=== PATIENT | male | born 1935 | race Caucasian/White ===

== ENCOUNTER 2018-07-27 11:59 | Inpatient (IN) | payer OTHER ==
--- NOTE | 2018-07-27 12:49 | R.PREADM ---
SCREENING DATE AND TIME 07/27/2018 12:08 (CDT) ANTICIPATED REHAB ADMISSION DATE 07/29/2018 REFERRING FACILITY [facility] REFERRAL DATE AND TIME 07/27/2018 12:08 (CDT) ACUTE ADMIT DATE 07/19/2018 Previous Rehabilitation(s): No. 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 Juan C Brooks M.D. MR# [id number] NAME LUANN WOODS ADDRESS [address] [place] [address] [place]IP [phone] DATE OF 1935 AGE 83 SSN# [id number] GENDER male MARITAL STATUS RACE white ADMIT FROM 02 - [facility] PRE-HOSPITAL LIVING SETTING 01 - Home (private home/apt. board/care, assisted living, nursing home, transitional living) HOME TYPE AND DETAILS Type of home: mobile home # of levels in the residence: 1 # of steps within the residence: 0 # of steps to enter the residence: 1 PRE-HOSPITAL LIVING WITH Family/Relatives FAMILY SUPPORT Yes PRIMARY FAMILY CONTACT NAME Ana Banks PRIMARY FAMILY CONTACT PHONE PHONE PRIMARY FAMILY CONTACT ON ADM.? no IS PRIMARY FAMILY CONTACT AUTH. REP.? no 1ST EMERGENCY CONTACT Ana Banks 1ST CONTACT PHONE PHONE 1ST CONTACT ON ADM. no IS 1ST CONTACT AUTH. REP.? no PHONE 2ND CONTACT ON ADM.? no PATIENT EMPLOYMENT STATUS Retired (for age) PATIENT EMPLOYER No Employer PAYOR INFORMATION: 1ST PAYOR NAME MEDICARE 1ST PAYOR PHONE [phone] 1ST PAYOR INJURY/ILLNESS DUE TO ACCIDENT? No ANOTHER CONSTITUTION PARTY RESPONSIBLE? 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 is a 83 yo Right-handed white male. On 07/19/2018 he was admitted to [facility] with diagnosis Chronic atrial fibrillation (I48.2) . His impairment category is Cardiac 09 - Cardiac Disorders (09). Pre-morbidly, Pt. was independent/mod-I in Social Cognition, Self-Care, Locomotion, Sphincter Control , Transfers Control, and Communication; and he had good Sphincter Control. Currently, he has deficits of Balance, Self-Care, Locomotion, Endurance, Safety Awareness, and Transf ers Control. Pt. is now referred to [facility] for acute in-patient rehabilitation in order to maximize patient's functional independence in activities of daily living, strength, ROM, and mobi lity. Patient has realistic goal of being discharged at assistance level 6-Aditya to reside at Home with Fam minal/Relatives. 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) PAST SURGICAL HISTORY: CABG MECHANICAL HEART VALVE REPLACEMENT NEPHRECTOMY IVC THROMBECTOMY PROSTATE SURGERY MEDICATION ALLERGIES: No Known Drug Allergies (NKDA) ENVIRONMENTAL ALLERGIES: None Known - Substance Allergies None Known - Other Allergies None Known CODE STATUS: Full code WEIGHT/HEIGHT/BMI: WEIGHT 216 lbs HEIGHT 5' 11" BMI 30.1 DIET: - Diet Type Regular - Diet - Solid Texture Regular - Diet - Liquid Texture Regular - Tube Feed N/A REVIEW OF SYSTEMS: - Gen Alert and awake Lying in bed No apparent distress Oriented to: person, time, and place - Vital Signs Temperature: 97 F SBP/DBP: 148/86 Pulse: 85 Resp: 18 Vital signs stable, afebrile - CVS RRR VITAL SIGNS Temperature: 97 F SBP/DBP: 148/86 Pulse: 85 Resp: 18 Vital signs stable, afebrile CURRENT SPHINCTER CONTROL: Pre-hospital bladder status: continent # of bladder accidents in the last 7 days prior to screenin Pre-hospital bowel status: continent # of bowel accidents in the last 7 days prior to screenin Last Bowel Movement Date: DETAILED CURRENT FUNCTIONAL STATUS: - Bladder accident frequency: Ind - No accidents in the past 7 days - Bowel accident frequency: Ind - No accidents in the past 7 days - Walking score based on distance walked: 3(>=150ft) - Wheelchair score based on distance traveled: 0(N/A) FUNCTIONAL STATUS: - Self-Care A. Eating Ind sup B. Grooming Ind sup C. Bathing Ind sup D. Dressing - Upper Ind sup E. Dressing - Lower Ind Vincent F. Toileting Ind Vincent - Sphincter Control G: Bladder control Ind Ind H: Bowel control Ind Ind - Transfers Control I. Bed/Chair/Wheelchair Ind sup J. Toilet Ind sup K. Tub/Shower Ind ADNO - Locomotion L. Walk/Wheelchair (C) Ind sup L. Walk/Wheelchair (W) Ind sup M. Stairs Ind ADNO - Communication N. Comprehension (B) Ind Ind O. Expression (B) Ind Ind - Social Cognition P. Social Interaction Ind Ind Q. Problem Solving Ind Ind R. Memory Ind Ind - Endurance Fair - Balance Fair - Safety Awareness Fair CURRENT FUNC. DEFICITS: Balance, Self-Care, Locomotion, Endurance, Safety Awareness, and Transfers Control THERAPY NOTES FROM ACUTE CARE: Attached. SPECIAL NEEDS: - Safety Concerns Skin breakdown precautions needed due to skin breakdown risk PATIENT NEEDS ACTIVE AND ONGOING THERAPEUTIC INTERVENTION OF MULTIPLE THERAPY DISCIPLINES, INCLUDING: - Occupational Therapy Evaluate and Treat. - Physical Therapy Evaluate and Treat. PATIENT NEEDS CLOSE MEDICAL SUPERVISION BY A REHABILITATION PHYSICIAN FOR: Bowel and Bladder Management Coordination of Treatment Team Diabetes Management Medical and Co-Morbidity Management DVT Management Pain Management PATIENT REQUIRES 24X7 REHAB NURSING FOR MEDICAL AND FUNCTIONAL MGT. OF THE FOLLOWING DEFICITS: ADL's Ambulation Bowel and Bladder Management Cognition Communication Disease Management Medication Management Patient/Family Education Providing Safe Environment Transfers Pain Management PATIENT REQUIRES INTENSIVE, COORDINATED INTERDISCIPLINARY APPROACH TO REHAB: Arranging Home Equipment/Services Discharge Planning Family Intervention/Training Drug And Alcohol Counselor/Case Management PATIENT REHAB POTENTIAL: Expected level of measurable improvement will be of a practical value to patient's functional capacit y or adaptations to impairments Has a viable Discharge Plan Medically appropriate; condition is sufficiently stable to participate in intensive rehab program Patient is able and expected to receive 3 hours of individualized therapy daily on at least 5 of ever y 7 days Patient's prognosis for significant practical improvement within a reasonable period of time appears Good DISCHARGE PLAN: - Estimated Length of Stay (days) 10. - Consensus on plan Discharge plan has been discussed with primary caregiver. Patient/Family is in agreement with the aldair n. Primary caregiver is in agreement with the plan. - Patient/Family Goals Return home with assistance. - Planned Living Setting Upon Discharge Home, to live with Family/Relatives. RECOMMENDED CARE LEVEL: IRF RECOMMENDATION DETAILS: Recommended Admission to Comprehensive Rehabilitation Program to Increase Functional [place] SCREENER'S COMPLETENESS CONFIRMATION: - Screening Confirmation The patient data collection on this preadmission screening form is finished - Mr. Oliver has multiple active medical problems which require close medical observation, supervision and management as provided by our inpatient rehabilitation unit. Furthermore, his moderate to marked cardiac debility is expected to improve greatly with aggressive daily inpatient physical and occupat ional therapy. Admission to the acute inpatient rehabilitation unit is necessary and appropriate. PHYSICIANS REVIEW AND ADMISSION DETERMINATION Admit - Based on my review of the Pre-Admission Screening results, in my medical judgment and experie nce, I concur with the findings and recommend admission to [facility], as this patient requires an IRF level of care. SIGNATURE PANEL: Clinical Liaison - [electronically] signed by Parker Case on 07/27/2018 at 12:34 (CDT) Physician Reviewer - [electronically] signed by Dr. Juan C Brooks M.D. on 07/27/2018 at 12:48 (CDT )
--- OUTSIDE RECORDS SUMMARY | 2018-07-27 18:38 | XMS REPORT | Clinical Summary ---
:1935 Author Organization [facility] Address [address] [place] [phone] Phone Care Team Providers Name Role Phone Unavailable Primary Care Provider Unavailable Allergies No Known Allergies Current Medications Not on file Active Problems Not on file Encounters Date Type Specialty Care Team Description 07/19/2018 Telephone Critical Care Jesus Cole Lbwe-vk-Wzhm Call Medicine MD Freddy 07/18/2018 Telephone Critical Care Jesus Cole Hjlo-lh-Zzoc Call Medicine MD Freddy 07/18/2018 Hospital Encounter Jesus Cole MD after 07/26/2017 Social History Tobacco Use Types Packs/Day Years Used Date Never Assessed Sex Assigned at Date Recorded Not on file Last Filed Vital Signs Not on file Plan of Treatment Health Maintenance Due Date Last Done Comments INFLUENZA VACCINE 07/02/2018 Results Not on fileafter 07/26/2017
--- OUTSIDE RECORDS SUMMARY | 2018-07-27 18:38 | XMS REPORT | Clinical Summary ---
:1935 Author Organization [facility] Address [address] [place] [address] Care Team Providers Name Role Phone Asked, No Pcp Primary Care Provider Unavailable Allergies No Known Allergies Current Medications Prescription Sig. Disp. Refills Start Date End Date Status finasteride Take 5 mg by 07/03/2017 Active (PROSCAR) 5 mg mouth daily. tabletIndications: Symptomatic Benign Prostatic Hyperplasia tamsulosin (FLOMAX) 0.4 mg daily. 06/07/2017 Active 0.4 mg capsule,extended release 24hr pantoprazole Take 1 tablet Active (PROTONIX) 40 MG EC by mouth daily. tablet FERROUS SULFATE, Take 45 mg by Active DRIED (IRON, DRIED, mouth daily. ORAL) simvastatin (ZOCOR) Take 40 mg by Active 40 MG mouth every tabletIndications: other day. Hyperlipidemia metoprolol Take 25 mg by Active succinate XL mouth daily. (TOPROL-XL) 25 mg 24 hr tabletIndications: Hypertension aspirin 81 mg Chew 1 tablet 30 tablet 0 07/27/2018 Active chewable (81 mg total) 8 tabletIndications: daily for 30 H/O heart valve days. replacement with porcine valve, Chronic atrial fibrillation (HCC) ofloxacin (OCUFLOX) Administer 2 07/27/2018 Active 0.3 % ophthalmic drops to both 8 solution eyes 4 (four) times a day for 5 days. glyBURIDE (DIABETA) 2.5 mg 2 (two) 07/03/2017 Discontinued 2.5 MG tablet times a day 8 with meals. metFORMIN 500 mg 2 (two) 07/24/2017 Discontinued (GLUCOPHAGE) 1,000 times a day. 8 mg tablet metoprolol 50 mg daily. 06/16/2017 Discontinued succinate XL 8 (TOPROL-XL) 50 mg 24 hr tablet warfarin (COUMADIN) Take 5 mg by 08/02/2017 Discontinued 5 MG tablet mouth daily. 8 enoxaparin Inject 80 mg Discontinued (LOVENOX) 80 mg/0.8 under the skin 8 mL syringe 2 (two) times a day. docusate sodium Take 1 capsule 60 capsule 0 01/28/2018 (COLACE) 100 MG (100 mg total) 8 capsule by mouth 2 (two) times a day for 30 days. traMADol (ULTRAM) Take 1 tablet 21 tablet 0 01/28/2018 50 mg tablet (50 mg total) 8 by mouth every 8 (eight) hours as needed for moderate pain for up to 21 doses. Active Problems Problem Noted Date Acute renal failure (ARF) (HCC) 07/19/2018 H/O heart valve replacement with porcine valve 07/19/2018 Chronic atrial fibrillation (HCC) 07/19/2018 H/O unilateral nephrectomy 07/19/2018 Essential hypertension 07/19/2018 Gastrointestinal hemorrhage with melena 07/19/2018 Gross hematuria 07/19/2018 History of CVA (cerebrovascular accident) without residual deficits 07/19/2018 Renal cell carcinoma (HCC) 07/19/2018 Hyperkalemia 07/19/2018 High anion gap metabolic acidosis 07/19/2018 Thrombocytopenia (HCC) 07/19/2018 Anemia due to chronic kidney disease 07/19/2018 Type 2 diabetes mellitus without complication, without long-term current 07/19 use of insulin ([facility]) Resolved Problems Problem Noted Date Resolved Date Right renal mass 01/24/2018 07/19/2018 Encounters Date Type Specialty Care Team Description 07/20/2018 Anesthesia Event Urology Fracisco Rodgers, 07/20/2018 Procedure Pass Urology 07/20/2018 Surgery Urology Rito Ga CYSTOSCOPY, LEFT SAMMY Castillo MD WITH URETERAL STENT REPLACEMENT, FULGERATION OF BLEEDERS 07/19/2018 - Hospital Encounter General Internal Gotur, Cris Acute renal failure, unspecified acute renal failure type (HCC) (Primary Dx); 07/27/2018 Medicine MD Lior H/O heart valve replacement with porcine valve; Anjelica Cox, Chronic atrial fibrillation (HCC); Essential hypertension; Type 2 diabetes mellitus without complication, without long-term current use of insulin (HCC); History of CVA (cerebrovascular accident) without residual deficits 07/19/2018 Telephone Soraya Tabor MD 07/18/2018 Intake Access N/A 05/25/2018 Telephone Estephania Knowles 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 Sr., MD disease, stage III (moderate) (Primary Dx) 02/02/2018 Telephone Soraya Tabor MD 01/28/2018 Patient Outreach Quality Dixie Soto RN 01/24/2018 - Hospital Encounter General Internal [facility] Renal mass, right 01/28/2018 Medicine MD Soraya 01/24/2018 Procedure Pass Urology 01/24/2018 Surgery Urology [facility], ROBOTIC ASSISTED MD Soraya LAPAROSCOPIC RADICAL RIGHT NEPHRECTOMY, IVC THROMBECTOMY 01/19/2018 Hospital Encounter Radiology [facility] Preop testing MD Soraya 01/19/2018 Office Visit Urologadriel Knowles Right renal mass MD Soraya (Primary Dx) 01/19/2018 Pre-Admit Testing Pre-Admission [facility] Preop testing Appointment Testing MD Soraya (Primary Dx) 01/19/2018 Hospital Encounter Radiology [facility] Renal mass MD Soraya 01/19/2018 Anesthesia Event Urology Gume Jackson, DINA 01/12/2018 Orders Only Urology Perla Howard, Renal mass (Primary MA Dx) 12/27/2017 Procedure Pass Radiology 12/27/2017 Orders Only Urology Perla Howard, Renal mass (Primary MA Dx) 12/27/2017 Telephone Urology Perla Howard, Renal mass (Primary MA Dx) 12/27/2017 Telephone Urology Aracelis Ponce 12/25/2017 Hospital Encounter Radiology Rito Ga Kidney errol Castillo MD 12/25/2017 Transcribe Orders Access Rito Ga Kidney errol Castillo MD (Primary Dx) 12/22/2017 Orders Only Urology Rito Ga Kidney errol Castillo MD (Primary Dx) 12/21/2017 Office Visit Urology Rito Ga Renal mass (Primary MD Anna Dx) 12/20/2017 Telephone Urology Aracelis Ponce 12/05/2017 Hospital Encounter Radiology Rito Ga Renal efraín Castillo MD 12/05/2017 Hospital Encounter Radiology Rito Ga Renal mass MD Anna 12/05/2017 Transcribe Orders Urology Sonyavam, Kidney mass (Primary MD Miles Dx) 12/05/2017 Telephone Urology Rito Ga MD 09/27/2017 Hospital Encounter Radiology Miles Field MD 09/27/2017 Procedure Pass Radiology 09/27/2017 Ancillary Orders Radiology Miles Field MD 08/07/2017 Office Visit Urology Rito Ga Renal mass (Primary MD Anna Dx) 08/07/2017 Procedure Pass Radiology 08/07/2017 Procedure Pass Radiology after 07/26/2017 Family History Medical History Relation Name Comments Heart disease Father Heart disease Mother Relation Name Status Comments Father Mother Social History Tobacco Use Types Packs/Day Years Used Date Former Smoker Cigarettes 0.25 2 Quit: 1963 Smokeless Tobacco: Former User Quit: 1964 Alcohol Use Drinks/Week oz/Week Comments No Sex Assigned at Date Recorded Not on file Last Filed Vital Signs Vital Sign Reading Time Taken Blood Pressure 134/63 07/27/2018 11:48 AM CDT Pulse 77 07/27/2018 11:48 AM CDT Temperature 35.9 C (96.6 F) 07/27/2018 11:48 AM CDT Respiratory Rate 20 07/27/2018 11:48 AM CDT Oxygen Saturation 95% 07/27/2018 11:48 AM CDT Inhaled Oxygen Concentration - - Weight 94.4 kg (208 lb 2 oz) 07/27/2018 5:42 AM CDT Height 180.3 cm (5' 11") 07/19/2018 1:45 AM CDT Body Mass Index 29.03 07/27/2018 5:42 AM CDT Plan of Treatment Date Type Specialty Care Team Description 10/25/2018 Office Visit Urology Soraya Knowles MD [address] [facility] [address] [place] [id number] [phone] Health Maintenance Due Date Last Done Comments DIABETIC FOOT EXAM 1943 DIABETIC RETINAL EYE EXAM 1943 SHINGRIX VACCINE (#1) 1983 ZOSTER VACCINE 1993 PNEUMOCOCCAL POLYSACCHARIDE VACCINE AGE 65 AND OVER 1998 PNEUMOCOCCAL-13 1998 INFLUENZA VACCINE 05/02/2018 Implants Implanted Type Area Student Development Advisor Device Expiration Model / Identifier Date Serial / Lot X-Large, Hem-O-Cheryl Polymer Ligating Clip (6/Cartridge, 14 Cr/Bx) Closure N/A : WECK CLOSURE, 06/24/2022 [id number] / Implanted: Qty: 1 on 01/24/2018 by Soraya Knowles MD Device N/A DIV OF TELEFLEX / INC 12mm/ 15mm Retrieval Bag Retrieval N/A: [employer] 08/21/2020 [id number] / Implanted: Qty: 1 on 01/24/2018 by Soraya Knowles MD Materials N/A [facility] / [id number] Clip Ligtng Hem-O-Cheryl Endoscpc [facility] Lg - [id number] Surgical N/A: WECK CLOSURE 10/10/2022 [id number] / Implanted: Qty: 4 on 01/24/2018 by Soraya Knowles MD Implants; N/A SYSTEMS / Expanders; Extenders; Surgical Wires Clip Ligtng Hem-O-Cheryl Endoscpc [facility] Lg - [id number] Surgical N/A: WECK CLOSURE 09/13/2022 [id number] / Implanted: Qty: 1 on 01/24/2018 by Soraya Knowles MD Implants; N/A SYSTEMS / Expanders; Extenders; Surgical Wires Clip Ligtng Hem-O-Cheryl Endoscpc A[employer] Ply Lg - [id number] Surgical N/A: WECK CLOSURE 09/13/2022 [id number] / Implanted: Qty: 1 on 01/24/2018 by Soraya Knowles MD Implants; N/A SYSTEMS / Expanders; Extenders; Surgical Wires Tip Flxibl Selnt Fibrin Clog-Resistant 45cm Evicel - [id number] Surgical N/A : [facility] 07/01/2020 [id number] / Implanted: Qty: 1 on 01/24/2018 by Soraya Knowles MD Implants; N/A / Expanders; [id number] Extenders; Surgical Wires Tip Flxibl Selnt Fibrin Clog-Resistant 45cm Evicel - [id number] Surgical N/A : [facility] 07/01/2020 [id number] / Implanted: Qty: 1 on 01/24/2018 by Soraya Knowles MD Implants; N/A / Expanders; [id number] Extenders; Surgical Wires Stent Contour Injection 6x26 - [id number] Surgical N/A: [facility] 04/15 [id number] / Implanted: Qty: 1 on 07/20/2018 by Rito Ga MD Stents N/A / [id number] Procedures Procedure Name Priority Date/Time Associated Comments Diagnosis POC GLUCOSE Routine 07/27/2018 11:42 Results for this AM CDT procedure are in the results section. POC GLUCOSE Routine 07/27/2018 7:46 Results for this AM CDT procedure are in the results section. POC GLUCOSE Routine 07/27/2018 5:38 Results for this AM CDT procedure are in the results section. ESTIMATED GFR Routine 07/27/2018 5:30 Results for this AM CDT procedure are in the results section. BASIC METABOLIC PANEL Routine 07/27/2018 5:30 Results for this AM CDT procedure are in the results section. POC GLUCOSE Routine 07/26/2018 8:48 Results for this PM CDT procedure are in the results section. POC GLUCOSE Routine 07/26/2018 4:23 Results for this PM CDT procedure are in the results section. POC GLUCOSE Routine 07/26/2018 11:57 Results for this AM CDT procedure are in the results section. POC GLUCOSE Routine 07/26/2018 7:54 Results for this AM CDT procedure are in the results section. ESTIMATED GFR Routine 07/26/2018 4:46 Results for this AM CDT procedure are in the results section. MAGNESIUM LEVEL Routine 07/26/2018 4:46 Results for this AM CDT procedure are in the results section. BASIC METABOLIC PANEL Routine 07/26/2018 4:46 Results for this AM CDT procedure are in the results section. HC COMPLETE BLD COUNT Routine 07/26/2018 3:55 Results for this W/AUTO DIFF AM CDT procedure are in the results section. POC GLUCOSE Routine 07/25/2018 9:08 Results for this PM CDT procedure are in the results section. POC GLUCOSE Routine 07/25/2018 6:17 Results for this PM CDT procedure are in the results section. POC GLUCOSE Routine 07/25/2018 11:40 Results for this AM CDT procedure are in the results section. POC GLUCOSE Routine 07/25/2018 7:46 Results for this AM CDT procedure are in the results section. ESTIMATED GFR Routine 07/25/2018 4:41 Results for this AM CDT procedure are in the results section. PARTIAL THROMBOPLASTIN Routine 07/25/2018 4:41 Results for this TIME (PTT) AM CDT procedure are in the results section. PROTHROMBIN TIME WITH Routine 07/25/2018 4:41 Results for this INR AM CDT procedure are in the results section. BASIC METABOLIC PANEL Routine 07/25/2018 4:41 Results for this AM CDT procedure are in the results section. HC COMPLETE BLD COUNT Routine 07/25/2018 4:41 Results for this W/AUTO DIFF AM CDT procedure are in the results section. PHOSPHORUS LEVEL Routine 07/25/2018 4:41 Results for this AM CDT procedure are in the results section. MAGNESIUM LEVEL Routine 07/25/2018 4:41 Results for this AM CDT procedure are in the results section. POC GLUCOSE Routine 07/25/2018 1:05 Results for this AM CDT procedure are in the results section. POC GLUCOSE Routine 07/24/2018 9:41 Results for this PM CDT procedure are in the results section. POC GLUCOSE Routine 07/24/2018 5:13 Results for this PM CDT procedure are in the results section. HEMOGLOBIN & HEMATOCRIT STAT 07/24/2018 4:15 Results for this PM CDT procedure are in the results section. POC GLUCOSE Routine 07/24/2018 11:15 Results for this AM CDT procedure are in the results section. POC GLUCOSE Routine 07/24/2018 7:43 Results for this AM CDT procedure are in the results section. POC GLUCOSE Routine 07/24/2018 5:38 Results for this AM CDT procedure are in the results section. PARTIAL THROMBOPLASTIN Routine 07/24/2018 5:28 Results for this TIME (PTT) AM CDT procedure are in the results section. ESTIMATED GFR Routine 07/24/2018 5:28 Results for this AM CDT procedure are in the results section. COMPREHENSIVE METABOLIC Routine 07/24/2018 5:28 Results for this PANEL AM CDT procedure are in the results section. HC COMPLETE BLD COUNT Routine 07/24/2018 5:28 Results for this W/AUTO DIFF AM CDT procedure are in the results section. PHOSPHORUS LEVEL Routine 07/24/2018 5:28 Results for this AM CDT procedure are in the results section. POC GLUCOSE Routine 07/24/2018 1:41 Results for this AM CDT procedure are in the results section. PARTIAL THROMBOPLASTIN Timed 07/23/2018 9:51 Results for this TIME (PTT) PM CDT procedure are in the results section. POC GLUCOSE Routine 07/23/2018 9:12 Results for this PM CDT procedure are in the results section. PARTIAL THROMBOPLASTIN STAT 07/23/2018 3:41 Results for this TIME (PTT) PM CDT procedure are in the results section. POC GLUCOSE Routine 07/23/2018 2:35 Results for this PM CDT procedure are in the results section. POC GLUCOSE Routine 07/23/2018 11:46 Results for this AM CDT procedure are in the results section. POC GLUCOSE Routine 07/23/2018 7:48 Results for this AM CDT procedure are in the results section. ESTIMATED GFR Routine 07/23/2018 4:05 Results for this AM CDT procedure are in the results section. PROTHROMBIN TIME WITH Routine 07/23/2018 4:05 Results for this INR AM CDT procedure are in the results section. BASIC METABOLIC PANEL Routine 07/23/2018 4:05 Results for this AM CDT procedure are in the results section. HC COMPLETE BLD COUNT Routine 07/23/2018 4:05 Results for this W/AUTO DIFF AM CDT procedure are in the results section. PHOSPHORUS LEVEL Routine 07/23/2018 4:05 Results for this AM CDT procedure are in the results section. POC GLUCOSE Routine 07/22/2018 8:31 Results for this PM CDT procedure are in the results section. POC GLUCOSE Routine 07/22/2018 4:27 Results for this PM CDT procedure are in the results section. POC GLUCOSE Routine 07/22/2018 11:04 Results for this AM CDT procedure are in the results section. CT HEAD WO CONTRAST STAT 07/22/2018 10:11 Results for this AM CDT procedure are in the results section. ARTERIAL BLOOD GAS STAT 07/22/2018 9:20 Results for this AM CDT procedure are in the results section. ECG 12-LEAD STAT 07/22/2018 9:17 Results for this AM CDT procedure are in the results section. POC GLUCOSE Routine 07/22/2018 7:12 Results for this AM CDT procedure are in the results section. MICROALBUMIN, URINE, Routine 07/22/2018 7:10 Results for this RANDOM AM CDT procedure are in the results section. CREATININE LEVEL, Routine 07/22/2018 7:10 Results for this URINE, RANDOM AM CDT procedure are in the results section. PROTEIN, URINE, RANDOM Routine 07/22/2018 7:10 Results for this AM CDT procedure are in the results section. XR CHEST 1 VW PORTABLE Routine 07/22/2018 6:35 Results for this AM CDT procedure are in the results section. ESTIMATED GFR Routine 07/22/2018 3:40 Results for this AM CDT procedure are in the results section. PHOSPHORUS LEVEL Routine 07/22/2018 3:40 Results for this AM CDT procedure are in the results section. BASIC METABOLIC PANEL Routine 07/22/2018 3:40 Results for this AM CDT procedure are in the results section. MAGNESIUM LEVEL Routine 07/22/2018 3:40 Results for this AM CDT procedure are in the results section. HC COMPLETE BLD COUNT Routine 07/22/2018 3:40 Results for this W/AUTO DIFF AM CDT procedure are in the results section. FOLATE LEVEL Routine 07/22/2018 3:40 Results for this AM CDT procedure are in the results section. VITAMIN B12 LEVEL Routine 07/22/2018 3:40 Results for this AM CDT procedure are in the results section. AMMONIA LEVEL Routine 07/22/2018 3:40 Results for this AM CDT procedure are in the results section. POC GLUCOSE Routine 07/21/2018 8:20 Results for this PM CDT procedure are in the results section. RETICULOCYTE COUNT Routine 07/21/2018 6:20 Results for this PM CDT procedure are in the results section. TOTAL IRON BINDING Routine 07/21/2018 4:55 Results for this CAPACITY PM CDT procedure are in the results section. FERRITIN LEVEL Routine 07/21/2018 4:55 Results for this PM CDT procedure are in the results section. VITAMIN D 1,25 Routine 07/21/2018 4:54 Results for this DIHYDROXY LEVEL, SERUM PM CDT procedure are in the results section. POC GLUCOSE Routine 07/21/2018 4:51 Results for this PM CDT procedure are in the results section. ECHOCARDIOGRAM 2D Routine 07/21/2018 1:50 Results for this COMPLETE W MMODE PM CDT procedure are in SPECTRAL COLOR DOPPLER the results (22503) section. HEMODIALYSIS Routine 07/21/2018 11:54 AM CDT POC GLUCOSE Routine 07/21/2018 11:38 Results for this AM CDT procedure are in the results section. POC GLUCOSE Routine 07/21/2018 7:32 Results for this AM CDT procedure are in the results section. ESTIMATED GFR Routine 07/21/2018 3:15 Results for this AM CDT procedure are in the results section. PHOSPHORUS LEVEL Routine 07/21/2018 3:15 Results for this AM CDT procedure are in the results section. MAGNESIUM LEVEL Routine 07/21/2018 3:15 Results for this AM CDT procedure are in the results section. BASIC METABOLIC PANEL Routine 07/21/2018 3:15 Results for this AM CDT procedure are in the results section. PROTHROMBIN TIME WITH Routine 07/21/2018 3:15 Results for this INR AM CDT procedure are in the results section. HC COMPLETE BLD COUNT Routine 07/21/2018 3:15 Results for this W/AUTO DIFF AM CDT procedure are in the results section. VANCOMYCIN LEVEL, Routine 07/21/2018 3:15 Results for this RANDOM AM CDT procedure are in the results section. HEMOGLOBIN & HEMATOCRIT Routine 07/20/2018 9:20 Results for this PM CDT procedure are in the results section. OCCULT BLOOD, STOOL Routine 07/20/2018 9:10 Results for this PM CDT procedure are in the results section. POC GLUCOSE Routine 07/20/2018 9:03 Results for this PM CDT procedure are in the results section. POC GLUCOSE Routine 07/20/2018 5:02 Results for this PM CDT procedure are in the results section. HEMOGLOBIN & HEMATOCRIT Timed 07/20/2018 2:05 Results for this PM CDT procedure are in the results section. HEMODIALYSIS Routine 07/20/2018 12:40 PM CDT POC GLUCOSE Routine 07/20/2018 12:28 Results for this PM CDT procedure are in the results section. FL > 1 HOUR Routine 07/20/2018 12:10 Results for this PM CDT procedure are in the results section. NV AN ELECTIVE Routine 07/20/2018 11:24 SUPRAGLOTTIC AIRWAY AM CDT Procedure Note - Zahra Moore CRNA - 07/20/2018 11:24 AM CDT Airway Date/Time: 07/20/2018 11:24 AM Performed by: ZAHRA MOORE Authorized by: DHAVAL DAILEY II Location: OR Urgency: Elective Difficult Airway: No Performed by: resident/TWILL CUTTER/AA Preoxygenated with 100% O2: Yes C-spine Precautions Maintained Throughout: Yes Mask Ventilation: Not attempted Final Airway Type: Supraglottic airway Final LMA: I-Gel LMA Size: 5 Number of Attempts at Approach: 1 atraumatic CYSTOSCOPY, WITH 07/20/2018 11:00 left uretral stone URETERAL STENT AM CDT REPLACEMENT POC GLUCOSE Routine 07/20/2018 8:45 Results for this AM CDT procedure are in the results section. POC GLUCOSE Routine 07/20/2018 5:06 Results for this AM CDT procedure are in the results section. ESTIMATED GFR Routine 07/20/2018 4:40 Results for this AM CDT procedure are in the results section. B NATRIURETIC PEPTIDE Routine 07/20/2018 4:40 Results for this AM CDT procedure are in the results section. HC COMPLETE BLD COUNT Routine 07/20/2018 4:40 Results for this W/AUTO DIFF AM CDT procedure are in the results section. IONIZED CALCIUM Routine 07/20/2018 4:40 Results for this AM CDT procedure are in the results section. PHOSPHORUS LEVEL Routine 07/20/2018 4:40 Results for this AM CDT procedure are in the results section. MAGNESIUM LEVEL Routine 07/20/2018 4:40 Results for this AM CDT procedure are in the results section. HEPATIC FUNCTION PANEL Routine 07/20/2018 4:40 Results for this AM CDT procedure are in the results section. BASIC METABOLIC PANEL Routine 07/20/2018 4:40 Results for this AM CDT procedure are in the results section. PROTHROMBIN TIME WITH Routine 07/20/2018 4:40 Results for this INR AM CDT procedure are in the results section. POC GLUCOSE Routine 07/20/2018 12:55 Results for this AM CDT procedure are in the results section. POC GLUCOSE Routine 07/19/2018 8:48 Results for this PM CDT procedure are in the results section. ECG 12-LEAD Routine 07/19/2018 5:45 Results for this PM CDT procedure are in the results section. POC GLUCOSE Routine 07/19/2018 4:53 Results for this PM CDT procedure are in the results section. CT ABDOMEN PELVIS WO STAT 07/19/2018 3:13 Results for this CONTRAST PM CDT procedure are in the results section. ESTIMATED GFR STAT 07/19/2018 2:13 Results for this PM CDT procedure are in the results section. MAGNESIUM LEVEL STAT 07/19/2018 2:13 Results for this PM CDT procedure are in the results section. BASIC METABOLIC PANEL STAT 07/19/2018 2:13 Results for this PM CDT procedure are in the results section. LACTIC ACID LEVEL STAT 07/19/2018 2:13 Results for this PM CDT procedure are in the results section. ARTERIAL BLOOD GAS STAT 07/19/2018 2:13 Results for this PM CDT procedure are in the results section. FIBRINOGEN STAT 07/19/2018 2:13 Results for this PM CDT procedure are in the results section. PARTIAL THROMBOPLASTIN STAT 07/19/2018 2:13 Results for this TIME (PTT) PM CDT procedure are in the results section. PROTHROMBIN TIME WITH STAT 07/19/2018 2:13 Results for this INR PM CDT procedure are in the results section. PHOSPHORUS LEVEL STAT 07/19/2018 2:13 Results for this PM CDT procedure are in the results section. HC COMPLETE BLD COUNT STAT 07/19/2018 2:13 Results for this W/AUTO DIFF PM CDT procedure are in the results section. POC GLUCOSE Routine 07/19/2018 12:29 Results for this PM CDT procedure are in the results section. RESPIRATORY PATHOGEN Routine 07/19/2018 9:56 Results for this PANEL AM CDT procedure are in the results section. HEPATITIS B SURFACE Routine 07/19/2018 9:30 Results for this ANTIGEN AM CDT procedure are in the results section. BLOOD CULTURE, AEROBIC Routine 07/19/2018 9:26 Results for this & ANAEROBIC AM CDT procedure are in the results section. POC GLUCOSE Routine 07/19/2018 8:18 Results for this AM CDT procedure are in the results section. HEMODIALYSIS Routine 07/19/2018 7:12 Results for this AM CDT procedure are in the results section. POC GLUCOSE Routine 07/19/2018 4:52 Results for this AM CDT procedure are in the results section. XR CHEST 1 VW PORTABLE STAT 07/19/2018 4:31 Results for this AM CDT procedure are in the results section. HEMODIALYSIS CATHETER Routine 07/19/2018 3:08 Acute renal Results for this PLACEMENT AM CDT failure, procedure are in unspecified acute the results renal failure type section. (HCC) POC GLUCOSE Routine 07/19/2018 2:04 Results for this AM CDT procedure are in the results section. URINALYSIS SCREEN AND STAT 07/19/2018 2:00 Results for this MICROSCOPY, WITH REFLEX AM CDT procedure are in TO CULTURE the results section. ESTIMATED GFR STAT 07/19/2018 1:50 Results for this AM CDT procedure are in the results section. LACTIC ACID LEVEL STAT 07/19/2018 1:50 Results for this AM CDT procedure are in the results section. BETA HYDROXYBUTYRATE STAT 07/19/2018 1:50 Results for this AM CDT procedure are in the results section. THYROID STIMULATING STAT 07/19/2018 1:50 Results for this HORMONE AM CDT procedure are in the results section. PROTHROMBIN TIME WITH STAT 07/19/2018 1:50 Results for this INR AM CDT procedure are in the results section. PARTIAL THROMBOPLASTIN STAT 07/19/2018 1:50 Results for this TIME (PTT) AM CDT procedure are in the results section. PHOSPHORUS LEVEL STAT 07/19/2018 1:50 Results for this AM CDT procedure are in the results section. MAGNESIUM LEVEL STAT 07/19/2018 1:50 Results for this AM CDT procedure are in the results section. IONIZED CALCIUM STAT 07/19/2018 1:50 Results for this AM CDT procedure are in the results section. HC COMPLETE BLD COUNT STAT 07/19/2018 1:50 Results for this W/AUTO DIFF AM CDT procedure are in the results section. COMPREHENSIVE METABOLIC STAT 07/19/2018 1:50 Results for this PANEL AM CDT procedure are in the results section. ECG 12-LEAD Routine 07/19/2018 1:49 Results for this AM CDT procedure are in the results section. POC GLUCOSE Routine 07/19/2018 1:29 Results for this AM CDT procedure are in the results section. 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 ZZESTIMATED GFR Routine 05/17/2018 11:55 Results for this AM CDT procedure are in the results section. URIC ACID LEVEL Routine 05/17/2018 11:55 Chronic kidney Results for this AM CDT disease, stage III procedure are in (moderate) the results section. HC COMPLETE BLD COUNT Routine 05/17/2018 11:55 Chronic kidney Results for this W/AUTO DIFF AM CDT disease, stage III procedure are in (moderate) the results section. ALBUMIN LEVEL Routine 05/17/2018 11:55 Chronic kidney Results for this AM CDT disease, stage III procedure are in (moderate) the results section. PHOSPHORUS LEVEL Routine 05/17/2018 11:55 Chronic kidney Results for this AM CDT disease, stage III procedure are in (moderate) the results section. BASIC METABOLIC PANEL Routine 05/17/2018 11:55 Chronic kidney Results for this AM CDT disease, stage III procedure are in (moderate) the results section. PARATHYROID HORMONE Routine 05/17/2018 11:55 Chronic kidney Results for this AM CDT disease, stage III procedure are in (moderate) the results section. URINALYSIS SCREEN AND Routine 05/17/2018 11:55 Renal mass Results for this MICROSCOPY, WITH REFLEX AM CDT procedure are in TO CULTURE the results section. GRAM STAIN Routine 05/17/2018 11:55 Results for this AM CDT procedure are in the results section. URINE CULTURE Routine 05/17/2018 11:55 Results for this AM CDT procedure are in the results section. 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 ZZESTIMATED GFR Routine 02/15/2018 12:40 Results for this PM CDT procedure are in the results section. URIC ACID LEVEL Routine 02/15/2018 12:40 Chronic kidney Results for this PM CDT disease, stage III procedure are in (moderate) the results section. HC COMPLETE BLD COUNT Routine 02/15/2018 12:40 Chronic kidney Results for this W/AUTO DIFF PM CDT disease, stage III procedure are in (moderate) the results section. URINALYSIS, AUTOMATED Routine 02/15/2018 12:40 Chronic kidney Results for this WITH MICROSCOPY PM CDT disease, stage III procedure are in (moderate) the results section. ALBUMIN LEVEL Routine 02/15/2018 12:40 Chronic kidney Results for this PM CDT disease, stage III procedure are in (moderate) the results section. PHOSPHORUS LEVEL Routine 02/15/2018 12:40 Chronic kidney Results for this PM CDT disease, stage III procedure are in (moderate) the results section. BASIC METABOLIC PANEL Routine 02/15/2018 12:40 Chronic kidney Results for this PM CDT disease, stage III procedure are in (moderate) the results section. PARATHYROID HORMONE Routine 02/15/2018 12:40 Chronic kidney Results for this PM CDT disease, stage III procedure are in (moderate) the results section. POC GLUCOSE Routine 01/28/2018 11:34 Results for this AM CDT procedure are in the results section. POC GLUCOSE Routine 01/28/2018 8:19 Results for this AM CDT procedure are in the results section. ZZESTIMATED GFR Routine 01/28/2018 4:00 Results for this AM CDT procedure are in the results section. PHOSPHORUS LEVEL Routine 01/28/2018 4:00 Results for this AM CDT procedure are in the results section. MAGNESIUM LEVEL Routine 01/28/2018 4:00 Results for this AM CDT procedure are in the results section. CBC HEMOGRAM Routine 01/28/2018 4:00 Results for this AM CDT procedure are in the results section. BASIC METABOLIC PANEL Routine 01/28/2018 4:00 Results for this AM CDT procedure are in the results section. POC GLUCOSE Routine 01/27/2018 9:01 Results for this PM CDT procedure are in the results section. POC GLUCOSE Routine 01/27/2018 6:48 Results for this PM CDT procedure are in the results section. POC GLUCOSE Routine 01/27/2018 6:19 Results for this PM CDT procedure are in the results section. POC GLUCOSE Routine 01/27/2018 1:10 Results for this PM CDT procedure are in the results section. POC GLUCOSE Routine 01/27/2018 7:29 Results for this AM CDT procedure are in the results section. PROTHROMBIN TIME WITH Routine 01/27/2018 4:45 Results for this INR AM CDT procedure are in the results section. PARTIAL THROMBOPLASTIN Routine 01/27/2018 4:45 Results for this TIME (PTT) AM CDT procedure are in the results section. HC COMPLETE BLD COUNT Routine 01/27/2018 4:45 Results for this W/AUTO DIFF AM CDT procedure are in the results section. ZZESTIMATED GFR Routine 01/27/2018 4:00 Results for this AM CDT procedure are in the results section. PHOSPHORUS LEVEL Routine 01/27/2018 4:00 Results for this AM CDT procedure are in the results section. LACTIC ACID LEVEL Routine 01/27/2018 4:00 Results for this AM CDT procedure are in the results section. LDH Routine 01/27/2018 4:00 Results for this AM CDT procedure are in the results section. MAGNESIUM LEVEL Routine 01/27/2018 4:00 Results for this AM CDT procedure are in the results section. HEPATIC FUNCTION PANEL Routine 01/27/2018 4:00 Results for this AM CDT procedure are in the results section. BASIC METABOLIC PANEL Routine 01/27/2018 4:00 Results for this AM CDT procedure are in the results section. POC GLUCOSE Routine 01/26/2018 9:40 Results for this PM CDT procedure are in the results section. POC GLUCOSE Routine 01/26/2018 5:20 Results for this PM CDT procedure are in the results section. POC GLUCOSE Routine 01/26/2018 3:24 Results for this PM CDT procedure are in the results section. POC GLUCOSE Routine 01/26/2018 11:30 Results for this AM CDT procedure are in the results section. POC GLUCOSE Routine 01/26/2018 8:20 Results for this AM CDT procedure are in the results section. ZZESTIMATED GFR Routine 01/26/2018 1:31 Results for this AM CDT procedure are in the results section. PHOSPHORUS LEVEL Routine 01/26/2018 1:31 Results for this AM CDT procedure are in the results section. LACTIC ACID LEVEL Routine 01/26/2018 1:31 Results for this AM CDT procedure are in the results section. LDH Routine 01/26/2018 1:31 Results for this AM CDT procedure are in the results section. MAGNESIUM LEVEL Routine 01/26/2018 1:31 Results for this AM CDT procedure are in the results section. HEPATIC FUNCTION PANEL Routine 01/26/2018 1:31 Results for this AM CDT procedure are in the results section. BASIC METABOLIC PANEL Routine 01/26/2018 1:31 Results for this AM CDT procedure are in the results section. PROTHROMBIN TIME WITH Routine 01/26/2018 1:24 Results for this INR AM CDT procedure are in the results section. PARTIAL THROMBOPLASTIN Routine 01/26/2018 1:24 Results for this TIME (PTT) AM CDT procedure are in the results section. HC COMPLETE BLD COUNT Routine 01/26/2018 1:24 Results for this W/AUTO DIFF AM CDT procedure are in the results section. POC GLUCOSE Routine 01/25/2018 9:12 Results for this PM CDT procedure are in the results section. POC GLUCOSE Routine 01/25/2018 3:44 Results for this PM CDT procedure are in the results section. POC GLUCOSE Routine 01/25/2018 11:20 Results for this AM CDT procedure are in the results section. POC GLUCOSE Routine 01/25/2018 7:27 Results for this AM CDT procedure are in the results section. IONIZED CALCIUM Routine 01/25/2018 1:00 Results for this AM CDT procedure are in the results section. ZZESTIMATED GFR Routine 01/25/2018 1:00 Results for this AM CDT procedure are in the results section. PROTHROMBIN TIME WITH Routine 01/25/2018 1:00 Results for this INR AM CDT procedure are in the results section. PHOSPHORUS LEVEL Routine 01/25/2018 1:00 Results for this AM CDT procedure are in the results section. PARTIAL THROMBOPLASTIN Routine 01/25/2018 1:00 Results for this TIME (PTT) AM CDT procedure are in the results section. LACTIC ACID LEVEL Routine 01/25/2018 1:00 Results for this AM CDT procedure are in the results section. LDH Routine 01/25/2018 1:00 Results for this AM CDT procedure are in the results section. MAGNESIUM LEVEL Routine 01/25/2018 1:00 Results for this AM CDT procedure are in the results section. HEPATIC FUNCTION PANEL Routine 01/25/2018 1:00 Results for this AM CDT procedure are in the results section. BASIC METABOLIC PANEL Routine 01/25/2018 1:00 Results for this AM CDT procedure are in the results section. CBC WITH PLATELET AND Routine 01/25/2018 1:00 Results for this DIFFERENTIAL AM CDT procedure are in the results section. POC GLUCOSE Routine 01/24/2018 8:54 Results for this PM CDT procedure are in the results section. GRAM STAIN Routine 01/24/2018 6:40 Results for this PM CDT procedure are in the results section. URINE CULTURE Routine 01/24/2018 6:40 Results for this PM CDT procedure are in the results section. URINALYSIS SCREEN AND Routine 01/24/2018 6:39 Results for this MICROSCOPY, WITH REFLEX PM CDT procedure are in TO CULTURE the results section. POC GLUCOSE Routine 01/24/2018 5:49 Results for this PM CDT procedure are in the results section. PARTIAL THROMBOPLASTIN Routine 01/24/2018 5:45 Results for this TIME (PTT) PM CDT procedure are in the results section. PROTHROMBIN TIME WITH Routine 01/24/2018 5:45 Results for this INR PM CDT procedure are in the results section. HC COMPLETE BLD COUNT Routine 01/24/2018 5:45 Results for this W/AUTO DIFF PM CDT procedure are in the results section. ZZESTIMATED GFR Routine 01/24/2018 5:38 Results for this PM CDT procedure are in the results section. PHOSPHORUS LEVEL Routine 01/24/2018 5:38 Results for this PM CDT procedure are in the results section. MAGNESIUM LEVEL Routine 01/24/2018 5:38 Results for this PM CDT procedure are in the results section. LACTIC ACID LEVEL Routine 01/24/2018 5:38 Results for this PM CDT procedure are in the results section. BASIC METABOLIC PANEL Routine 01/24/2018 5:38 Results for this PM CDT procedure are in the results section. HC COMPLETE BLD COUNT Routine 01/24/2018 2:03 Results for this W/AUTO DIFF PM CDT procedure are in the results section. ZZESTIMATED GFR Routine 01/24/2018 1:58 Results for this PM CDT procedure are in the results section. BASIC METABOLIC PANEL Routine 01/24/2018 1:58 Results for this PM CDT procedure are in the results section. POC GLUCOSE Routine 01/24/2018 1:16 Results for this PM CDT procedure are in the results section. SURGICAL PATHOLOGY Routine 01/24/2018 12:33 Results for this REQUEST PM CDT procedure are in the results section. NV AN ELECTIVE Routine 01/24/2018 9:17 ENDOTRACHEAL AIRWAY AM CDT Procedure Note - Vanita Simon, TWILL CUTTER - 01/24/2018 9:17 AM CDT Airway Date/Time: 01/24/2018 9:17 AM Performed by: VANITA SIMON Authorized by: ALFONSO CALDERON Location: OR Urgency: Elective Difficult Airway: No Anesthesiologist: ALFONSO CALDERON Preoxygenated with 100% O2: Yes C-spine Precautions Maintained Throughout: Yes Mask Ventilation: Easy mask Final Airway Type: Endotracheal airway Final Endotracheal Airway: ETT Cuffed: Yes Technique Used: Direct laryngoscopy Devices/Methods Used in Placement: Intubating stylet Insertion Site: Oral Blade Type: Sewell Laryngoscope Blade/Videolaryngoscope Blade Size: 2 ETT Size (mm): 8.0 Cuff at minimum occlusion pressure: Yes Measured from: Lips ETT to Lips (cm): 22 Placement Verified by: CO2 detection, direct visualization and equal breath sounds Laryngoscopic view: Grade I - full view of glottis Rapid Sequence Induction (RSI): No Modified RSI: No Number of Attempts at Approach: 1 DL X 1 by ER resident. GLUCOSE LEVEL, SYRINGE STAT 01/24/2018 8:51 AM Results for this CDT procedure are in the results section. IONIZED CALCIUM, ARTERIAL STAT 01/24/2018 8:51 AM Results for this CDT procedure are in the results section. HEMOGLOBIN, SYRINGE STAT 01/24/2018 8:51 AM Results for this CDT procedure are in the results section. POTASSIUM, SYRINGE STAT 01/24/2018 8:51 AM Results for this CDT procedure are in the results section. SODIUM LEVEL, SYRINGE STAT 01/24/2018 8:51 AM Results for this CDT procedure are in the results section. ARTERIAL BLOOD GAS, CORRECTED STAT 01/24/2018 8:51 AM Results for this CDT procedure are in the results section. NEPHRECTOMY, PARTIAL, 01/24/2018 8:00 AM Renal mass, RADICAL, LAPAROSCOPIC, CDT right RETROPERITONEOSCOPIC APPROACH, ROBOT-ASSISTED Special Needs DAVINCI, EST 5 HRS POC GLUCOSE Routine 01/24/2018 7:55 AM Results for this CDT procedure are in the results section. POC GLUCOSE Routine 01/24/2018 7:20 AM Results for this CDT procedure are in the results section. PROTHROMBIN TIME WITH Routine 01/24/2018 7:20 AM Results for this INR, I-STAT CDT procedure are in the results section. XR CHEST 2 VW Routine 01/19/2018 1:42 PM Preop testing Results for this CDT procedure are in the results section. PREPARE RBC Routine 01/19/2018 11:12 AM Results for this CDT procedure are in the results section. HEMOGLOBIN A1C Routine 01/19/2018 11:12 AM Preop testing Results for this CDT procedure are in the results section. TYPE AND SCREEN Routine 01/19/2018 11:12 AM Preop testing Results for this CDT procedure are in the results section. MRI ABDOMEN W WO Routine 01/19/2018 9:58 AM Renal mass Results for this CONTRAST CDT procedure are in the results section. CT CHEST WO CONTRAST Routine 12/25/2017 2:02 PM Kidney disease Results for this CDT procedure are in the results section. ESTIMATED GFR Routine 12/25/2017 12:16 PM Results for this CDT procedure are in the results section. POC CREATININE Routine 12/25/2017 12:16 PM Results for this CDT procedure are in the results section. MRI PELVIS W WO Routine 12/05/2017 12:25 PM Renal mass Results for this CONTRAST BLUE[employer] CUTTER procedure are in the results section. MRI ABDOMEN W WO Routine 12/05/2017 12:15 PM Renal mass Results for this CONTRAST [employer] C[employer]TER procedure are in the results section. ZZESTIMATED GFR Routine 12/05/2017 10:14 AM Results for this BL[employer] C[employer]TER procedure are in the results section. CREATININE LEVEL Routine 12/05/2017 10:14 AM Results for this BLUE[employer] CUTTER procedure are in the results section. after 07/26/2017 Results POC glucose (07/27/2018 11:42 AM)Only the most recent of64 resultswithin the time period is included. POC glucose 251 (H) 65 - 99 mg/dL [facility] OF PATHOLOGY AND Comment: GENOMIC MEDICINE [facility] Notified RN Meter ID: [id number] Vegetable Farmer: Peterson Howard Performing Organization Address City/State/Zipcode Phone Number [facility] OF PATHOLOGY AND [address] [place] [phone] GENOMIC MEDICINE Estimated GFR (07/27/2018 5:30 AM)Only the most recent of11 resultswithin the time period is included. Estimated GFR 23 (A) mL/min/1.73 m2 [facility] OF Comment: PATHOLOGY AND GENOMIC CatergoryUnitsInterpretation MEDICINE G1 >=90 Normal or high G2 60-89Mildly decreased [id number] to moderately decreased [id number] to severely decreased G4 15-29Severely decreased G5 <15Kidney failure The eGFR was calculated using the Chronic Kidney Disease Epidemiology Collaboration (CKD-EPI) equation. Interpretation is based on recommendations of the National Kidney Foundation-Kidney Disease Outcomes Quality Initiative (NKF-KDOQI) published in 2014. Specimen Plasma specimen Performing Organization Address City/[facility] Cent[facility] Phone Number [facility] AND [address] [place], [place] [id number] [email or web address] [facility] Basic metabolic panel (07/27/2018 5:30 AM)Only the most recent of16 resultswithin the time period is included. Sodium 138 135 - 148 mEq/L [facility] PATHOLOGY AND GENOMIC MEDICINE Potassium 4.0 3.5 - 5.0 mEq/L [facility] PATHOLOGY AND GENOMIC MEDICINE Chloride 102 98 - 112 mEq/L [facility] PATHOLOGY AND GENOMIC MEDICINE CO2 25 24 - 31 mEq/L [facility] OF PATHOLOGY AND GENOMIC MEDICINE Anion gap 11@ANIO 7 - 15 mEq/L [facility] OF PATHOLOGY AND GENOMIC MEDICINE BUN 33 (H) 8 - 23 mg/dL [facility] PATHOLOGY AND GENOMIC MEDICINE Creatinine 2.49 (H) 0.70 - 1.20 mg/dL [facility] PATHOLOGY AND GENOMIC MEDICINE Glucose 176 (H) 65 - 99 mg/dL [facility] PATHOLOGY AND GENOMIC MEDICINE Calcium 8.7 (L) 8.8 - 10.2 mg/dL [facility] OF PATHOLOGY AND GENOMIC MEDICINE Specimen Plasma specimen Performing Organization Address City/[facility]/Zipcode Phone Number [facility] OF PATHOLOGY AND [address] [place] [address] [email or web address] [facility] Magnesium level (07/26/2018 4:46 AM)Only the most recent of12 resultswithin the time period is included. Magnesium 1.4 (L) 1.6 - 2.4 mg/dL [facility] OF PATHOLOGY AND GENOMIC MEDICINE Specimen Plasma specimen Performing Organization Address City/[facility] Centercode Phone Number [facility] OF PATHOLOGY AND [address] [place] [phone] [email or web address] MEDICINE CBC with platelet and differential (07/26/2018 3:55 AM)Only the most recent of16 resultswithin the time period is included. WBC 8.59 4.50 - 11.00 k/uL [facility] PATHOLOGY AND GENOMIC MEDICINE RBC 3.35 (L) 4.40 - 6.00 m/uL [facility] PATHOLOGY AND GENOMIC MEDICINE HGB 9.8 (L) 14.0 - 18.0 g/dL [facility] OF PATHOLOGY AND GENOMIC MEDICINE HCT 30.5 (L) 41.0 - 51.0 % [facility] OF PATHOLOGY AND GENOMIC MEDICINE MCV 91.0 82.0 - 100.0 fL [facility] PATHOLOGY AND GENOMIC MEDICINE MCH 29.3 27.0 - 34.0 pg [facility] OF PATHOLOGY AND GENOMIC MEDICINE MCHC 32.1 31.0 - 37.0 g/dL [facility] OF PATHOLOGY AND GENOMIC MEDICINE RDW - SD 42.9 37.0 - 55.0 fL [facility] OF PATHOLOGY AND GENOMIC MEDICINE MPV 10.7 8.8 - 13.2 fL [facility] PATHOLOGY AND GENOMIC MEDICINE Platelet count 131 (L) 150 - 400 k/uL [facility] PATHOLOGY AND GENOMIC MEDICINE Nucleated RBC 0.00 /100 WBC [facility] OF PATHOLOGY AND GENOMIC MEDICINE Neutrophils 68.2 39.0 - 69.0 % [facility] PATHOLOGY AND GENOMIC MEDICINE Lymphocytes 19.9 (L) 25.0 - 45.0 % [facility] PATHOLOGY AND GENOMIC MEDICINE Monocytes 7.2 0.0 - 10.0 % [facility] OF PATHOLOGY AND GENOMIC MEDICINE Eosinophils 3.8 0.0 - 5.0 % [facility] OF PATHOLOGY AND GENOMIC MEDICINE Basophils 0.3 0.0 - 1.0 % [facility] OF PATHOLOGY AND GENOMIC MEDICINE Immature granulocytes 0.6Comment: 0.0 - 1.0 % [facility] OF "Immature PATHOLOGY AND GENOMIC granulocytes" MEDICINE (promyelocytes, myelocytes, metamyelocytes) Specimen Blood Performing Organization Address City/[facility]/Zipcode Phone Number [facility] DEPARTMENT OF PATHOLOGY AND [address] [place] [address] [facility] Partial thromboplastin time, activated (07/25/2018 4:41 AM)Only the most recent of10 resultswithin the time period is included. PTT 32.2 23.0 - 36.0 sec [facility] OF PATHOLOGY Comment: AND [facility] PTT therapeutic range for unfractionated heparin is 61.0-112.0 seconds which corresponds to Anti-Xa 0.3-0.7 U/ml. Specimen Blood Performing Organization Address [facility] Phone Number [facility] OF PATHOLOGY AND [address] [place] [address] Prothrombin time with INR (07/25/2018 4:41 AM)Only the most recent of10 resultswithin the time period is included. Prothrombin time 15.6 (H) 12.0 - 15.0 sec [facility] OF PATHOLOGY AND GENOMIC [facility] INR 1.2 [facility] DEPART[facility] OF Comment: PATHOLOGY AND GENOMIC The International Normalized Ratio (INR) is a therapeutic MEDICINE monitoring tool for patients who are stable on oral anticoagulant therapy. An INR of 2.0-3.0 is suggested for deep vein thrombosis/pulmonary embolism. Specimen Blood Performing Organization Address [facility] Phone Number [facility] OF PATHOLOGY AND [address] [place] [address] Phosphorus level (07/25/2018 4:41 AM)Only the most recent of15 resultswithin the time period is included. Phosphorus 2.5 2.4 - 4.5 mg/dL [facility] OF PATHOLOGY AND GENOMIC [facility] Specimen Plasma specimen Performing Organization Address [facility] Phone Number [facility]MENT OF PATHOLOGY AND [address] [place] [address] Hemoglobin & hematocrit (07/24/2018 4:15 PM)Only the most recent of3 resultswithin the time period is included. HGB 9.3 (L) 14.0 - 18.0 g/dL [facility] OF PATHOLOGY AND GENOMIC MEDICINE HCT 29.1 (L) 41.0 - 51.0 % [facility] DEPARTMENT OF PATHOLOGY AND GENOMIC [facility] Specimen Blood Performing Organization Address [facility] Mex[facility] Phone Number [facility] OF PATHOLOGY AND [address] [place] [address] Comprehensive metabolic panel (07/24/2018 5:28 AM)Only the most recent of2 resultswithin the time period is included. Sodium 141 135 - 148 mEq/L [facility] OF PATHOLOGY AND GENOMIC MEDICINE Potassium 3.8 3.5 - 5.0 mEq/L [facility] OF PATHOLOGY AND GENOMIC MEDICINE Chloride 103 98 - 112 mEq/L [facility] OF PATHOLOGY AND GENOMIC MEDICINE CO2 24 24 - 31 mEq/L [facility] OF PATHOLOGY AND GENOMIC MEDICINE Anion gap 14@ANIO 7 - 15 mEq/L [facility] OF PATHOLOGY AND GENOMIC MEDICINE BUN 49 (H) 8 - 23 mg/dL [facility] OF PATHOLOGY AND GENOMIC MEDICINE Creatinine 3.95 (H) 0.70 - 1.20 mg/dL [facility] OF PATHOLOGY AND GENOMIC MEDICINE Glucose 132 (H) 65 - 99 mg/dL [facility] OF PATHOLOGY AND GENOMIC MEDICINE Calcium 8.7 (L) 8.8 - 10.2 mg/dL [facility] OF PATHOLOGY AND GENOMIC MEDICINE Protein 6.0 (L) 6.3 - 8.3 g/dL [facility]PART[facility] OF Comment: PATHOLOGY AND GENOMIC Ramer 4.6-7.0 g/dL MEDICINE 1 week 4.4-7.6 g/dL 7 months-1year5.1-7.3 g/dL 1-2 years5.6-7.5 g/dL >3 years6.0-8.0 g/dL 18-150 6.3-8.3 g/dL Albumin 2.3 (L) 3.5 - 5.0 g/dL [facility] OF PATHOLOGY AND GENOMIC MEDICINE A/G ratio 0.6 (L) 0.7 - 3.8 [facility] OF PATHOLOGY AND GENOMIC MEDICINE Alkaline phosphatase 57 40 - 129 U/L [facility] OF PATHOLOGY AND GENOMIC MEDICINE AST 15 10 - 50 U/L [facility] OF PATHOLOGY AND GENOMIC MEDICINE ALT 10 5 - 50 U/L [facility] DEPARTMENT OF PATHOLOGY AND GENOMIC MEDICINE Total bilirubin 0.4 0.0 - 1.2 mg/dL [facility] DEPARTMENT OF PATHOLOGY AND GENOMIC MEDICINE Specimen Plasma specimen Performing Organization Address City/State/Zipcode Phone Number [facility] DEPARTMENT OF PATHOLOGY AND [address] [place] [address] [facility] CT Head Wo Contrast (07/22/2018 10:11 AM) Narrative Performed At EXAMINATION:CT HEAD WO CONTRAST [facility] CT IMAGING WAS PERFORMED WITH ITERATIVE RECONSTRUCTION TECHNIQUE AND/OR AUTOMATED EXPOSURE CONTROL TO REDUCE RADIATION DOSE. CLINICAL HISTORY:Altered level of consciousness (LOC)unexplained COMPARISON:None. FINDINGS: 1. There is no acute intracranial abnormality. Specifically there is no intracranial hemorrhage, mass effect or acute infarction. 2.There are mild nonspecific cerebral white matter microvascular changes. 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 This chronic lacunar infarction in the left thalamus. There is a chronic cortical infarction in the precentral gyrus superiorly on the right. 3.There is moderate cerebral cortical volume loss. 4.Atherosclerotic calcifications noted in the distal internal carotid and vertebral arteries. 5.There is a mild mucosal thickening in the ethmoid sinus and to a lesser degree maxillary and sphenoid sinuses. IMPRESSION: Chronic findings as described above without evidence of an acute abnormality. [facility]-[id number] Procedure Note Interface, Radiology Results Incoming - 07/22/2018 10:34 AM CDT EXAMINATION: CT HEAD WO CONTRAST CT IMAGING WAS PERFORMED WITH ITERATIVE RECONSTRUCTION TECHNIQUE AND/OR AUTOMATED EXPOSURE CONTROL TO REDUCE RADIATION DOSE. CLINICAL HISTORY: Altered level of consciousness (LOC) unexplained COMPARISON: None. FINDINGS: 1. There is no acute intracranial abnormality. Specifically there is no intracranial hemorrhage, mass effect or acute infarction. 2. There are mild nonspecific cerebral white matter microvascular changes. 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 This chronic lacunar infarction in the left thalamus. There is a chronic cortical infarction in the precentral gyrus superiorly on the right. 3. There is moderate cerebral cortical volume loss. 4. Atherosclerotic calcifications noted in the distal internal carotid and vertebral arteries. 5. There is a mild mucosal thickening in the ethmoid sinus and to a lesser degree maxillary and sphenoid sinuses. IMPRESSION: Chronic findings as described above without evidence of an acute abnormality. [facility]-[id number] Performing Organization Address City/State/Zipcode Phone Number [facility] [address] [place] [address] Arterial blood gas (07/22/2018 9:20 AM)Only the most recent of2 resultswithin the time period is included. pH, arterial 7.38 7.35 - 7.45 [facility] DEPARTMENT OF PATHOLOGY AND GENOMIC MEDICINE pCO2, arterial 44 35 - 45 mmHg [facility] DEPARTMENT OF PATHOLOGY AND GENOMIC MEDICINE pO2, arterial 100 (H) 80 - 90 mmHg [facility] DEPARTMENT OF PATHOLOGY AND GENOMIC MEDICINE Bicarbonate, arterial 25.6 21.0 - 28.0 mmol/L [facility] DEPARTMENT OF PATHOLOGY AND GENOMIC MEDICINE Base excess, arterial 1 -2 - 2 mEq/L [facility] DEPARTMENT OF PATHOLOGY AND GENOMIC MEDICINE O2 saturation, arterial 97 95 - 100 % [facility] DEPARTMENT OF PATHOLOGY AND GENOMIC MEDICINE Specimen Blood Performing Organization Address City/[facility] Phone Number [facility] DEPARTMENT OF PATHOLOGY AND [address] [place] [phone] [facility] ECG 12 lead (07/22/2018 9:17 AM)Only the most recent of3 resultswithin the time period is included. Ventricular rate 70 [facility] Atrial rate 250 [facility] QRSD interval 86 [facility] QT interval 424 [facility] QTC interval 457 [facility] P axis 1 76 [facility] QRS axis 1 9 [facility] T wave axis 18 [facility] EKG impression Atrial flutter with variable AV block-Possible Inferior infarct (cited on or before 19-JUL-2018)-Possible Anterior infarct , age undetermined-Abnormal ECG-In automated comparison with ECG of 19-JUL-2018 17:45, -Atrial flutter has replaced Atrial [facility] fibrillation- : 38 PM Performing Organization Address [facility]ode Phone Number [facility] [address] [place] [phone] Microalbumin, urine, random (07/22/2018 7:10 AM) Total volume, urine No volume mL [facility] DEPARTMENT OF PATHOLOGY AND GENOMIC MEDICINE Urine creatinine concentration 56 mg/dL [facility] DEPARTMENT OF PATHOLOGY AND GENOMIC MEDICINE Urine microalbumin concentration 54.1 mg/dL [facility] DEPARTMENT OF PATHOLOGY AND GENOMIC MEDICINE Urine microalbumin/creatinine 966 (H) 0 - 30 mg/g [facility] DEPARTMENT OF PATHOLOGY ratio AND GENOMIC MEDICINE Specimen Urine Performing Organization Address City/[facility]ode Phone Number [facility] DEPARTMENT OF PATHOLOGY AND [address] [place] [phone] GENOMIC MEDICINE Protein, urine, random (07/22/2018 7:10 AM) Protein, urine random 103 mg/dL [facility] DEPARTMENT OF PATHOLOGY AND GENOMIC MEDICINE Specimen Urine Performing Organization Address City/[facility] Phone Number [facility] DEPARTMENT OF PATHOLOGY AND [address] [place] [phone] GENOMIC MEDICINE Creatinine level, urine, random (07/22/2018 7:10 AM) Creatinine, urine, random 56 mg/dL [facility] DEPARTMENT OF PATHOLOGY AND GENOMIC MEDICINE Specimen Urine Performing Organization Address City/[facility] Phone Number [facility] DEPARTMENT OF PATHOLOGY AND [address] [place] [address] GENOMIC MEDICINE XR Chest 1 Vw Portable (07/22/2018 6:35 AM)Only the most recent of2 resultswithin the time period is included. Narrative Performed At EXAMINATION:XR CHEST 1 VW PORTABLE [facility] CLINICAL HISTORY:Shortness of breath COMPARISON:July 19, 2018 IMPRESSION: 1.Prior sternotomy. Heart size is enlarged. 2.Vascular congestion with basal volume loss increasing since the prior study. [facility]-[id number] Procedure Note Hm Interface, Radiology Results Incoming - 07/22/2018 7:12 AM CDT EXAMINATION: XR CHEST 1 VW PORTABLE CLINICAL HISTORY: Shortness of breath COMPARISON: July 19, 2018 IMPRESSION: 1. Prior sternotomy. Heart size is enlarged. 2. Vascular congestion with basal volume loss increasing since the prior study. [facility]-[id number] Performing Organization Address City/[facility] Cent[facility]ode Phone Number [facility] [address] [place] [phone] Folate level (07/22/2018 3:40 AM) Folate 4.3 (L) 4.8 - 24.2 ng/mL [facility] DEPARTMENT OF PATHOLOGY AND GENOMIC MEDICINE Specimen Serum Performing Organization Address [facility] Phone Number [facility] DEPARTMENT OF PATHOLOGY AND [address] [place] [address] MEDICINE Vitamin B12 level (07/22/2018 3:40 AM) Vitamin B12 530 211 - 946 pg/mL [facility] DEPARTMENT OF PATHOLOGY Comment: AND GENOMIC MEDICINE Significant overlap exists between normal and deficiency states. However, most patients with deficiencies will have Serum B12 <200 pg/mL. Specimen Serum Performing Organization Address City/[facility] Cent[facility] Phone Number [facility] DEPARTMENT OF PATHOLOGY AND [address] [place] [address] MEDICINE Ammonia level (07/22/2018 3:40 AM) Ammonia 24 16 - 60 umol/L [facility] DEPARTMENT OF PATHOLOGY AND GENOMIC MEDICINE Specimen Blood Performing Organization Address City/[facility]/Zipcode Phone Number [facility] DEPARTMENT OF PATHOLOGY AND [address] [place] [address] Reticulocyte count (07/21/2018 6:20 PM) Retic %, auto 1.3 0.5 - 2.1 % [facility] DEPARTMENT OF PATHOLOGY AND GENOMIC MEDICINE Retic absolute, auto 0.0439 0.0220 - 0.1260 m/uL [facility] DEPARTMENT OF PATHOLOGY AND GENOMIC MEDICINE Specimen Blood Performing Organization Address [facility] Phone Number [facility] DEPARTMENT OF PATHOLOGY AND [address] [place] [address] Total iron binding capacity (07/21/2018 4:55 PM) Iron level 34 (L) 59 - 158 ug/dL [facility] DEPARTMENT OF PATHOLOGY AND GENOMIC [facility] Iron binding capacity 167 (L) 200 - 400 ug/dL [facility] DEPARTMENT OF PATHOLOGY AND GENOMIC MEDICINE % Saturation 20.4 20.0 - 40.0 % [facility] DEPARTMENT OF PATHOLOGY AND GENOMIC [facility] Specimen Plasma specimen Performing Organization Address [facility] Phone Number [facility] DEPARTMENT OF PATHOLOGY AND [address] [place] [address] Ferritin level (07/21/2018 4:55 PM) Ferritin level 489 (H) 30 - 400 ng/mL [facility] DEPARTMENT OF PATHOLOGY AND GENOMIC MEDICINE Specimen Plasma specimen Performing Organization Address [facility] Number [facility] DEPARTMENT OF PATHOLOGY AND [address] [place] [address] Vitamin D 1,25 dihydroxy level, serum (07/21/2018 4:54 PM) Vit D, 1,25-Dihydroxy 16.80 (L) 18.00 - 64.00 [facility] DEPARTMENT OF Comment: pg/mL PATHOLOGY AND GENOMIC This test was developed and its performance characteristics determined by MEDICINE the Department of Pathology and Genomic Medicine, [facility]. Serum 1,25 Dihydroxy Vitamin D is tested by LC-MS/MS. It has not been cleared or approved by FDA. The laboratory is regulated under CLIA as qualified to perform high-complexity testing. This test is used for clinical purposes. It should not be regarded as investigational or for research. Specimen Blood Performing Organization Address [facility] Centercode Phone Number [facility] DEPARTMENT OF PATHOLOGY AND [address] [place] [address] GENOMIC MEDICINE Echocardiogram complete w contrast and 3D if needed (07/21/2018 1:50 PM) Narrative Performed At [facility] Echocardiography Report [id number] [facility], [facility] 9, [address]Name:Jeni WOODS.ID:[id number] .Date: 07/21/2018Refer.MD:CRIS BREEN MD Exam Time: 1:06:00 PMStudy Type:Routine Echo Height:71inWeight: 216lb BSA: 2.18 m2 DOBAge:1935,83Y Sex: MALEBP:157/74 HR:68 bpmSonogrphr: Oziel Soto RDCS Pat. Stat.:Inpatient Room:[place] [address] Study Status:Final Echo Event ID:[id number] Order ID:[id number] Reason for Study:Possible HF, porcine AVR Procedures:2D Echo, Colorflow Doppler, Portable, Intravenous Definity Contrast Race:C SUMMARY: LV EF is normal. Normal prosthetic valve velocity and gradient. LV filling pressure is elevated. FINDINGS: LV: LV size is normal. LV EF is normal. Overall wall motion is normal.Estimated EF is 60-64%. RV: RV size is normal. RV systolic function is normal. LA: LA volume is mildly enlarged. RA: RA volume is mildly enlarged. AO: Aortic root diameter is normal. MELVA: Trace posterior pericardial effusion. AV: Bioprosthetic aortic valve. Mild aortic regurgitation. Normalprosthetic valve velocity and gradient. Surgical ProstheticAV Doppler velocity index is 0.4 (normal>0.25). MV: Mild mitral annular calcification. A trace of mitral regurgitation. PV: No structural PV abnormalities noted. A trace of pulmonic regurgitation. TV: No structural TV abnormalities noted. Mild tricuspid regurgitation Salazar: LV relaxation is impaired. LV filling pressure is elevated. Other:Estimated PA systolic pressure is 35-40 mmHg, assuming a meanRAP of 5 mmHg. MEASUREMENTS: 2D Parasternal Long [place] LVOT 1.7 cmLA Ds4.1 cm LVIDd4.6 cmIndex2.1 cm/m Ao An1.7 cm LVIDs3.2 cmAo Rtd 2.7 cm Index1.2 cm/m LV%fs 30.2 % LV Mbrc215.6 g(122-174) IVSd 0.8 cmLVM Index 66.8 g/m2 LVPWd1.1 cmRWT0.5 DOPPLER LVOT Stroke Vol LVOT 1.7 cmLVOT CO3.6 l/min LVOT TVI19.5 cmLVOT CI1.6 l/m/m2 LVOT Tm282 dspuQP09 bpm LVOT SV 44.3 ml AV For Flow/Valve Assess AV pkVel 226.6 cm/s (100-170) AV ET269 msec AV mnVel 133.2 cm/Joel AC/ET 0.3 AV pkPG 20.5 mmHgAV TVI35.8 cm AV Mean G9.4 mmHgAVpkAcRt 4408.7 cm/s2 AV AC 75 msec (83-118) Signed 07/21/2018 03:50 PM Miri Martins M.D. Procedure Note Interface, Radiology Results In - 07/21/2018 3:50 PM CDT Echocardiography Report [id number] [place] [id number] Pat.Name: IGOR WOODS.ID: [id number] .Date: 07/21/2018 Refer.MD: CRIS BREEN MD Exam Time: 1:06:00 PM Study Type:Routine Echo Height: 71in Weight: 216lb BSA: 2.18 m2 Age: 3 1935,83Y Sex: MALE BP: 157/74 HR: 68 bpm Sonogrphr: Oziel Soto KAMILLE Pat. Stat.:Inpatient Room: [facility] [address] Study Status:Final Echo Event ID:[id number] Order ID: [id number] Reason for Study:Possible HF, porcine AVR Procedures:2D Echo, Colorflow Doppler, Portable, Intravenous Definity Contrast Race: C SUMMARY: LV EF is normal. Normal prosthetic valve velocity and gradient. LV filling pressure is elevated. FINDINGS: LV: LV size is normal. LV EF is normal. Overall wall motion is normal. Estimated EF is 60-64%. RV: RV size is normal. RV systolic function is normal. LA: LA volume is mildly enlarged. RA: RA volume is mildly enlarged. AO: Aortic root diameter is normal. MELVA: Trace posterior pericardial effusion. AV: Bioprosthetic aortic valve. Mild aortic regurgitation. Normal prosthetic valve velocity and gradient. Surgical Prosthetic AV Doppler velocity index is 0.4 (normal>0.25). MV: Mild mitral annular calcification. A trace of mitral regurgitation. PV: No structural PV abnormalities noted. A trace of pulmonic regurgitation. TV: No structural TV abnormalities noted. Mild tricuspid regurgitation Salazar: LV relaxation is impaired. LV filling pressure is elevated. Other: Estimated PA systolic pressure is 35-40 mmHg, assuming a mean RAP of 5 mmHg. MEASUREMENTS: 2D Parasternal [place] LVOT 1.7 cm LA Ds 4.1 cm LVIDd 4.6 cm Index 2.1 cm/m Ao An 1.7 cm LVIDs 3.2 cm Ao Rtd 2.7 cm Index 1.2 cm/m LV%fs 30.2 % LV Mass 145.6 g (122-174) IVSd 0.8 cm LVM Index 66.8 g/m2 LVPWd 1.1 cm RWT 0.5 DOPPLER LVOT Stroke Vol LVOT 1.7 cm LVOT CO 3.6 l/min LVOT TVI 19.5 cm LVOT CI 1.6 l/m/m2 LVOT Tm 282 msec HR 81 bpm LVOT SV 44.3 ml AV For Flow/Valve Assess AV pkVel 226.6 cm/s (100-170) AV ET 269 msec AV mnVel 133.2 cm/s AV AC/ET 0.3 AV pkPG 20.5 mmHg AV TVI 35.8 cm AV Mean G 9.4 mmHg AVpkAcRt 4408.7 cm/s2 AV AC 75 msec (83-118) Signed 07/21/2018 03:50 PM Miri Martins M.D. Performing Organization Address City/[facility]/Zipcode Phone Number [facility] [address] [place] [address] Vancomycin level, random (07/21/2018 3:15 AM) Vancomycin, random 14.1 ug/mL [facility] DEPARTMENT OF PATHOLOGY AND GENOMIC MEDICINE Specimen Serum Performing Organization Address [facility]ercowv Phone Number [facility] DEPARTMENT OF PATHOLOGY AND [address] [place] [address] GENOMIC MEDICINE Occult blood, stool (07/20/2018 9:10 PM) Occult blood, stool Positive for Occult blood (A) [facility] DEPARTMENT OF Comment: PATHOLOGY AND GENOMIC Specimen Information MEDICINE Specimen Source: Stool Specimen Site: Nonpreserved Specimen Stool - Nonpreserved Performing Organization Address [facility] Centercode Phone Number [facility] DEPARTMENT OF PATHOLOGY AND [address] [place] [address] GENOMIC MEDICINE FL > 1 Hour (07/20/2018 12:10 PM) Narrative Performed At EXAMINATION:FL 1 HOUR [facility] START - 1100 FINISH - 1210 FLUORO - 37 SEC 22.0 mGR 0 FILMS CYSTOSCOPY MAIN OR CYSTO 1 AM IMPRESSION: Fluoroscopy was requested in the Endoscopy Suite. Separate endoscopy report will be issued by the physician performing the procedure. Procedure Note Interface, Radiology Results Incoming - 07/23/2018 10:27 PM CDT EXAMINATION: FL 1 HOUR START - 1100 FINISH - 1210 FLUORO - 37 SEC 22.0 mGR 0 FILMS CYSTOSCOPY MAIN OR CYSTO 1 AM IMPRESSION: Fluoroscopy was requested in the Endoscopy Suite. Separate endoscopy report will be issued by the physician performing the procedure. Performing Organization Address City/[facility]/Zipcode Phone Number [facility] [address] [place] [phone] B natriuretic peptide (07/20/2018 4:40 AM) BNP 778 (H) 0 - 100 pg/mL [facility] DEPARTMENT OF PATHOLOGY AND [email or web address] MEDICINE Specimen Blood Narrative Performed At [facility] results called to and read back by [facility] DEPARTMENT OF PATHOLOGY AND GENOMIC althea epsarza/nora at 07/20/2018 MEDICINE 05:22 by scl. Performing Organization Address [facility] Phone Number [facility] DEPARTMENT OF PATHOLOGY AND [address] [place], [place] [phone] [facility] Ionized calcium (07/20/2018 4:40 AM)Only the most recent of3 resultswithin the time period is included. pH 7.44 [facility] DEPARTMENT OF PATHOLOGY AND [email or web address] MEDICINE Ionized calcium 1.00 (L) 1.11 - 1.32 mmol/L [facility] DEPARTMENT OF PATHOLOGY AND GENOMIC MEDICINE Specimen Plasma specimen Narrative Performed At [facility] results called to and read back by [facility] DEPARTMENT OF PATHOLOGY AND GENOMIC althea esparza/nora at 07/20/2018 MEDICINE 05:22 by scl. Performing Organization Address [facility] Phone Number [facility] DEPARTMENT OF PATHOLOGY AND [address] [place] [phone] [email or web address] [facility] Hepatic function panel (07/20/2018 4:40 AM)Only the most recent of4 resultswithin the time period is included. Albumin 2.4 (L) 3.5 - 5.0 g/dL [facility] DEPARTMENT OF PATHOLOGY AND GENOMIC MEDICINE Total bilirubin 0.4 0.0 - 1.2 mg/dL [facility] DEPARTMENT OF PATHOLOGY AND GENOMIC MEDICINE Bilirubin direct <0.2 0.0 - 0.3 mg/dL [facility] DEPARTMENT OF PATHOLOGY AND GENOMIC MEDICINE Alkaline phosphatase 50 40 - 129 U/L [facility] DEPARTMENT OF PATHOLOGY AND GENOMIC MEDICINE Protein 6.1 (L) 6.3 - 8.3 g/dL [facility] DEPARTMENT OF Comment: PATHOLOGY AND GENOMIC Ramer 4.6-7.0 g/dL MEDICINE 1 week 4.4-7.6 g/dL 7 months-1year5.1-7.3 g/dL 1-2 years5.6-7.5 g/dL >3 years6.0-8.0 g/dL 18-150 6.3-8.3 g/dL ALT 8 5 - 50 U/L [facility] DEPARTMENT OF PATHOLOGY AND GENOMIC MEDICINE AST 10 10 - 50 U/L [facility] DEPARTMENT OF PATHOLOGY AND GENOMIC MEDICINE Specimen Plasma specimen Performing Organization Address City/State/Zipcode Phone Number [facility] DEPARTMENT OF PATHOLOGY AND [address] [place] [address] [facility] CT Abdomen Pelvis Wo Contrast (07/19/2018 3:13 PM) Narrative Performed At EXAMINATION:CT ABDOMEN PELVIS WO CONTRAST [facility] CLINICAL HISTORY:Rule out RP bleed and left hematomaplus hematuria TECHNIQUE:Multiple axial images of the abdomen and pelvis were obtained without intravenous administration of iodinated contrast. Sagittal and coronal computerized reformatted images were also obtained. The lack of intravenous contrast reduces the sensitivity of detecting solid organ disease.CT scans are performed using radiation dose reduction techniques. Technical factors are evaluated and adjusted to ensure appropriate moderation of exposure. Automated dose management technology is applied to adjust radiation exposure while achieving a diagnostic quality image. COMPARISON:MRI dated January 19, 2018, May 17, 2018 IMPRESSION: Abdomen: 1. Limited evaluation of lower chest demonstrates small to moderate right and small left pleural effusion with associated atelectasis. 2.There is no retroperitoneal hematoma. 3.Unenhanced liver, spleen, pancreas, adrenals are unremarkable. 4.There is cholelithiasis without acute cholecystitis. 5.Right kidney is absent. Left kidney is normal in size and contour. There is mild pelviectasis without dee hydronephrosis. There is nonspecific mild perinephric stranding. No nephrolithiasis. 6.The abdominal aorta is normal in caliber. There is no regional adenopathy. 7.Bowel is unobstructed. Pelvis: 1. Prostate is enlarged. 2.Krishnan catheter is present. Urinary bladder is decompressed. 3. No suspicious osseous lesions are seen. [facility]-[id number] Procedure Note [facility], Radiology Results Incoming - 07/19/2018 3:46 PM CDT EXAMINATION: CT ABDOMEN PELVIS WO CONTRAST CLINICAL HISTORY: Rule out RP bleed and left hematoma plus hematuria TECHNIQUE: Multiple axial images of the abdomen and pelvis were obtained without intravenous administration of iodinated contrast. Sagittal and coronal computerized reformatted images were also obtained. The lack of intravenous contrast reduces the sensitivity of detecting solid organ disease.CT scans are performed using radiation dose reduction techniques. Technical factors are evaluated and adjusted to ensure appropriate moderation of exposure. Automated dose management technology is applied to adjust radiation exposure while achieving a diagnostic quality image. COMPARISON: MRI dated January 19, 2018, May 17, 2018 IMPRESSION: Abdomen: 1. Limited evaluation of lower chest demonstrates small to moderate right and small left pleural effusion with associated atelectasis. 2. There is no retroperitoneal hematoma. 3. Unenhanced liver, spleen, pancreas, adrenals are unremarkable. 4. There is cholelithiasis without acute cholecystitis. 5. Right kidney is absent. Left kidney is normal in size and contour. There is mild pelviectasis without dee hydronephrosis. There is nonspecific mild perinephric stranding. No nephrolithiasis. 6. The abdominal aorta is normal in caliber. There is no regional adenopathy. 7. Bowel is unobstructed. Pelvis: 1. Prostate is enlarged. 2. Krishnan catheter is present. Urinary bladder is decompressed. 3. No suspicious osseous lesions are seen. [facility]-[id number] Performing Organization Address [facility] Centercode Phone Number [facility] [address] [place] [address] Fibrinogen (07/19/2018 2:13 PM) Fibrinogen 521 (H) 200 - 450 mg/dL [facility] DEPARTMENT OF PATHOLOGY AND GENOMIC MEDICINE Specimen Blood Performing Organization Address City/[facility] Centercode Phone Number [facility] DEPARTMENT OF PATHOLOGY AND [address] [place] [address] [facility] Lactic acid level (07/19/2018 2:13 PM)Only the most recent of6 resultswithin the time period is included. Lactic acid 1.7 0.5 - 2.2 mmol/L [facility] DEPARTMENT OF PATHOLOGY AND GENOMIC MEDICINE Specimen Plasma specimen Performing Organization Address City/[facility] Phone Number [facility] DEPARTMENT OF PATHOLOGY AND [address] [place] [address] Respiratory pathogen panel (07/19/2018 9:56 AM) Respiratory pathogen Negative for all pathogens tested: [facility] DEPARTMENT OF panel Negative for Adenovirus PATHOLOGY AND GENOMIC Negative for Coronavirus HKU1 MEDICINE Negative for Coronavirus NL63 Negative for Coronavirus 229E Negative for Coronavirus OC43 Negative for Human Metapneumovirus Negative for Rhinovirus/Enterovirus Negative for Influenza A Negative for Influenza A/H1 Negative for Influenza A/H3 Negative for Influenza A/H1-2009 Negative for Influenza B Negative for Parainfluenza Virus 1 Negative for Parainfluenza Virus 2 Negative for Parainfluenza Virus 3 Negative for Parainfluenza Virus 4 Negative for Respiratory Syncytial Virus Negative for Bordetella pertussis Negative for Chlamydophila pneumoniae Negative for Mycoplasma pneumoniae This real-time PCR assay detects the presence of nucleic acids (RNA or DNA) for the respiratory pathogens listed. A result of "Not-detected" does not exclude the possibility of the presence of one or more pathogens at concentrations less than the detectable limits of the assay. Comment: Specimen Information Specimen Source: Nares Specimen Site: Right Specimen Nares - Right Performing Organization Address City/[facility] Phone Number [facility] DEPART[facility] OF PATHOLOGY AND [address] [place] [address] Hepatitis B surface antigen (07/19/2018 9:30 AM) Hepatitis B surface Ag Non-reactive Non-reactive [facility] DEPARTMENT OF PATHOLOGY AND GENOMIC MEDICINE Specimen Blood Performing Organization Address [facility]ode Phone Number [facility] DEPARTMENT OF PATHOLOGY AND [address] [place] [address] Blood culture, aerobic & anaerobic (07/19/2018 9:26 AM) Blood culture isolate No growth after 5 days of incubation. [facility] DEPARTMENT OF Comment: PATHOLOGY AND GENOMIC Specimen Information MEDICINE Specimen Source: Blood Specimen Site: Line, IJ (intrajugular) Specimen Blood - Line, IJ (intrajugular) Performing Organization Address [facility] Cent[facility]ode Phone Number [facility] DEPARTMENT OF PATHOLOGY AND [address] [place] [address] [email or web address] MEDICINE Hemodialysis (07/19/2018 7:12 AM) Narrative Performed At Gena Rojas MD 07/19/20185:54 PM Gena Rojas MD PhD Isidro Erwin, MD Eugene Willett Sr, Barry Alves Jr, MD Ct Foster, Alexandra Matos AGACNPJudy Wilson, ACNP Hemodialysis Procedure Note Indication: [place] on CKD 4 Revaclear 300 x 2 hours UF as tolerated Na 140 K 2 HCO3 35 Ca 2.5 Qb 250 cc/min Anticoagulation: saline flushes only Mannitol at 30 an 90 mini of HD Gena Rojas MD PhD [facility] [phone] HEMODIALYSIS CATHETER PLACEMENT (07/19/2018 3:08 AM) Narrative Performed At Gabriel Sahni NP 07/19/20183:09 AM Hemodialysis catheter placement Date/Time: 07/19/2018 3:08 AM Performed by: GABRIEL SAHNI Authorized by: GABRIEL SAHNI Consent: Consent obtained:Written Consent given by:Patient Risks discussed:Arterial puncture, bleeding, infection and pneumothorax [place] protocol: Patient identity confirmed:Verbally with patient and arm band Pre-procedure details: Indication:Vascular access for HD Hand hygiene: Hand hygiene performed prior to insertion Sterile barrier technique: All elements of maximal sterile technique followed Skin preparation:2% chlorhexidine Anesthesia (see MAR for exact dosages): Anesthesia method:Local infiltration Local anesthetic:Lidocaine 1% w/o epi Procedure details: Procedure supplies:Trialysis Catheter size:13 fr Catheter Site Laterality:Left Post-procedure details: Post-procedure:Dressing applied and line sutured Urinalysis screen and microscopy, with reflex to culture (07/19/2018 2:00 AM) Only the most recent of3 resultswithin the time period is included. Specimen site Catheterized [facility] DEPARTMENT OF PATHOLOGY AND GENOMIC MEDICINE Color, UA Red [facility] DEPARTMENT OF PATHOLOGY AND GENOMIC MEDICINE Appearance, UA Footnote [facility] DEPARTMENT OF PATHOLOGY AND GENOMIC MEDICINE Specific gravity, UA 1.006 1.001 - 1.035 [facility] DEPARTMENT OF PATHOLOGY AND GENOMIC MEDICINE pH, UA Footnote 5.0 - 8.5 [facility] DEPARTMENT OF PATHOLOGY AND GENOMIC MEDICINE Protein, UA Footnote Negative [facility] DEPARTMENT OF PATHOLOGY AND GENOMIC MEDICINE Glucose, UA FootnoteComment: Unable Negative [facility] DEPARTMENT OF to report due to PATHOLOGY AND GENOMIC interference from color MEDICINE of urine. Ketones, UA Footnote Negative [facility] DEPARTMENT OF PATHOLOGY AND GENOMIC MEDICINE Bilirubin, UA Footnote Negative [facility] DEPARTMENT OF PATHOLOGY AND GENOMIC MEDICINE Blood, UA Footnote Negative [facility] DEPARTMENT OF PATHOLOGY AND GENOMIC MEDICINE Nitrite, UA Footnote Negative [facility] DEPARTMENT OF PATHOLOGY AND GENOMIC MEDICINE Urobilinogen, UA Footnote <2.0 [facility] DEPARTMENT OF PATHOLOGY AND GENOMIC MEDICINE Leukocyte esterase, UA Footnote Negative [facility] DEPARTMENT OF PATHOLOGY AND GENOMIC MEDICINE WBC, UA Footnote 0 - 1 /HPF [facility] DEPARTMENT OF PATHOLOGY AND GENOMIC MEDICINE RBC, UA Footnote 0 - 5 /HPF [facility] DEPARTMENT OF PATHOLOGY AND GENOMIC MEDICINE Bacteria, UA Footnote None seen [facility] DEPARTMENT OF PATHOLOGY AND GENOMIC MEDICINE Yeast, UA None seen [facility] DEPARTMENT OF PATHOLOGY AND GENOMIC MEDICINE Yeast with None seen [facility] DEPARTMENT OF pseudohyphae, UA PATHOLOGY AND GENOMIC MEDICINE Specimen Urine Performing Organization Address City/State/[facility] Phone Number [facility] DEPARTMENT OF PATHOLOGY AND [address] [place] [address] Beta hydroxybutyrate (07/19/2018 1:50 AM) Beta hydroxybutyrate 0.33 (H) 0.02 - 0.27 mmol/L [facility] DEPARTMENT OF PATHOLOGY AND GENOMIC MEDICINE Specimen Serum Performing Organization Address City/[facility]ode Phone Number [facility] DEPARTMENT OF PATHOLOGY AND [address] [place] [address] Thyroid stimulating hormone (07/19/2018 1:50 AM) TSH 0.85 0.27 - 4.20 uIU/mL [facility] DEPARTMENT OF PATHOLOGY AND GENOMIC MEDICINE Specimen Plasma specimen Performing Organization Address City/[facility] Phone Number [facility] DEPARTMENT OF PATHOLOGY AND [address] [place] [address] POC urinalysis dipstick (05/17/2018 1:10 PM) Color urine, POC Yellow Clarity urine, POC Clear Glucose urine, POC Trace (A) Negative Bilirubin urine, POC Negative Negative Ketones urine, POC Negative Negative Specific gravity urine, POC 1.025 1.005 - 1.030 Blood urine, POC Trace (A) Negative pH urine, POC 5.5 5.0, 5.5, 6.0, 6.5, 7.0, 7.5, 8.0, 8.5 Protein urine, POC Trace (A) Negative Urobilinogen urine, POC <2.0 <2.0 Nitrite urine, POC Negative Negative Leukocyte esterase urine, POC Negative Negative Specimen Urine Estimated GFR (05/17/2018 11:55 AM)Only the most recent of9 resultswithin the time period is included. GFR Non Af Amer 23 (A) mL/min/1.73 m2 [facility] DEPARTMENT OF PATHOLOGY AND GENOMIC MEDICINE GFR Af Amer 27 (A) mL/min/1.73 m2 [facility] DEPARTMENT OF Comment: PATHOLOGY AND GENOMIC Chronic kidney disease: <60 mL/min/1.73m2 MEDICINE Kidney failure: <15 mL/min/1.73m2 The estimated GFR is calculated from the IDMS-traceable Modification of Diet in Renal Disease Equation. The accuracy of the calculation is poor when the creatinine is normal. Calculated values >90 mL/min/1.73m2 are not reported. This equation has not been validated in children (<18 years), women, the elderly (>70 years), or ethnic groups other than Caucasians and Americans. Specimen Plasma specimen Performing Organization Address City/[facility] Phone Number [facility] DEPARTMENT OF PATHOLOGY AND [address] [place] [address] Gram stain (05/17/2018 11:55 AM)Only the most recent of2 resultswithin the time period is included. Gram stain result No WBC's or organisms seen. [facility] DEPARTMENT OF PATHOLOGY Comment: AND GENOMIC MEDICINE Specimen Information Specimen Source: Urine Specimen Site: Clean catch Specimen Urine Performing Organization Address City/[facility] Phone Number [facility] DEPARTMENT OF PATHOLOGY AND [address] [place] [address] Urine culture (05/17/2018 11:55 AM)Only the most recent of2 resultswithin the time period is included. Urine culture isolate Mixed Gram positive laine [facility] DEPARTMENT OF 10-4 cfu/ml PATHOLOGY AND GENOMIC (A) MEDICINE Comment: Specimen Information Specimen Source: Urine Specimen Site: Clean catch Specimen Urine Performing Organization Address [facility]ode Phone Number [facility] DEPARTMENT OF PATHOLOGY AND [address] [place] [address] Uric acid level (05/17/2018 11:55 AM)Only the most recent of2 resultswithin the time period is included. Uric acid 5.7 3.4 - 7.0 mg/dL [facility] DEPARTMENT OF PATHOLOGY AND [facility] Specimen Plasma specimen Performing Organization Address [facility]ercowv Phone Number [facility] DEPARTMENT OF PATHOLOGY AND [address] [place] [address] Parathyroid hormone (05/17/2018 11:55 AM)Only the most recent of2 resultswithin the time period is included. PTH 88 (H) 15 - 65 pg/mL [facility] DEPARTMENT OF PATHOLOGY AND [facility] Specimen Blood Performing Organization Address [facility] Phone Number [facility] DEPARTMENT OF PATHOLOGY AND [address] [place] [address] Albumin level (05/17/2018 11:55 AM)Only the most recent of2 resultswithin the time period is included. 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 COMPARISON:MRI dated January 19, [address] chest December 25, 2017 IMPRESSION: CHEST: 1.Multiple scattered bilateral subcentimeter/punctate pulmonary nodules are suspected. Many of these are not definitively seen on prior chest CT of December 25, 2017. A follow-up chest CT is recommended for further evaluation, as that is more sensitive for detection of pulmonary nodules, and for more direct comparison with the prior chest CT. 2.Thoracic portion of the IVC is patent. 3.There is no thoracic lymphadenopathy. 4.The heart is normal in size.The thoracic aorta is normal in caliber. 5.No suspicious osseous lesions are seen. Abdomen: 1. Patient is status post right nephrectomy. There is no evidence of residual or recurrent disease in the nephrectomy bed. 2.There is no regional adenopathy. 3.No evidence of residual IVC thrombus within the confines of unenhanced imaging (normal flow void is preserved on a dark bloody diffusion weighted images). 4.Left kidney is normal in size and contour. No evidence of left renal mass within the confines of unenhanced imaging. Tiny gallstone seen dependently in the gallbladder. No evidence of acute cholecystitis.Unenhanced liver, spleen, pancreas, adrenals are unremarkable. 5.The abdominal aorta is normal in caliber. 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 COMPARISON: MRI dated January 19, [address] chest December 25, 2017 IMPRESSION: CHEST: 1. Multiple scattered bilateral subcentimeter/punctate pulmonary nodules are suspected. Many of these are not definitively seen on prior chest CT of November. A follow-up chest CT is recommended for further evaluation, as that is more sensitive for detection of pulmonary nodules, and for more direct comparison with the prior chest CT. 2. Thoracic portion of the IVC is patent. 3. There is no thoracic lymphadenopathy. 4. The heart is normal in size. The thoracic aorta is normal in caliber. 5. No suspicious osseous lesions are seen. Abdomen: 1. Patient is status post right nephrectomy. There is no evidence of residual or recurrent disease in the nephrectomy bed. 2. There is no regional adenopathy. 3. No evidence of residual IVC thrombus within the confines of unenhanced imaging (normal flow void is preserved on a dark bloody diffusion weighted images). 4. Left kidney is normal in size and contour. No evidence of left renal mass within the confines of unenhanced imaging. Tiny gallstone seen dependently in the gallbladder. No evidence of acute cholecystitis. Unenhanced liver, spleen, pancreas, adrenals are unremarkable. 5. The abdominal aorta is normal in caliber. 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 COMPARISON:MRI dated January 19, [address] chest December 25, 2017 IMPRESSION: CHEST: 1.Multiple scattered bilateral subcentimeter/punctate pulmonary nodules are suspected. Many of these are not definitively seen on prior chest CT of December 25, 2017. A follow-up chest CT is recommende d for further evaluation, as that is more sensitive for detection of pulmonary nodules, and for more direct comparison with the prior chest CT. 2.Thoracic portion of the IVC is patent. 3.There is no thoracic lymphadenopathy. 4.The heart is normal in size.The thoracic aorta is normal in caliber. 5.No suspicious osseous lesions are seen. Abdomen: 1. Patient is status post right nephrectomy. There is no evidence of residual or recurrent disease in the nephrectomy bed. 2.There is no regional adenopathy. 3.No evidence of residual IVC thrombus within the confines of unenhanced imaging (normal flow void is preserved on a dark bloody diffusion weighted images). 4.Left kidney is normal in size and contour. No evidence of left renal mass within the confines of unenhanced imaging. Tiny gallstone seen dependently in the gallbladder. No evidence of acute cholec ystitis.Unenhanced liver, spleen, pancreas, adrenals are unremarkable. 5.The abdominal aorta is normal in caliber. 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 COMPARISON: MRI dated January 19, [address] chest December 25, 2017 IMPRESSION: CHEST: 1. Multiple scattered bilateral subcentimeter/punctate pulmonary nodules are suspected. Many of these are not definitively seen on prior chest CT of November. A follow-up chest CT is recommended for further evaluation, as that is more sensitive for detection of pulmonary nodules, and for more direct comparison with the prior chest CT. 2. Thoracic portion of the IVC is patent. 3. There is no thoracic lymphadenopathy. 4. The heart is normal in size. The thoracic aorta is normal in caliber. 5. No suspicious osseous lesions are seen. Abdomen: 1. Patient is status post right nephrectomy. There is no evidence of residual or recurrent disease in the nephrectomy bed. 2. There is no regional adenopathy. 3. No evidence of residual IVC thrombus within the confines of unenhanced imaging (normal flow void is preserved on a dark bloody diffusion weighted images). 4. Left kidney is normal in size and contour. No evidence of left renal mass within the confines of unenhanced imaging. Tiny gallstone seen dependently in the gallbladder. No evidence of acute cholecystitis. Unenhanced liver, spleen, pancreas, adrenals are unremarkable. 5. The abdominal aorta is normal in caliber. [facility]-[id number] Performing Organization Address City/State/Zipcode Phone Number [facility] [address] [place] [address] Urinalysis, automated with microscopy (02/15/2018 12:40 PM) Color, UA Yellow [facility] DEPARTMENT OF PATHOLOGY AND GENOMIC MEDICINE Appearance, UA Clear [facility] DEPARTMENT OF PATHOLOGY AND GENOMIC MEDICINE Specific gravity, UA 1.020 1.001 - 1.035 [facility] DEPARTMENT OF PATHOLOGY AND GENOMIC MEDICINE pH, UA 5.0 5.0 - 8.5 [facility] DEPARTMENT OF PATHOLOGY AND GENOMIC MEDICINE Protein, UA 1+ (A) Negative [facility] DEPARTMENT OF PATHOLOGY AND GENOMIC MEDICINE Glucose, UA 2+ (A) Negative [facility] DEPARTMENT OF PATHOLOGY AND GENOMIC MEDICINE Ketones, UA Negative Negative [facility] DEPARTMENT OF PATHOLOGY AND GENOMIC MEDICINE Bilirubin, UA Negative Negative [facility] DEPARTMENT OF PATHOLOGY AND GENOMIC MEDICINE Blood, UA Large (A) Negative [facility] DEPARTMENT OF PATHOLOGY AND GENOMIC MEDICINE Nitrite, UA Negative Negative [facility] DEPARTMENT OF PATHOLOGY AND GENOMIC MEDICINE Urobilinogen, UA <2.0 <2.0 [facility] DEPARTMENT OF PATHOLOGY AND GENOMIC MEDICINE Leukocyte esterase, UA Negative Negative [facility] DEPARTMENT OF PATHOLOGY AND GENOMIC MEDICINE Epithelial cells, UA 1 /HPF [facility] DEPARTMENT OF PATHOLOGY AND GENOMIC MEDICINE WBC, UA 3 (H) 0 - 1 /HPF [facility] DEPARTMENT OF PATHOLOGY AND GENOMIC MEDICINE RBC, UA 93 (H) 0 - 5 /HPF [facility] DEPARTMENT OF PATHOLOGY AND GENOMIC MEDICINE Bacteria, UA Few None seen [facility] DEPARTMENT OF PATHOLOGY AND GENOMIC MEDICINE Hyaline casts, UA 3 /LPF [facility] DEPARTMENT OF PATHOLOGY AND GENOMIC MEDICINE Yeast, UA None seen [facility] DEPARTMENT OF PATHOLOGY AND GENOMIC MEDICINE Yeast with pseudohyphae, UA None seen [facility] DEPARTMENT OF PATHOLOGY AND GENOMIC MEDICINE Specimen Urine Performing Organization Address City/[facility] Phone Number [facility] DEPARTMENT OF PATHOLOGY AND [address] [place] [id number] [facility] CBC hemogram (01/28/2018 4:00 AM) WBC 6.03 4.50 - 11.00 k/uL [facility] DEPARTMENT OF PATHOLOGY AND GENOMIC MEDICINE RBC 3.10 (L) 4.40 - 6.00 m/uL [facility] DEPARTMENT OF PATHOLOGY AND GENOMIC MEDICINE HGB 8.4 (L) 14.0 - 18.0 g/dL [facility] DEPARTMENT OF PATHOLOGY AND GENOMIC MEDICINE HCT 26.7 (L) 41.0 - 51.0 % [facility] DEPARTMENT OF PATHOLOGY AND GENOMIC MEDICINE MCV 86.1 82.0 - 100.0 fL [facility] DEPARTMENT OF PATHOLOGY AND GENOMIC MEDICINE MCH 27.1 27.0 - 34.0 pg [facility] DEPARTMENT OF PATHOLOGY AND GENOMIC MEDICINE MCHC 31.5 31.0 - 37.0 g/dL [facility] DEPARTMENT OF PATHOLOGY AND GENOMIC MEDICINE RDW - SD 53.7 37.0 - 55.0 fL [facility] DEPARTMENT OF PATHOLOGY AND GENOMIC MEDICINE MPV 12.0 8.8 - 13.2 fL [facility] DEPARTMENT OF PATHOLOGY AND GENOMIC MEDICINE Platelet count 113 (L) 150 - 400 k/uL [facility] DEPARTMENT OF PATHOLOGY AND GENOMIC MEDICINE Nucleated RBC 0.00 /100 WBC [facility] DEPARTMENT OF PATHOLOGY AND GENOMIC MEDICINE Specimen Blood Performing Organization Address City/[facility] Phone Number [facility] DEPARTMENT OF PATHOLOGY AND [address] [place] [id number] [facility] LDH (01/27/2018 4:00 AM)Only the most recent of3 resultswithin the time period is included. LDH 232 (H) 87 - 225 U/L [facility] DEPARTMENT OF PATHOLOGY AND GENOMIC MEDICINE Specimen Plasma specimen Performing Organization Address City/[facility]/Zipcode Phone Number [facility] DEPARTMENT OF PATHOLOGY AND [address] [place] [address] GENOMIC MEDICINE Surgical pathology request (01/24/2018 12:33 PM) [facility] DEPARTMENT OF PATHOLOGY AND GENOMIC MEDICINE Surgical pathology report See link below for PDF [facility] DEPARTMENT OF Lab Report PATHOLOGY AND GENOMIC MEDICINE Result status This is Final Report to [facility] DEPARTMENT OF [id number] PATHOLOGY AND GENOMIC MEDICINE Performing Organization Address City/[facility] Phone Number [facility] DEPARTMENT OF PATHOLOGY AND [address] [place] [address] GENOMIC MEDICINE Sodium level, syringe (01/24/2018 8:51 AM) Sodium, syringe 138 135 - 148 mEq/L [facility] DEPARTMENT OF PATHOLOGY AND GENOMIC MEDICINE Specimen Blood Performing Organization Address City/[facility] Phone Number [facility] DEPARTMENT OF PATHOLOGY AND [address] [place] [address] GENOMIC MEDICINE Potassium, syringe (01/24/2018 8:51 AM) Potassium, syringe 4.0 3.5 - 5.0 mEq/L [facility] DEPARTMENT OF PATHOLOGY AND GENOMIC MEDICINE Specimen Blood Performing Organization Address City/[facility] Phone Number [facility] DEPARTMENT OF PATHOLOGY AND [address] [place] [address] GENOMIC MEDICINE Ionized calcium, arterial (01/24/2018 8:51 AM) Ionized calcium, arterial 1.10 (L) 1.11 - 1.32 mmol/L [facility] DEPARTMENT OF PATHOLOGY AND GENOMIC MEDICINE Specimen Blood Performing Organization Address City/[facility] Phone Number [facility] DEPARTMENT OF PATHOLOGY AND [address] [place] [address] GENOMIC MEDICINE Hemoglobin, syringe (01/24/2018 8:51 AM) Hemoglobin, syringe 9.7 (L) 14.0 - 18.0 g/dL [facility] DEPARTMENT OF PATHOLOGY AND GENOMIC MEDICINE Specimen Blood Performing Organization Address City/[facility] Phone Number [facility] DEPARTMENT OF PATHOLOGY AND [address] [place], [place] [phone] GENOMIC MEDICINE Glucose level, syringe (01/24/2018 8:51 AM) Glucose, syringe 106 (H) 65 - 99 mg/dL [facility] DEPARTMENT OF PATHOLOGY AND GENOMIC MEDICINE Specimen Blood Performing Organization Address City/[facility]/Zipcode Phone Number [facility] DEPARTMENT OF PATHOLOGY AND [address] [place], [place] [phone] [facility] Arterial blood gas, corrected (01/24/2018 8:51 AM) pH, arterial 7.45 7.35 - 7.45 [facility] DEPARTMENT OF PATHOLOGY AND GENOMIC MEDICINE pCO2, arterial 35 35 - 45 mmHg [facility] DEPARTMENT OF PATHOLOGY AND GENOMIC MEDICINE pO2, arterial 175 (H) 80 - 90 mmHg [facility] DEPARTMENT OF PATHOLOGY AND GENOMIC MEDICINE Temperature, Celsius 34.6 Degrees C [facility] DEPARTMENT OF PATHOLOGY AND GENOMIC MEDICINE O2 saturation, arterial 100 95 - 100 % [facility] DEPARTMENT OF PATHOLOGY AND GENOMIC MEDICINE pH, arterial corrected 7.49 [facility] DEPARTMENT OF PATHOLOGY AND GENOMIC MEDICINE pCO2, arterial corrected 31 mmHg [facility] DEPARTMENT OF PATHOLOGY AND GENOMIC MEDICINE pO2, arterial corrected 165 mmHg [facility] DEPARTMENT OF PATHOLOGY AND GENOMIC MEDICINE Base excess, arterial 1 -2 - 2 mEq/L [facility] DEPARTMENT OF PATHOLOGY AND GENOMIC MEDICINE Specimen Blood Performing Organization Address City/[facility] Phone Number [facility] DEPARTMENT OF PATHOLOGY AND [address] [place], [place] [phone] [facility] Prothrombin time with INR, I-Stat (01/24/2018 7:20 AM) POC prothrombin time 11.1 11.0 - 14.5 sec [facility] DEPARTMENT OF PATHOLOGY AND GENOMIC MEDICINE POC INR 0.9 [facility] DEPARTMENT OF Comment: PATHOLOGY AND GENOMIC The International Normalized Ratio (INR) is a therapeutic MEDICINE monitoring tool for patients who are stable on oral vitamin K antagonist therapy. An INR of 2.0-3.0 is suggested for deep vein thrombosis/pulmonary embolism. An INR of 2.5-3.5 (high dose) is suggested for some patients with mechanical heart valves) Meter ID: [id number] Vegetable Farmer: Shady Davis Specimen Blood Performing Organization Address City/[facility]/Zipcode Phone Number [facility] DEPARTMENT OF PATHOLOGY AND [address] [place], [place] [phone] [email or web address] MEDICINE XR Chest 2 Vw (01/19/2018 1:42 PM) Narrative Performed At EXAMINATION:XR CHEST 2 VW RADIANT CLINICAL HISTORY:Z01.818 Encounter for other preprocedural examination, PREOP IMPRESSION: Status post sternotomy. Heart and mediastinum are normal. Lungs are clear. [facility]-[id number] Procedure Note Interface, Radiology Results Incoming - 01/19/2018 2:49 PM CDT EXAMINATION: XR CHEST 2 VW CLINICAL HISTORY: Z01.818 Encounter for other preprocedural examination, PREOP IMPRESSION: Status post sternotomy. Heart and mediastinum are normal. Lungs are clear. [facility]-[id number] Performing Organization Address City/[facility]/Zipcode Phone Number [facility] [address] [place] [address] Prepare RBC (01/19/2018 11:12 AM) Product name Apheresis -1 LR #1 [facility] DEPARTMENT OF PATHOLOGY AND GENOMIC MEDICINE Unit number [id number] [facility] DEPARTMENT OF [facility]OLOGY AND GENOMIC MEDICINE Product code [id number] [facility] DEPARTMENT OF PATHOLOGY AND GENOMIC MEDICINE Dispense status Returned to not [facility] DEPARTMENT OF transfused PATHOLOGY AND GENOMIC MEDICINE Blood expiration date [facility] OF [facility]Y AND GENOMIC MEDICINE Blood type code 9500 [facility] DE[facility] OF PATHOLOGY AND GENOMIC MEDICINE Blood type O NEGATIVE [facility] DEPART[facility] OF PATHOLOGY AND GENOMIC MEDICINE Product name Red Blood Cells -1, [facility] DEPARTMENT OF Leukored PATHOLOGY AND GENOMIC MEDICINE Unit number [id number] [facility] DEPARTMENT OF PATHOLOGY AND GENOMIC MEDICINE Product code [id number] [facility] DEPARTMENT OF PATHOLOGY AND GENOMIC MEDICINE Dispense status Returned to not [facility] DEPARTMENT OF transfused PATHOLOGY AND GENOMIC MEDICINE Blood expiration date [facility] OF PATHOLOGY AND GENOMIC MEDICINE Blood type code 9500 [facility] OF PATHOLOGY AND GENOMIC MEDICINE Blood type O NEGATIVE [facility] OF PATHOLOGY AND GENOMIC MEDICINE Performing Organization Address [facility] Phone Number [facility] DEPARTMENT OF PATHOLOGY AND [address] [place] [address] GENOMIC MEDICINE Type and screen (01/19/2018 11:12 AM) ABO grouping O [facility] DEPARTMENT OF PATHOLOGY AND GENOMIC MEDICINE Rh type NEG [facility] DEPARTMENT OF PATHOLOGY AND GENOMIC MEDICINE Antibody screen (gel) NEG [facility] DEPARTMENT OF PATHOLOGY AND GENOMIC MEDICINE Specimen Blood Performing Organization Address City/[facility]/Zipcode Phone Number [facility] DEPARTMENT OF PATHOLOGY AND [address] [place] [address] [email or web address] [facility] Hemoglobin A1c (01/19/2018 11:12 AM) Hemoglobin A1C 6.1 (H) 4.0 - 5.6 % [facility] DEPARTMENT OF PATHOLOGY Comment: AND GENOMIC MEDICINE HbA1c cutoffs for diagnosing diabetes: 4.0% - 5.6%=normal 5.7% - 6.4%=increased risk for diabetes (prediabetes) >=6.5%=diabetes Goals for glycemic control (ADA 2016) < 7.0%Target for non adults with diabetes. More or less stringent targets may be appropriate for individual patients. <7.5% Target for Children and adolescents with type 1 diabetes. Specimen Blood Performing Organization Address City/State/Zipcode Phone Number [facility] DEPARTMENT OF PATHOLOGY AND [address] [place] [address] [facility] MRI Abdomen W Wo Contrast (01/19/2018 9:58 AM)Only the most recent of2 resultswithin the time period is included. Narrative Performed At EXAMINATION:MRI ABDOMEN W WO CONTRAST [facility] CLINICAL HISTORY:N28.89 Other specified disorders of kidney and ureter, renal mass COMPARISON:December 05, 2017 TECHNIQUE: Multiplanar, multisequence MRI of the abdomen with and without intravenous gadolinium. FINDINGS: Redemonstration of an approximately 3.5 cm cortical based enhancing mass in the upper pole the right kidney. Renal vein tumor invasion is noted. The tumor thrombus is slightly expanded since previous st udy with greater extension in the IVC at the right renal vein confluence. The tumor does not extend more cranially to the intrahepatic segment. No retroperitoneal lymphadenopathy by size criteria. Left kidney unremarkable. Unremarkable liver and pancreas. Cholelithiasis. No biliary dilatation. Spleen is upper normal in size. No adrenal mass. No ascites or fluid collection. 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 No lymphadenopathy or distant metastatic disease in the abdomen. [facility]-[id number] Procedure Note [facility], Radiology Results Incoming - 01/19/2018 10:59 AM CDT EXAMINATION: MRI ABDOMEN W WO CONTRAST CLINICAL HISTORY: N28.89 Other specified disorders of kidney and ureter, renal mass COMPARISON: December 05, 2017 TECHNIQUE: Multiplanar, multisequence MRI of the abdomen with and without intravenous gadolinium. FINDINGS: Redemonstration of an approximately 3.5 cm cortical based enhancing mass in the upper pole the right kidney. Renal vein tumor invasion is noted. The tumor thrombus is slightly expanded since previous study with greater extension in the IVC at the right renal vein confluence. The tumor does not extend more cranially to the intrahepatic segment. No retroperitoneal lymphadenopathy by size criteria. Left kidney unremarkable. Unremarkable liver and pancreas. Cholelithiasis. No biliary dilatation. Spleen is upper normal in size. No adrenal mass. No ascites or fluid collection. 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 No lymphadenopathy or distant metastatic disease in the abdomen. [facility]-[id number] Performing Organization Address City/State/Zipcode Phone Number [facility] [address] [place] [address] CT Chest Wo Contrast (12/25/2017 2:02 PM) Narrative Performed At EXAMINATION: CT CHEST WO CONTRAST SUSANA CHAUDHARI CLINICAL HISTORY: N28.9 Disorder of kidney and ureterunspecified, renal mass TECHNIQUE:Multiple axial CT images of the chest are obtained without the use of intravenous contrast. The lack of intravenous contrast reduces the sensitivity of the sensitivity of detecting solid organ disease and evaluating vasculature. Sagittal and coronal 3-D reformatted images were obtained. CT scans are performed using radiation dose reduction techniques.Technical factors are evaluated and adjusted to ensure appropriate moderation of exposure.Automated dose management technology is applied to adjust radiation exposure while achieving a diagnostic quality image. COMPARISON: None. FINDINGS: The right lung zone does not have any focal area of consolidation. There is no pleural effusion or pneumothorax. The left lung zone does not have any focal lung nodules or lung masses. There are small bullous changes seen in the inferior aspect of the left lower lobe and within the right lower lobe. The visualized portions of the thyroid gland markable. The thoracic aorta has no aneurysmal dilatation. Nonspecific mediastinal adenopathy is present. The largest node measures approximately 8 mm. The heart has no pericardial effusion. Is mildly enlarged. The visualized portions of the liver, spleen and adrenal glands are unremarkable. The pancreas does not demonstrate any masses. There is exophytic mass seen at the superior pole of the right kidney. This was better seen on MRI examination from 12/05/2017. IMPRESSION: 1. There is a right renal mass seen at the superior pole of the right kidney. This was seen on previous MRI examination from December 2015. 2. There are no lung nodules. There is no evidence of any pulmonary metastasis. 3. The thoracic aorta has no aneurysmal dilatation. Mild atherosclerotic vascular changes are present. 4. There is no pleural effusion present. 5. Mild atherosclerotic vascular changes are seen within the thoracic aorta. [facility]-[id number] Procedure Note Hm Interface, Radiology Results Incoming - 12/25/2017 2:16 PM CDT EXAMINATION: CT CHEST WO CONTRAST CLINICAL HISTORY: N28.9 Disorder of kidney and ureter unspecified, renal mass TECHNIQUE: Multiple axial CT images of the chest are obtained without the use of intravenous contrast. The lack of intravenous contrast reduces the sensitivity of the sensitivity of detecting solid organ disease and evaluating vasculature. Sagittal and coronal 3-D reformatted images were obtained. CT scans are performed using radiation dose reduction techniques. Technical factors are evaluated and adjusted to ensure appropriate moderation of exposure. Automated dose management technology is applied to adjust radiation exposure while achieving a diagnostic quality image. COMPARISON: None. FINDINGS: The right lung zone does not have any focal area of consolidation. There is no pleural effusion or pneumothorax. The left lung zone does not have any focal lung nodules or lung masses. There are small bullous changes seen in the inferior aspect of the left lower lobe and within the right lower lobe. The visualized portions of the thyroid gland markable. The thoracic aorta has no aneurysmal dilatation. Nonspecific mediastinal adenopathy is present. The largest node measures approximately 8 mm. The heart has no pericardial effusion. Is mildly enlarged. The visualized portions of the liver, spleen and adrenal glands are unremarkable. The pancreas does not demonstrate any masses. There is exophytic mass seen at the superior pole of the right kidney. This was better seen on MRI examination from 12/05/2017. IMPRESSION: 1. There is a right renal mass seen at the superior pole of the right kidney. This was seen on previous MRI examination from December 2015. 2. There are no lung nodules. There is no evidence of any pulmonary metastasis. 3. The thoracic aorta has no aneurysmal dilatation. Mild atherosclerotic vascular changes are present. 4. There is no pleural effusion present. 5. Mild atherosclerotic vascular changes are seen within the thoracic aorta. [facility]-[id number] Performing Organization Address City/State/Zipcode Phone Number [facility] [address] [place] [address] POC creatinine (12/25/2017 12:16 PM) POC creatinine 1.9 (H) 0.7 - 1.2 mg/dl [facility] DEPARTMENT OF PATHOLOGY Comment: AND GENOMIC MEDICINE Meter ID: [id number] Vegetable Farmer: Nirmal Muse Specimen Blood Performing Organization Address City/State/Zipcode Phone Number [facility] DEPARTMENT OF PATHOLOGY AND [address] [place] [id number] [facility] MRI Pelvis W Wo Contrast (12/05/2017 12:25 PM) Narrative Performed At This [facility] has an attachment that is not available. EXAMINATION:MRI PELVIS W WO CONTRAST [facility]ANT CLINICAL HISTORY:N28.89 Other specified disorders of kidney and ureter, renal mass TECHNIQUE:Multiplanar, multisequence MR imaging examination of the pelvis obtained prior to and following gadolinium IV contrast. COMPARISON:None. IMPRESSION: 1.Motion artifact degrades image quality and decreases sensitivity of exam. 2.Prostate gland is enlarged with a median lobe impressing on the base of the urinary bladder. Urinary bladder wall is slightly thickened compatible with hypertrophy secondary to chronic outlet obst ruction from prostatomegaly. Probable TURP defect. Tiny bladder diverticula, otherwise grossly unremarkable. Seminal vesicles unremarkable. 3.No free fluid or lymphadenopathy identified within the pelvis. 4.Regional marrow signal show no suspicious lesion. Stranding along the right external iliac vessels, nonspecific. There is mild edema associated with this. Etiology is uncertain. No free fluid or f luid collection is identified in the pelvis. Mild intramuscular edema along the deep fibers of the iliacus bilaterally, symmetric. Small bilateral inguinal hernias each containing fat only. 5.Visualized bones show no suspicious lesion. 6.The rectal vault is moderately distended with fecal material, compatible with fecal impaction or constipation. SUMMARY: No suspicious finding identified. Stranding, edema and mild enhancement along the right external iliac vessels is of uncertain etiology. [id number] Procedure Note Interface, Radiology Results Incoming - 12/05/2017 1:47 PM [employer] EXAMINATION: MRI PELVIS W WO CONTRAST CLINICAL HISTORY: N28.89 Other specified disorders of kidney and ureter, renal mass TECHNIQUE: Multiplanar, multisequence MR imaging examination of the pelvis obtained prior to and following gadolinium IV contrast. COMPARISON: None. IMPRESSION: 1. Motion artifact degrades image quality and decreases sensitivity of exam. 2. Prostate gland is enlarged with a median lobe impressing on the base of the urinary bladder. Urinary bladder wall is slightly thickened compatible with hypertrophy secondary to chronic outlet obstruction from prostatomegaly. Probable TURP defect. Tiny bladder diverticula, otherwise grossly unremarkable. Seminal vesicles unremarkable. 3. No free fluid or lymphadenopathy identified within the pelvis. 4. Regional marrow signal show no suspicious lesion. Stranding along the right external iliac vessels, nonspecific. There is mild edema associated with this. Etiology is uncertain. No free fluid or fluid collection is identified in the pelvis. Mild intramuscular edema along the deep fibers of the iliacus bilaterally, symmetric. Small bilateral inguinal hernias each containing fat only. 5. Visualized bones show no suspicious lesion. 6. The rectal vault is moderately distended with fecal material, compatible with fecal impaction or constipation. SUMMARY: No suspicious finding identified. Stranding, edema and mild enhancement along the right external iliac vessels is of uncertain etiology. [id number] Performing Organization Address City/[facility] Centercode Phone Number [facility] [address] [place] [address] Creatinine level (12/05/2017 10:14 AM) Creatinine 1.8 (H)Comment: Testing 0.7 - 1.2 mg/dL [facility] DEPARTMENT OF PATHOLOGY performed on the [email or web address] MEDICINE instrument by AIMEE Proctor [id number] Specimen Plasma specimen Performing Organization Address City/[facility] Centercode Phone Number [facility] DEPARTMENT OF PATHOLOGY AND [address] [place] [address] GENOMIC MEDICINE after 07/26/2017 Insurance Payer Benefit Plan / Group Subscriber ID Type Phone Address MEDICARE MEDICARE PART A AND B xxxxxxxxxx Medicare [place], [place] COMMERCIAL MISC MISC COMMERCIAL xxxxxxxxxx Commercial Work: [address] [phone] [place], [place] [address] Home: [phone]
--- OUTSIDE RECORDS SUMMARY | 2018-07-27 18:40 | XMS REPORT | Continuity of Care Document ---
:1935 Author Organization Interface Problems Problem Status Onset Classification Date Comments Source Date Reported GROSS HEMATURIA Active [address] CVA- ISCHEMIC Active [address] DIZZINESS Active [address] History of Resolved Problem 06/10/2017 [facility] aortic valve 2 Medical replacement Center Anemia Resolved Problem 06/10/2017 [facility] DM (<span Resolved Problem 06/10/2017 [facility] ID="[id number] Medical ">Confirmed</sp Center an>) HLD (<span Resolved Problem 06/10/2017 [place] ID="[id number] Medical ">Confirmed</sp Center an>) HTN (<span Resolved Problem 06/10/2017 [place] ID="[id number] Medical ">Confirmed</sp Center an>) Prostate Resolved Problem 05/18/2014 [facility] CVA Active [facility] DIZZINESS AND Active [facility] GIDDINESS [facility] Medications Medication Details Route Status Patient Ordering Order Source Instructions Provider Date finasteride 5 5 mg=1 tab, Active [place] mg oral tablet PO, Daily, # 017 Medical 30 tab, 0 Center Refill(s), Pharmacy: [id number] cefpodoxime 200 200 mg=1 tab, Active [place] mg oral tablet PO, Q12H, X 7 017 Medical day, # 14 tab, Center 0 Refill(s), Pharmacy: [facility] [id number] tamsulosin 0.4 0.4 mg=1 cap, Active [place] mg oral capsule PO, Daily, # 017 Medical 30 cap, 0 Center Refill(s), Pharmacy: [facility] [id number] Streptococcus 0.5 mL, Route: Inactive [facility] pneumoniae IM, Drug Form: 017 [facility] serotype 1 INJ, Daily, Center capsular Start date: antigen 06/07/17 diphtheria 9:00:00 CDT, [id number] protein Duration: 1 conjugate doses or vaccine / times, Stop Streptococcus date: 06/07/17 pneumoniae 9:00:00 serotype 14 CDTNotes: capsular Shake well antigen prior to use diphtheria (Same as: [id number] protein Prevnar 13) conjugate vaccine / Streptococcus pneumoniae serotype 18C capsular antigen d 24 HR 50 mg, 1 tab, Inactive [facility] Metoprolol Route: PO, 017 Medical Tartrate 50 MG Drug form: [place] Extended ERTAB, Daily, Release Tablet Start date: [Toprol] 06/07/17 9:00:00 CDT, Duration: 30 day, Stop date: 07/06/17 9:00:00 CDTNotes: (Same as: Toprol XL) May split tab, but do not crush. Simvastatin 40 mg, 1 tab, No Longer [facility] Route: PO, Active 017 Medical Drug form: Center TAB, Bedtime, Dosing Weight 95, kg, Start date: 06/06/17 21:00:00 CDT, Duration: 30 day, Stop date: 07/05/17 21:00:00 CDTNotes: (Same as: Zocor) Insulin Lispro 1 unit, 0.01 No Longer [facility] mL, Route: Active 017 Medical SUB-Q, Drug Center form: SOLN, Bedtime, Dosing Weight 95, kg, PRN Blood Glucose Results, Start date: 06/06/17 20:00:00 CDT, Duration: 30 day, Stop date: 07/06/17 19:59:00 CDTNotes: (Same as: Humalog ) Roll in palms of hands gently; Do not shake `vigorously. "Single Patient Use Only " (Restricted to patients requiring a dose > 60 units) WASTE: F/P - Black; E - Municipal Trash Bin Stable for 28 days at room temperature. Expires in days from Date Dextrose 50% 25 gm, 50 mL, No Longer [facility] Syringe Route: IVP, Active 017 Medical Drug Form: Center INJ, Dosing Weight 95, kg, PRN, PRN Blood Glucose Results, Start date: 06/06/17 20:00:00 CDT, Duration: 30 day, Stop date: 07/06/17 19:59:00 CDT Glucagon 1 mg, Route: No Longer [facility] IM, Drug form: Active 017 Medical PDR/INJ, PRN, Center Dosing Weight 95, kg, PRN Blood Glucose Results, Start date: 06/06/17 20:00:00 CDT, Duration: 30 day, Stop date: 07/06/17 19:59:00 CDT Ceftriaxone 1 gm, Route: No Longer [facility] IVPB, Drug Active 017 Medical form: PDR/INJ, Center [id number], Dosing Weight 95, kg, Start date: 06/06/17 20:00:00 CDT, Duration: 7 day, Stop date: 06/12/17 20:00:00 CDT, ABX Indication: Urinary Tract InfectionNotes : (Same As: Rocephin). Use with 100 mL NS and infuse over 30 min MEDICATION WASTE Product Size: 1000 mg Product Wasted: _0__ mg ferrous sulfate 325 mg=1 tab, Inactive [place] 325 MG Oral PO, Daily [address] [place] [address] Tablet [place] cephalexin 500 500 mg=1 cap, No Longer [place] mg oral capsule PO, BID, 0 Active [facility] Medical Refill(s) [place] simvastatin 40 40 mg=1 tab, Active [place] mg oral tablet PO, Bedtime, # 017 Medical 90 tab, 1 Center Refill(s) finasteride 5 5 mg=1 tab, No Longer [place] mg oral tablet PO, Daily, # Active 017 Medical 30 tab, 0 Center Refill(s) metoprolol 50 50 mg=1 tab, Active [place] mg oral tablet, PO, Daily [address] [place] [address] extended Center release glyBURIDE 2.5 2.5 mg=1 tab, Active [place] mg oral tablet PO, Breakfast [address] [place] [address] Metformin 500 mg=1 tab, Active [place] hydrochloride PO, BID-Meals, [facility] Medical 500 MG Oral # 60 tab Center Tablet Flomax 0.4 mg, 1 cap, No Longer [facility] Route: PO, Active 017 Medical Drug form: [place] CAP, Daily, Dosing Weight 96.364, kg, Start date: 06/06/17 9:00:00 CDT, Duration: 30 day, Stop date: 07/05/17 9:00:00 CDTNotes: (Same As: Flomax) "Do Not Crush" atorvastatin 40 40 mg=1 tab, Active [place] mg oral tablet PO, Bedtime, # 014 Medical 30 tab, 3 Center Refill(s) metoprolol 50 =25 mg, PO, Active [place] mg oral tablet, Daily, # 30 014 Medical extended caplet, 3 Center release Refill(s) aspirin 325 mg 325 mg=1 tab, Active [place] tablet PO, Daily, # 014 Medical 50 tab, 3 Center Refill(s) levofloxacin 750 mg=1 tab, Active [place] 750 mg oral PO, [id number], # 014 Medical tablet 4 tab, 0 Center Refill(s) Levaquin 750 mg, 1 tab, Inactive [facility] Route: PO, 014 Medical Drug form: [place] TAB, [id number], Dosing Weight 100, kg, Start date: 05/15/14 10:00:00, Duration: 5 day, Stop date: 05/19/14 10:00:00Notes: Do not give w/antacids, dairy pdt & minerals Take 1 hr before or 2 hr after dairy products Finasteride 5 mg, 1 tab, No Longer [facility] Route: PO, Active 014 Medical Drug form: [place] TAB, Daily, Dosing Weight 100, kg, Start date: 05/14/14 9:00:00, Duration: 30 day, Stop date: 06/12/14 9:00:00 Lipitor 40 mg, 1 tab, No Longer [facility] Route: PO, Active 014 Medical Drug form: [place] TAB, Bedtime, Dosing Weight 100, kg, Start date: 05/13/14 21:00:00, Stop date: 06/11/14 21:00:00Notes: (Same as: Lipitor) Aspirin / 81 mg, PO, No Longer [facility] Calcium Daily, 0 Active 014 Medical Carbonate Refill(s) Center Aspirin / 325 mg, 1 tab, No Longer [facility] Calcium Route: PO, Active 014 Medical Carbonate Drug form: Center TAB, Daily, Dosing Weight 100, kg, Start date: 05/13/14 9:00:00, Duration: 30 day, Stop date: 06/11/14 9:00:00Notes: Take with food. Saline Flush 5 ml, Route: No Longer [facility] 0.9% IVP, Drug Active 014 Medical Form: INJ, [place] Dosing Weight 100, kg, Q12H, Start date: 05/13/14 9:00:00, Duration: 30 day, Stop date: 06/11/14 21:00:00Notes: (Same as: BD Posiflush) clopidogrel 75 mg, 1 tab, Inactive [facility] Route: PO, 014 Medical Drug form: [place] TAB, Daily, Dosing Weight 100, kg, Start date: 05/13/14 9:00:00, Duration: 30 day, Stop date: 06/11/14 9:00:00Notes: (Same As: Plavix) Docusate 100 mg, 1 cap, No Longer [facility] Route: PO, Active 014 Medical Drug form: [place] CAP, Q12H, Dosing Weight 100, kg, Start date: 05/13/14 9:00:00, Duration: 30 day, Stop date: 06/11/14 21:00:00Notes: (Same as: Colace) (Do Not Crush) Metformin 500 mg=1 tab, Inactive [facility] hydrochloride BID, 0 014 Medical 500 MG Oral Refill(s) [place] Tablet NS 1,000 mL 1,000 mL, No Longer [facility] Rate: 75 Active 014 Medical ml/hr, Infuse Center over: 13.3 hr, Route: IV, Dosing Weight 100 kg, Total Volume: 1,000, Start date: 05/13/14 2:30:00, Duration: 30 day, Stop date: 06/12/14 2:29:00 Zosyn 3.375 gm, No Longer [facility] Route: IV, Active 014 Medical Drug form: [place] PDR/INJ, Q6H, Dosing Weight 100, kg, Start date: 05/13/14 0:00:00, Stop date: 06/11/14 18:00:00Notes: (Same as: Zosyn) Dosing based on Piperacillin component Vancomycin 1 gm, Route: No Longer [facility] IV, Drug form: Active 014 Medical INJ, Q24H, Center Dosing Weight 100, kg, Start date: 05/13/14 0:00:00, Duration: 30 day, Stop date: 06/11/14 0:00:00Notes: (Same As: Vancocin) heparin, 5,000 unit, 1 No Longer [facility] porcine mL, Route: Active 014 Medical SUB-Q, Drug Center form: INJ, Q8H, Dosing Weight 100, kg, (For patients weighing Notes: porcine heparin Dextrose 50% 25 gm, 50 mL, No Longer [facility] Syringe Route: IVP, Active 014 Medical Drug Form: Center INJ, Dosing Weight 100, kg, PRN, PRN Abnormal Lab Result, Start date: 05/12/14 23:56:00, Duration: 30 day, Stop date: 06/11/14 23:55:00 Regular 7 unit, 0.07 No Longer [facility] Insulin, Human mL, Route: Active 014 Medical 100 UNT/ML SUB-Q, Drug Center Injectable form: SOLN, Solution PRN, Dosing Weight 100, kg, PRN Abnormal Lab Result, Start date: 05/12/14 23:56:00, Duration: 30 day, Stop date: 06/11/14 23:55:00Notes: (Same as: Humulin R) Roll in palms of hands gently; Do not shake vigorously. "single patient use only" (Restricted to patients requiring a dose > 60 units) Stable for 28 days at room temperature Expires in days from Date Saline Flush 5 ml, Route: No Longer [facility] 0.9% IVP, Drug Active 014 Medical Form: INJ, Center Dosing Weight 100, kg, PRN, PRN Line Flush, Start date: 05/12/14 23:54:00, Duration: 30 day, Stop date: 06/11/14 23:53:00Notes: (Same as: BD Posiflush) Labetalol 10 mg, 2 mL, No Longer [facility] Route: IVP, Active 014 Medical Drug form: Center INJ, Q10Min, Dosing Weight 100, kg, PRN Hypertension, Start date: 05/12/14 23:54:00, Duration: 30 day, Stop date: 06/11/14 23:53:00, For SBP > 180mmHg and/or DBP > 105mmHg Ondansetron 4 mg, 2 mL, No Longer [facility] Route: IVP, Active 014 Medical Drug form: [place] INJ, Q8H, Dosing Weight 100, kg, PRN Nausea & Vomiting, Start date: 05/12/14 23:54:00, Duration: 30 day, Stop date: 06/11/14 23:53:00Notes: (Same as: Zofran) Acetaminophen 650 mg, 2 tab, No Longer [facility] Route: PO, Active 014 Medical Drug form: Center TAB, Q4H, Dosing Weight 100, kg, PRN Pain 1-3/Temp > 99.5 F, Start date: 05/12/14 23:54:00, Duration: 30 day, Stop date: 06/11/14 23:53:00Notes: Do not exceed 4 gm/day. (Same as: Tylenol) Bisacodyl 10 mg, 1 supp, No Longer [facility] Route: UT, Active 014 Medical Drug form: Center SUPP, Daily, Dosing Weight 100, kg, PRN Constipation, Start date: 05/12/14 23:54:00, Duration: 30 day, Stop date: 06/11/14 23:53:00Notes: (Same As: Dulcolax, [place]-Lax) Aspirin 81 MG 81 mg=1 tab, Active [facility] Chewable Tablet PO, Daily, # 014 Medical 90 tab, 3 Center Refill(s) Finasteride 5 mg, 1 tab, Inactive [facility] Route: PO, 014 Medical Drug form: Center TAB, Daily, Dosing Weight 100, kg, Start date: 02/28/14 9:00:00, Duration: 30 day, Stop date: 03/29/14 9:00:00Notes: (Same as: Proscar) "Do Not Crush" Zocor 20 mg, 1 tab, No Longer [facility] Route: PO, Active 014 Medical Drug form: Center TAB, Bedtime, Start date: 02/27/14 21:00:00, Duration: 30 day, Stop date: 03/28/14 21:00:00Notes: (Same as: Zocor) normal saline 1,000 mL, No Longer [facility] 0.9% IV 1,000 Rate: 100 Active 014 Medical mL ml/hr, Infuse Center over: 10 hr, Route: IV, Dosing Weight 100 kg, Total Volume: 1,000, Start date: 02/27/14 9:55:00, Duration: 30 day, Stop date: 03/29/14 9:54:00 Sodium Chloride 250 mL, 250 Inactive [place] 0.154 MEQ/ML ml/hr, Infuse 014 Medical Injectable Over: 1 hr, [place] Solution Route: IV, ONCE, Priority: STAT, Dosing Weight 100 kg, Start date: 02/27/14 9:53:00, Duration: 1 doses or times, Stop date: 02/27/14 9:53:00 Calcium 1,000 mg, Inactive [facility] Carbonate Route: PO, 014 Medical TID, Dosing Center Weight 100, kg, Priority: NOW, Start date: 02/27/14 9:52:00, Duration: 1 day, Stop date: 02/28/14 9:00:00 heparin, 7,500 unit, No Longer [facility] porcine 1.5 mL, Route: Active 014 Medical SUB-Q, Drug Center form: INJ, Q8H, Dosing Weight 100, kg, Priority: STAT, Start date: 02/27/14 9:48:00, Duration: 30 day, Stop date: 03/29/14 8:00:00Notes: porcine heparin Aspirin / 81 mg, 1 tab, No Longer [facility] Calcium Route: PO, Active 014 Medical Carbonate Drug form: Center CHEWTAB, Daily, Dosing Weight 100, kg, Start date: 02/27/14 9:00:00, Duration: 30 day, Stop date: 03/28/14 9:00:00Notes: Take with food. Saline Flush 5 ml, Route: No Longer [facility] 0.9% IVP, Drug Active 014 Medical Form: INJ, kg, Center Q12H, Start date: 02/27/14 9:00:00, Duration: 30 day, Stop date: 03/28/14 21:00:00Notes: (Same as: BD Posiflush) Lipitor 80 mg, 1 tab, Inactive [place] Route: PO, 014 Medical Drug form: Center TAB, Daily, kg, Start date: 02/27/14 9:00:00, Duration: 30 day, Stop date: 03/28/14 9:00:00Notes: Same as Lipitor Docusate Sodium 100 mg, 1 cap, No Longer [place] 100 MG Oral Route: PO, Active 014 Medical Capsule Drug form: Center CAP, BID, kg, Start date: 02/27/14 9:00:00, Duration: 30 day, Stop date: 03/28/14 17:00:00Notes: (Same as: Colace) (Do Not Crush) sennosides, [facility] 8.6 mg, 1 tab, No Longer [place] 8.6 MG Oral Route: PO, Active 014 Medical Tablet Drug Form: Center TAB, kg, BID, Start date: 02/27/14 9:00:00, Duration: 30 day, Stop date: 03/28/14 17:00:00Notes: (Same as: Senokot) Iron 100 Plus 45 mg, PO, Active [place] oral tablet Daily, 0 014 Medical Refill(s) [place] glyBURIDE 2.5 2.5 mg=1 tab, Active [place] mg oral tablet PO, BID, # 30 014 Medical tab, 0 Center Refill(s) Metformin 500 mg=1 tab, Active [place] hydrochloride PO, BID, # 30 014 Medical 500 MG Oral tab, 0 Center Tablet Refill(s) metoprolol 50 50 mg, PO, Active [place] mg oral tablet, Daily, # 30 014 Medical extended tab, 0 Center release Refill(s) Simvastatin 20 20 mg=1 tab, Active [place] MG Oral Tablet PO, Bedtime, # 014 Medical [Zocor] 30 tab, 0 Center Refill(s) finasteride 5 5 mg=1 tab, Active [facility] mg oral tablet PO, Daily, # 014 [facility] 30 tab, 0 Center Refill(s) Regular 5 unit, 0.05 No Longer [facility] Insulin, Human mL, Route: Active [facility] 100 UNT/ML SUB-Q, Drug Center Injectable form: SOLN, Solution PRN, kg, PRN Abnormal Lab Result, Start date: 02/26/14 21:09:00, Duration: 30 day, Stop date: 03/28/14 21:08:00Notes: (Same as: Humulin R) Roll in palms of hands gently; Do not shake vigorously. "single patient use only" (Restricted to patients requiring a dose > 60 units) Stable for 28 days at room temperature Expires in days from Date Dextrose 50% 6.25 gm, 12.5 No Longer [facility] Syringe mL, Route: Active [place] [facility] IVP, Drug Center Form: INJ, kg, PRN, PRN Abnormal Lab Result, Start date: 02/26/14 21:09:00, Duration: 30 day, Stop date: 03/28/14 21:08:00 Saline Flush 5 ml, Route: No Longer [facility] 0.9% IVP, Drug Active 014 Medical Form: INJ, kg, Center PRN, PRN Line Flush, Start date: 02/26/14 21:06:00, Duration: 30 day, Stop date: 03/28/14 21:05:00Notes: (Same as: BD Posiflush) Acetaminophen 650 mg, 2 tab, No Longer [facility] Route: PO, Active 014 Medical Drug form: [place] TAB, Q4H, kg, PRN Pain 1-3/Temp > 99.5 F, Start date: 02/26/14 21:06:00, Duration: 30 day, Stop date: 03/28/14 21:05:00Notes: Do not exceed 4 gm/day. (Same as: Tylenol) Labetalol 10 mg, 2 mL, No Longer [facility] Route: IVP, Active 014 Medical Drug form: Center INJ, Q10Min, kg, PRN Hypertension, Start date: 02/26/14 21:06:00, Duration: 30 day, Stop date: 03/28/14 21:05:00, For SBP > 180mmHg and/or DBP > 105mmHg Allergies, Adverse Reactions, Alerts Substance Category Reaction Severity Reaction Status Date Comments Source type Reported Immunizations Immunization Date Given Site Status Last Updated Comments Source pneumococcal 06/07/2017 Not Given [facility] 13-valent vaccine [facility] Results Order Name Results Value Reference Date Interpretation Comments Source Range CHEM PANEL Magnesium Lvl 1.7 mg/dL 1.8 - 2.4 06/[address] CHEM PANEL eGFR 34 06/07 Result Comment: The eGFR is calculated using the CKD-EPI formula. In most young, healthy individuals the eGFR will be >90 mL/ min/1.73m2. The eGFR declines with age. An eGFR of 60-89 may be normal in [facility] mL/min/1.7 /2016 some populations, particularly the elderly, for whom the CKD-EPI formula has not been extensively validated. Use of the eGFR is not recommended in the following populations: [address] Individuals with unstable creatinine concentrations, including patients and those with serious co-morbid conditions. Patients with extremes in muscle mass or diet. The data above are obtained from the National Kidney Disease Education Program (NKDEP) which additionally recommends that when the eGFR is used in patients with extremes of body mass index for purposes of drug dosing, the eGFR should be multiplied by the estimated BMI. CHEM PANEL Creatinine 1.79 mg/dL 0.50 - 06/07 [facility] Lvl 1.40 /2016 [facility] CHEM PANEL Glucose Lvl 104 mg/dL 70 - 99 06/[address] CHEM PANEL BUN 26 mg/dL 7 - 22 06/[address] CHEM PANEL Chloride Lvl 106 meq/L 95 - 109 06/[address] CHEM PANEL CO2 26 meq/L 24 - 32 06/[address] CHEM PANEL Calcium Lvl 8.8 mg/dL 8.5 - 10.5 06/[address] CHEM PANEL Potassium Lvl 4.2 meq/L 3.5 - 5.1 06/[address] CHEM PANEL Sodium Lvl 139 meq/L 135 - 145 06/[address] CHEM PANEL AGAP 11.2 meq/L 10.0 - 06/07 [place] 20.0 /2016 [facility] HEMATOLOGY Eosinophils # 0.2 K/CMM 0.0 - 0.5 06/07 [facility] HEMATOLOGY Segs 58.3 % 45.0 - 09 [place] 75.0 /2016 [facility] HEMATOLOGY Eosinophils 2.6 % 0.0 - 4.0 06/[address] [place] [address] HEMATOLOGY Monocytes 9.6 % 2.0 - 12.0 06/07 [facility] HEMATOLOGY Lymphocytes 29.0 % 20.0 - 09 [place] 40.0 [facility] HEMATOLOGY Basophils 0.5 % 0.0 - 1.0 06/[address] HEMATOLOGY Segs-Bands # 4.1 K/CMM 1.5 - 8.1 06/[address] [place] [address] HEMATOLOGY Monocytes # 0.7 K/CMM 0.0 - 0.8 06/[address] HEMATOLOGY Lymphocytes # 2.1 K/CMM 1.0 - 5.5 06/07 [facility] HEMATOLOGY RDW 12.8 % 11.5 - 06/07 [facility] 14.5 [facility] HEMATOLOGY MCHC 35.6 g/dL 32.0 - 06/07 36.0 [facility] HEMATOLOGY MCV 85.9 fL 80.0 - 06/07 [facility] 94.0 [facility] HEMATOLOGY MCH 30.6 pg 27.0 - 06/07 31.0 [facility] HEMATOLOGY RBC 3.78 M/CMM 4.70 - 06/07 6.10 [facility] HEMATOLOGY WBC 7.1 K/CMM 3.7 - 10.4 06/07 [facility] HEMATOLOGY Hgb 11.6 g/dL 14.0 - 06/07 18.0 [facility] HEMATOLOGY Hct 32.5 % 42.0 - 06/07 54.0 [facility] HEMATOLOGY MPV 9.5 fL 7.4 - 10.4 06/[address] HEMATOLOGY Platelet 112 K/CMM 133 - 450 06/[address] CHEM PANEL eGFR 33 06/06 Result Comment: The eGFR is calculated using the CKD-EPI formula. In most young, healthy individuals the eGFR will be >90 mL/ min/1.73m2. The eGFR declines with age. An eGFR of 60-89 may be normal in [facility] mL/min/1.7 /2016 some populations, particularly the elderly, for whom the CKD-EPI formula has not been extensively validated. Use of the eGFR is not recommended in the following populations: [address] Individuals with unstable creatinine concentrations, including patients and those with serious co-morbid conditions. Patients with extremes in muscle mass or diet. The data above are obtained from the National Kidney Disease Education Program (NKDEP) which additionally recommends that when the eGFR is used in patients with extremes of body mass index for purposes of drug dosing, the eGFR should be multiplied by the estimated BMI. CHEM PANEL Calcium Lvl 8.6 mg/dL 8.5 - 10.5 06/06 [facility] CHEM PANEL Glucose Lvl 118 mg/dL 70 - 99 06/[address] CHEM PANEL Chloride Lvl 108 meq/L 95 - 109 06/[address] CHEM PANEL CO2 28 meq/L 24 - 32 06/[address] CHEM PANEL Creatinine 1.85 mg/dL 0.50 - 06/06 [facility] Lvl 1.40 /2016 [facility] CHEM PANEL Sodium Lvl 141 meq/L 135 - 145 06/[address] CHEM PANEL BUN 25 mg/dL 7 - 22 06/[address] CHEM PANEL Potassium Lvl 4.2 meq/L 3.5 - 5.1 06/[address] CHEM PANEL AGAP 9.2 meq/L 10.0 - 06/06 [facility] 20.0 [facility] HEMATOLOGY Hct 32.6 % 42.0 - 06/06 [facility] 54.0 [facility] HEMATOLOGY Hgb 11.3 g/dL 14.0 - 06/06 [facility] 18.0 [facility] URINE AND UA Sq Epi None Seen 06/06 [facility] URINE AND UA Amorph Occasional None Seen 06/06 [facility] STOOL Lorenza /HPF /HPF /2016 [facility] URINE AND UA Mucus Few /LPF None Seen 06/06 [facility] STOOL /LPF /[address] [place] [address] URINE AND UA <=1.0 0.1 - 1.0 06/06 [facility] Urobilinogen mg/dL /2016 [facility] URINE AND UA Turbidity Slight Clear 06/06 [facility] Medical *ABN* Center (06/06/17 12:25 PM) URINE AND UA Color Yellow Yellow 06/06 [facility] Medical *NA* Center (06/06/17 12:25 PM) URINE AND UA Blood Large Negative 06/06 [facility] Medical *ABN* Center (06/06/17 12:25 PM) URINE AND UA Bili Negative Negative 06/06 [facility] Medical *NA* Center (06/06/17 12:25 PM) URINE AND UA Ketones Negative Negative 06/06 [facility] mg/dL mg/dL /2016 [facility] URINE AND UA Glucose Negative Negative 06/06 [facility] mg/dL mg/dL /2016 [facility] URINE AND UA Protein 100 mg/dL Negative 06/06 [facility] mg/dL [facility] URINE AND UA pH 5.5 5.0 - 8.0 06/[address] [facility]2016 [facility] URINE AND UA Spec Grav 1.012 <=1.030 06/06 [facility] URINE AND UA RBC null 0 - 2 06/06 [facility] URINE AND UA Leuk Est Moderate Negative 06/06 [facility] Medical *ABN* Center (06/06/17 12:25 PM) URINE AND UA WBC 34 /HPF 0 - 5 06/[address] [facility]2016 [facility] URINE AND UA Nitrite Negative Negative 06/06 [facility] (06/06/17 12:25 PM) [place] URINE AND UA Leuk Est Negative Negative 06/06 [facility] (06/06/17 8:27 AM) [place] URINE AND UA Nitrite Negative Negative 06/06 [facility] (06/06/17 8:27 AM) Center URINE AND UA 0.2 EU/dL 0.1 - 1.0 06/06 [facility] Urobilinogen /2016 [facility] URINE AND UA Blood Large Negative 06/06 [facility] Medical *ABN* Center (06/06/17 8:27 AM) URINE AND UA Spec Grav 1.020 <=1.030 06/[address] URINE AND UA Turbidity Slight Cloudy Clear 06/06 [facility] (06/06/17 8:27 AM) Center URINE AND UA Color Yellow Yellow 06/06 [facility] *NA* [place] (06/06/17 8:27 AM) URINE AND UA Ketones Negative Negative 06/06 [facility] [facility] [place] (06/06/17 8:27 AM) URINE AND UA Bili Negative Negative 06/06 [facility] *NA* [place] (06/06/17 8:27 AM) URINE AND UA Glucose Negative Negative 06/06 [facility] (06/06/17 8:27 AM) [place] URINE AND UA pH 5.5 5.0 - 8.0 06/06 [facility] /2016 [facility] URINE AND UA Protein 30 mg/dL Negative 06/06 [facility] mg/dL [facility] URINE AND UA RBC 51-100 0 - 2 06/06 [facility] /HPF [facility] URINE AND UA WBC 0-2 /HPF None Seen 06/06 [facility] /HPF [facility] URINE AND UA Bacteria None Seen None Seen 06/06 [facility] (06/06/17 8:27 AM) [place] URINE AND UA Sq Epi None Seen Few 06/06 [facility] (06/06/17 8:27 AM) [place] Retroperito Retroperitone EXAM: US RETROPERITONEAL LIMITED RENAL DATE: 2016 7:18 AM CDT 06/06 - [facility] Complete US US This report was dictated by a Instrumentation Controls Engineer/ Fellow. I have personally reviewed the images as Center well as the Resident's interpretation and agree with the findings. INDICATION: - hematuria, breezy Read by: Norman Heller MD Resident: Norman Heller MD Dictated Date/time: 06/06/17 09:46 Electronically Signed by: Cooper Wallis MD 06/06/17 13:43 FINAL REPORT ADDITIONAL INFORMATION: None. COMPARISON: None. TECHNIQUE: Multiplanar grayscale and color Doppler ultrasound of the kidneys and urinary bladder. FINDINGS: Right kidney: Size: 12.1 x 5.0 x 4.2 cm. Hydronephrosis: None. Echogenicity: Normal. Calculi: None. Cysts/Masses: Hyperechoic circular lesion in the superior pole measuring 2.3 x 2.1 x 1.9 cm. On interrogation with color Doppler there is scant vascularity within the lesion. Left kidney: Size: 11.8 x 4.7 x 4.6 cm. Hydronephrosis: None. Echogenicity: Normal. Calculi: Ovoid hyperechoic lesion in the inferior portion of the hilum with posterior acoustic shadowing measuring 1.0 x 0.4 x 0.8 cm consistent with a small microcalcification. On interrogation with color Doppler there is no flow within the lesion. Cysts/Masses: None Bladder: Krishnan in place. Bladder is decompressed Free fluid: None. Other: None. IMPRESSION: 1. Hyperechoic lesion in the right superior pole concerning for malignancy. Recommend multiphasic CT or magnetic resonance imaging with gadolinium for further characterization. 2. Calcified stone within the hilum of the left kidney. No hydronephrosis noted ELECTROLYTE CO2 24 meq/L 24 - 32 06/[address] ELECTROLYTE Calcium Lvl 8.9 mg/dL 8.5 - 10.5 06/[address] ELECTROLYTE eGFR 33 06/06 Result Comment: The eGFR is calculated using the CKD-EPI formula. In most young, healthy individuals the eGFR will be >90 mL/ min/1.73m2. The eGFR declines with age. An eGFR of 60-89 may be normal in [facility] mL/min/1.7 /2016 some populations, particularly the elderly, for whom the CKD-EPI formula has not been extensively validated. Use of the eGFR is not recommended in the following populations: [address] Individuals with unstable creatinine concentrations, including patients and those with serious co-morbid conditions. Patients with extremes in muscle mass or diet. The data above are obtained from the National Kidney Disease Education Program (NKDEP) which additionally recommends that when the eGFR is used in patients with extremes of body mass index for purposes of drug dosing, the eGFR should be multiplied by the estimated BMI. ELECTROLYTE Potassium Lvl 4.3 meq/L 3.5 - 5.1 06/06 [facility]2016 [facility] ELECTROLYTE Creatinine 1.83 mg/dL 0.50 - 06/06 [facility] Lvl 1.40 [facility] ELECTROLYTE Sodium Lvl 140 meq/L 135 - 145 06/[address] ELECTROLYTE Chloride Lvl 107 meq/L 95 - 109 06/[address] ELECTROLYTE Glucose Lvl 112 mg/dL 70 - 99 09 S [facility] ELECTROLYTE BUN 34 mg/dL 7 - 22 06/06 S [facility] ELECTROLYTE AGAP 13.3 meq/L 10.0 - 06/06 [facility] S 20.0 [facility] HEMATOLOGY PTT 29.7 s 22.9 - 06/06 [place] 35.8 /2016 [facility] HEMATOLOGY PT 13.7 s 12.0 - 06/06 14.7 [facility] HEMATOLOGY INR 1.03 0.85 - 06/06 [place] 1.17 [facility] HEMATOLOGY Platelet 107 K/CMM 133 - 450 09 [facility] HEMATOLOGY Hct 34.4 % 42.0 - 06/06 54.0 [facility] HEMATOLOGY RDW 12.5 % 11.5 - 06/06 14.5 [facility] HEMATOLOGY MCH 29.1 pg 27.0 - 09 31.0 [facility] HEMATOLOGY MCV 88.6 fL 80.0 - 06/06 [facility] 94.0 [facility] HEMATOLOGY MCHC 32.8 g/dL 32.0 - 06/06 36.0 [facility] HEMATOLOGY MPV 9.9 fL 7.4 - 10.4 06/06 [facility] HEMATOLOGY Hgb 11.3 g/dL 14.0 - 06/06 18.0 [facility] HEMATOLOGY RBC 3.88 M/CMM 4.70 - 06/06 6.10 [facility] HEMATOLOGY WBC 8.1 K/CMM 3.7 - 10.4 06/06 [facility] HEMATOLOGY Eosinophils 2.1 % 0.0 - 4.0 09 [facility] HEMATOLOGY Basophils 0.5 % 0.0 - 1.0 09 [facility] HEMATOLOGY Segs-Bands # 5.4 K/CMM 1.5 - 8.1 09 [facility] HEMATOLOGY Eosinophils # 0.2 K/CMM 0.0 - 0.5 09 [facility] HEMATOLOGY Monocytes 8.6 % 2.0 - 12.0 09 [facility] HEMATOLOGY Lymphocytes 22.7 % 20.0 - 09 [place] 40.0 [facility] HEMATOLOGY Segs 66.1 % 45.0 - 09 [facility] 75.0 [facility] HEMATOLOGY Lymphocytes # 1.8 K/CMM 1.0 - 5.5 06/06 [facility] HEMATOLOGY Monocytes # 0.7 K/CMM 0.0 - 0.8 06/06 [facility] CHEM PANEL eGFR 43 05/15 1Result Comment: The eGFR is calculated using the CKD-EPI formula. In most young, healthy individuals the eGFR will be >90 mL/ min/1.73m2. The eGFR declines with age. An eGFR of 60-89 may be normal in [facility] mL/min/1. some populations, particularly the elderly, for whom the CKD-EPI formula has not been extensively validated. Use of the eGFR is not recommended in the following populations: [address] Individuals with unstable creatinine concentrations, including patients and those with serious co-morbid conditions. Patients with extremes in muscle mass or diet. The data above are obtained from the National Kidney Disease Education Program (NKDEP) which additionally recommends that when the eGFR is used in patients with extremes of body mass index for purposes of drug dosing, the eGFR should be multiplied by the estimated BMI. CHEM PANEL Calcium Lvl 7.9 mg/dL 8.5 - 10.5 05/15 [facility] CHEM PANEL Chloride Lvl 109 meq/L 95 - 109 05/15 [facility] CHEM PANEL CO2 24 meq/L 24 - 32 05/15 [facility] CHEM PANEL Glucose Lvl 157 mg/dL 70 - 99 05/15 4Interpretive Data: Adult reference range values reflect the clinical guidelines of the [place] [employer]. [facility] CHEM PANEL Creatinine 1.5 mg/dL 0.5 - 1.4 05/15 [facility] CHEM PANEL BUN 30 mg/dL 7 - 22 05/15 [facility] CHEM PANEL Potassium Lvl 3.9 meq/L 3.5 - 5.1 05/15 [facility] CHEM PANEL Sodium Lvl 143 meq/L 135 - 145 05/15 [facility] CHEM PANEL AGAP 13.9 meq/L 10.0 - 05/15 20. [facility] CHEM PANEL Magnesium Lvl 2.0 mg/dL 1.8 - 2.4 05/15 [facility] CHEM PANEL Phosphorus 2.1 mg/dL 2.5 - 4.5 05/15 [facility] HEMATOLOGY Segs 86.3 % 45.0 - 05/15 75.0 [facility] HEMATOLOGY Eosinophils 0.5 % 0.0 - 4.0 05/15 [facility] HEMATOLOGY Monocytes 4.2 % 2.0 - 12.0 05/15 [facility] HEMATOLOGY Lymphocytes 8.9 % 20.0 - 05/15 [place] 40.0 [facility] HEMATOLOGY Segs-Bands # 6.1 K/CMM 1.5 - 8.1 05/15 [facility] HEMATOLOGY Monocytes # 0.3 K/CMM 0.0 - 0.8 05/15 [facility] HEMATOLOGY Lymphocytes # 0.6 K/CMM 1.0 - 5.5 05/15 [facility] HEMATOLOGY Basophils 0.1 % 0.0 - 1.0 05/15 [facility] HEMATOLOGY Platelet 158 K/CMM 133 - 450 05/15 [facility] HEMATOLOGY MPV 9.6 fL 7.4 - 10.4 05/15 [facility] HEMATOLOGY MCHC 33.4 g/dL 32.0 - 05/15 36.0 [facility] HEMATOLOGY RDW 13.7 % 11.5 - 05/15 14.5 [facility] HEMATOLOGY MCH 29.8 pg 27.0 - 05/15 31.0 [facility] HEMATOLOGY MCV 89.2 fL 80.0 - 05/15 94.0 [facility] HEMATOLOGY Hgb 10.3 g/dL 14.0 - 05/15 18.0 [facility] HEMATOLOGY Hct 30.9 % 42.0 - 05/15 54.0 [facility] HEMATOLOGY RBC 3.46 M/CMM 4.70 - 05/15 6.10 [facility] HEMATOLOGY WBC 7.1 K/CMM 3.7 - 10.4 05/15 [facility] LIPIDS LDL 19 mg/dL <=99 mg/dL 05/14 (Calculated) [facility] LIPIDS VLDL 40 05/14 [facility] LIPIDS Trig 202 mg/dL <=149 05/14 [facility] mg/dL [facility] LIPIDS Chol 68 mg/dL <=199 05/14 mg/dL [facility] LIPIDS HDL 9 mg/dL >=61 mg/dL 05/14 [facility] LIPIDS CHD Risk 7.56 4.00 - 05/14 [facility] 7.30 [facility] CHEM PANEL Phosphorus 2.4 mg/dL 2.5 - 4.5 05/14 [facility] CHEM PANEL eGFR 40 05/14 2Result Comment: The eGFR is calculated using the CKD-EPI formula. In most young, healthy individuals the eGFR will be >90 mL/ min/1.73m2. The eGFR declines with age. An eGFR of 60-89 may be normal in [facility] mL/min/1.7 some populations, particularly the elderly, for whom the CKD-EPI formula has not been extensively validated. Use of the eGFR is not recommended in the following populations: [address] Individuals with unstable creatinine concentrations, including patients and those with serious co-morbid conditions. Patients with extremes in muscle mass or diet. The data above are obtained from the National Kidney Disease Education Program (NKDEP) which additionally recommends that when the eGFR is used in patients with extremes of body mass index for purposes of drug dosing, the eGFR should be multiplied by the estimated BMI. CHEM PANEL Chloride Lvl 110 meq/L 95 - 109 05/14 [facility] CHEM PANEL CO2 21 meq/L 24 - 32 05/14 [facility] CHEM PANEL Calcium Lvl 7.6 mg/dL 8.5 - 10.5 05/14 [facility] CHEM PANEL Sodium Lvl 142 meq/L 135 - 145 05/14 [facility] CHEM PANEL Creatinine 1.6 mg/dL 0.5 - 1.4 05/14 [facility] CHEM PANEL BUN 34 mg/dL 7 - 22 05/14 [facility] CHEM PANEL Glucose Lvl 127 mg/dL 70 - 99 05/14 5Interpretive Data: Adult reference range values reflect the clinical guidelines of the [place] [employer]. [facility] CHEM PANEL Potassium Lvl 4.0 meq/L 3.5 - 5.1 05/14 [facility] CHEM PANEL AGAP 15.0 meq/L 10.0 - 05/14 20.0 [facility] CHEM PANEL Magnesium Lvl 1.8 mg/dL 1.8 - 2.4 05/14 [facility] HEMATOLOGY Lymphocytes # 0.6 K/CMM 1.0 - 5.5 05/14 [facility] HEMATOLOGY Monocytes # 0.4 K/CMM 0.0 - 0.8 05/14 [facility] HEMATOLOGY Segs 86.6 % 45.0 - 05/14 [place] 75.0 /2013 [facility] HEMATOLOGY Segs-Bands # 7.2 K/CMM 1.5 - 8.1 05/14 [facility] HEMATOLOGY Basophils 0.2 % 0.0 - 1.0 05/14 [facility] HEMATOLOGY Eosinophils 0.1 % 0.0 - 4.0 05/14 [facility] HEMATOLOGY Lymphocytes 7.8 % 20.0 - 05/14 40.0 [facility] HEMATOLOGY Monocytes 5.3 % 2.0 - 12.0 05/14 [facility] HEMATOLOGY INR 1.36 0.85 - 05/14 8Interpretive Data: RECOMMENDED RANGES FOR PROTIME INR: [facility] . 2.0-3.0 for most medical and surgical thromboembolic states. Medical 2.5-3.5 for artificial heart valves and recurrent embolism. Center INR SHOULD BE USED ONLY FOR PATIENTS ON STABLE ANTICOAGULANT THERAPY. HEMATOLOGY PT 16.6 s 12.0 - 05/14 [place] 14.7 [facility] HEMATOLOGY Hgb 10.1 g/dL 14.0 - 05/14 18.0 [facility] HEMATOLOGY RBC 3.40 M/CMM 4.70 - 05/14 [place] 6.10 /2013 [facility] HEMATOLOGY WBC 8.3 K/CMM 3.7 - 10.4 05/14 [facility] HEMATOLOGY RDW 13.5 % 11.5 - 05/14 14.5 [facility] HEMATOLOGY Hct 30.3 % 42.0 - 05/14 [place] 54.0 /2013 [facility] HEMATOLOGY MCHC 33.2 g/dL 32.0 - 05/14 [place] 36.0 /2013 [facility] HEMATOLOGY MCH 29.6 pg 27.0 - 05/14 [place] 31.0 [facility] HEMATOLOGY MCV 89.0 fL 80.0 - 05/14 [place] 94.0 /2013 [facility] HEMATOLOGY MPV 9.6 fL 7.4 - 10.4 05/14 [facility] HEMATOLOGY Platelet 134 K/CMM 133 - 450 05/14 [facility] URINE AND UA Nitrite Negative Negative 05/13 [facility] (05/13/14 1:49 AM) [place] URINE AND UA Leuk Est Negative Negative 05/13 [facility] (05/13/14 1:49 AM) [place] URINE AND UA 1.0 EU/dL 0.1 - 1.0 05/13 [facility] Urobilinogen [facility] URINE AND UA Blood Large Negative 05/13 [facility] Medical *ABN* [place] (05/13/14 1:49 AM) URINE AND UA Bili Negative Negative 05/13 [facility] Medical *NA* [place] (05/13/14 1:49 AM) URINE AND UA Ketones 15 mg/dL Negative 05/13 [facility] mg/dL [facility] URINE AND UA Glucose Negative Negative 05/13 [facility] (05/13/14 1:49 AM) [place] URINE AND UA Spec Grav 1.024 <=1.030 05/13 [facility] URINE AND UA Turbidity Slight Cloudy Clear 05/13 [facility] (05/13/14 1:49 AM) [place] URINE AND UA Protein 100 mg/dL Negative 05/13 [facility] mg/dL [facility] URINE AND UA pH 6.0 5.0 - 8.0 05/13 [facility] URINE AND UA Color Yellow Yellow 05/13 [facility] Medical *NA* Center (05/13/14 1:49 AM) URINE AND UA RBC 3-5 /HPF 0 - 2 05/13 [facility] URINE AND UA Mucus Rare /LPF None Seen 05/13 [facility] /LPF [facility] URINE AND UA WBC 0-2 /HPF None Seen 05/13 [facility] /HPF Medical [place] URINE AND UA Bacteria Occasional None Seen 05/13 [facility] STOOL /HPF /HPF [facility] URINE AND UA Amorph Occasional None Seen 05/13 [facility] [place] STOOL Lorenza /HPF /HPF /2013 [facility] URINE AND UA Sq Epi Rare /LPF Few /LPF 05/13 [place] STOOL /2013 [facility] Brain wo Brain wo EXAM: MRA BRAIN WITHOUT CONTRAST 05/13 [facility] contrast contrast MRA /2013 - [facility] Center DATE: 05/13/2014 Read by: Juan Traore MD Dictated Date/time: 05/13/14 08:49 Electronically Signed by: Juan Traore MD 05/13/14 09:05 FINAL REPORT CLINICAL INDICATION: Altered level of consciousness, gait instability, recent left frontal infarct TECHNIQUE: 3-D [id number] MRA of the brain is performed. DISCUSSION: Examination is degraded by motion. Given this limitation, however, no proximal or major branch occlusion is evident. There is no flow-limiting stenosis. There is a functional PROFESSOR OF EXERCISE SCIENCE on the left, with a diminutive left P1 segment. No large intracranial aneurysm in the usual locations is identified. However, considering the motion limitation of the study , a small aneurysm may elude detection. No high-flow AVM is evident. IMPRESSION: Motion-limited examination, showing no proximal or major branch occlusion Functional PROFESSOR [employer] EXERC[employer] SCIENCE on the left, represents an anatomic variant. Neck wo Neck wo EXAM: MRA NECK WITHOUT CONTRAST 05/13 [facility] contrast contrast MRA /2013 - [facility] MRA This report was dictated by a Instrumentation Controls Engineer/Fellow. I have personally reviewed the images as Center well as the Resident's interpretation and agree with the findings. DATE: May 13, 2014 05:40:00 AM Read by: Jaime Morse MD Resident: Jaime Morse MD Dictated Date/time: 05/13/14 16:33 Electronically Signed by: Juan Traore MD 05/13/14 17:23 FINAL REPORT INDICATION: Altered level of consciousness COMPARISON: CT 02/27/2014 and MRA 05/13/2014 TECHNIQUE: 2-D time of flight MRA of the neck. Post-processing was performed. DISCUSSION: MRA NECK: There is normal flow-related signal in the imaged portions of the bilateral carotid systems. The imaged portions of the bilateral vertebral arteries are patent, with antegrade flow, and the le ft is slightly dominant. The proximal supra-aortic arteries, their origins and the aortic arch were not included in the [id number] by this technique. IMPRESSION: No flow-limiting stenosis detected in the cervical carotid arteries or extracranial vertebral arteries [All qualitative and quantitative assessments of carotid bifurcation and proximal internal carotid artery stenosis are made at referencing the distal internal carotid artery.] CARDIAC Troponin-I 0.08 ng/mL 0.00 - 08 [facility] ENZYMES 0.40 /2013 [facility] CHEM PANEL Lactic Acid 1.8 mmol/L 0.5 - 2.2 05/13 [facility] WB [facility] ELECTROLYTE AGAP 10.0 meq/L 10.0 - 05/13 [facility] S 20.0 [facility] ELECTROLYTE eGFR 35 05/13 3Result Comment: The eGFR is calculated using the CKD-EPI formula. In most young, healthy individuals the eGFR will be > 90 mL/min/1.73m2. The eGFR declines with age. An eGFR of 60-89 may be normal in [facility] mL/min/1.7 some populations, particularly the elderly, for whom the CKD-EPI formula has not been extensively validated. Use of the eGFR is not recommended in the following populations: [address] Individuals with unstable creatinine concentrations, including patients and those with serious co-morbid conditions. Patients with extremes in muscle mass or diet. The data above are obtained from the National Kidney Disease Education Program (NKDEP) which additionally recommends that when the eGFR is used in patients with extremes of body mass index for purposes of drug dosing, the eGFR should be multiplied by the estimated BMI. ELECTROLYTE Potassium Lvl 4.0 meq/L 3.5 - 5.1 05/13 [facility] ELECTROLYTE Sodium Lvl 136 meq/L 135 - 145 05/13 [facility] ELECTROLYTE Creatinine 1.8 mg/dL 0.5 - 1.4 05/13 [facility] Lvl [facility] ELECTROLYTE BUN 27 mg/dL 7 - 22 05/13 [facility]2013 [facility] ELECTROLYTE Chloride Lvl 105 meq/L 95 - 109 05/13 [facility] ELECTROLYTE Calcium Lvl 8.3 mg/dL 8.5 - 10.5 05/13 [facility] ELECTROLYTE CO2 25 meq/L 24 - 32 05/13 [facility] ELECTROLYTE Glucose Lvl 134 mg/dL 70 - 99 05/13 6Interpretive Data: Adult reference range values reflect the clinical guidelines [facility] of the [place] [employer]. [facility] HEMATOLOGY Eosinophils 1.2 % 0.0 - 4.0 05/13 [facility] HEMATOLOGY Monocytes 2.4 % 2.0 - 12.0 05/13 [facility] HEMATOLOGY Lymphocytes 6.6 % 20.0 - 05/13 [place] 40.0 /2013 [facility] HEMATOLOGY Elliptocyte Slight None Seen 05/13 [facility] *ABN* Center (05/12/14 10:45 PM) HEMATOLOGY Lymphocytes # 0.8 K/CMM 1.0 - 5.5 05/13 [facility] HEMATOLOGY Monocytes # 0.3 K/CMM 0.0 - 0.8 05/13 [facility] HEMATOLOGY Basophils 0.0 % 0.0 - 1.0 05/13 [facility] HEMATOLOGY Segs-Bands # 11.2 K/CMM 1.5 - 8.1 05/13 [facility] HEMATOLOGY Anisocyte 1+ None Seen 05/13 [facility] *ABN* [place] (05/12/14 10:45 PM) HEMATOLOGY Eosinophils # 0.1 K/CMM 0.0 - 0.5 05/13 [facility] HEMATOLOGY Basophils # 0.0 K/CMM 0.0 - 0.2 05/13 [facility] HEMATOLOGY Segs 89.8 % 45.0 - 05/13 75.0 [facility] HEMATOLOGY Plt Morph Normal 05/13 [facility] (05/12/14 10:45 PM) [place] HEMATOLOGY Platelet 142 K/CMM 133 - 450 05/13 [facility] HEMATOLOGY RDW 12.7 % 11.5 - 05/13 14.5 [facility] HEMATOLOGY MPV 9.9 fL 7.4 - 10.4 05/13 [facility] HEMATOLOGY MCHC 34.8 g/dL 32.0 - 05/13 [place] 36.0 [facility] HEMATOLOGY MCV 87.4 fL 80.0 - 05/13 [place] 94.0 [facility] HEMATOLOGY MCH 30.5 pg 27.0 - 05/13 [place] 31.0 [facility] HEMATOLOGY Hgb 11.9 g/dL 14.0 - 05/13 [place] 18.0 [facility] HEMATOLOGY Hct 34.1 % 42.0 - 05/13 [facility] 54.0 [facility] HEMATOLOGY WBC 12.4 K/CMM 3.7 - 10.4 05/13 [facility] HEMATOLOGY RBC 3.90 M/CMM 4.70 - 05/13 [facility] 6.10 [facility] Chest 1view Chest 1view EXAM: XR CHEST ONE VIEW: 05/12 - - Medical This report was dictated by a Instrumentation Controls Engineer/Fellow. I have personally reviewed the images as Center well as the Resident's interpretation and agree with the findings. DATE: 2014-05-12 21:55:00 Read by: Cooper Ying MD Resident: Cooper Ying MD Dictated Date/time: 05/12/14 22:12 Electronically Signed by: Linda Christopher MD 05/13/14 15:24 FINAL REPORT INDICATION: Coughing TECHNIQUE: frontal portable chest radiograph COMPARISON: None FINDINGS: Heart size is borderline enlarged. There is evidence of prior CABG. Left retrocardiac opacity. Lungs otherwise clear. No pleural effusion or pneumothorax seen. IMPRESSION: 1. Left retrocardiac opacity which can represent atelectasis or infection. 2. Borderline cardiomegaly. CHEM PANEL eGFR 47 02/28 1Result Comment: The eGFR is calculated using the CKD-EPI formula. In most young, healthy individuals the eGFR will be >90 mL/ min/1.73m2. The eGFR declines with age. An eGFR of 60-89 may be normal in [facility] mL/min/1. some populations, particularly the elderly, for whom the CKD-EPI formula has not been extensively validated. Use of the eGFR is not recommended in the following populations: [address] Individuals with unstable creatinine concentrations, including patients and those with serious co-morbid conditions. Patients with extremes in muscle mass or diet. The data above are obtained from the National Kidney Disease Education Program (NKDEP) which additionally recommends that when the eGFR is used in patients with extremes of body mass index for purposes of drug dosing, the eGFR should be multiplied by the estimated BMI. CHEM PANEL Sodium Lvl 141 meq/L 135 - 145 02/28 [facility] CHEM PANEL Potassium Lvl 4.1 meq/L 3.5 - 5.1 02/28 [facility] CHEM PANEL Glucose Lvl 95 mg/dL 70 - 99 02/28 4Interpretive Data: Adult reference range values reflect the clinical guidelines of the [place] [employer]. [facility] CHEM PANEL Creatinine 1.4 mg/dL 0.5 - 1.4 02/28 [facility] Center CHEM PANEL BUN 20 mg/dL 7 - 22 02/28 [facility] Center CHEM PANEL Calcium Lvl 8.4 mg/dL 8.5 - 10.5 02/28 [facility] Center CHEM PANEL Chloride Lvl 107 meq/L 95 - 109 02/28 [facility] CHEM PANEL CO2 24 meq/L 24 - 32 02/28 [facility] CHEM PANEL AGAP 14.1 meq/L 10.0 - 02/28 20.0 [facility] HEMATOLOGY MPV 10.3 fL 7.4 - 10.4 02/28 [facility] HEMATOLOGY MCH 30.7 pg 27.0 - 02/28 31.0 [facility] HEMATOLOGY Platelet 110 K/CMM 133 - 450 02/28 [facility] HEMATOLOGY MCHC 34.4 g/dL 32.0 - 02/28 36.0 [facility] HEMATOLOGY RDW 12.4 % 11.5 - 02/28 14.5 [facility] HEMATOLOGY Hgb 12.7 g/dL 14.0 - 02/28 18.0 [facility] HEMATOLOGY RBC 4.12 M/CMM 4.70 - 02/28 6.10 [facility] HEMATOLOGY Hct 36.8 % 42.0 - 02/28 54.0 [facility] Center HEMATOLOGY MCV 89.2 fL 80.0 - 02/28 94.0 [facility] HEMATOLOGY WBC 8.0 K/CMM 3.7 - 10.4 02/28 [facility] HEMATOLOGY Lymphocytes 35.2 % 20.0 - 02/28 40.0 [facility] HEMATOLOGY Monocytes 7.9 % 2.0 - 12.0 02/28 [facility] HEMATOLOGY Segs 53.9 % 45.0 - 02/28 75.0 [facility] Center HEMATOLOGY Eosinophils 2.5 % 0.0 - 4.0 02/28 [facility] [facility] HEMATOLOGY Basophils 0.5 % 0.0 - 1.0 02/28 [facility] HEMATOLOGY Segs-Bands # 4.3 K/CMM 1.5 - 8.1 02/28 [facility] HEMATOLOGY Monocytes # 0.6 K/CMM 0.0 - 0.8 02/28 2013 [facility] HEMATOLOGY Lymphocytes # 2.8 K/CMM 1.0 - 5.5 02/28 [facility] HEMATOLOGY Eosinophils # 0.2 K/CMM 0.0 - 0.5 02/28 [facility] URINE AND UA <=1.0 0.1 - 1.0 02/27 [facility] Urobilinogen mg/dL [facility] URINE AND UA RBC 1 /HPF 0 - 2 02/27 [facility] URINE AND UA Sq Epi None Seen 02/27 [facility] URINE AND UA pH 6.5 5.0 - 8.0 02/27 [facility] URINE AND UA Protein Negative Negative 02/27 [facility] mg/dL mg/dL [facility] URINE AND UA Spec Grav 1.029 <=1.030 02/27 [facility] URINE AND UA Blood Negative Negative 02/27 [facility] (02/27/14 4:25 PM) [place] URINE AND UA Nitrite Negative Negative 02/27 [facility] (02/27/14 4:25 PM) [place] URINE AND UA Turbidity Clear Clear 02/27 [facility] (02/27/14 4:25 PM) [place] URINE AND UA Glucose Negative Negative 02/27 [facility] mg/dL mg/dL [facility] URINE AND UA Ketones Negative Negative 02/27 [facility] mg/dL mg/dL [facility] URINE AND UA Leuk Est Negative Negative 02/27 [facility] (02/27/14 4:25 PM) [place] URINE AND UA Bili Negative Negative 02/27 [facility] Medical *NA* [place] (02/27/14 4:25 PM) URINE AND UA Color Light Yellow Yellow 02/27 [facility] *NA* [place] (02/27/14 4:25 PM) CHEM PANEL eGFR 51 02/27 3Result Comment: The eGFR is calculated using the CKD-EPI formula. In most young, healthy individuals the eGFR will be >90 mL/ min/1.73m2. The eGFR declines with age. An eGFR of 60-89 may be normal in [facility] mL/min/1. some populations, particularly the elderly, for whom the CKD-EPI formula has not been extensively validated. Use of the eGFR is not recommended in the following populations: [address] Individuals with unstable creatinine concentrations, including patients and those with serious co-morbid conditions. Patients with extremes in muscle mass or diet. The data above are obtained from the National Kidney Disease Education Program (NKDEP) which additionally recommends that when the eGFR is used in patients with extremes of body mass index for purposes of drug dosing, the eGFR should be multiplied by the estimated BMI. CHEM PANEL Creatinine 1.3 mg/dL 0.5 - 1.4 02/27 [facility] ELECTROLYTE eGFR 51 02/27 2Result Comment: The eGFR is calculated using the CKD-EPI formula. In most young, healthy individuals the eGFR will be > 90 mL/min/1.73m2. The eGFR declines with age. An eGFR of 60-89 may be normal in [facility] S mL/min/1. some populations, particularly the elderly, for whom the CKD-EPI formula has not been extensively validated. Use of the eGFR is not recommended in the following populations: [address] Individuals with unstable creatinine concentrations, including patients and those with serious co-morbid conditions. Patients with extremes in muscle mass or diet. The data above are obtained from the National Kidney Disease Education Program (NKDEP) which additionally recommends that when the eGFR is used in patients with extremes of body mass index for purposes of drug dosing, the eGFR should be multiplied by the estimated BMI. HEMATOLOGY RDW 13.1 % 11.5 - 02/27 [facility] 14. [facility] HEMATOLOGY MCHC 34.0 g/dL 32.0 - 02/27 [facility] 36.0 [facility] HEMATOLOGY Platelet 117 K/CMM 133 - 450 02/27 [facility] HEMATOLOGY MPV 10.2 fL 7.4 - 10.4 02/27 [facility] HEMATOLOGY WBC 7.6 K/CMM 3.7 - 10.4 02/27 [facility] HEMATOLOGY Hgb 12.5 g/dL 14.0 - 02/27 18.0 /2013 [facility] HEMATOLOGY RBC 4.11 M/CMM 4.70 - 02/27 6.10 /2013 [facility] HEMATOLOGY Hct 36.6 % 42.0 - 02/27 54.0 /2013 [facility] HEMATOLOGY MCV 89.1 fL 80.0 - 02/27 94.0 /2013 [facility] HEMATOLOGY MCH 30.3 pg 27.0 - 02/27 31.0 [facility] HEMATOLOGY INR 1.04 0.85 - 02/27 8Interpretive Data: RECOMMENDED RANGES FOR PROTIME INR: [facility] 1. 2.0-3.0 for most medical and surgical thromboembolic states. Medical 2.5-3.5 for artificial heart valves and recurrent embolism. Center INR SHOULD BE USED ONLY FOR PATIENTS ON STABLE ANTICOAGULANT THERAPY. HEMATOLOGY PTT 28.5 s 22.9 - 02/27 10Interpretiv [facility] 35.8 e Data: [facility] Therapeutic Range: 57 - 92 Seconds HEMATOLOGY PT 13.5 s 12.0 - 02/27 [facility] 14.7 [facility] HEMATOLOGY Eosinophils # 0.2 K/CMM 0.0 - 0.5 02/27 [facility] HEMATOLOGY Segs-Bands # 4.7 K/CMM 1.5 - 8.1 02/27 [facility] HEMATOLOGY Basophils 0.5 % 0.0 - 1.0 02/27 [facility] HEMATOLOGY Lymphocytes # 2.1 K/CMM 1.0 - 5.5 02/27 [facility] HEMATOLOGY Lymphocytes 27.6 % 20.0 - 02/27 40.0 [facility] HEMATOLOGY Monocytes 8.0 % 2.0 - 12.0 02/27 [facility] HEMATOLOGY Eosinophils 2.2 % 0.0 - 4.0 02/27 [facility] HEMATOLOGY Monocytes # 0.6 K/CMM 0.0 - 0.8 02/27 [facility] HEMATOLOGY Segs 61.7 % 45.0 - 02/27 75.0 [facility] ELECTROLYTE Chloride Lvl 106 meq/L 95 - 109 02/27 [facility] ELECTROLYTE Sodium Lvl 141 meq/L 135 - 145 02/27 [facility] ELECTROLYTE Calcium Lvl 8.4 mg/dL 8.5 - 10.5 02/27 [facility] S [facility] ELECTROLYTE CO2 27 meq/L 24 - 32 02/27 [facility] ELECTROLYTE Potassium Lvl 4.1 meq/L 3.5 - 5.1 02/27 [facility] S [facility] ELECTROLYTE AGAP 12.1 meq/L 10.0 - 02/27 [facility] 20.0 [facility] ELECTROLYTE Creatinine 1.3 mg/dL 0.5 - 1.4 02/27 [facility] ELECTROLYTE BUN 21 mg/dL 7 - 22 02/27 [facility] ELECTROLYTE Glucose Lvl 111 mg/dL 70 - 99 02/27 5Interpretive Data: Adult reference range values reflect the clinical guidelines [facility] of the [employer]. [facility] Brain/Neck Brain/Neck CT ANGIOGRAM OF THE HEAD AND NECK 02/27 - [facility] CTA CTA - [facility] DATE: 02/27/2014 at 4:18 p.m. Read by: Noel Alejandro MD Dictated Date/time: 02/27/14 23:58 Electronically Signed by: Noel Alejandro MD 02/28/14 00:26 FINAL REPORT Comparison studies: Outside imaging MRI of the brain and MRA 02/26/2014 from [facility]. CLINICAL INFORMATION: Vertigo, left thalamic infarct. Comparison studies: TECHNIQUE: Axial images were obtained from the vertex through the upper thorax at 1.5 mm intervals in the enhanced mode. 3-D maximum intensity projection, MIP images were also created. FINDINGS: There is normal contrast-enhancement of the aortic arch and proximal great vessels. The right innominate, left common carotid, and left subclavian arteries arise in normal anatomic configuration. There are no proximal stenoses. Minimal atherosclerotic calcification is noted at the origin of the right external carotid artery of doubtful clinical significance. There is no stenosis. There is normal contrast-enhancement of the santiago ateral common, internal, and external carotid arteries. There is no carotid bifurcation stenosis. There is normal contrast-enhancement of the bilateral vertebral arteries. Intracranially there is normal contrast-enhancement of the bilateral intracranial internal carotid arteries, the bilateral distal vertebral arteries , and the basilar artery. Atherosclerotic calcificatio n is noted within the russell the bilateral cavernous internal carotid arteries without stenosis. There is normal contrast enhancement of the the bilateral anterior, middle, and posterior cerebral arterie s. The left P1 segment is hypoplastic, a normal variant. The left posterior communicating artery is well developed. There is normal contrast- enhancement of the bilateral superior cerebellar, left anteri or/inferior cerebellar, and left posterior inferior cerebellar arteries bilaterally. Right anterior-inferior and posterior cerebellar arteries are not visualized liver no ischemic changes noted in these regions on recent outside MRI. There is normal contrast-enhancement of the venous structures. Hypodensity is noted within the left thalamus corresponding to the infarct noted on MRI. IMPRESSION: 1. Minimal calcified atherosclerotic plaque of the proximal right external carotid artery without stenosis. 2. No internal carotid artery stenosis. 3. Normal contrast-enhancement of the vertebral and basilar arteries without stenotic lesion. 4. Nonvisualization of the right anterior-inferior, and posterior inferior cerebellar arteries of questionable significance as there is no ischemic change in these territories noted on MRI. 5. Calcified atherosclerotic plaque of the bilateral cavernous internal carotid arteries without stenosis. 6. Left thalamic infarct again noted. CHEM PANEL A/G Ratio 1.3 0.7 - 1.6 02/27 [facility] CHEM PANEL AGAP 14.9 meq/L 10.0 - 02/27 20.0 [facility] CHEM PANEL B/C Ratio 15 6 - 25 02/27 [facility] CHEM PANEL Globulin 2.6 g/dL 2.0 - 4.0 02/27 [facility] CHEM PANEL Albumin Lvl 3.3 g/dL 3.5 - 5.0 02/27 [facility] CHEM PANEL Total Protein 5.9 g/dL 6.4 - 8.4 02/27 [facility] CHEM PANEL Calcium Lvl 8.3 mg/dL 8.5 - 10.5 02/27 [facility] CHEM PANEL Bili Total 0.4 mg/dL 0.2 - 1.3 02/27 [facility] CHEM PANEL AST 15 unit/L 0 - 37 02/27 [facility] CHEM PANEL ALT 18 unit/L 0 - 65 02/27 2013 [facility] CHEM PANEL Alk Phos 68 unit/L 39 - 136 02/27 [facility] CHEM PANEL CO2 24 meq/L 24 - 32 02/27 [facility] CHEM PANEL Glucose Lvl 174 mg/dL 70 - 99 02/27 6Interpretive Data: Adult reference range values reflect the clinical guidelines of the [place] [employer]. [facility] CHEM PANEL BUN 23 mg/dL 7 - 22 02/27 [facility] CHEM PANEL Potassium Lvl 3.9 meq/L 3.5 - 5.1 02/27 [facility] CHEM PANEL Sodium Lvl 140 meq/L 135 - 145 02/27 [facility] CHEM PANEL Chloride Lvl 105 meq/L 95 - 109 02/27 [facility] HEMATOLOGY RDW 12.9 % 11.5 - 02/27 14.5 [facility] HEMATOLOGY MPV 10.5 fL 7.4 - 10.4 02/27 [facility] HEMATOLOGY Platelet 114 K/CMM 133 - 450 02/27 [facility] HEMATOLOGY MCV 89.6 fL 80.0 - 02/27 [facility] 94.0 [facility] HEMATOLOGY Hct 36.3 % 42.0 - 02/27 54.0 [facility] HEMATOLOGY MCH 30.3 pg 27.0 - 02/27 31.0 [facility] HEMATOLOGY MCHC 33.8 g/dL 32.0 - 02/27 36.0 [facility] HEMATOLOGY Hgb 12.3 g/dL 14.0 - 02/27 [facility] 18.0 [facility] HEMATOLOGY WBC 7.9 K/CMM 3.7 - 10.4 02/27 [facility] HEMATOLOGY RBC 4.06 M/CMM 4.70 - 02/27 [facility] 6.10 [facility] HEMATOLOGY INR 1.06 0.85 - 02/27 9Interpretive Data: RECOMMENDED RANGES FOR PROTIME INR: [facility] . 2.0-3.0 for most medical and surgical thromboembolic states. Medical 2.5-3.5 for artificial heart valves and recurrent embolism. Center INR SHOULD BE USED ONLY FOR PATIENTS ON STABLE ANTICOAGULANT THERAPY. HEMATOLOGY PTT 30.4 s 22.9 - 02/27 11Interpretiv [facility] 35.8 /2014 e Data: [facility] Therapeutic Range: 57 - 92 Seconds HEMATOLOGY PT 13.7 s 12.0 - 02/27 [facility] 14.7 /2013 [facility] HEMATOLOGY Eosinophils # 0.2 K/CMM 0.0 - 0.5 02/27 [facility] HEMATOLOGY Lymphocytes # 2.5 K/CMM 1.0 - 5.5 02/27 [facility] HEMATOLOGY Segs-Bands # 4.5 K/CMM 1.5 - 8.1 02/27 [facility] HEMATOLOGY Monocytes # 0.6 K/CMM 0.0 - 0.8 02/27 [facility] HEMATOLOGY Segs 57.6 % 45.0 - 02/27 75.0 /2013 [facility] HEMATOLOGY Monocytes 8.0 % 2.0 - 12.0 02/27 [facility] HEMATOLOGY Lymphocytes 31.8 % 20.0 - 02/27 40.0 [facility] HEMATOLOGY Basophils 0.6 % 0.0 - 1.0 02/27 [facility] HEMATOLOGY Eosinophils 2.0 % 0.0 - 4.0 02/27 [facility] LIPIDS CHD Risk 3.80 4.00 - 02/27 7. [facility] LIPIDS VLDL 33 02/27 [facility] LIPIDS LDL 51 mg/dL <=99 mg/dL 02/27 (Calculated) [facility] LIPIDS HDL 30 mg/dL >=61 mg/dL 02/27 [facility] LIPIDS Trig 165 mg/dL <=149 02/27 mg/dL [facility] LIPIDS Chol 114 mg/dL <=199 02/27 mg/dL [facility] SPECIAL Hgb A1C 6.8 % <=5.6 % 02/27 [facility] CHEMISTRY [facility] DRUG SCREEN UDS Note See Note 7 02/27 7Interpretive Data: Drugs reported as positive have not been confirmed by a second method and should be used for medical purposes only. To order Medical *NA* confirmation, contact laboratory. [place] (02/26/14 11:00 PM) note: Below are cut-off concentrations for all urine drugs of abuse performed in the laboratory. Some drugs listed in the table may not be included in this panel. Description Cut-off concentration Amphetamine 1000 ng/mL Barbiturates 200 ng/mL Benzodiazepines 300 ng/mL Cocaine metabolites 300 ng/mL Opiates 300 ng/mL Phencyclidine 25 ng/mL Propoxyphene 300 ng/mL Marijuana metabolites 50 ng/mL Methadone 300 ng/mL Urine alcohol 20 mg/dL DRUG SCREEN U Amph Scr Negative Negative 02/27 Medical *NA* Center (02/26/14 11:00 PM) DRUG SCREEN U Caridad Scr Negative Negative 02/27 [facility] *NA* Center (02/26/14 11:00 PM) DRUG SCREEN U Benzodia Negative Negative 02/27 [facility] *NA* [place] (02/26/14 11:00 PM) DRUG SCREEN U Cocaine Scr Negative Negative 02/27 [facility] *NA* [place] (02/26/14 11:00 PM) DRUG SCREEN U Cannab Scr Negative Negative 02/27 Medical *NA* Center (02/26/14 11:00 PM) DRUG SCREEN U Opiate Scr Negative Negative 02/27 [facility] *NA* [place] (02/26/14 11:00 PM) DRUG SCREEN U Phencyc Scr Negative Negative 02/27 [facility] *NA* [place] (02/26/14 11:00 PM) URINE AND UA <=1.0 0.1 - 1.0 02/27 [facility] Urobilinogen mg/dL /2013 [facility] URINE AND UA Color Yellow Yellow 02/27 [facility] Medical *NA* [place] (02/26/14 11:00 PM) URINE AND UA Spec Grav 1.018 <=1.030 02/27 [facility] URINE AND UA Turbidity Clear Clear 02/27 [facility] (02/26/14 11:00 PM) Center URINE AND UA Ketones Negative Negative 02/27 [facility] mg/dL mg/dL [facility] URINE AND UA Blood Large Negative 02/27 [facility] *ABN* Center (02/26/14 11:00 PM) URINE AND UA Bili Negative Negative 02/27 [facility] Medical *NA* Center (02/26/14 11:00 PM) URINE AND UA Protein 10 mg/dL Negative 02/27 [facility] STOOL mg/dL /2013 [facility] URINE AND UA pH 5.0 5.0 - 8.0 02/27 [facility] URINE AND UA Glucose 300 mg/dL Negative 02/27 [facility] mg/dL /2013 [facility] URINE AND UA Mucus Few /LPF None Seen 02/27 [facility] STOOL /LPF /2013 [facility] URINE AND UA RBC null 0 - 2 02/27 [facility] URINE AND UA WBC 7 /HPF 0 - 5 02/27 [facility] URINE AND UA Leuk Est Negative Negative 02/27 [facility] /2013 [facility] (02/26/14 11:00 PM) [place] URINE AND UA Nitrite Negative Negative 02/27 [facility] (02/26/14 11:00 PM) [place] URINE AND UA Sq Epi Few /LPF Few /LPF 02/27 [facility] Vital Signs Vital Sign Value Date Comments Source Systolic (mm Hg) 108 06/07/2017 [facility] Diastolic (mm Hg) 59 06/07/2017 [facility] Respitory Rate 18 06/07/2017 [facility] Heart Rate 64 06/07/2017 [facility] Temperature Oral (F) 98.2 F 06/07/2017 [facility] Respitory Rate 18 06/07/2017 [facility] Systolic (mm Hg) 115 06/07/2017 [facility] Diastolic (mm Hg) 67 06/07/2017 [facility] Heart Rate 84 06/07/2017 [facility] Temperature Oral (F) 98.0 F 06/07/2017 [facility] Systolic (mm Hg) 107 06/07/2017 [facility] Diastolic (mm Hg) 58 06/07/2017 [facility] Heart Rate 74 06/07/2017 [facility] Respitory Rate 18 06/07/2017 [facility] Temperature Oral (F) 98.2 F 06/07/2017 [facility] BMI Calculated 29.21 06/06/2017 [facility] Weight 95 06/06/2017 [facility] Height 180.34 cm 06/06/2017 [facility] BMI Calculated 29.63 06/06/2017 [facility] Weight 96.364 06/06/2017 [facility] Height 180.34 cm 06/06/2017 [facility] Systolic (mm Hg) 121 05/15/2014 [facility] Respitory Rate 18 05/15/2014 [facility] Diastolic (mm Hg) 59 05/15/2014 [facility] Heart Rate 63 05/15/2014 [facility] Temperature Oral (F) 98.0 F 05/15/2014 [facility] Heart Rate 65 05/15/2014 [facility] Respitory Rate 18 05/15/2014 [facility] Diastolic (mm Hg) 49 05/15/2014 [facility] Systolic (mm Hg) 112 05/15/2014 [facility] Heart Rate 86 05/15/2014 [facility] Systolic (mm Hg) 103 05/15/2014 [facility] Respitory Rate 18 05/15/2014 [facility] Diastolic (mm Hg) 50 05/15/2014 [facility] Temperature Oral (F) 98.8 F 05/15/2014 [facility] Temperature Oral (F) 99.8 F 05/15/2014 [facility] BMI Calculated 30.75 05/13/2014 [facility] Height 180.34 cm 05/13/2014 [facility] Weight 100 05/13/2014 [facility] BMI Calculated 30.75 05/13/2014 [facility] Weight 100 05/13/2014 [facility] Height 180.34 cm 05/13/2014 [facility] Respitory Rate 0 02/28/2014 [facility] Respitory Rate 0 02/28/2014 [facility] Respitory Rate 13 02/28/2014 [facility] Systolic (mm Hg) 113 02/28/2014 [facility] Diastolic (mm Hg) 69 02/28/2014 [facility] Diastolic (mm Hg) 69 02/28/2014 [facility] Systolic (mm Hg) 113 02/28/2014 [facility] Diastolic (mm Hg) 76 02/28/2014 [facility] Systolic (mm Hg) 141 02/28/2014 [facility] Temperature Oral (F) 97.4 F 02/28/2014 [facility] Temperature Oral (F) 97.6 F 02/28/2014 [facility] Temperature Oral (F) 98.0 F 02/28/2014 [facility] BMI Calculated 30.75 02/27/2014 [facility] Weight 100 02/27/2014 [facility] Height 180.34 cm 02/27/2014 [facility] Encounters Location Location Encounter Encounter Reason Attending ADM DC Status Source Details Type Number For Provider Date Date Visit [facility] [id number] Clement 02/27 02/28 [facility] Dilip Leonard /2013 [facility] [id number] Anjail 05/13 05/15 [facility] Dilip Calderon /2013 [facility] [id number] Cerena 06/06 06/07 [facility] Dilip Cuevas /2016 [facility] Procedures Procedure Code Date Perfomer Comments Source Replacement of 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
--- OUTSIDE RECORDS SUMMARY | 2018-07-27 18:42 | XMS REPORT | Summary of Care ---
:1935 Author Encounter HQ Lamberto(YAMILKA) [id number] Date(s): 02/26/14 - 02/28/[address] Discharge Disposition: Home Physician Attending: Jose Bedoya MD Physician Admitting: Jose Bedoya MD Physician_Referring: Adryan Leonard MD Reason for Visit DIZZINESS Vital Signs Most recent to oldest 1 2 3 [Reference Range]: Height 180.34 cm (02/26/14 9:06 PM) Temperature Oral [96.4-99.1 97.4 DegF 97.6 DegF 98.0 DegF DegF] (02/28/14 5:01 AM) (02/28/14 12:00 AM) (02/27/14 8:15 PM) Systolic Blood Pressure 113 mmHg 113 mmHg 141 mmHg [90-140 mmHg] (02/28/14 12:15 PM) (02/28/14 12:04 PM) *HI* (02/28/14 11:50 AM) Diastolic Blood Pressure 69 mmHg 69 mmHg 76 mmHg [60-90 mmHg] (02/28/14 12:15 PM) (02/28/14 12:04 PM) (02/28/14 11:50 AM) Respiratory Rate [14-20 0 BRMIN 0 BRMIN 13 BRMIN BRMIN] *LOW* *LOW* *LOW* (02/28/14 2:04 PM) (02/28/14 1:02 PM) (02/28/14 12:15 PM) Weight 100 kg (02/26/14 9:06 PM) Body Mass Index 30.75 m2 (02/26/14 9:06 PM) Problem List Condition Effective Dates Status Health Status Informant Anemia(Confirmed) Resolved DM (diabetes mellitus)(Confirmed) Resolved HLD (hyperlipidemia)(Confirmed) Resolved HTN (hypertension)(Confirmed) Resolved Prostate(Confirmed) Resolved Allergies, Adverse Reactions, Alerts Substance Reaction Severity Status NKDA Active Medications acetaminophen 650 mg, 2 tab, Route: PO, Drug form: TAB, Q4H, kg, PRN Pain 1-3/Temp > 99.5 F, Start date: 02/26/14 21:06:00, Duration: 30 day, Stop date: 03/28/14 21:05:00 Notes: Do not exceed 4 gm/day. (Same as: Tylenol) Start Date: 02/26/14 Stop Date: 02/28/14 Status: Discontinuedaspirin 81 mg, 1 tab, Route: PO, Drug form: CHEWTAB, Daily, Dosing Weight 100, kg, Start date: 02/27/14 9:00:00, Duration: 30 day, Stop date: 03/28/14 9:00:00 Notes: Take with food. Start Date: 02/27/14 Stop Date: 02/28/14 Status: Discontinuedaspirin 81 mg tablet, chewable 81 mg=1 tab, PO, Daily, # 90 tab, 3 Refill(s) Start Date: 02/28/14 Status: Orderedcalcium carbonate 1,000 mg, Route: PO, TID, Dosing Weight 100, kg, Priority: NOW, Start date: 9:52:00, Duration: 1 day, Stop date: 02/28/14 9:00:00 Start Date: 02/27/14 Stop Date: 02/27/14 Status: DeletedDextrose 50% Syringe 6.25 gm, 12.5 mL, Route: IVP, Drug Form: INJ, kg, PRN, PRN Abnormal Lab Result, Start date: 02/26/1421:09:00, Duration: 30 day, Stop date: 03/28/14 21:08:00 Start Date: 02/26/14 Stop Date: 02/28/14 Status: DiscontinuedDextrose 50% Syringe 12.5 gm, 25 mL, Route: IVP, Drug Form: INJ, kg, PRN, PRN Abnormal Lab Result, Start date: 02/26/14 21:09:00, Duration: 30 day, Stop date: 03/28/14 21:08:00 Start Date: 02/26/14 Stop Date: 02/28/14 Status: DiscontinuedDextrose 50% Syringe 25 gm, 50 mL, Route: IVP, Drug Form: INJ, kg, PRN, PRN Abnormal Lab Result, Start date: 02/26/14 21:09:00, Duration: 30 day, Stop date: 03/28/14 21:08:00 Start Date: 02/26/14 Stop Date: 02/28/14 Status: Discontinueddocusate sodium 100 mg oral capsule 100 mg, 1 cap, Route: PO, Drug form: CAP, BID, kg, Start date: 02/27/14 9:00:00 , Duration: 30 day, Stop date: 03/28/14 17:00:00 Notes: (Same as: Colace) (Do Not Crush) Start Date: 02/27/14 Stop Date: 02/28/14 Status: Discontinuedfinasteride 5 mg, 1 tab, Route: PO, Drug form: TAB, Daily, Dosing Weight 100, kg, Start date : 02/28/14 9:00:00, Duration: 30 day, Stop date: 03/29/14 9:00:00 Notes: (Same as: Proscar) "Do Not Crush" Start Date: 02/28/14 Stop Date: 02/28/14 Status: Discontinuedfinasteride 5 mg oral tablet 5 mg=1 tab, PO, Daily, # 30 tab, 0 Refill(s) Start Date: 02/26/14 Status: OrderedglyBURIDE 2.5 mg oral tablet 2.5 mg=1 tab, PO, BID, # 30 tab, 0 Refill(s) Start Date: 02/26/14 Status: Orderedheparin 7,500 unit, 1.5 mL, Route: SUB-Q, Drug form: INJ, Q8H, Dosing Weight 100, kg, Priority: STAT, Start date: 02/27/14 9:48:00, Duration: 30 day, Stop date: 03/29 8:00:00 Notes: porcine heparin Start Date: 02/27/14 Stop Date: 02/28/14 Status: Discontinuedinsulin regular 100 units/mL human recombinant 5 unit, 0.05 mL, Route: SUB-Q, Drug form: SOLN, PRN, kg, PRN Abnormal Lab Result , Start date: 02/26/14 21:09:00, Duration: 30 day, Stop date: 03/28/14 21:08:00 Notes: (Same as: Humulin R) Roll in palms of hands gently; Do not shake vigorously. "single patientuse only"(Restricted to patients requiring a dose > 60 units) Stable for 28 days at room temperatureExpires in days from ___ Date Start Date: 02/26/14 Stop Date: 02/28/14 Status: Discontinuedinsulin regular 100 units/mL human recombinant 3 unit, 0.03 mL, Route: SUB-Q, Drug form: SOLN, PRN, kg, PRN Abnormal Lab Result , Start date: 02/26/14 21:09:00, Duration: 30 day, Stop date: 03/28/14 21:08:00 Notes: (Same as: Humulin R) Roll in palms of hands gently; Do not shake vigorously. "single patientuse only"(Restricted to patients requiring a dose > 60 units) Stable for 28 days at room temperatureExpires in days from ___ Date Start Date: 02/26/14 Stop Date: 02/28/14 Status: Discontinuedinsulin regular 100 units/mL human recombinant 7 unit, 0.07 mL, Route: SUB-Q, Drug form: SOLN, PRN, kg, PRN Abnormal Lab Result , Start date: 02/26/14 21:09:00, Duration: 30 day, Stop date: 03/28/14 21:08:00 Notes: (Same as: Humulin R) Roll in palms of hands gently; Do not shake vigorously. "single patientuse only"(Restricted to patients requiring a dose > 60 units) Stable for 28 days at room temperatureExpires in days from ___ Date Start Date: 02/26/14 Stop Date: 02/28/14 Status: DiscontinuedIron 100 Plus oral tablet 45 mg, PO, Daily, 0 Refill(s) Start Date: 02/26/14 Status: Orderedlabetalol 10 mg, 2 mL, Route: IVP, Drug form: INJ, Q10Min, kg, PRN Hypertension, Start date: 02/26/14 21:06:00, Duration: 30 day, Stop date: 03/28/14 21:05:00, For SBP > 180mmHg and/or DBP > 105mmHg Start Date: 02/26/14 Stop Date: 02/28/14 Status: DiscontinuedLipitor 80 mg, 1 tab, Route: PO, Drug form: TAB, Daily, kg, Start date: 02/27/14 9:00:00 , Duration: 30 day, Stop date: 03/28/14 9:00:00 Notes: Same as Lipitor Start Date: 02/27/14 Stop Date: 02/27/14 Status: Voided With ResultsmetFORMIN 500 mg oral tablet 500 mg=1 tab, PO, BID, # 30 tab, 0 Refill(s) Start Date: 02/26/14 Status: Orderedmetoprolol 50 mg oral tablet, extended release 50 mg, PO, Daily, # 30 tab, 0 Refill(s) Start Date: 02/26/14 Stop Date: 03/28/14 Status: Orderednormal saline 0.9% IV 1,000 mL 1,000 mL, Rate: 100 ml/hr, Infuse over: 10 hr, Route: IV, Dosing Weight 100 kg, Total Volume: 1,000,Start date: 02/27/14 9:55:00, Duration: 30 day, Stop date: 03/29/14 9:54:00 Start Date: 02/27/14 Stop Date: 02/28/14 Status: DiscontinuedNS (Bolus) IV - - 250 mL, 250 ml/hr, Infuse Over: 1 hr, Route: IV, ONCE, Priority: STAT, Dosing Weight 100 kg, Start date: 02/27/14 9:53:00, Duration: 1 doses or times, Stop date: 02/27/14 9:53:00 Start Date: 02/27/14 Stop Date: 02/27/14 Status: DiscontinuedSaline Flush 0.9% 5 ml, Route: IVP, Drug Form: INJ, kg, Q12H, Start date: 02/27/14 9:00:00, Duration: 30 day, Stop date: 03/28/14 21:00:00 Notes: (Same as: BD Posiflush) Start Date: 02/27/14 Stop Date: 02/28/14 Status: DiscontinuedSaline Flush 0.9% 5 ml, Route: IVP, Drug Form: INJ, kg, PRN, PRN Line Flush, Start date: 02/26/14 21:06:00, Duration: 30 day, Stop date: 03/28/14 21:05:00 Notes: (Same as: BD Posiflush) Start Date: 02/26/14 Stop Date: 02/28/14 Status: Discontinuedsenna 8.6 mg oral tablet 8.6 mg, 1 tab, Route: PO, Drug Form: TAB, kg, BID, Start date: 02/27/14 9:00:00 , Duration: 30 day, Stop date: 03/28/14 17:00:00 Notes: (Same as: Senokot) Start Date: 02/27/14 Stop Date: 02/28/14 Status: DiscontinuedZocor 20 mg, 1 tab, Route: PO, Drug form: TAB, Bedtime, Start date: 02/27/14 21:00:00 , Duration: 30 day, Stop date: 03/28/14 21:00:00 Notes: (Same as: Zocor) Start Date: 02/27/14 Stop Date: 02/28/14 Status: DiscontinuedZocor 20 mg oral tablet 20 mg=1 tab, PO, Bedtime, # 30 tab, 0 Refill(s) Start Date: 02/26/14 Stop Date: 03/28/14 Status: Ordered Results ELECTROLYTES Most recent to oldest 1 2 3 [Reference Range]: Sodium Lvl [135-145 mEq/L] 141 mEq/L 141 mEq/L 140 mEq/L (02/28/14 1:29 AM) (02/27/14 11:30 AM) (02/26/14 11:30 PM) Potassium Lvl [3.5-5.1 4.1 mEq/L 4.1 mEq/L 3.9 mEq/L mEq/L] (02/28/14 1:29 AM) (02/27/14 11:30 AM) (02/26/14 11:30 PM) Chloride Lvl [95-109 mEq/L] 107 mEq/L 106 mEq/L 105 mEq/L (02/28/14 1:29 AM) (02/27/14 11:30 AM) (02/26/14 11:30 PM) CO2 [24-32 mEq/L] 24 mEq/L 27 mEq/L 24 mEq/L (02/28/14 1:29 AM) (02/27/14 11:30 AM) (02/26/14 11:30 PM) AGAP [10.0-20.0 mEq/L] 14.1 mEq/L 12.1 mEq/L 14.9 mEq/L (02/28/14 1:29 AM) (02/27/14 11:30 AM) (02/26/14 11:30 PM) CHEM PANEL Most recent to oldest 1 2 3 [Reference Range]: Creatinine Lvl [0.5-1.4 1.4 mg/dL 1.3 mg/dL 1.3 mg/dL mg/dL] (02/28/14 1:29 AM) (02/27/14 11:30 AM) (02/27/14 11:30 AM) eGFR 47 mL/min/1.73m2 1 51 mL/min/1.73m2 2 51 mL/min/1.73m2 3 *NA* *NA* *NA* (02/28/14 1:29 AM) (02/27/14 11:30 AM) (02/27/14 11:30 AM) BUN [7-22 mg/dL] 20 mg/dL 21 mg/dL 23 mg/dL (02/28/14 1:29 AM) (02/27/14 11:30 AM) *HI* (02/26/14 11:30 PM) B/C Ratio [6-25] 15 (02/26/14 11:30 PM) Glucose Lvl [70-99 mg/dL] 95 mg/dL 4 111 mg/dL 5 174 mg/dL 6 (02/28/14 1:29 AM) *HI* *HI* (02/27/14 11:30 AM) (02/26/14 11:30 PM) Total Protein [6.4-8.4 5.9 g/dL g/dL] *LOW* (02/26/14 11:30 PM) Albumin Lvl [3.5-5.0 g/dL] 3.3 g/dL *LOW* (02/26/14 11:30 PM) Globulin [2.0-4.0 g/dL] 2.6 g/dL (02/26/14 11:30 PM) A/G Ratio [0.7-1.6] 1.3 (02/26/14 11:30 PM) Calcium Lvl [8.5-10.5 8.4 mg/dL 8.4 mg/dL 8.3 mg/dL mg/dL] *LOW* *LOW* *LOW* (02/28/14 1:29 AM) (02/27/14 11:30 AM) (02/26/14 11:30 PM) ALT [0-65 unit/L] 18 unit/L (02/26/14 11:30 PM) AST [0-37 unit/L] 15 unit/L (02/26/14 11:30 PM) Alk Phos [39-136 unit/L] 68 unit/L (02/26/14 11:30 PM) Bili Total [0.2-1.3 mg/dL] 0.4 mg/dL (02/26/14 11:30 PM) 1Result Comment: The eGFR is calculated using the CKD-EPI formula. In most young , healthy individualsthe eGFR will be >90 mL/min/1.73m2. The eGFR declines with age. An eGFR of 60-89 may be normal in some populations, particularly the elderly, for whom the CKD-EPI formula has not been extensively validated. Use of the eGFR is not recommended in the following populations: Individuals with unstable creatinine concentrations, including patients and those with serious co-morbid conditions. Patients with extremes in muscle mass or diet. The data above are obtained from the National Kidney Disease Education Program ( NKDEP) which additionally recommends that when the eGFR is used in patients with extremes of body mass index for purposesof drug dosing, the eGFR should be multiplied by the estimated BMI.2Result Comment: The eGFR is calculated using the CKD-EPI formula. In most young, healthy individualsthe eGFR will be >90 mL/ min/1.73m2. The eGFR declines with age. An eGFR of 60-89 may be normal in some populations, particularly the elderly, for whom the CKD-EPI formula has not been extensively validated. Use of the eGFR is not recommended in the following populations: Individuals with unstable creatinine concentrations, including patients and those with serious co-morbid conditions. Patients with extremes in muscle mass or diet. The data above are obtained from the National Kidney Disease Education Program ( NKDEP) which additionally recommends that when the eGFR is used in patients with extremes of body mass index for purposesof drug dosing, the eGFR should be multiplied by the estimated BMI.3Result Comment: The eGFR is calculated using the CKD-EPI formula. In most young, healthy individualsthe eGFR will be >90 mL/ min/1.73m2. The eGFR declines with age. An eGFR of 60-89 may be normal in some populations, particularly the elderly, for whom the CKD-EPI formula has not been extensively validated. Use of the eGFR is not recommended in the following populations: Individuals with unstable creatinine concentrations, including patients and those with serious co-morbid conditions. Patients with extremes in muscle mass or diet. The data above are obtained from the National Kidney Disease Education Program ( NKDEP) which additionally recommends that when the eGFR is used in patients with extremes of body mass index for purposesof drug dosing, the eGFR should be multiplied by the estimated BMI.4Interpretive Data: Adult reference range values reflect the clinical guidelines of the [employer].5Interpretive Data: Adult reference range values reflect the clinical guidelines of the [employer].6Interpretive Data: Adult reference range values reflect the clinical guidelines of the [employer].LIPIDS Most recent to oldest [Reference Range]: 1 2 3 CHD Risk [4.00-7.30] 3.80 *LOW* (02/26/14 11:30 PM) Chol [<=199 mg/dL] 114 mg/dL (02/26/14 11:30 PM) Trig [<=149 mg/dL] 165 mg/dL *HI* (02/26/14 11:30 PM) HDL [>=61 mg/dL] 30 mg/dL *LOW* (02/26/14 11:30 PM) LDL (Calculated) [<=99 mg/dL] 51 mg/dL (02/26/14 11:30 PM) VLDL 33 *NA* (02/26/14 11:30 PM) SPECIAL CHEMISTRY Most recent to oldest [Reference Range]: 1 2 3 Hgb A1C [<=5.6 %] 6.8 % *HI* (02/26/14 11:30 PM) DRUG SCREEN Most recent to oldest [Reference Range]: 1 2 3 U Amph Scr [Negative] Negative *NA* (02/26/14 11:00 PM) U Caridad Scr [Negative] Negative *NA* (02/26/14 11:00 PM) U Benzodia Scr [Negative] Negative *NA* (02/26/14 11:00 PM) U Cocaine Scr [Negative] Negative *NA* (02/26/14 11:00 PM) U Opiate Scr [Negative] Negative *NA* (02/26/14 11:00 PM) U Phencyc Scr [Negative] Negative *NA* (02/26/14 11:00 PM) U Cannab Scr [Negative] Negative *NA* (02/26/14 11:00 PM) UDS Note See Note 7 *NA* (02/26/14 11:00 PM) 7Interpretive Data: Drugs reported as positive have not been confirmed by a second method and should be used for medical purposes only. To order confirmation, contact laboratory. note: Below are cut-off concentrations for all urine drugs of abuse performed in the laboratory. Some drugs listed in the table may not be included in this panel. Description Cut-off concentration Amphetamine 1000 ng/mL Barbiturates 200 ng/mL Benzodiazepines 300 ng/mL Cocaine metabolites 300 ng/mL Opiates 300 ng/mL Phencyclidine 25 ng/mL Propoxyphene 300 ng/mL Marijuana metabolites 50 ng/mL Methadone 300 ng/mL Urine alcohol 20 mg/dLURINE AND STOOL Most recent to oldest [Reference Range]: 1 2 3 UA Turbidity [Clear] Clear Clear (02/27/14 4:25 PM) (02/26/14 11:00 PM) UA Color [Yellow] Light Yellow Yellow *NA* *NA* (02/27/14 4:25 PM) (02/26/14 11:00 PM) UA pH [5.0-8.0] 6.5 5.0 (02/27/14 4:25 PM) (02/26/14 11:00 PM) UA Spec Grav [<=1.030] 1.029 1.018 (02/27/14 4:25 PM) (02/26/14 11:00 PM) UA Glucose [Negative mg/dL] Negative mg/dL 300 mg/dL *NA* *ABN* (02/27/14 4:25 PM) (02/26/14 11:00 PM) UA Blood [Negative] Negative Large (02/27/14 4:25 PM) *ABN* (02/26/14 11:00 PM) UA Ketones [Negative mg/dL] Negative mg/dL Negative mg/dL *NA* *NA* (02/27/14 4:25 PM) (02/26/14 11:00 PM) UA Protein [Negative mg/dL] Negative mg/dL 10 mg/dL (02/27/14 4:25 PM) *ABN* (02/26/14 11:00 PM) UA Urobilinogen [0.1-1.0 mg/dL] <=1.0 mg/dL <=1.0 mg/dL *NA* *NA* (02/27/14 4:25 PM) (02/26/14 11:00 PM) UA Bili [Negative] Negative Negative *NA* *NA* (02/27/14 4:25 PM) (02/26/14 11:00 PM) UA Leuk Est [Negative] Negative Negative (02/27/14 4:25 PM) (02/26/14 11:00 PM) UA Nitrite [Negative] Negative Negative (02/27/14 4:25 PM) (02/26/14 11:00 PM) UA WBC [0-5 /HPF] 7 /HPF *HI* (02/26/14 11:00 PM) UA RBC [0-2 /HPF] 1 /HPF >182 /HPF (02/27/14 4:25 PM) *HI* (02/26/14 11:00 PM) UA Sq Epi None Seen *NA* (02/27/14 4:25 PM) UA Sq Epi [Few /LPF] Few /LPF *NA* (02/26/14 11:00 PM) UA Mucus [None Seen /LPF] Few /LPF *NA* (02/26/14 11:00 PM) HEMATOLOGY Most recent to oldest 1 2 3 [Reference Range]: WBC [3.7-10.4 K/CMM] 8.0 K/CMM 7.6 K/CMM 7.9 K/CMM (02/28/14 1:29 AM) (02/27/14 11:30 AM) (02/26/14 11:30 PM) RBC [4.70-6.10 M/CMM] 4.12 M/CMM 4.11 M/CMM 4.06 M/CMM *LOW* *LOW* *LOW* (02/28/14 1:29 AM) (02/27/14 11:30 AM) (02/26/14 11:30 PM) Hgb [14.0-18.0 g/dL] 12.7 g/dL 12.5 g/dL 12.3 g/dL *LOW* *LOW* *LOW* (02/28/14 1:29 AM) (02/27/14 11:30 AM) (02/26/14 11:30 PM) Hct [42.0-54.0 %] 36.8 % 36.6 % 36.3 % *LOW* *LOW* *LOW* (02/28/14 1:29 AM) (02/27/14 11:30 AM) (02/26/14 11:30 PM) MCV [80.0-94.0 fL] 89.2 fL 89.1 fL 89.6 fL (02/28/14 1:29 AM) (02/27/14 11:30 AM) (02/26/14 11:30 PM) MCH [27.0-31.0 pg] 30.7 pg 30.3 pg 30.3 pg (02/28/14 1:29 AM) (02/27/14 11:30 AM) (02/26/14 11:30 PM) MCHC [32.0-36.0 g/dL] 34.4 g/dL 34.0 g/dL 33.8 g/dL (02/28/14 1:29 AM) (02/27/14 11:30 AM) (02/26/14 11:30 PM) RDW [11.5-14.5 %] 12.4 % 13.1 % 12.9 % (02/28/14 1:29 AM) (02/27/14 11:30 AM) (02/26/14 11:30 PM) Platelet [133-450 K/CMM] 110 K/CMM 117 K/CMM 114 K/CMM *LOW* *LOW* *LOW* (02/28/14 1:29 AM) (02/27/14 11:30 AM) (02/26/14 11:30 PM) MPV [7.4-10.4 fL] 10.3 fL 10.2 fL 10.5 fL (02/28/14 1:29 AM) (02/27/14 11:30 AM) *HI* (02/26/14 11:30 PM) Segs [45.0-75.0 %] 53.9 % 61.7 % 57.6 % (02/28/14 1:29 AM) (02/27/14 11:30 AM) (02/26/14 11:30 PM) Lymphocytes [20.0-40.0 %] 35.2 % 27.6 % 31.8 % (02/28/14 1:29 AM) (02/27/14 11:30 AM) (02/26/14 11:30 PM) Monocytes [2.0-12.0 %] 7.9 % 8.0 % 8.0 % (02/28/14 1:29 AM) (02/27/14 11:30 AM) (02/26/14 11:30 PM) Eosinophils [0.0-4.0 %] 2.5 % 2.2 % 2.0 % (02/28/14 1:29 AM) (02/27/14 11:30 AM) (02/26/14 11:30 PM) Basophils [0.0-1.0 %] 0.5 % 0.5 % 0.6 % (02/28/14 1:29 AM) (02/27/14 11:30 AM) (02/26/14 11:30 PM) Segs-Bands # [1.5-8.1 4.3 K/CMM 4.7 K/CMM 4.5 K/CMM K/CMM] (02/28/14 1:29 AM) (02/27/14 11:30 AM) (02/26/14 11:30 PM) Lymphocytes # [1.0-5.5 2.8 K/CMM 2.1 K/CMM 2.5 K/CMM K/CMM] (02/28/14 1:29 AM) (02/27/14 11:30 AM) (02/26/14 11:30 PM) Monocytes # [0.0-0.8 K/CMM] 0.6 K/CMM 0.6 K/CMM 0.6 K/CMM (02/28/14 1:29 AM) (02/27/14 11:30 AM) (02/26/14 11:30 PM) Eosinophils # [0.0-0.5 0.2 K/CMM 0.2 K/CMM 0.2 K/CMM K/CMM] (02/28/14 1:29 AM) (02/27/14 11:30 AM) (02/26/14 11:30 PM) PT [12.0-14.7 seconds] 13.5 seconds 13.7 seconds (02/27/14 11:30 AM) (02/26/14 11:30 PM) INR [0.85-1.17] 1.04 8 1.06 9 (02/27/14 11:30 AM) (02/26/14 11:30 PM) PTT [22.9-35.8 seconds] 28.5 seconds 10 30.4 seconds 11 (02/27/14 11:30 AM) (02/26/14 11:30 PM) 8Interpretive Data: RECOMMENDED RANGES FOR PROTIME INR: 2.0-3.0 for most medical and surgical thromboembolic states. 2.5-3.5 for artificial heart valves and recurrent embolism. INR SHOULD BE USED ONLY FOR PATIENTS ON STABLE ANTICOAGULANT THERAPY.9Interpretive Data: RECOMMENDED RANGES FOR PROTIME INR: 2.0-3.0 for most medical and surgical thromboembolic states. 2.5-3.5 for artificial heart valves and recurrent embolism. INR SHOULD BE USED ONLY FOR PATIENTS ON STABLE ANTICOAGULANT THERAPY.10Interpretive Data: Heparin Therapeutic Range: 57 - 92 [id number] Data: Heparin Therapeutic Range: 57 - 92 Seconds Medications Administered During Your Visit No data available for this section Immunizations No data available for this section Procedures Procedure Type Body Site Date of Procedure Related Diagnosis Replacement of aortic valve Social History Social History Type Response Alcohol Use: Past Smoking Status Former smoker, Type: Cigarettes, Exposure to Tobacco Smoke None , Exposure to Tobacco Smoke Exposed at work, Exposure to Tobacco Smoke Lives with someone who smokes, Exposure to Tobacco Smoke Unable to obtain, Cigarette Smoking Last 365 Days No, Reg Smoking Cessation Counseling No Assessment and Plan Extracted from: Title: Stroke Clinic Appointment Author: EnriqueFranchesca Date: 02/28/14 Arranged for patient to follow up with [facility] on April 02, 2014 at 10: 30am with Aleah/Dr. Calderon. Patient is aware and states that he will make arrangements to come to his appointment. Will remain available to assist as needed. Franchesca Gibbons Enrique, [facility]#[id number] [employer] Extracted from: Title: Clinical Document Author: Fredis Kaur MD Date: 02/28/14 [facility] DISCHARGE SUMMARY Date of Admission: 02/26/14 Date of Discharge: 02/28/14 Admit Diagnosis: left thalamic infarct Discharge Diagnosis: left thalamic infarct Consults Obtained: none Brief HPI: The patient is an 79 y/o with DM, HLD, CAD s/p stent, and heart valve replacement (on coumadin). The patient fell asleep in his armchair at 2030 on . He woke at 0000 and noted vertigo, nausea, an d double vision. He struggled to get to bed and went to sleep. The symptoms were improved but remained come morning. He eventually went to the OSH at 1400, where MRI revealed a L thalamic infarct with n ormal MRA. He was transferred [facility] a neurologist was not available at [facility]. Hospital Course: The patient underwent stroke workup including CT head which showed no acute hemorrhage. MRI showed a left thalamic infarct. CTA showed no clear vascular occlusive lesions with normal vertebrals and basi lar, but right PICA or AICA could not be visualized. TTE showed EF of 55%, septal hypokinesis, and bioprosthetic aortic valve, with no evidence of right-to -left shunt. The patient's LDL was 51 and Hgb A 1c was 6.8. He was started on aspirin 81mg daily and his home dose of simvastatin 20mg daily was continued. His creatinine was 1.5 initially and he was hydrated with normal saline. Creatinine has remain ed stable. The patient is being seen by his forest pathology professor Dr. Aceves and has an appointment on March 04. He was previously on warfarin and aspirin but this was stopped in January of 2013 when he had upper GI bleeding and had to be transfused 4 units of PRBCs. Currently the patient still has some diplopia but is otherwise back to baseline. He was seen by PT, OT, and speech, and was cleared to go home with family care. Although we suspect the stroke was probab ly due to small vessel disease, we would like to rule out a cardioembolic source and recommend a transesophageal echocardiogram. The patient is instructed to follow up with Dr. Calderon on April 02 at 1 0:30am. He is also advised to see his PCP in 1 week for management of his diabetes, renal insufficiency, and other risk factors. Discharge Physical Examination: GENERAL: Awake and alert, NAD HEENT: Normocephalic and atraumatic, Mucus membranes moist LUNGS: Clear to auscultation bilaterally with no wheezes CV: Normal S1/S2, RRR, no m/r/g, equal pulses bilaterally, no carotid bruit ABDOMEN - Soft, nontender, nondistended Neurological Exam Mental Status: AAOx3 Speech: No dysarthria or aphasia Cranial Nerves: PERRL, EOMI, Visual Oliva Full, No facial droop Motor: Intact strength in all extremities Sensory: Intact to light touch throughout Cerebellar: No ataxia noted Gait: Not tested Final Diagnosis: left thalamic infarct Etiology of Stroke: cryptogenic Discharge Medications: see discharge medication reconciliation Disposition: HOME Follow up: Stroke Clinic within 4-6 weeks, call [phone] Discharge Instructions: The patient received stroke education regarding signs and symptoms of stroke. They were instructed to call 911 if similar symptoms occurred again. The list of their medications on discharged was revie wed with the patient and all questions were answered. 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 For stroke, he will follow u p with Dr. Calderon on April 02 at 10:30am. He is also advised to see his PCP in 1 week. Extracted from: Title: Stroke Author: Alton Butler MD Date: 02/26/14 Stroke Neurology H&P History of Present Illness: The patient is an 79 y/o with DM, HLD, CAD s/p stent, and heart valve replacement (on coumadin). The patient fell asleep in his armchair at 2030 on . He woke at 0000 and noted vertigo, nausea, an d double vision. He struggled to get to bed and went to sleep. The symptoms were improved but remained come morning. He eventually went to the OSH at 1400, where MRI revealed a L thalamic infarct with n ormal MRA. He was transferred becse a neurologist was not available at [facility]. Review of Systems: GEN: No fever, chills, weight loss, fatigue EYES: No blurred or double vision ENT: No rhinorrhea or sore throat CV: No chest pain or palpitations PULM: No SOB or cough GI: No nausea, vomiting, diarrhea, abdominal pain : No dysuria or hematuria NEURO: See HPI SKIN: No rashes or lesions MS: No joint or muscle pain PMH: DM, HLD, CAD PSH: Valve Replacedment (not sure which) FH: Denies SH: Denies tobacco, alcohol, or illegal drugs Allergies: NKDA Home Meds: Warfarin, Metformin, Glyburide, Simvastatin, Metoprolol Physical Exam Vital Signs: SBP 109 General Exam: GENERAL: Awake and alert, NAD HEENT: Normocephalic and atraumatic, Mucus membranes moist LUNGS: Clear to auscultation bilaterally with no wheezes CV: Normal S1/S2, RRR, no m/r/g, equal pulses bilaterally, no carotid bruit ABDOMEN - Soft, nontender, nondistended Neurological Exam Mental Status: AAOx3 Speech: No dysarthria or aphasia Cranial Nerves: PERRL, EOMI, Visual Oliva Full, No facial droop Motor: Intact strength in all extremities Sensory: Intact to light touch throughout Cerebellar: No ataxia noted Gait: Not tested NIH Stroke Scale (NIHSS) 0 1a. Level of Consciousness; 0-alert 1-drowsy 2-stupor 0 1b. LOC Questions month and age; 0-both 1-one 2-neither 0 1c. 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 Best Gaze; 0-nl 1-partial 2-forced gaze 0 3. Visual Oliva; 0-No visual loss. 1-Partial hemianopia 2-Complete 3- Bilateral 0 4. Facial Palsy; 0-none 1-minor 2-partial 3-complete 0 5. Motor - R arm; 0-No drift 1-Drift 2-Some antigravity 3-No antigravity 4-No movement 0 6. Motor - R leg; 0-No drift 1-Drift 2-Some antigravity 3-No antigravity 4-No movement 0 7. Motor - L arm; 0-No drift 1-Drift 2-Some antigravity 3-No antigravity 4-No movement 0 8. Motor - L leg; 0-No drift 1-Drift 2-Some antigravity 3-No antigravity 4-No movement 0 9. Limb Ataxia; 0 absent 1 - 1limb 2 - 2 limbs 0 10. Sensory; 0-nl 1-partial loss 2-dense loss 0 11. Best Language; 0-nl 1-mild/mod 2-severe 3-mute 0 12. Dysarthria; 0-nl 1-mild/mod 2-severe x-untestable 0 13. Extinction and Inattention (formerly Neglect); 0-none 1-partial 2- complete TOTAL SCORE 0 Present on Admission: AURICULAR DETOXIFICATION SPECIALIST: Ischemic Stroke Cardiovascular: CAD, Valve Disease Metabolic: Diabetes (Type II), Hyperlipidemia Code Status: Full Code Assessment and Plan: Patient is an 79 y/o man with a thalamic infarct, still with double vision but normal stroke scale. Vessels were clear on MRA. Likey etiology is cardioembolic , related to his artificial heart valve. Infarct - TTE - SBP goal 110-140 - ASA 81 mg po daily - Lipitor 80 mg po daily, will order lipid panel and adjust accordingly - Star ISS, A1c pending - PT/OT/ ST evaluation Prophylaxis - Heparin for DVT - Colace and Senna for bowels The patient was discussed with Dr Coffman, the fellow ground control approach technician. Alton Butler MD PGY2 Neurology Resident MSO: [id number] Pager: [phone] STROKE ATTENDING STAFF I have seen and examined the patient with the residents. Please see Dr. Butler 's note for details including the history, exam, imaging, labs, assessment, and plan which I agree with. I add the following: He presented with nausea, diplopia, and vertigo. He has a porcine valve. Exam: vertical diplopia, EOMs full, no limb weakness in the arms or legs, no ataxia. MRI: left thalamic infarct MRA: intracranial vessels open EKG: LDL 51 A/P: 1. acute ischemic stroke - posterior circulation stroke 434.11 etiology: pendingv furhter work-up eval: EKG; CTA (repeat Cr first); TTE treatment: aspirin, keep on home dose of statin, PT/OT; DVT Px Repeat U/A 11494 Core measures 1) Antithrombotics have been ordered 2) Statins have been ordered 3) The rehab assessment has been ordered Stroke education: Our team has discussed with the patient and/or family in detail about the signs and symptoms of stroke and the importance of their early recognition and activation of EMS by calling [phone]. Stroke risk factors have been clearly identified and communicated to the patient. The importance of taking prescribed medication to treat these risk factors has been explained. Additionally, the impo rtance of life style modification for risk factor control has been emphasized. I have explained the imporance of following up with a primary care provider and with a neurologist for secondary stroke prevention.
--- OUTSIDE RECORDS SUMMARY | 2018-07-27 18:42 | XMS REPORT | Summary of Care ---
:1935 Author Encounter ABRAHAN Orantes(YAMILKA) [id number] Date(s): 05/12/14 - 05/15/[address] Discharge Disposition: DC/DISC TO REHAB Physician Attending: Pedro Calderon MD Physician Admitting: Pedro Calderon MD Reason for Visit CVA- ISCHEMIC Vital Signs Most recent to oldest 1 2 3 [Reference Range]: Height 180.34 cm 180.34 cm (05/13/14 2:49 AM) (05/12/14 9:32 PM) Temperature Oral [96.4-99.1 98.0 DegF 98.8 DegF 99.8 DegF DegF] (05/15/14 3:40 PM) (05/15/14 12:59 AM) *HI* (05/14/14 9:13 PM) Systolic Blood Pressure 121 mmHg 112 mmHg 103 mmHg [90-140 mmHg] (05/15/14 3:40 PM) (05/15/14 11:23 AM) (05/15/14 8:02 AM) Diastolic Blood Pressure 59 mmHg 49 mmHg 50 mmHg [60-90 mmHg] *LOW* *LOW* *LOW* (05/15/14 3:40 PM) (05/15/14 11:23 AM) (05/15/14 8:02 AM) Respiratory Rate [14-20 BRMIN] 18 BRMIN 18 BRMIN 18 BRMIN (05/15/14 3:40 PM) (05/15/14 11:23 AM) (05/15/14 8:02 AM) Peripheral Pulse Rate [60-100 63 bpm 65 bpm 86 bpm bpm] (05/15/14 3:40 PM) (05/15/14 11:23 AM) (05/15/14 8:02 AM) Weight 100 kg 100 kg (05/13/14 2:49 AM) (05/12/14 9:32 PM) Body Mass Index 30.75 m2 30.75 m2 (05/13/14 2:49 AM) (05/12/14 9:32 PM) Problem List Condition Effective Dates Status Health Status Informant Anemia(Confirmed) Resolved DM (diabetes mellitus)(Confirmed) Resolved HLD (hyperlipidemia)(Confirmed) Resolved HTN (hypertension)(Confirmed) Resolved Prostate(Confirmed) Resolved Allergies, Adverse Reactions, Alerts Substance Reaction Severity Status NKDA Active Medications acetaminophen 650 mg, 2 tab, Route: PO, Drug form: TAB, Q4H, Dosing Weight 100, kg, PRN Pain 1 -3/Temp > 99.5 F, Start date: 05/12/14 23:54:00, Duration: 30 day, Stop date: 23:53:00 Notes: Do not exceed 4 gm/day. (Same as: Tylenol) Start Date: 05/12/14 Stop Date: 05/15/14 Status: Discontinuedaspirin 81 mg, PO, Daily, 0 Refill(s) Start Date: 05/13/14 Stop Date: 05/15/14 Status: Discontinuedaspirin 325 mg, 1 tab, Route: PO, Drug form: TAB, Daily, Dosing Weight 100, kg, Start date: 05/13/14 9:00:00, Duration: 30 day, Stop date: 06/11/14 9:00:00 Notes: Take with food. Start Date: 05/13/14 Stop Date: 05/15/14 Status: Discontinuedaspirin 325 mg tablet 325 mg=1 tab, PO, Daily, # 50 tab, 3 Refill(s) Start Date: 05/15/14 Status: Orderedatorvastatin 40 mg oral tablet 40 mg=1 tab, PO, Bedtime, # 30 tab, 3 Refill(s) Start Date: 05/15/14 Status: Orderedbisacodyl 10 mg, 1 supp, Route: WV, Drug form: SUPP, Daily, Dosing Weight 100, kg, PRN Constipation, Start date: 05/12/14 23:54:00, Duration: 30 day, Stop date: 23:53:00 Notes: (Same As: Dulcolax, Bisco-Lax) Start Date: 05/12/14 Stop Date: 05/15/14 Status: Discontinuedclopidogrel 75 mg, 1 tab, Route: PO, Drug form: TAB, Daily, Dosing Weight 100, kg, Start date: 05/13/14 9:00:00,Duration: 30 day, Stop date: 06/11/14 9:00:00 Notes: (Same As: Plavix) Start Date: 05/13/14 Stop Date: 05/13/14 Status: CanceledDextrose 50% Syringe 25 gm, 50 mL, Route: IVP, Drug Form: INJ, Dosing Weight 100, kg, PRN, PRN Abnormal Lab Result, Startdate: 05/12/14 23:56:00, Duration: 30 day, Stop date: 06/11/14 23:55:00 Start Date: 05/12/14 Stop Date: 05/15/14 Status: DiscontinuedDextrose 50% Syringe 6.25 gm, 12.5 mL, Route: IVP, Drug Form: INJ, Dosing Weight 100, kg, PRN, PRN Abnormal Lab Result, Start date: 05/12/14 23:56:00, Duration: 30 day, Stop date : 06/11/14 23:55:00 Start Date: 05/12/14 Stop Date: 05/15/14 Status: DiscontinuedDextrose 50% Syringe 12.5 gm, 25 mL, Route: IVP, Drug Form: INJ, Dosing Weight 100, kg, PRN, PRN Abnormal Lab Result, Start date: 05/12/14 23:56:00, Duration: 30 day, Stop date : 06/11/14 23:55:00 Start Date: 05/12/14 Stop Date: 05/15/14 Status: Discontinueddocusate 100 mg, 1 cap, Route: PO, Drug form: CAP, Q12H, Dosing Weight 100, kg, Start date: 05/13/14 9:00:00,Duration: 30 day, Stop date: 06/11/14 21:00:00 Notes: (Same as: Colace) (Do Not Crush) Start Date: 05/13/14 Stop Date: 05/15/14 Status: Discontinuedfinasteride 5 mg, 1 tab, Route: PO, Drug form: TAB, Daily, Dosing Weight 100, kg, Start date : 05/14/14 9:00:00, Duration: 30 day, Stop date: 06/12/14 9:00:00 Start Date: 05/14/14 Stop Date: 05/15/14 Status: Discontinuedheparin 5,000 unit, 1 mL, Route: SUB-Q, Drug form: INJ, Q8H, Dosing Weight 100, kg, ( For patients weighing < 100 kg)., Start date: 05/13/14 0:00:00, Duration: 30 day, Stop date: 06/11/14 16:00:00 Notes: porcine heparin Start Date: 05/13/14 Stop Date: 05/15/14 Status: Discontinuedinsulin regular 100 units/mL human recombinant 7 unit, 0.07 mL, Route: SUB-Q, Drug form: SOLN, PRN, Dosing Weight 100, kg, PRN Abnormal Lab Result,Start date: 05/12/14 23:56:00, Duration: 30 day, Stop date: 06/11/14 23:55:00 Notes: (Same as: Humulin R) Roll in palms of hands gently; Do not shake vigorously. "single patientuse only"(Restricted to patients requiring a dose > 60 units) Stable for 28 days at room temperatureExpires in days from ___ Date Start Date: 05/12/14 Stop Date: 05/15/14 Status: Discontinuedinsulin regular 100 units/mL human recombinant 5 unit, 0.05 mL, Route: SUB-Q, Drug form: SOLN, PRN, Dosing Weight 100, kg, PRN Abnormal Lab Result,Start date: 05/12/14 23:56:00, Duration: 30 day, Stop date: 06/11/14 23:55:00 Notes: (Same as: Humulin R) Roll in palms of hands gently; Do not shake vigorously. "single patientuse only"(Restricted to patients requiring a dose > 60 units) Stable for 28 days at room temperatureExpires in days from ___ Date Start Date: 05/12/14 Stop Date: 05/15/14 Status: Discontinuedinsulin regular 100 units/mL human recombinant 3 unit, 0.03 mL, Route: SUB-Q, Drug form: SOLN, PRN, Dosing Weight 100, kg, PRN Abnormal Lab Result,Start date: 05/12/14 23:56:00, Duration: 30 day, Stop date: 06/11/14 23:55:00 Notes: (Same as: Humulin R) Roll in palms of hands gently; Do not shake vigorously. "single patientuse only"(Restricted to patients requiring a dose > 60 units) Stable for 28 days at room temperatureExpires in days from ___ Date Start Date: 05/12/14 Stop Date: 05/15/14 Status: Discontinuedlabetalol 10 mg, 2 mL, Route: IVP, Drug form: INJ, Q10Min, Dosing Weight 100, kg, PRN Hypertension, Start date: 05/12/14 23:54:00, Duration: 30 day, Stop date: 23:53:00, For SBP > 180mmHg and/or DBP > 105mmHg Start Date: 05/12/14 Stop Date: 05/15/14 Status: DiscontinuedLevaquin 750 mg, 1 tab, Route: PO, Drug form: TAB, [id number], Dosing Weight 100, kg, Start date: 05/15/14 10:00:00, Duration: 5 day, Stop date: 05/19/14 10:00:00 Notes: Do not give w/antacids, dairy pdt & mineralsTake 1 hr before or 2 hr after dairy products Start Date: 05/15/14 Stop Date: 05/15/14 Status: Discontinuedlevofloxacin 750 mg oral tablet 750 mg=1 tab, PO, [id number], # 4 tab, 0 Refill(s) Start Date: 05/15/14 Status: OrderedLipitor 40 mg, 1 tab, Route: PO, Drug form: TAB, Bedtime, Dosing Weight 100, kg, Start date: 05/13/14 21:00:00, Stop date: 06/11/14 21:00:00 Notes: (Same as: Lipitor) Start Date: 05/13/14 Stop Date: 05/15/14 Status: DiscontinuedmetFORMIN 500 mg oral tablet 500 mg=1 tab, BID, 0 Refill(s) Start Date: 05/13/14 Stop Date: 05/13/14 Status: Deletedmetoprolol 50 mg oral tablet, extended release =25 mg, PO, Daily, # 30 caplet, 3 Refill(s) Start Date: 05/15/14 Status: OrderedNS 1,000 mL 1,000 mL, Rate: 75 ml/hr, Infuse over: 13.3 hr, Route: IV, Dosing Weight 100 kg , Total Volume: 1,000, Start date: 05/13/14 2:30:00, Duration: 30 day, Stop date : 06/12/14 2:29:00 Start Date: 05/13/14 Stop Date: 05/15/14 Status: Discontinuedondansetron 4 mg, 2 mL, Route: IVP, Drug form: INJ, Q8H, Dosing Weight 100, kg, PRN Nausea & amp; Vomiting, Startdate: 05/12/14 23:54:00, Duration: 30 day, Stop date: 23:53:00 Notes: (Same as: Zofran) Start Date: 05/12/14 Stop Date: 05/15/14 Status: DiscontinuedSaline Flush 0.9% 5 ml, Route: IVP, Drug Form: INJ, Dosing Weight 100, kg, Q12H, Start date: 05/13 9:00:00, Duration: 30 day, Stop date: 06/11/14 21:00:00 Notes: (Same as: BD Posiflush) Start Date: 05/13/14 Stop Date: 05/15/14 Status: DiscontinuedSaline Flush 0.9% 5 ml, Route: IVP, Drug Form: INJ, Dosing Weight 100, kg, PRN, PRN Line Flush, Start date: 05/12/14 23:54:00, Duration: 30 day, Stop date: 06/11/14 23:53:00 Notes: (Same as: BD Posiflush) Start Date: 05/12/14 Stop Date: 05/15/14 Status: Discontinuedvancomycin 1 gm, Route: IV, Drug form: INJ, Q24H, Dosing Weight 100, kg, Start date: 0:00:00, Duration: 30 day, Stop date: 06/11/14 0:00:00 Notes: (Same As: Vancocin) Start Date: 05/13/14 Stop Date: 05/15/14 Status: DiscontinuedZosyn 3.375 gm, Route: IV, Drug form: PDR/INJ, Q6H, Dosing Weight 100, kg, Start date : 05/13/14 0:00:00, Stop date: 06/11/14 18:00:00 Notes: (Same as: Zosyn) Dosing based on Piperacillin component Start Date: 05/13/14 Stop Date: 05/15/14 Status: Discontinued Results ELECTROLYTES Most recent to oldest 1 2 3 [Reference Range]: Sodium Lvl [135-145 mEq/L] 143 mEq/L 142 mEq/L 136 mEq/L (05/15/14 12:10 AM) (05/14/14 4:50 AM) (05/12/14 10:45 PM) Potassium Lvl [3.5-5.1 3.9 mEq/L 4.0 mEq/L 4.0 mEq/L mEq/L] (05/15/14 12:10 AM) (05/14/14 4:50 AM) (05/12/14 10:45 PM) Chloride Lvl [95-109 mEq/L] 109 mEq/L 110 mEq/L 105 mEq/L (05/15/14 12:10 AM) *HI* (05/12/14 10:45 PM) (05/14/14 4:50 AM) CO2 [24-32 mEq/L] 24 mEq/L 21 mEq/L 25 mEq/L (05/15/14 12:10 AM) *LOW* (05/12/14 10:45 PM) (05/14/14 4:50 AM) AGAP [10.0-20.0 mEq/L] 13.9 mEq/L 15.0 mEq/L 10.0 mEq/L (05/15/14 12:10 AM) (05/14/14 4:50 AM) (05/12/14 10:45 PM) CHEM PANEL Most recent to oldest 1 2 3 [Reference Range]: Creatinine Lvl [0.5-1.4 1.5 mg/dL 1.6 mg/dL 1.8 mg/dL mg/dL] *HI* *HI* *HI* (05/15/14 12:10 AM) (05/14/14 4:50 AM) (05/12/14 10:45 PM) eGFR 43 mL/min/1.73m2 1 40 mL/min/1.73m2 2 35 mL/min/1.73m2 3 *NA* *NA* *NA* (05/15/14 12:10 AM) (05/14/14 4:50 AM) (05/12/14 10:45 PM) BUN [7-22 mg/dL] 30 mg/dL 34 mg/dL 27 mg/dL *HI* *HI* *HI* (05/15/14 12:10 AM) (05/14/14 4:50 AM) (05/12/14 10:45 PM) Glucose Lvl [70-99 mg/dL] 157 mg/dL 4 127 mg/dL 5 134 mg/dL 6 *HI* *HI* *HI* (05/15/14 12:10 AM) (05/14/14 4:50 AM) (05/12/14 10:45 PM) Calcium Lvl [8.5-10.5 7.9 mg/dL 7.6 mg/dL 8.3 mg/dL mg/dL] *LOW* *LOW* *LOW* (05/15/14 12:10 AM) (05/14/14 4:50 AM) (05/12/14 10:45 PM) Phosphorus [2.5-4.5 mg/dL] 2.1 mg/dL 2.4 mg/dL *LOW* *LOW* (05/15/14 12:10 AM) (05/14/14 4:50 AM) Magnesium Lvl [1.8-2.4 2.0 mg/dL 1.8 mg/dL mg/dL] (05/15/14 12:10 AM) (05/14/14 4:50 AM) Lactic Acid WB [0.5-2.2 1.8 mmol/L mmol/L] (05/12/14 10:45 PM) 1Result Comment: The eGFR is calculated [...] values reflect the clinical guidelines of the [place] [employer].5Interpretive Data: Adult reference range values reflect the clinical guidelines of the [place] [employer].6Interpretive Data: Adult reference range values reflect the clinical guidelines of the [place] [employer].CARDIAC ENZYMES Most recent to oldest [Reference Range]: 1 2 3 Troponin-I [0.00-0.40 ng/mL] 0.08 ng/mL (05/12/14 10:45 PM) LIPIDS Most recent to oldest [Reference Range]: 1 2 3 CHD Risk [4.00-7.30] 7.56 *HI* (05/14/14 12:02 PM) Chol [<=199 mg/dL] 68 mg/dL (05/14/14 12:02 PM) Trig [<=149 mg/dL] 202 mg/dL *HI* (05/14/14 12:02 PM) HDL [>=61 mg/dL] 9 mg/dL *LOW* (05/14/14 12:02 PM) LDL (Calculated) [<=99 mg/dL] 19 mg/dL (05/14/14 12:02 PM) VLDL 40 *NA* (05/14/14 12:02 PM) TOXICOLOGY Most recent to oldest [Reference Range]: 1 2 3 Vanco Tr TND * *NA* (05/15/14 12:10 AM) Vanco Tr 4.7 ug/ml 7 *NA* (05/15/14 12:10 AM) 7Interpretive Data: Therapeutic Range: Trough: 10 - 20 ug/mL Peak: 20 - 40 ug/mL Potential Toxicity: >80 ug/mLURINE AND STOOL Most recent to oldest [Reference Range]: 1 2 3 UA Turbidity [Clear] Slight Cloudy (05/13/14 1:49 AM) UA Color [Yellow] Yellow *NA* (05/13/14 1:49 AM) UA pH [5.0-8.0] 6.0 (05/13/14 1:49 AM) UA Spec Grav [<=1.030] 1.024 (05/13/14 1:49 AM) UA Glucose [Negative] Negative (05/13/14 1:49 AM) UA Blood [Negative] Large *ABN* (05/13/14 1:49 AM) UA Ketones [Negative mg/dL] 15 mg/dL *ABN* (05/13/14 1:49 AM) UA Protein [Negative mg/dL] 100 mg/dL *ABN* (05/13/14 1:49 AM) UA Urobilinogen [0.1-1.0 EU/dL] 1.0 EU/dL (05/13/14 1:49 AM) UA Bili [Negative] Negative *NA* (05/13/14 1:49 AM) UA Leuk Est [Negative] Negative (05/13/14 1:49 AM) UA Nitrite [Negative] Negative (05/13/14 1:49 AM) UA WBC [None Seen /HPF] 0-2 /HPF (05/13/14 1:49 AM) UA RBC [0-2 /HPF] 3-5 /HPF *ABN* (05/13/14 1:49 AM) UA Bacteria [None Seen /HPF] Occasional /HPF (05/13/14 1:49 AM) UA Sq Epi [Few /LPF] Rare /LPF (05/13/14 1:49 AM) UA Amorph Lorenza [None Seen /HPF] Occasional /HPF *ABN* (05/13/14 1:49 AM) UA Mucus [None Seen /LPF] Rare /LPF (05/13/14 1:49 AM) HEMATOLOGY Most recent to oldest 1 2 3 [Reference Range]: WBC [3.7-10.4 K/CMM] 7.1 K/CMM 8.3 K/CMM 12.4 K/CMM (05/15/14 12:10 AM) (05/14/14 4:50 AM) *HI* (05/12/14 10:45 PM) RBC [4.70-6.10 M/CMM] 3.46 M/CMM 3.40 M/CMM 3.90 M/CMM *LOW* *LOW* *LOW* (05/15/14 12:10 AM) (05/14/14 4:50 AM) (05/12/14 10:45 PM) Hgb [14.0-18.0 g/dL] 10.3 g/dL 10.1 g/dL 11.9 g/dL *LOW* *LOW* *LOW* (05/15/14 12:10 AM) (05/14/14 4:50 AM) (05/12/14 10:45 PM) Hct [42.0-54.0 %] 30.9 % 30.3 % 34.1 % *LOW* *LOW* *LOW* (05/15/14 12:10 AM) (05/14/14 4:50 AM) (05/12/14 10:45 PM) MCV [80.0-94.0 fL] 89.2 fL 89.0 fL 87.4 fL (05/15/14 12:10 AM) (05/14/14 4:50 AM) (05/12/14 10:45 PM) MCH [27.0-31.0 pg] 29.8 pg 29.6 pg 30.5 pg (05/15/14 12:10 AM) (05/14/14 4:50 AM) (05/12/14 10:45 PM) MCHC [32.0-36.0 g/dL] 33.4 g/dL 33.2 g/dL 34.8 g/dL (05/15/14 12:10 AM) (05/14/14 4:50 AM) (05/12/14 10:45 PM) RDW [11.5-14.5 %] 13.7 % 13.5 % 12.7 % (05/15/14 12:10 AM) (05/14/14 4:50 AM) (05/12/14 10:45 PM) Platelet [133-450 K/CMM] 158 K/CMM 134 K/CMM 142 K/CMM (05/15/14 12:10 AM) (05/14/14 4:50 AM) (05/12/14 10:45 PM) MPV [7.4-10.4 fL] 9.6 fL 9.6 fL 9.9 fL (05/15/14 12:10 AM) (05/14/14 4:50 AM) (05/12/14 10:45 PM) Segs [45.0-75.0 %] 86.3 % 86.6 % 89.8 % *HI* *HI* *HI* (05/15/14 12:10 AM) (05/14/14 4:50 AM) (05/12/14 10:45 PM) Lymphocytes [20.0-40.0 %] 8.9 % 7.8 % 6.6 % *LOW* *LOW* *LOW* (05/15/14 12:10 AM) (05/14/14 4:50 AM) (05/12/14 10:45 PM) Monocytes [2.0-12.0 %] 4.2 % 5.3 % 2.4 % (05/15/14 12:10 AM) (05/14/14 4:50 AM) (05/12/14 10:45 PM) Eosinophils [0.0-4.0 %] 0.5 % 0.1 % 1.2 % (05/15/14 12:10 AM) (05/14/14 4:50 AM) (05/12/14 10:45 PM) Basophils [0.0-1.0 %] 0.1 % 0.2 % 0.0 % (05/15/14 12:10 AM) (05/14/14 4:50 AM) (05/12/14 10:45 PM) Segs-Bands # [1.5-8.1 6.1 K/CMM 7.2 K/CMM 11.2 K/CMM K/CMM] (05/15/14 12:10 AM) (05/14/14 4:50 AM) *HI* (05/12/14 10:45 PM) Lymphocytes # [1.0-5.5 0.6 K/CMM 0.6 K/CMM 0.8 K/CMM K/CMM] *LOW* *LOW* *LOW* (05/15/14 12:10 AM) (05/14/14 4:50 AM) (05/12/14 10:45 PM) Monocytes # [0.0-0.8 K/CMM] 0.3 K/CMM 0.4 K/CMM 0.3 K/CMM (05/15/14 12:10 AM) (05/14/14 4:50 AM) (05/12/14 10:45 PM) Eosinophils # [0.0-0.5 0.1 K/CMM K/CMM] (05/12/14 10:45 PM) Basophils # [0.0-0.2 K/CMM] 0.0 K/CMM (05/12/14 10:45 PM) Anisocyte [None Seen] 1+ *ABN* (05/12/14 10:45 PM) Elliptocyte [None Seen] Slight *ABN* (05/12/14 10:45 PM) Plt Morph Normal (05/12/14 10:45 PM) PT [12.0-14.7 seconds] 16.6 seconds *HI* (05/14/14 4:50 AM) INR [0.85-1.17] 1.36 8 *HI* (05/14/14 4:50 AM) 8Interpretive Data: RECOMMENDED RANGES FOR PROTIME INR: 2.0-3.0 for most medical and surgical thromboembolic states. 2.5-3.5 for artificial heart valves and recurrent embolism. INR SHOULD BE USED ONLY FOR PATIENTS ON STABLE ANTICOAGULANT THERAPY. Medications Administered During Your Visit No data available for this section Immunizations No data available for this section Social History Social History Type Response Alcohol Use: Past Smoking Status Former smoker, Type: Cigarettes, Exposure to Tobacco Smoke None , Exposure to Tobacco Smoke Exposed at work, Exposure to Tobacco Smoke Lives with someone who smokes, Exposure to Tobacco Smoke Unable to obtain, Cigarette Smoking Last 365 Days No, Reg Smoking Cessation Counseling No Assessment and Plan Extracted from: Title: Progress Note * Author: Heri Nash MD Date: 05/15/14 Impression and Plan pneumonia: - CT at OSH and CXR here suspicious for LLL infiltrate - blood cultures negative - dry cough, no sputum obtained - levaquin 750mg Po X 5 days Bioprosthetic heart valve: - on ASA 325mg now - MIRIAN evident of 4 atheroma in the ascending and transverse thoracic aorta - f/u at [facility] Acute stroke: - management per primary - On ASA + statin CAD: - on ASA, statin - was on metoprolol, will resume it when BP allows DM2: - was on oral agents at home - SSI for now FRANCE on CKD III: - pre renal likely/ contrast induced - Cr close to baseline BPH: - continue finasteride DVT ppx:heparin sub Q MHUTS is consult on this patient. Pager [phone]. Pt stable for DC from medicine / pneumonia standpoint Extracted from: Title: Clinical Document Author: Heri Nash MD Date: 05/13/14 INTERNAL MEDICINE CONSULTATION: Reason for consult: - Pneumonia, medical management Requesting provider/ service : - Stroke Brief HPI: Pt with bioprosthetic aortic valve, stroke was transferred from OSH with AMS, fever, MRI evident of new stroke and hence trasnsferred here to stroke team. Medicine consulted for fever, pneumonia etc PMH: - CAD - DM2 - Stroke - BPH - GI bleed Surgical history: - AVR Family History: - no CAD/ DM/ stroke Social History: - smoked previously - no alcohol/ drug abuse ROS: Constitutional: + fever, no chills, no fatigue HEENT: no headache, no blurry vision Respiratory: + cough, no dyspnea Cardiac: no chest pain, no palpitations, no orthopnea GI: no nausea, no vomiting, no abdominal pain, no diarrhea : no dysuria Muskuloskeletal: no joint pains, no weakness Neuro: no headache, no weakness, no blurry vision Psychiatry: no depression, no mood problems Allergies: NKDA Meds reviewed Vitals and Temp: Vitals Tmp(F) Pulse BP RR SpO2 FIO2 05/13 12:03 100.3 --- ----- -- --- --- 05/13 12:00 ---- 88 110/66 22 96 --- 05/13 11:51 ---- 84 ----- 20 --- --- 05/13 11:45 ---- 84 ----- 20 96 2.0L/m 05/13 11:00 ---- --- 98/60 -- --- --- 24 Hr Tmax: 102.2F (39.00c) at 05/13 01:20 Vital Signs are the last 5 in the past 48 hours. PHYSICAL EXAM: GENERAL: Patient awake, alert, oriented to time, place, person. No distress HEENT: no pallor, no icterus, no JVD, no carotid bruit LUNGS: good air entry, L basal crackles + CVS: S1, S2 +, Regular rhythm, systolic murmur heard in aortic area + with click GI: Bowel sounds +, soft, nontender, nondistended, no organomegaly MUSKULOSKELETAL: no restriction of movements NEURO: No focal deficits, normal strength in all extremities Labs (Last four charted values) WBC H 12.4 (MAY 12) Hgb L 11.9 (MAY 12) Hct L 34.1 (MAY 12) Plt 142 (MAY 12) Na 136 (MAY 12) K 4.0 (MAY 12) CO2 25 (MAY 12) Cl 105 (MAY 12) Cr H 1.8 (MAY 12) BUN H 27 (MAY 12) Glucose Random H 134 (MAY 12) Ca L 8.3 (MAY 12) Troponin 0.08 (MAY 12) Assessment & Plan: pneumonia: - CT at OSH and CXR here suspicious for LLL infiltrate - pt has fever, minimal cough, L basal crackles - Zosyn & vancomycin for now - await cultures and deescalate Abx accordingly Bioprosthetic heart valve: - he says he got porcine valve 3 yrs ago and follows at [facility] - on ASA 325mg now - MIRIAN to follow Acute stroke: - management pe rprimary - On ASA + statin CAD: - on ASa, statin - was on metoprolol, will resume it when BP allows DM2: - was on oral agents at home - SSI for now FRANCE on CKD III: - pre renal likely/ contrast induced - IVF for now BPH: - continue finasteride DVT ppx:heparin sub Q MHUTS is consult on this patient. Pager [phone] Extracted from: Title: Clinical Document Author: Chiquita Soler MD Date: 05/13/14 STROKE H&P Date of Admission: 05/12/2014 Requesting Physician/Service: transfer [facility] CC: AMS, new acute L frontal stroke on MRI HISTORY OF PRESENT ILLNESS: Patient is a 79 yo CM with DM, HLD, CAD and recent CVA in January 2014 (admitted here for left thalamic infarct, no deficits at discharge) who presented to OSH with 3 days of AMS, some gait instability and fever (102F). At OSH he was diagnosed with LLL PNA on chest CT and MRI brain ( ordered due to AMS) showed new acute left frontal stroke. Patient is on Aspirin and Simvastatin from last admission. Creatin ine 1.6 at OSH, elevated from prior values in January 2014. In January 2014 after the prior stroke, MIRIAN was planned as outpatient as cardioembolic source was suspected. He was previously on warfarin and aspirin but this was stopped in January of 2013 when he had upper GI bleeding and had to be transfused 4 units of PRBCs. REVIEW OF SYSTEMS: GEN: + fever, +chills, weight loss, +fatigue EYES: no blurred vision, double vision CARDIO: no chest pain, palpitations PULM: + shortness of breath, + cough GI: no nausea, vomiting, diarrhea, no abd pain, no constipation : no frequency, dysuria, burning, hematuria NEURO: see HPI SKIN: no rash or lesion ENDOCRINE: cold/heat intolerance MUSCULOSKELETAL: No joint pain PAST MEDICAL HISTORY DM, HLD, CAD, BPH PAST SURGICAL HISTORY aortic valve replacement FAMILY MEDICAL HISTORY Denies SOCIAL HISTORY Denies tobacco, alcohol, or illegal drugs. Lives with . HOME MEDS Glyburide Metformin Metoprolol Omeprazole Simvastatin 20 mg daily Iron suppl Finasteride Aspirin 81 mg daily ALLERGIES NKDA PHYSICAL EXAM Vitals Tmp(F) Tmp(C) Ttype BP MAP Pulse RR SpO2 FIO2 ETCO2 05/13 01:20 102.2 39.00 oral 135/88 101 102 21 95 --- --- 05/13 00:17 ---- ---- ---- 140/60 86 101 20 96 --- --- 05/12 23:36 101.5 38.61 oral 141/77 --- 101 20 95 --- --- 05/12 21:32 97.3 36.28 oral 125/92 --- 89 18 94 --- --- 24 Hr Tmax: 102.2F (39.00c) at 05/13 01:20 Vital Signs are the last 5 in the past 48 hours. 24 Hr Tmin: 97.3F (36.28c) at 05/12 21:32 Weights are the last 5 in 60 days, plus initial. Date Wt(kg) Wt(lb) Ht(cm) Ht(in) Method BMI BSA 05/12 (initial) 100.00 220.00 180.34 71.00 Stated 30.7 2.24 GENERAL: Awake, alert, NAD. HEENT: - Normocephalic and atraumatic; MMM LUNGS - Clear to auscultation bilaterally with no wheezes CV - S1S2 RRR, no m/r/g, equal pulses bilaterally, no carotid bruit ABDOMEN - Soft, nontender, non-distended with normoactive BS NEURO: 1. Mental Status: Patient is awake alert, fully oriented to person, place and time. AAO x _2_ PERRL 2__mm brisk EOMI, tongue midline, no facial asymmetry 2. Speech/language: Naming, Repetition, comprehension and fluency are intact. 3. Cranial Nerves: EOMI, visual oliva full, pupil 3 mm reactive bilaterally, facial sensation intact, face symmetric, hearing intact, tongue/uvula/soft palate midline, normalsternocleidomastoid andtrapezius muscle st rength. No evidence of tongue atrophy or fibrillations 4. Motor: Strength/Power: R UE- Deltoid 5/5, Triceps 5/5, Biceps 5/5, Wrist flexion 5/5, Wrist extension 5/5 L UE- Deltoid 5/5, Triceps 5/5, Biceps 5/5, Wrist flexion 5/5, Wrist extension 5/5 R LE-Illopsoas 5/5, Knee extension 5/5, Knee flexion 5/5,dorsiflexion 5/5, plantar flexion 5/5 LLE-Illopsoas 5 /5, Kneeextension5 /5, Knee flexion 5/5,dorsiflexion 5/5 , plantar flexion 5/5 Hemiparesis and/or hemiplegic Tone is normal Deep Tendon Reflexes- R Triceps2+, Biceps 2+,Brachioradialis 2+, Patellar 2+, Ankle 2+ L Triceps2+, Biceps 2+,Brachioradialis 2+, Patellar 2+, Ankle 2+ Toes down going bilaterally 6. Sensation- intact to pinprick, temperature, vibration, andproprioception and equal bilaterally 7. Coordination:FTN wnl, heel to shinWNL with no signs of dysmetria , no ataxia noted 8. Gait- deferred NIHSS TOTAL: ___0 1a. Level of Consciousness __0__ 0-alert 1-drowsy 2-stupor 1b. LOC Questions month and age _0___ 0-both 1-one 2-neither 1c. LOC Commands open/ close the eyes and then to manager psychiatry and release the non- paretic hand _0___ 0-both 1-one 2-neither 2. Best Gaze _0___ 0-nl 1-partial 2-forced gaze 3. Visual Oliva _0___ 0=No visual loss. 1=Partial hemianopia. 2=Complete hemianopia. 3= Bilateral hemianopia 4. Facial Palsy _0___ 0-none 1-minor 2-partial 3-complete 0=No drift; leg holds 30-degree position for full 5 seconds. 1=Drift; leg falls by the end of the 5-second period but does not hit bed. 2=Some effort vs gravity; leg falls by 5 seconds, some effort vs gravity. 3=No effort vs gravity; leg falls to bed immediately. 4=No movement. 5-8. Motor _0___R. arm _0___L. arm _0___R. leg _0___L. leg 9. Limb Ataxia _0___ 0 absent 1 - 1limb 2 - 2 limbs 10. Sensory _0___ 0-nl 1-partial loss 2-dense loss 11. Best Language _0___ 0-nl 1-mild/mod 2-severe 3-mute 12. Dysarthria _0___ 0-nl 1-mild/mod 2-severe x-untestable 13. Extinction and Inattention (formerly Neglect): _0___ 0-none 1-partial 2-complete SIGNIFICANT LABS: 24hr Labs 05/12 2245 Temp Mo 37.0 pH Mo 7.36 pCO2 Mo 44 pO2 Mo 17 L HCO3 Mo 25 BE Mo -1 O2 Sat Mo 22.1 L 05/12 2245 Glucose Lvl 134 H BUN 27 H Creatinine Lvl 1.8 H Sodium Lvl 136 Potassium Lvl 4.0 Chloride Lvl 105 CO2 25 AGAP 10.0 Calcium Lvl 8.3 L eGFR 35 Lactic Acid WB 1.8 Troponin-I 0.08 WBC 12.4 H RBC 3.90 L Hgb 11.9 L Hct 34.1 L MCV 87.4 MCH 30.5 MCHC 34.8 RDW 12.7 Platelet 142 MPV 9.9 Segs 89.8 H Monocytes 2.4 Lymphocytes 6.6 L Eosinophils 1.2 Basophils 0.0 Segs-Bands # 11.2 H Lymphocytes # 0.8 L Monocytes # 0.3 Eosinophils # 0.1 Basophils # 0.0 Plt Morph Normal Anisocyte 1+ Elliptocyte Slight DIAGNOSTIC TESTS: MRI OSH: acute left frontal stroke, 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 THE FOLLOWING WERE PRESENT ON ADMISSION (POA) 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 DIFFERENTIAL DIAGNOSIS CVA PLAN # Acute Ischemic Stroke: - Location: left frontal - Etiology: likely cardioembolic - Admit to Stroke unit under Dr. Calderon - SBP goal <180 -Plavix 75 mg as patient failed Aspirin - Lipitor 80 mgpo daily, will order lipid panel and hepatic panel and adjust Lipitor accordingly - will [id number] and start sliding scale insulin for tight glucose control - will get MRA neck/head as Cr 1.6 and cannot get CTA - will get2D echo vs [facility] tomorrow - PT/OT/ ST evaluation in the morning -DVT Prophylaxis: Heparin 5000 units sq q8h, SCD, JAIME - GI Prophylaxis: Not indicated - Bowel Prophylaxis:Colace and Senna -PNA: Zosyn and Vancomycin The patient was discussed with Dr. Tang, the attending/fellow wound care center consultant. Chiquita Soler MD PGY 4 Pediatric Neurology Fellow CORE MEASURES: 1) Antithrombotics have been ordered 2) Statins have been ordered 3) The rehab assessment has been ordered 4) Stroke education: I have discussed with the patient and/or family in detail about 1. the signs and symptoms of stroke; 2. the importance of their early recognition and activation of EMS via 911; 3. s troke risk factors have been clearly identified and communicated to the patient ; 4. The importance of taking prescribed medication to treat these risk factors for secondary stroke prevention; and 5. th e importance of regular follow- up appointments to prevent stroke has also been emphasized. STROKE STAFF I have personally evaluated the patient. I have reviewed Dr. James's note detailed above. I agree with the resident's findings, assessment and plan as outlined in the note except as detailed below. I have reviewed the patient's neuroimaging findings which reveal: MRI: small left frontal area of restricted diffusion MRA - p Exam: Awake, alert, and attentive. Normal language. PERRL. Eye movements intact. mild left NL folf flat. Facial sensation intact and symmetric. Normal visual oliva. Strength full throughout. Mild left drift. Intact sensation. Impression/Plan: 79 yo man with history of prosthetic valve, previously on coumadin, recent thalamic stroke January 2014, transferred for subacute right frontal stroke. Patient states non-compliant with medications and does not intend to take anticoagulation therapy. Ischemic stroke Etiology: likely carbioembolic Plan - Antithrombotic: aspirin for now, will discuss initiation of anticoagulation with family - Statin: Lipitor 40mg - Blood pressure goals: SBP 140 - 160 pending vessel imaging - Stroke labs: pending - Cerebrovascular imging: MRA H/N pending - Transthoracic Echo: as above - Continuous cardiac monitoring - Prior GI bleed - will obtain records - Pneumonia - continue antibiotics Atrial fibrillation 427.31 cerebral embolism with infarct 434.11 Essential hypertension 401.9 Pneumonia 486 hyperlipidemia 272.4 [id number] Pedro Calderon MD M[facility] Stroke Attending c [phone] Addendum by Pedro Calderon MD [employer]rections on 05/14/2014 18:04 * Left frontal stroke with RIGHT nasolabial fold flattening and drift * Patient DOES NOT have a diagnosis of atrial fibrillation. Pedro Calderon MD MPH Stroke Attending c [phone]
--- OUTSIDE RECORDS SUMMARY | 2018-07-27 18:42 | XMS REPORT | Summary of Care ---
:1935 Author Organization [facility] Address [address] [place] [id number]- Encounter HQ Mirandant[employer]_declan(FIN) [id number] Date(s): 06/06/17 - 06/07/[address] Professional Services provided by [facility] [place] [address]- Discharge Disposition: Home or Self Care Attending Physician: Lauryn Bruno MD Admitting Physician: Maximo Cuevas MD Referring Physician: Joey Coelho MD Vital Signs Most recent to oldest [Reference 1 2 3 Range]: Height 180.34 cm 180.34 cm (06/06/17 11:05 AM) (06/06/17 2:53 AM) Current Weight 91.136 kg (06/07/17 4:49 AM) Temperature Oral [96.4-99.1 DegF] 98.2 DegF 98.0 DegF 98.2 DegF (06/07/17 11:24 AM) (06/07/17 7:19 AM) (06/07/17 4:48 AM) Blood Pressure [90-140/60-90 108/59 mmHg 115/67 mmHg 107/58 mmHg mmHg] (06/07/17 11:24 AM) (06/07/17 7:19 AM) (06/07/17 4:48 AM) Respiratory Rate [14-20 BRMIN] 18 BRMIN 18 BRMIN 18 BRMIN (06/07/17 11:24 AM) (06/07/17 7:19 AM) (06/07/17 4:48 AM) Peripheral Pulse Rate [60-100 64 bpm 84 bpm 74 bpm bpm] (06/07/17 11:24 AM) (06/07/17 7:19 AM) (06/07/17 4:48 AM) Weight 95 kg 96.364 kg (06/06/17 11:05 AM) (06/06/17 2:53 AM) Body Mass Index 29.21 m2 29.63 m2 (06/06/17 11:05 AM) (06/06/17 2:53 AM) Problem List Condition Effective Dates Status Health Status Informant Anemia(Confirmed) Resolved DM (diabetes mellitus)(Confirmed) Resolved History of aortic valve 2012 Resolved replacement(Confirmed) HLD (hyperlipidemia)(Confirmed) Resolved HTN (hypertension)(Confirmed) Resolved Allergies, Adverse Reactions, Alerts Substance Reaction Severity Status NKDA Active Medications cefpodoxime 200 mg oral tablet 200 mg=1 tab, PO, Q12H, X 7 day, # 14 tab, 0 Refill(s), Pharmacy: [id number] Start Date: 06/07/17 Stop Date: 06/14/17 Status: OrderedcefTRIAXone 1 gm, Route: IVPB, Drug form: PDR/INJ, [id number], Dosing Weight 95, kg, Start date : 06/06/17 20:00:00 CDT, Duration: 7 day, Stop date: 06/12/17 20:00:00 CDT, ABX Indication: Urinary Tract Infection Notes: (Same As: Rocephin).Use with 100 mL NS and infuse over 30 min MEDICATION WASTE Product Size: 1000 mgProduct Wasted: _0__ mg Start Date: 06/06/17 Stop Date: 06/07/17 Status: Discontinuedcephalexin 500 mg oral capsule 500 mg=1 cap, PO, BID, 0 Refill(s) Start Date: 06/06/17 Stop Date: 06/07/17 Status: DiscontinuedDextrose 50% Syringe 25 gm, 50 mL, Route: IVP, Drug Form: INJ, Dosing Weight 95, kg, PRN, PRN Blood Glucose Results, Start date: 06/06/17 20:00:00 CDT, Duration: 30 day, Stop date : 07/06/17 19:59:00 CDT Start Date: 06/06/17 Stop Date: 06/07/17 Status: DiscontinuedDextrose 50% Syringe 12.5 gm, 25 mL, Route: IVP, Drug Form: INJ, Dosing Weight 95, kg, PRN, PRN Blood Glucose Results, Start date: 06/06/17 20:00:00 CDT, Duration: 30 day, Stop date: 07/06/17 19:59:00 CDT Start Date: 06/06/17 Stop Date: 06/07/17 Status: Discontinuedfinasteride 5 mg oral tablet 5 mg=1 tab, PO, Daily, # 30 tab, 0 Refill(s) Start Date: 06/06/17 Stop Date: 06/07/17 Status: Discontinuedfinasteride 5 mg oral tablet 5 mg=1 tab, PO, Daily, # 30 tab, 0 Refill(s), Pharmacy: [id number] Start Date: 06/07/17 Stop Date: 07/07/17 Status: OrderedFlomax 0.4 mg, 1 cap, Route: PO, Drug form: CAP, Daily, Dosing Weight 96.364, kg, Start date: 06/06/17 9:00:00 CDT, Duration: 30 day, Stop date: 07/05/17 9:00:00 CDT Notes: (Same As: Flomax) "Do Not Crush" Start Date: 06/06/17 Stop Date: 06/07/17 Status: Discontinuedglucagon 1 mg, Route: IM, Drug form: PDR/INJ, PRN, Dosing Weight 95, kg, PRN Blood Glucose Results, Start date: 06/06/17 20:00:00 CDT, Duration: 30 day, Stop date : 07/06/17 19:59:00 CDT Start Date: 06/06/17 Stop Date: 06/07/17 Status: DiscontinuedglyBURIDE 2.5 mg oral tablet 2.5 mg=1 tab, PO, Breakfast Start Date: 06/06/17 Status: Orderedinsulin lispro 1 unit, 0.01 mL, Route: SUB-Q, Drug form: SOLN, Bedtime, Dosing Weight 95, kg, PRN Blood Glucose Results, Start date: 06/06/17 20:00:00 CDT, Duration: 30 day, Stop date: 07/06/17 19:59:00 CDT Notes: (Same as: Humalog ) Roll in palms of hands gently; Do not shake ` vigorously. "Single PatientUse Only " (Restricted to patients requiring a dose > 60 units)WASTE: F/P - Black; E - Municipal Trash Bin Stable for 28 days at room temperature.Expires in days from Date Start Date: 06/06/17 Stop Date: 06/07/17 Status: Discontinuedinsulin lispro 2 unit, 0.02 mL, Route: SUB-Q, Drug form: SOLN, Bedtime, Dosing Weight 95, kg, PRN Blood Glucose Results, Start date: 06/06/17 20:00:00 CDT, Duration: 30 day, Stop date: 07/06/17 19:59:00 CDT Notes: (Same as: Humalog ) Roll in palms of hands gently; Do not shake ` vigorously. "Single PatientUse Only " (Restricted to patients requiring a dose > 60 units)WASTE: F/P - Black; E - Municipal Trash Bin Stable for 28 days at room temperature.Expires in days from Date Start Date: 06/06/17 Stop Date: 06/07/17 Status: Discontinuedinsulin lispro 3 unit, 0.03 mL, Route: SUB-Q, Drug form: SOLN, Bedtime, Dosing Weight 95, kg, PRN Blood Glucose Results, Start date: 06/06/17 20:00:00 CDT, Duration: 30 day, Stop date: 07/06/17 19:59:00 CDT Notes: (Same as: Humalog ) Roll in palms of hands gently; Do not shake ` vigorously. "Single PatientUse Only " (Restricted to patients requiring a dose > 60 units)WASTE: F/P - Black; E - Municipal Trash Bin Stable for 28 days at room temperature.Expires in days from Date Start Date: 06/06/17 Stop Date: 06/07/17 Status: Discontinuedinsulin lispro 4 unit, 0.04 mL, Route: SUB-Q, Drug form: SOLN, Bedtime, Dosing Weight 95, kg, PRN Blood Glucose Results, Start date: 06/06/17 20:00:00 CDT, Duration: 30 day, Stop date: 07/06/17 19:59:00 CDT Notes: (Same as: Humalog ) Roll in palms of hands gently; Do not shake ` vigorously. "Single PatientUse Only " (Restricted to patients requiring a dose > 60 units)WASTE: F/P - Black; E - Municipal Trash Bin Stable for 28 days at room temperature.Expires in days from Date Start Date: 06/06/17 Stop Date: 06/07/17 Status: Discontinuedinsulin lispro 1 unit, 0.01 mL, Route: SUB-Q, Drug form: SOLN, TID-Before Meals, Dosing Weight 95, kg, PRN Blood Glucose Results, Start date: 06/06/17 20:00:00 CDT, Duration: 30 day, Stop date: 07/06/17 19:59:00 CDT Notes: (Same as: Humalog ) Roll in palms of hands gently; Do not shake ` vigorously. "Single PatientUse Only " (Restricted to patients requiring a dose > 60 units)WASTE: F/P - Black; E - Municipal Trash Bin Stable for 28 days at room temperature.Expires in days from Date Start Date: 06/06/17 Stop Date: 06/07/17 Status: Discontinuedinsulin lispro 2 unit, 0.02 mL, Route: SUB-Q, Drug form: SOLN, TID-Before Meals, Dosing Weight 95, kg, PRN Blood Glucose Results, Start date: 06/06/17 20:00:00 CDT, Duration: 30 day, Stop date: 07/06/17 19:59:00 CDT Notes: (Same as: Humalog ) Roll in palms of hands gently; Do not shake ` vigorously. "Single PatientUse Only " (Restricted to patients requiring a dose > 60 units)WASTE: F/P - Black; E - Municipal Trash Bin Stable for 28 days at room temperature.Expires in days from Date Start Date: 06/06/17 Stop Date: 06/07/17 Status: Discontinuedinsulin lispro 4 unit, 0.04 mL, Route: SUB-Q, Drug form: SOLN, TID-Before Meals, Dosing Weight 95, kg, PRN Blood Glucose Results, Start date: 06/06/17 20:00:00 CDT, Duration: 30 day, Stop date: 07/06/17 19:59:00 CDT Notes: (Same as: Humalog ) Roll in palms of hands gently; Do not shake ` vigorously. "Single PatientUse Only " (Restricted to patients requiring a dose > 60 units)WASTE: F/P - Black; E - Municipal Trash Bin Stable for 28 days at room temperature.Expires in days from Date Start Date: 06/06/17 Stop Date: 06/07/17 Status: Discontinuedinsulin lispro 3 unit, 0.03 mL, Route: SUB-Q, Drug form: SOLN, TID-Before Meals, Dosing Weight 95, kg, PRN Blood Glucose Results, Start date: 06/06/17 20:00:00 CDT, Duration: 30 day, Stop date: 07/06/17 19:59:00 CDT Notes: (Same as: Humalog ) Roll in palms of hands gently; Do not shake ` vigorously. "Single PatientUse Only " (Restricted to patients requiring a dose > 60 units)WASTE: F/P - Black; E - Municipal Trash Bin Stable for 28 days at room temperature.Expires in days from Date Start Date: 06/06/17 Stop Date: 06/07/17 Status: Discontinuedinsulin lispro 5 unit, 0.05 mL, Route: SUB-Q, Drug form: SOLN, TID-Before Meals, Dosing Weight 95, kg, PRN Blood Glucose Results, Start date: 06/06/17 20:00:00 CDT, Duration: 30 day, Stop date: 07/06/17 19:59:00 CDT Notes: (Same as: Humalog ) Roll in palms of hands gently; Do not shake ` vigorously. "Single PatientUse Only " (Restricted to patients requiring a dose > 60 units)WASTE: F/P - Black; E - Municipal Trash Bin Stable for 28 days at room temperature.Expires in days from Date Start Date: 06/06/17 Stop Date: 06/07/17 Status: Discontinuediron sulfate (ferrous sulfate) 325 mg oral tablet 325 mg=1 tab, PO, Daily Start Date: 06/06/17 Stop Date: 06/06/17 Status: CompletedmetFORMIN 500 mg oral tablet 500 mg=1 tab, PO, BID-Meals, # 60 tab Start Date: 06/06/17 Status: Orderedmetoprolol 50 mg oral tablet, extended release 50 mg=1 tab, PO, Daily Start Date: 06/06/17 Status: Orderedpneumococcal 13-valent vaccine 0.5 mL, Route: IM, Drug Form: INJ, Daily, Start date: 06/07/17 9:00:00 CDT, Duration: 1 doses or times, Stop date: 06/07/17 9:00:00 CDT Notes: Shake well prior to use (Same as: Prevventura 13) Start Date: 06/07/17 Stop Date: 06/07/17 Status: Completedsimvastatin 40 mg, 1 tab, Route: PO, Drug form: TAB, Bedtime, Dosing Weight 95, kg, Start date: 06/06/17 21:00:00 CDT, Duration: 30 day, Stop date: 07/05/17 21:00:00 CDT Notes: (Same as: Zocor) Start Date: 06/06/17 Stop Date: 06/07/17 Status: Discontinuedsimvastatin 40 mg oral tablet 40 mg=1 tab, PO, Bedtime, # 90 tab, 1 Refill(s) Start Date: 06/06/17 Status: Orderedtamsulosin 0.4 mg oral capsule 0.4 mg=1 cap, PO, Daily, # 30 cap, 0 Refill(s), Pharmacy: [id number] Start Date: 06/07/17 Stop Date: 07/07/17 Status: OrderedToprol-XL 50 mg oral tablet, extended release 50 mg, 1 tab, Route: PO, Drug form: ERTAB, Daily, Start date: 06/07/17 9:00:00 CDT, Duration: 30 day, Stop date: 07/06/17 9:00:00 CDT Notes: (Same as: Toprol XL) May split tab, but do not crush. Start Date: 06/07/17 Stop Date: 06/07/17 Status: Discontinued Results ELECTROLYTES Most recent to oldest 1 2 3 [Reference Range]: Sodium Lvl [135-145 mEq/L] 139 mEq/L 141 mEq/L 140 mEq/L (06/07/17 5:25 AM) (06/06/17 5:18 PM) (06/06/17 3:20 AM) Potassium Lvl [3.5-5.1 mEq/L] 4.2 mEq/L 4.2 mEq/L 4.3 mEq/L (06/07/17 5:25 AM) (06/06/17 5:18 PM) (06/06/17 3:20 AM) Chloride Lvl [95-109 mEq/L] 106 mEq/L 108 mEq/L 107 mEq/L (06/07/17 5:25 AM) (06/06/17 5:18 PM) (06/06/17 3:20 AM) CO2 [24-32 mEq/L] 26 mEq/L 28 mEq/L 24 mEq/L (06/07/17 5:25 AM) (06/06/17 5:18 PM) (06/06/17 3:20 AM) AGAP [10.0-20.0 mEq/L] 11.2 mEq/L 9.2 mEq/L 13.3 mEq/L (06/07/17 5:25 AM) *LOW* (06/06/17 3:20 AM) (06/06/17 5:18 PM) CHEM PANEL Most recent to oldest 1 2 3 [Reference Range]: Creatinine Lvl [0.50-1.40 1.79 mg/dL 1.85 mg/dL 1.83 mg/dL mg/dL] *HI* *HI* *HI* (06/07/17 5:25 AM) (06/06/17 5:18 PM) (06/06/17 3:20 AM) eGFR 34 mL/min/1.73m2 1 33 mL/min/1.73m2 2 33 mL/min/1.73m2 3 *NA* *NA* *NA* (06/07/17 5:25 AM) (06/06/17 5:18 PM) (06/06/17 3:20 AM) BUN [7-22 mg/dL] 26 mg/dL 25 mg/dL 34 mg/dL *HI* *HI* *HI* (06/07/17 5:25 AM) (06/06/17 5:18 PM) (06/06/17 3:20 AM) Glucose Lvl [70-99 mg/dL] 104 mg/dL 118 mg/dL 112 mg/dL *HI* *HI* *HI* (06/07/17:25 AM) (06/06/17 5:18 PM) (06/06/17 3:20 AM) Calcium Lvl [8.5-10.5 mg/dL] 8.8 mg/dL 8.6 mg/dL 8.9 mg/dL (06/07/17:25 AM) (06/06/17 5:18 PM) (06/06/17 3:20 AM) Magnesium Lvl [1.8-2.4 1.7 mg/dL mg/dL] *LOW* (06/07/17:25 AM) 1Result Comment: The eGFR is calculated using [...] eGFR should be multiplied by the estimated BMI.URINE AND STOOL Most recent to oldest [Reference Range]: 1 2 3 UA Turbidity [Clear] Slight Slight Cloudy *ABN* (06/06/17 8:27 AM) (06/06/17 12:25 PM) UA Color [Yellow] Yellow Yellow *NA* *NA* (06/06/17 12:25 PM) (06/06/17 8:27 AM) UA pH [5.0-8.0] 5.5 (06/06/17 12:25 PM) UA pH [5.0-8.0] 5.5 (06/06/17 8:27 AM) UA Spec Grav [<=1.030] 1.012 (06/06/17 12:25 PM) UA Spec Grav [<=1.030] 1.020 (06/06/17 8:27 AM) UA Glucose [Negative mg/dL] Negative mg/dL *NA* (06/06/17 12:25 PM) UA Glucose [Negative] Negative (06/06/17 8:27 AM) UA Blood [Negative] Large Large *ABN* *ABN* (06/06/17 12:25 PM) (06/06/17 8:27 AM) UA Ketones [Negative mg/dL] Negative mg/dL *NA* (06/06/17 12:25 PM) UA Ketones [Negative] Negative *NA* (06/06/17 8:27 AM) UA Protein [Negative mg/dL] 100 mg/dL 30 mg/dL *ABN* *ABN* (06/06/17 12:25 PM) (06/06/17 8:27 AM) UA Urobilinogen [0.1-1.0 mg/dL] <=1.0 mg/dL *NA* (06/06/17 12:25 PM) UA Urobilinogen [0.1-1.0 EU/dL] 0.2 EU/dL (06/06/17 8:27 AM) UA Bili [Negative] Negative Negative *NA* *NA* (06/06/17 12:25 PM) (06/06/17 8:27 AM) UA Leuk Est [Negative] Moderate Negative *ABN* (06/06/17 8:27 AM) (06/06/17 12:25 PM) UA Nitrite [Negative] Negative Negative (06/06/17 12:25 PM) (06/06/17 8:27 AM) UA WBC [0-5 /HPF] 34 /HPF *HI* (06/06/17 12:25 PM) UA WBC [None Seen /HPF] 0-2 /HPF (06/06/17 8:27 AM) UA RBC [0-2 /HPF] >182 /HPF 51-100 /HPF *HI* *ABN* (06/06/17 12:25 PM) (06/06/17 8:27 AM) UA Bacteria [None Seen] None Seen (06/06/17 8:27 AM) UA Sq Epi None Seen *NA* (06/06/17 12:25 PM) UA Sq Epi [Few] None Seen (06/06/17 8:27 AM) UA Amorph Lorenza [None Seen /HPF] Occasional /HPF *NA* (06/06/17 12:25 PM) UA Mucus [None Seen /LPF] Few /LPF *NA* (06/06/17 12:25 PM) HEMATOLOGY Most recent to oldest 1 2 3 [Reference Range]: WBC [3.7-10.4 K/CMM] 7.1 K/CMM 8.1 K/CMM (06/07/17 5:25 AM) (06/06/17 3:20 AM) RBC [4.70-6.10 M/CMM] 3.78 M/CMM 3.88 M/CMM *LOW* *LOW* (06/07/17 5:25 AM) (06/06/17 3:20 AM) Hgb [14.0-18.0 g/dL] 11.6 g/dL 11.3 g/dL 11.3 g/dL *LOW* *LOW* *LOW* (06/07/17:25 AM) (06/06/17 5:18 PM) (06/06/17 3:20 AM) Hct [42.0-54.0 %] 32.5 % 32.6 % 34.4 % *LOW* *LOW* *LOW* (06/07/17 5:25 AM) (06/06/17 5:18 PM) (06/06/17 3:20 AM) MCV [80.0-94.0 fL] 85.9 fL 88.6 fL (06/07/17 5:25 AM) (06/06/17 3:20 AM) MCH [27.0-31.0 pg] 30.6 pg 29.1 pg (06/07/17:25 AM) (06/06/17 3:20 AM) MCHC [32.0-36.0 g/dL] 35.6 g/dL 32.8 g/dL (06/07/17 5:25 AM) (06/06/17 3:20 AM) RDW [11.5-14.5 %] 12.8 % 12.5 % (06/07/17 5:25 AM) (06/06/17 3:20 AM) Platelet [133-450 K/CMM] 112 K/CMM 107 K/CMM *LOW* *LOW* (06/07/17:25 AM) (06/06/17 3:20 AM) MPV [7.4-10.4 fL] 9.5 fL 9.9 fL (06/07/17 5:25 AM) (06/06/17 3:20 AM) Segs [45.0-75.0 %] 58.3 % 66.1 % (06/07/17 5:25 AM) (06/06/17 3:20 AM) Lymphocytes [20.0-40.0 %] 29.0 % 22.7 % (06/07/17 5:25 AM) (06/06/17 3:20 AM) Monocytes [2.0-12.0 %] 9.6 % 8.6 % (06/07/17 5:25 AM) (06/06/17 3:20 AM) Eosinophils [0.0-4.0 %] 2.6 % 2.1 % (06/07/17 5:25 AM) (06/06/17 3:20 AM) Basophils [0.0-1.0 %] 0.5 % 0.5 % (06/07/17 5:25 AM) (06/06/17 3:20 AM) Segs-Bands # [1.5-8.1 K/CMM] 4.1 K/CMM 5.4 K/CMM (06/07/17 5:25 AM) (06/06/17 3:20 AM) Lymphocytes # [1.0-5.5 K/CMM] 2.1 K/CMM 1.8 K/CMM (06/07/17 5:25 AM) (06/06/17 3:20 AM) Monocytes # [0.0-0.8 K/CMM] 0.7 K/CMM 0.7 K/CMM (06/07/17 5:25 AM) (06/06/17 3:20 AM) Eosinophils # [0.0-0.5 K/CMM] 0.2 K/CMM 0.2 K/CMM (06/07/17 5:25 AM) (06/06/17 3:20 AM) PT [12.0-14.7 seconds] 13.7 seconds (06/06/17 3:20 AM) INR [0.85-1.17] 1.03 (06/06/17 3:20 AM) PTT [22.9-35.8 seconds] 29.7 seconds (06/06/17 3:20 AM) Immunizations Not Given Vaccine Date Status Refusal Reason pneumococcal 13-valent vaccine 06/07/17 Not Given Permanently Refused Procedures Procedure Date Related Diagnosis Body Site Replacement of aortic valve Social History Social History Type Response Alcohol Past, Type Beer, Liquor.1 Smoking Status Never smoker; Exposure to Tobacco Smoke None; Cigarette Smoking Last 365 Days No; Reg Smoking Cessation Counseling No 1Pt. stop drinking 30 more yrs ago Assessment and Plan Extracted from: Title: [place] [facility] Author: Can Franklin MD Date: 06/07/17 Impression and Plan 82 yo male with gross hematuria and renal mass seen on US -Catheter removed this AM -pending void and PVR to ensure emptying -will need catheter replaced if cannot void -continue flomax Extracted from: Title: History and Physical Author: Ashtyn Harrell MD Date: 06/06/17 Assessment/Plan 1.Gross hematuria - Urology consulted in the ED - ervin catheter placed at the OSH - Catheter interrogated by Urology, and flushed, with minimal clot return - no urinary retention on exam (bladder decompressed) - f/u retroperitoneal ultrasound - check UA with urine culture, to r/o UTI;and urine cytology - f/u Urology recommendations regarding need for continuous bladder irrigation - Start flomax 0.4mg daily 2.S/P AVR (aortic valve replacement) - patientdeniesbeing on any blood thinners at home. States that he was on" a blood thinner,off and on, after aortic valve [id number] ago, but hasn't taken any for the last few years." - no murmur identified on auscultation - porcine valve placed per patient -euvolemic on exam 3.BPH (benign prostatic hyperplasia) - s/p TURP 3 yrs ago - Urology following now for hematuria - urinary retention prior to admission likely 2/2 clot retention - start flomax 0.4mg daily 4.[place] (acute kidney injury) - unknown baseline creatinine - patient may have underlying CKD 2/2 DM - [place] may be 2/2 urinary retention due to clots - now s/p ervin - monitor I/O - non-oliguric - repeat BMP in PM 5.HTN (hypertension) - normotensive at present - unknown home medications, but will hold off any antihypertensives for now. 6.DM (diabetes mellitus), type 2 - On metformin and glyburide at home - unclear if complicated by Nephropathy, as unknown baseline creatinine - unknown HbA1c -start insulin lispro sliding scale withmeals and qhs 7.HLD (hyperlipidemia) -obtain home medication list from family/ pharmacy -resume statin once medicationverified 8.Anemia - unknown baseline - as patient currently actively bleeding, will repeat H/H in the evening, to evaluate degree of blood loss - check iron studied, B12 and folate as well - outpatient f/u for further work-up 9.Goals of care, counseling/discussion - Patient is unsure about what he wants in the emergency scenarios, and wants to deferthe decision tohis family, to decide at that time. Will therefore consider him full code for now. Prophylaxis Sequential compression devices. Hold chemical prophylaxis this patient actively bleeding Disposition Home, once patient's bleeding treated, and stabilized. Extracted from: Title: [place] [facility] Author: Cameron Carcamo MD Date: 06/06/17 Urology Consult Note Date of admission: 06/06/17 Requesting Physician: Souleymane Consulted Physician: Michell Reason for Consultation: Hematuria History of Present Illness: 82 yo male w/ PMH AVR on eliquis, BPH s/p TURP, HTN, HLD, DM who presented to an OSH 3 days ago with hematuria. At that time hematuria had cleared and patient was discharged home. Patient then started t o get worsening hematuria yesterday and went into clot retention. Catheter placed and irrigated at OSH and he wss sent here for higher level of care. Patient denies any episodes of hematuria in the past. Denies f/c/n/v. Review of Symptoms: Constitutional: denies fever/chills, weight loss Eyes: denies blurred vision, eye pain Ears/Nose/Throat: denies ear pain, epistaxis, sore throat CV: denies palpitation, chest pain, Resp: denies SOB, wheezing, coughing, hemoptysis GI: denies hematemsis, nausea/vomiting, constipation, diarrhea : Per HPI MSK: denies weakness, paresthesia Skin: denies rash, skin changes Neuro: denies facial weakness, changes in sensation Psych: denies depression, anxiety Endo: denies polyuria, polydipsia Past Medical History No qualifying data available Past Surgical History No qualifying data available Social History Tobacco Details: Use: Never smoker. Tobacco smoke exposure: None. Did the Patient Smoke Cigarettes Anytime During the Last 365 Days? No. Cessation Counseling Provided? No. Family History No qualifying data available Allergies Allergies: NKDA Medications Medications (0) Active Scheduled Meds: None Unscheduled Meds: None PRN Meds: None One Time Meds: None Continuous Infusions: None Objective Vitals Tmp(F) Tmp(C) Ttype BP MAP Pulse RR SpO2 FIO2 ETCO2 06/06 05:05 ---- ---- ---- 105/60 70 69 18 96 --- --- 09 02:53 98.2 36.78 oral 141/78 --- 78 18 98 --- --- 24 Hr Tmax: 98.2F (36.78c) at 06/06 02:53 Vital Signs are the last 5 in the past 48 hours. 24 Hr Tmin: 98.2F (36.78c) at 06/06 02:53 Weights are the last 5 in 60 days, plus initial. Date Wt(kg) Wt(lb) Ht(cm) Ht(in) Method BMI BSA 06/06 (initial) 96.36 212.00 Estimated 29.6 2.20 06/06 180.34 71.00 Stated (no point of care glucose results charted in last 24 hours) Most Recent Scores: 06/06/17 Pain Intensity NRS (0-10) 0 06/06/17 [place] Coma Score 15 06/06/17 Hawkins Mason Fall Score 0 Lines, Tubes, and Drains: 06/06/2017 04:00 Peripheral Lines: Antecubital Right 20 gauge Over the needle catheter 06/06/2017 04:00 Indwelling Urinary Catheter: Urethral 16 Alban[place] Indwelling/ Continuous (no surgical procedures documented) 24hr Labs 06/06 0320 Glucose Lvl 112 H BUN 34 H Creatinine Lvl 1.83 H Sodium Lvl 140 Potassium Lvl 4.3 Chloride Lvl 107 CO2 24 AGAP 13.3 Calcium Lvl 8.9 eGFR 33 WBC 8.1 RBC 3.88 L Hgb 11.3 L Hct 34.4 L MCV 88.6 MCH 29.1 MCHC 32.8 RDW 12.5 Platelet 107 L MPV 9.9 Segs 66.1 Monocytes 8.6 Lymphocytes 22.7 Eosinophils 2.1 Basophils 0.5 Segs-Bands # 5.4 Lymphocytes # 1.8 Monocytes # 0.7 Eosinophils # 0.2 PT 13.7 INR 1.03 PTT 29.7 No I & O Data Available Physical Exam: Neuro: alert and oriented, No apparent distress Head: atraumatic, normocephalic Eyes: EOMI Nose/throat: nares patent Chest: symmetric chest rise, non labored respiration Abdomen: soft non tender non distended Cardio: Regular rate and rhythm Back: no spinal tenderness, range of motion intact Extremities: normal range of motion, no abnormality Vascular: 2+ pulses BL LE/UE Skin: Intact : [address] draining bloody urine. Flushes easily and clot was flushed out. Assessment/Plan: 82 yo male with hematuria - Catheter interrogated and flushed with some minimal clot return - Bladder is decompressed and patient comfortable. - will continue to monitor hematuria and assess need for CBI - Recommend admission to continue to monitor. - Urology will follow Addendum: Obtain retroperitoneal ultrasound (given SCr unable to obtain contrast) Flomax 0.4 mg PO daily Check UA/reflex urine culture to r/o UTI The patient was seen and examined by me with the resident/TI[employer]KER/PA and I agree with the History/Exam documented.
--- OUTSIDE RECORDS SUMMARY | 2018-07-27 18:43 | XMS REPORT | Continuity of Care Document ---
:1935 Author Organization [facility] Address [address] [place] [address] Phone Unavailable Care Team Providers Name Role Phone Juan Daniel AVILEZ DO Primary Care Physician Insurance Providers Guarantor Luann James Address [address] [place] [address] CELL Email NONE Payer Medicare Policy Number [id number] Subscriber's Name Luann James Relationship Self / Same As Patient Group Number NA Group Name NA Payer [place] Policy Number [id number] Subscriber's Name Luann James Relationship Self / Same As Patient Group Number PLAN J Group Name NA Advance Directives Directive Response Recorded Date/Time Advance Directives No 10/08/15 7:52am Advance Directive on File No 07/17/18 5:49pm Directive to Physicians/Living Will No 10/08/15 7:52am Health Care Proxy No 10/08/15 7:52am Organ Donor No 10/08/15 7:52am Medical Power of Hvac Engineering Technician No 10/08/15 7:52am Patient/Family Given Education Material R/T Y - 07/17/18....SBM 07/17/18 5: 49pm Directives? Chief Complaint and Reason for Visit Chief Complaint SEVERE DEHYDRATION, PRERENAL AZOTEMIA, RENAL FAILU Reason for Visit Weakness on right side of face Orthostatic hypotension Weakness LLL pneumonia Dyspnea Dizziness Dizziness Acute thalamic infarction Dizziness Problems Medical Problem Onset Date Status Acute thalamic infarction Unknown Acute Acute thalamic infarction Unknown Acute Diplopia Unknown Acute Dizziness Unknown Acute Dizziness Unknown Acute Dizziness Unknown Acute Dizziness Unknown Acute Dyspnea Unknown Acute Ganglion cyst of volar aspect of left wrist Unknown Hypoglycemia associated with diabetes Unknown Acute Hypomagnesemia Unknown Acute LLL pneumonia Unknown Acute LLL pneumonia Unknown Acute Left sided cerebral hemisphere cerebrovascular accident Unknown Acute Orthostatic hypotension Unknown Acute Weakness Unknown Acute Weakness on right side of face Unknown Acute Past Problems Medical Problem Onset Date Status Acute cystitis Unknown Acute Dehydration Unknown Acute Gross hematuria Unknown Acute Hyperkalemia Unknown Acute Prerenal azotemia Unknown Acute Prerenal renal failure Unknown Acute UTI (urinary tract infection) Unknown Acute Medications Current Home Medications Medication Dose Units Route Directions Days Qty Instructions Start Date Ferrous Sulfate 65 Mg ORAL Daily (Iron) 45 Mg Tab Finasteride 5 Mg ORAL Daily (Proscar 5 Mg*) 5 Mg Tab Glyburide 1 Tab ORAL Twice A Day 180 Tablet (Glyburide *) 2.5 Mg Tab Metoprolol 25 Mg ORAL Daily Succinate (Toprol Xl *) 50 Mg Tab Simvastatin 40 Mg ORAL As Directed TAKE MEDICATION (Simvastatin *) EVERY OTHER DAY 40 Mg Tab Tamsulosin Hcl 1 Cap ORAL Once Daily (Tamsulosin Hcl 0.4 Mg (Flomax) *) 0.4 Mg Cap Vitamin B12 Warfarin * 1 Tab ORAL Daily 90 Tablet (Coumadin 5 Mg *) 5 Mg Tab Past Home Medications Medication Directions Ordered Status Acetamin/Codeine 300/30 Mg * Every 4 Hours As Needed for 04/02/18 Discontinued (Tylenol With Codeine #3 300/30 Pain Mg *) Tab, 1 Tab Oral Aspirin 81 Mg Tab, 81 Mg Oral Daily Discontinued Glyburide (Glyburide *) 2.5 Mg Twice A Day Discontinued Tab, 2.5 Mg Oral Iron Combinations * (Iron Complex Daily Discontinued *) Cap, 45 Mg Oral Levofloxacin (Levaquin 250 Mg*) Daily Discontinued 250 Mg Tab, 250 Mg Oral Metformin Hcl (Glucophage *) 500 Twice A Day Discontinued Mg Tab, 500 Mg Oral Omeprazole (Omeprazole Ec 20 Mg) Twice A Day 01/17/13 Discontinued 20 Mg Tab, 20 Mg Oral Pantoprazole * (Protonix Ec 40 Daily Discontinued Mg*) 40 Mg Tab, 40 Mg Oral Simvastatin (Zocor *) 20 Mg Tab, Daily Discontinued 20 Mg Oral Warfarin * (Coumadin 5 Mg *) 5 Mg Daily Discontinued Tab, 5 Mg Oral Warfarin Sodium (Coumadin 5 Mg) 5 Daily Discontinued Mg Inj, 5 Mg Oral Warfarin Sodium (Coumadin 5 Mg) 5 Every 3-4 Days Discontinued Mg Inj, 7.5 Mg Oral Social History Social History Problem Response Recorded Date/Time Onset Date Status Hx Alcohol Use No 07/17/2018 5:54pm Not Applicable Not Applicable Hx Physical Abuse No 07/17/2018 5:54pm Not Applicable Not Applicable Smoking Status Start Date Stop Date Former smoker Hospital Discharge Instructions No hospital discharge instruction information available. Plan of Care Discharge Date 07/18/18 11:24pm Disposition DC/TRANS. SHORT TERM GEN. HOSP Prescriptions See Medication Section Functional Status No functional status information available. Allergies, Adverse Reactions, Alerts Allergen Type Severity Reaction Status Last Updated No Known Allergies Allergy Unknown Active 02/26/14 Immunizations No immunization information available. Vital Signs Acute Vital Signs Vital Response Date/Time Blood Pressure 138/84 mm Hg 07/18/2018 11:00pm Pulse Pulse Rate (adult) 115 beats per minute (60 - 100) 07/18/2018 11:00pm Respiratory Rate 23 breaths per minute (10 - 24) 07/18/2018 11:00pm Temperature Source Oral 07/18/2018 10:01am Height 5 ft 11 in 07/17/2018 5:08pm Weight 227.08 lb 07/18/2018 4:04am Body Mass Index 31.0 kg/m^2 07/18/2018 4:04am Results Laboratory Results Test Name Result Units Flags Reference Collection Result Comments Date/Time Date/Time White Blood Count 7.7 K/ul 4.0-12.3 07/18/2018 07/18/2018 6:19am 6:55am Red Blood Count 2.68 M/ul L 3.80-5.80 07/18/2018 07/18/2018 6:19am 6:55am Hemoglobin 11.5 g/dl L 11.67-17.2 07/18/2018 07/18/2018 2 10:06pm 10:12pm Hematocrit 34.9 % L 35.0-51.0 07/18/2018 07/18/2018 10:06pm 10:12pm Mean Corpuscular 89.7 fl 78-96 07/18/2018 07/18/2018 Volume 6:19am 6:55am Mean Corpuscular 29.1 pg 26.8-33.4 07/18/2018 07/18/2018 Hemoglobin 6:19am 6:55am Mean Corpuscular 32.5 g/dl 32.3-36.7 07/18/2018 07/18/2018 Hemoglobin Concent 6:19am 6:55am Red Cell 13.1 % 11.6-15.4 07/18/2018 07/18/2018 Distribution Width 6:19am 6:55am Platelet Count 141 K/ul 115-328 07/18/2018 07/18/2018 6:19am 6:55am Mean Platelet 8.9 fl 8.4-11.8 07/18/2018 07/18/2018 Volume 6:19am 6:55am Neutrophils (%) 74.9 % 44.7-82.4 07/18/2018 07/18/2018 (Auto) 6:19am 6:55am Lymphocytes (%) 16.4 % 10.0-50.0 07/18/2018 07/18/2018 (Auto) 6:19am 6:55am Monocytes (%) 8.7 % 3.9-13.4 07/18/2018 07/18/2018 (Auto) 6:19am 6:55am Eosinophils (%) 0.4 % 0.0-6.43 07/17/2018 07/17/2018 (Auto) 6:04pm 6:12pm Basophils (%) 0.4 % 0.0-0.72 07/17/2018 07/17/2018 (Auto) 6:04pm 6:12pm D-Dimer 627 ng/mL H* <500 07/17/2018 07/17/2018 Results have been broadcasted to patient's location and 1:36pm 2:26pm called to (MELECIO HOLLEY). By JULIAN EDWARDS 07/17/18 @1425 Prothrombin Time 30.3 SECONDS H 10.3-12.3 07/18/2018 07/18/2018 1:02pm 1:16pm THERAPEUTIC LEVEL: 1.5 to 1.9 times normal range of PT Prothromb Time 2.87 07/18/2018 07/18/2018 International 1:02pm 1:16pm Recommended therapeutic range for patients receiving Ratio warfarin (coumadin) therapy: INR is 2.0 to 3.0 Recommended range for patients with mechanical prosthetic heart valves: INR is 2.5 to 3.5 Urine Color STRAW 07/17/2018 07/17/2018 4:00pm 4:16pm Urine Appearance HAZY CLEAR 07/17/2018 07/17/2018 4:00pm 4:16pm Urine Glucose NEGATIVE NEGATIVE 07/17/2018 07/17/2018 4:00pm 4:16pm Urine Bilirubin NEGATIVE NEGATIVE 07/17/2018 07/17/2018 4:00pm 4:16pm Urine Ketones NEGATIVE NEGATIVE 07/17/2018 07/17/2018 4:00pm 4:16pm Urine Specific 1.020 1.003-1.03 07/17/2018 07/17/2018 Mikana 0 4:00pm 4:16pm Urine Blood LARGE H NEGATIVE 07/17/2018 07/17/2018 4:00pm 4:16pm Urine pH 8.000 5-9 07/17/2018 07/17/2018 4:00pm 4:16pm Urine Protein 3+ (>300 H NEGATIVE 07/17/2018 07/17/2018 mg/dL) 4:00pm 4:16pm Urine Urobilinogen 0.2 E.U./dL 0.2-1.0 07/17/2018 07/17/2018 4:00pm 4:16pm Urine Nitrate NEGATIVE NEGATIVE 07/17/2018 07/17/2018 4:00pm 4:16pm Urine Leukocyte 3+ LARGE H NEGATIVE 07/17/2018 07/17/2018 Esterase 4:00pm 4:16pm Urine RBC 6-10 /hpf 0-5 07/17/2018 07/17/2018 4:00pm 4:16pm Urine WBC TOO /hpf H 0-5 07/17/2018 07/17/2018 NUMEROUS 4:00pm 4:16pm TO CNT Urine Epithelial 0-5 /hpf 0-5 07/17/2018 07/17/2018 Cells 4:00pm 4:17pm Urine Bacteria TRACE /hpf None 07/17/2018 07/17/2018 Detect 4:00pm 4:16pm Urine Casts HYALINE /lpf None 07/17/2018 07/17/2018 0-5 Detect 4:00pm 4:16pm Urine Culture YES 07/17/2018 07/17/2018 Reflexed 4:00pm 4:16pm Urine Transitional 0-5 /lpf 0-5 07/17/2018 07/17/2018 Epithelial Cells 4:00pm 4:16pm Urine Renal 11-25 /lpf 0-5 07/17/2018 07/17/2018 Epithelial Cells 4:00pm 4:16pm POC Capillary 55 mg/dL L 70 - 110 07/18/2018 07/18/2018 Blood Glucose 10:21pm 10:22pm (Chem) Lactic Acid Level 1.02 mmoL/L 0.5-2.2 07/17/2018 07/17/2018 2:13pm 2:33pm Random Glucose 120 mg/dL H 82-115 07/18/2018 07/18/2018 6:19am 7:09am Blood Urea 137 mg/dL H* 8-23 07/18/2018 07/18/2018 Results have been broadcasted to patient's location and Nitrogen 6:19am 7:09am called to (EBONIE,Yvonne). By GAB GARCIA 07/18/18 @0705 Results read back for confirmation. Serum Osmolality 325 H 280-300 07/18/2018 07/18/2018 6:19am 7:09am Creatinine 15.1 mg/dL H* 0.70-1.20 07/18/2018 07/18/2018 Results have been broadcasted to patient's location and 6:19am 7:09am called to (Yvonne LOOMIS). By GAB GARCIA 07/18/18 @0649 Results read back for confirmation. Glomerular 3.10 L 07/18/2018 07/18/2018 GFR RESULTS ARE REPORTED IN mL /min/1.73m2. Filtration Rate 6:19am 7:09am Calc Normal GFR: >60mL/min Moderately decreased GFR: 30-59 mL/min Severely decreased GFR: 15-29 mL/min Kidney Failure (or Dialysis): <15 mL/min The calculated eGFR is not valid for patients younger than 18 years or older than 75 years. BUN/Creatinine 9.1 L 12-20 07/18/2018 07/18/2018 Ratio 6:19am 7:09am Sodium Level 140 mmol/L 135-145 07/18/2018 07/18/2018 6:19am 7:09am Potassium Level 5.6 mmol/L H* 3.5-5.2 07/18/2018 07/18/2018 Results have been broadcasted to patient's location and 6:19am 7:09am called to (Yvonne LOOMIS). By GAB GARCIA 07/18/18 @0650 Results read back for confirmation. Chloride Level 101 mmol/L 98-108 07/18/2018 07/18/2018 6:19am 7:09am Carbon Dioxide 13 mmol/L L 21-32 07/18/2018 07/18/2018 Level 6:19am 7:09am Anion Gap 31.6 mEq/L H 12-20 07/18/2018 07/18/2018 6:19am 7:09am Calcium Level 7.7 mg/dL L 8.8-10.2 07/18/2018 07/18/2018 6:19am 7:09am Total Protein 5.6 g/dL L 6.6-8.7 07/18/2018 07/18/2018 6:19am 7:09am Albumin 3.2 g/dL L 3.5-5.2 07/18/2018 07/18/2018 6:19am 7:09am Globulin 2.4 gm/dL 07/18/2018 07/18/2018 6:19am 7:09am Albumin/Globulin 1.3 >1.0 07/18/2018 07/18/2018 Ratio 6:19am 7:09am Total Bilirubin < 0.3 mg/dL 0.0-1.2 07/18/2018 07/18/2018 6:19am 7:09am Aspartate Amino 6 U/L L 15-40 07/18/2018 07/18/2018 Transf (AST/SGOT) 6:19am 7:09am Alanine 7 U/L 0-41 07/18/2018 07/18/2018 Aminotransferase 6:19am 7:09am (ALT/SGPT) Amylase Level 134 U/L H 28-100 07/17/2018 07/17/2018 1:36pm 2:17pm Lipase 155 U/L H 13-60 07/17/2018 07/17/2018 1:36pm 2:06pm Hemoglobin A1c 6.3 % H 4.0-6.0 07/17/2018 07/17/2018 1:36pm 1:59pm ZZ-Hgt-G-Type 5072 pg/mL H 0-450 07/18/2018 07/18/2018 Natriuretic 6:19am 6:52am Peptide Total Alkaline 55 U/L 40-130 07/18/2018 07/18/2018 Phosphatase 6:19am 7:09am Insulin Level 86.6 uIU/mL H 2.6-24.9 07/18/2018 07/18/2018 6:19am 7:01am Creatine Kinase 130 U/L 20-200 07/17/2018 07/17/2018 1:36pm 2:17pm Troponin I < 0.30 ng/mL 0.0-0.5 07/17/2018 07/17/2018 1:36pm 2:19pm Creatine Kinase MB 4.9 ng/ml H 0.0-3.6 07/17/2018 07/17/2018 1:36pm 2:19pm DIAGNOSTIC CITERIA: CKMB CKMB RELATIVE INDEX SUGGESTIVE OF NON-AMI < or=5 N/A MG ZONE (INCONCLUSIVE) > 5 < or=4 SUGGESTIVE OF AMI >5 > 4 Pending Laboratory Results Test Name Collection Date/Time C-Peptide 07/18/2018 6:19am Insulin-like Growth Factor III 07/18/2018 6:19am Procedures Procedure Status Date Provider(s) X-ray of chest, single view Completed 07/17/18 MICKI VERGARA MD US renal Completed 07/17/18 MICKI VERGARA MD Encounters Encounter Location Arrival/Admit Date Discharge/Depart Date Attending Provider Discharged [place] 07/17/18 2:57pm 07/18/18 11:24pm KATIUSKA PARKS [facility] Recent Diagnosis Weakness on right side of face Orthostatic hypotension Weakness LLL pneumonia Dyspnea Dizziness Dizziness Acute thalamic infarction Dizziness
[2018-07-27] MEDS ORDERED: D50W 25 GM/50 ML SYRINGE IV PRN (20:11)
[2018-07-27] MEDS ORDERED: GLUCAGON 1 MG/VIAL IM PRN (20:11)
[2018-07-27] MEDS ORDERED: INSULIN -REGULAR HUMAN 50 UNIT/0.5 ML ML ONE (20:24)
[2018-07-27] MEDS: INSULIN -REGULAR HUMAN 50 UNIT/0.5 ML ML SQ SCH (21:00)
[2018-07-27] MEDS ORDERED: ATORVASTATIN 20 MG TAB PO SCH (21:00)
[2018-07-27 21:31] LABS: Urine Appearance CLEAR; Urine Bilirubin NEGATIVE (NEG); Urine Blood 3+ (NEG); Urine Color YELLOW; Urine Glucose 3+ (NEG); Urine Protein 2+ (NEG); Urine Urobilinogen 0.2 mg/dL (0.2-1.0); Urine pH 6.5 (5.0-7.0)
[2018-07-27 23:18] LABS: Urine Bacteria <20 /HPF (NONE SEEN); Urine Culture Reflex Order NOT NEEDED; Urine RBC TNTC /HPF (NONE SEEN)
[2018-07-28] MEDS: METOPROLOL XL 25 MG TAB PO SCH (05:18)
[2018-07-28] MEDS: PANTOPRAZOLE 40MG TABLET PO SCH (06:51)
[2018-07-28] MEDS: INSULIN -REGULAR HUMAN 50 UNIT/0.5 ML ML SQ SCH ×4 (07:04→21:24)
[2018-07-28 07:07] LABS: Absolute Lymphocytes (CBC) 1.7 K/uL (0.7-4.9); Absolute Monocytes 0.7 K/uL (0.1-1.3); Basophils % 0.6 % (0-1.3); Eosinophils % 3.1 % (0-4.4); Hematocrit 31.1 % (39.6-49.0); Lymphocytes % 17.7 % (15.3-44.8); MCH 30.4 pg (27.0-35.0); MCV 86.7 fL (80-100); MPV 9.4 fL (7.6-11.3); Monocytes % 6.9 % (3.3-12.3); RBC Red Blood Cell Count 3.59 M/uL (4.33-5.43)
[2018-07-28 07:17] LABS: Albumin 2.6 g/dL (3.4-5.0); Magnesium 1.6 mg/dL (1.8-2.4); Potassium 3.9 mmol/L (3.5-5.1); Prealbumin 18.8 mg/dL (20-40)
[2018-07-28] MEDS ORDERED: FERROUS SULFATE 325 MG TAB PO SCH (08:00)
[2018-07-28] MEDS: TAMSULOSIN 0.4 MG SR CAP PO SCH (08:29)
[2018-07-28] MEDS: ASPIRIN EC 81 MG TAB PO SCH (08:29)
[2018-07-28] MEDS: FINASTERIDE 5 MG TAB PO SCH (08:29)
[2018-07-28] MEDS: MAGNESIUM OXIDE 400 MG TAB PO SCH ×2 (08:33→20:11)
[2018-07-28] MEDS: FERROUS SULFATE 325 MG TAB PO SCH (08:43)
[2018-07-28] MEDS ORDERED: OFLOXACIN EACH EYE SCH (09:00)
--- NOTE | 2018-07-28 14:07 | FAST ---
SHIFT START DATE/TIME: 07/28/2018 07:00 (CDT) SHIFT END DATE/TIME: 07/28/2018 19:00 (CDT) NAME LUANN WOODS DATE OF : 1935 DATE OF ADMISSION: 07/27/2018 18:34 (CDT) PHONE: AGE: 83 N# [id number] GENDER: Male ENCOUNTER PHYSICIAN: Dr. Juan C Brooks M.D. ADMISSION DIAGNOSIS: - Cardiac 09 - Cardiac Disorders (09) Chronic atrial fibrillation (I48.2). EATING: EATING - STEP 1: Does the patient require assistance when eating? Yes. EATING - STEP 2: Does the patient require the assistance of a helper? No, patient only requires an assistive device, O R s/he takes more than reasonable time to eat, OR there is a safety concern, OR s/he requires modifie d food consistency EATING - SCORE: 6-SARATH GROOMING: Comb/brush hair Wash, rinse, and dry face Wash, rinse, and dry hands GROOMING - STEP 1: Does the patient require assistance when grooming? Yes. GROOMING - STEP 2: Does the patient require the assistance of a helper? Yes. GROOMING - STEP 3: How much assistance does the patient require from the helper? Only prior equipment preparation/set up from the helper GROOMING - SCORE: 5-SUP BATHING: Activity did not occur on this shift BATHING - SCORE: 0-UNK DRESSING - UPPER BODY: Activity did not occur on this shift ARTICLES SCORE Total number of steps: 0 DRESSING - UPPER BODY - SCORE: 0-UNK DRESSING - LOWER BODY: Activity did not occur on this shift ARTICLES SCORE Total number of steps: 0 DRESSING - LOWER BODY - SCORE: 0-UNK TOILETING: TOILETING - STEP 1: Does the patient require assistance with toileting? Yes. TOILETING - STEP 2: Does the patient require the assistance of a helper? Yes. TOILETING - STEP 3: How much assistance does the patient require from the helper? Hands-on assistance from the helper TOILETING - STEP 4: Of the 3 tasks: 1) Adjusting clothing prior to use, 2) Cleansing of perineal area, 3) Adjusting clot joao after use; How many tasks does the patient perform WITHOUT assistance of the helper? Three tasks with steadying assistance from the helper TOILETING - SCORE: 4-MIN BLADDER MANAGEMENT: BLADDER MANAGEMENT - STEP 1: Does the patient control the bladder completely and intentionally without equipment or devices or med ications, and is always continent? No. BLADDER MANAGEMENT - STEP 2: Does the patient require the assistance of a helper? No, patient requires and independently uses an a ssistive device, such as a urinal, bedpan, bedside commode, catheter, absorbent pad, or collecting de vice BLADDER MANAGEMENT - SCORE: 6-SARATH BLADDER MANAGEMENT - FREQUENCY OF ACCIDENTS: BLADDER MANAGEMENT(FA) - STEP 1: How many accidents has the patient had during the current shift? 0 BOWEL MANAGEMENT: Activity did not occur on this shift BOWEL MANAGEMENT - SCORE: 7-IND BOWEL MANAGEMENT - FREQUENCY OF ACCIDENTS: BOWEL MANAGEMENT(FA) - STEP 1: How many accidents has the patient had during the current shift? 0 TRANSFERS: BED, CHAIR, WHEELCHAIR: TRANSFERS: BED, CHAIR, WHEELCHAIR - STEP 1: Does the patient require assistance with bed, chair, or wheelchair transfers? Yes. TRANSFERS: BED, CHAIR, WHEELCHAIR - STEP 2: Does the patient require the assistance of a helper? Yes. TRANSFERS: BED, CHAIR, WHEELCHAIR - STEP 3: How much assistance does the patient require from the helper? Steadying/guiding assistance TRANSFERS: BED, CHAIR, WHEELCHAIR - SCORE: 4-MIN TRANSFERS: TOILET: TRANSFERS: TOILET - STEP 1: Does the patient require assistance with toilet transfers? Yes. TRANSFERS: TOILET - STEP 2: Does the patient require the assistance of a helper? Yes. TRANSFERS: TOILET - STEP 3: How much assistance does the patient require from the helper? Patient performs half or more of the tr ansferring tasks TRANSFERS: TOILET - STEP 4: Does the patient need only incidental help such as contact guard or steadying during toilet transfer? Yes. TRANSFERS: TOILET - SCORE: 4-MIN TRANSFERS: SHOWER: Activity did not occur on this shift TRANSFERS: SHOWER - SCORE: 0-UNK TRANSFERS: TUB: Activity did not occur on this shift TRANSFERS: TUB - SCORE: 0-UNK LOCOMOTION: WALK: Activity did not occur on this shift LOCOMOTION: WALK - SCORE: 0-UNK LOCOMOTION: WHEELCHAIR: Activity did not occur on this shift LOCOMOTION: WHEELCHAIR - SCORE: 0-UNK COMPREHENSION: COMPREHENSION: TYPE: Both COMPREHENSION - STEP 1: Does the patient require help to understand complex and abstract ideas (such as current events, finan mt, discharge planning, medical issues, relationships, etc)? No. COMPREHENSION - STEP 2: Does the patient need extra time, require an assistive device (such as glasses for visual comprehensi on or a hearing aid for auditory comprehension) or does s/he have mild difficulty understanding compl ex and abstract information? Yes. COMPREHENSION - SCORE: 6-SARATH EXPRESSION EXPRESSION: TYPE: Both EXPRESSION - STEP 1: Does the patient require help expressing complex and abstract ideas (such as current events, finances , discharge planning, medical issues, relationships, etc)? No. EXPRESSION - STEP 2: Does the patient need extra time, require an assistive device (such as augmentive communication syste m or a communication board), OR does s/he have mild difficulty expressing complex and abstract ideas (including mild dysarthria or mild word-find problems)? Yes. EXPRESSION - SCORE: 6-SARATH SOCIAL INTERACTION: SOCIAL INTERACTION - STEP 1: Does the patient require a helper to interact with others in social and therapeutic situations? No. SOCIAL INTERACTION - STEP 2: Does the patient need extra time in social situations, OR does s/he interact with staff, other patien ts, and family members ONLY in structured environments, OR does s/he require medication for social in teraction? Yes, patient needs extra time SOCIAL INTERACTION - SCORE: 6-SARATH PROBLEM SOLVING: PROBLEM SOLVING - STEP 1: Does the patient need help to solve complex problems such as managing a checking account or confronti ng interpersonal problems? Yes. PROBLEM SOLVING - STEP 2: Does the patient solve basic routine problems half or more of the time? Yes. PROBLEM SOLVING - STEP 3: How often does the patient need help to solve basic routine problems? Less than 10% of the time PROBLEM SOLVING - SCORE: 5-SUP MEMORY: MEMORY - STEP 1: Does the patient need help to remember frequently encountered people, daily routines, and executing r equests? Yes. MEMORY - STEP 2: How often does the patient need help to remember frequently encountered people, daily routines, and e xecuting requests? Less than 10% of the time MEMORY - SCORE: 5-SUP SIGNATURE PANEL: The following modified sections: Eating - Score, Grooming - Score, Bathing - Score, Dressing - Upper Body - Score, Dressing - Lower Body - Score, Toileting - Score, Bladder Management - Score, Bowel Man agement - Score, Transfers: Bed, Chair, Wheelchair - Score, Transfers: Toilet - Score, Transfers: Laurie wer - Score, Transfers: Tub - Score, Locomotion: Walk - Score, Locomotion: Wheelchair - Score, Compre hension - Score, Expression - Score, Social Interaction - Score, Problem Solving - Score, Memory - Sc ore were [electronically] signed by Susan Panda C.N.A. on Sat Jul 28 2018 14:07:16 T-0500 (Cent[place] Daylight Time)
[2018-07-28] MEDS: MOXIFLOXACIN 0.5% OPTH SCH ×2 (15:03→20:11)
[2018-07-28] MEDS ORDERED: PROMOD 30 ML DOSE PO SCH (20:00)
[2018-07-28] MEDS: ATORVASTATIN 20 MG TAB PO SCH (20:11)
--- NOTE | 2018-07-28 20:38 | R.HP ---
FACILITY: [facility] ENCOUNTER DATE AND TIME: 07/28/2018 20:32 (CDT) MR#: [id number] NAME LUANN WOODS ADDRESS: [id number] CITY: [place] STATE: [place]IP [address] PHONE: DATE OF : 1935 AGE: 83 SSN# [id number] GENDER: Male DEXTERITY Right-handed MARITAL STATUS RACE White PRE-HOSPITAL LIVING SETTING 01 - Home (private home/apt. board/care, assisted living, halfway, transitional living) PRE-HOSPITAL LIVING WITH Family/Relatives ENCOUNTER PHYSICIAN: Dr. Juan C Brooks M.D. 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 is a 83 yo Right-handed white male. On 07/19/2018 he was admitted to [facility] with diagnosis Chronic atrial fibrillation (I48.2) . His impairment category is Cardiac 09 - Cardiac Disorders (09). Pre-morbidly, Pt. was independent/mod-I in Social Cognition, Self-Care, Locomotion, Sphincter Control , Transfers Control, and Communication; and he had good Sphincter Control. Currently, he has deficits of Balance, Self-Care, Locomotion, Endurance, Safety Awareness, and Transf ers Control. Pt. is now referred to [facility] for acute in-patient rehabilitation in order to maximize patient's functional independence in activities of daily living, strength, ROM, and mobi lity. Patient has realistic goal of being discharged at assistance level 6-Aditya to reside at Home with Fam minal/Relatives. MEDICATION ALLERGIES: No Known Drug Allergies (NKDA) ENVIRONMENTAL ALLERGIES: None Known - Substance Allergies None Known - Other Allergies None Known PAST MEDICAL HISTORY: ANEMIA AORTIC STENOSIS ARTHRITIS Acute kidney failure, unspecified (N17.9) BPH CHRONIC ATRIAL FIBRILLATION CORONARY ARTERY DISEASE Dependence on renal dialysis (Z99.2) GERD HYPERLIPIDEMIA HYPERTENSION STROKE Type 2 diabetes mellitus with diabetic neuropathy, unspecified (E11.40) PAST SURGICAL HISTORY: CABG MECHANICAL HEART VALVE REPLACEMENT NEPHRECTOMY IVC THROMBECTOMY PROSTATE SURGERY FAMILY HISTORY: Family history is not contributory. SOCIAL HISTORY: - Home Living Family/Relatives REVIEW OF SYSTEMS: - Gen No Chills No Fatigue No Fever - Eyes No Double Vision No itchiness - ENMT No Difficulty Swallowing - CVS No Chest Discomfort Chest Pain No Fatigue No Weight Gain - Resp No Cough No Shortness of Breath - GI Continent No Abdominal Pain No Constipation No Diarrhea - Continent No Kidney Pain No Painful Urination No Urinary Urgency - MSK No Joint Pain Muscle Cramps Stiffness - Skin No Itching No Rash No Suspicious Lesions - Neuro Coordination Difficulty No Difficulty with Concentration No Memory Loss No Seizures Weakness - Psych No Anxiety No Depression No HIV Exposure No Persistent Infections No Seasonal Allergies - Endo No Cold/Heat Intolerance No Excessive Hunger No Excessive Thirst No Excessive Urination PHYSICAL EXAM - Gen Alert and awake Lying in bed No apparent distress Oriented to: person, time, and place - Skin No breakdown No abnormalities - Eyes No abnormalities - ENMT No abnormalities - Neck No abnormalities - CVS RRR - Chest Clear - Abd + bowel spounds - GI Soft Deferred - No abnormalities - Ext No significant edema - MSK 4+/5 weakness in both lower extremities. - Neuro No focal deficits - Psych No abnormalities VITAL SIGNS Temperature: 97 F SBP/DBP: 148/86 Pulse: 85 Resp: 18 NURSING: - Shower allowing shower - Lab Results blood Sugar Check ACHS ACTIVITIES OOB only with supervision FUNCTIONAL STATUS: - Self-Care A. Eating Ind sup B. Grooming Ind sup C. Bathing Ind sup D. Dressing - Upper Ind sup E. Dressing - Lower Ind Vincent F. Toileting Ind Vincent - Sphincter Control G: Bladder control Ind Ind H: Bowel control Ind Ind - Transfers Control I. Bed/Chair/Wheelchair Ind sup J. Toilet Ind sup K. Tub/Shower Ind ADNO - Locomotion L. Walk/Wheelchair (C) Ind sup L. Walk/Wheelchair (W) Ind sup M. Stairs Ind ADNO - Communication N. Comprehension (B) Ind Ind O. Expression (B) Ind Ind - Social Cognition P. Social Interaction Ind Ind Q. Problem Solving Ind Ind R. Memory Ind Ind - Endurance Fair - Balance Fair - Safety Awareness Fair CURRENT FUNC. DEFICITS: Balance, Self-Care, Locomotion, Endurance, Safety Awareness, and Transfers Control ASSESSMENT: Pt. is a 83 yo Right-handed white male.On 07/19/2018 he was admitted to [facility] with diagno sis Chronic atrial fibrillation (I48.2).His impairment category is Cardiac 09 - Cardiac Disorders (0 9).Pre-morbidly, Pt. was independent/mod-I in Social Cognition, Self-Care, Locomotion, Sphincter Cont rol, Transfers Control, and Communication; and he had good Sphincter Control.Currently, he has defici ts of Balance, Self-Care, Locomotion, Endurance, Safety Awareness, and Transfers Control.Pt. is now r eferred to [facility] for acute in-patient rehabilitation in order to maximize patient's functional independence in activities of daily living, strength, ROM, and mobility.- Rehab Goal Patient has realistic goal of being discharged at assistance level 6-Aditya to reside at Home with Fam minal/Relatives. - Physical Therapy Gait dysfunction - to improve, our physical therapists will perform initial evaluation of pt's status upon admission and devise an individualized program for Gait Training, and Wheel Chair mobility Inability to transfer - to improve, our physical therapists will perform initial evaluation of pt's s tatus upon admission and devise an individualized program for Bed mobility Need for home safety evaluation - to improve, our physical therapists will perform initial evaluation of pt's status upon admission and devise an individualized program for Home Evaluation Need in caregiver upon discharge - to improve, our physical therapists will perform initial evaluatio n of pt's status upon admission and devise an individualized program for Caregiver Training New precaution - to improve, our physical therapists will perform initial evaluation of pt's status u eladia admission and devise an individualized program for Patient precaution education Edema - to improve, our physical therapists will perform initial evaluation of pt's status upon admi ssion and devise an individualized program for Elevation Training, and Lymphedema Therapy Poor balance - to improve, our physical therapists will perform initial evaluation of pt's status upo n admission and devise an individualized program for Balance Training Poor endurance - to improve, our physical therapists will perform initial evaluation of pt's status u eladia admission and devise an individualized program for Endurance Training Weakness - to improve, our physical therapists will perform initial evaluation of pt's status upon ad mission and devise an individualized program for Aquatic Therapy, Neuromuscular Reeducation, and Stre ngthening Achieving independence - to improve, our physical therapists will perform initial evaluation of pt's status upon admission and devise an individualized program for Community Reintegration Activities - Occupational Therapy ADL deficits - to improve, our occupation therapists will perform initial evaluation of pt's status u eladia admission and devise an individualized program for Bathing, Bed mobility, Community Reintegration , Cooking, Dressing, Eating, Fine Motor Skills, Grooming, Homemaking, Kitchen Mobility, Laundry, Jennifer ent Education, Safety Awareness, Splinting - Positioning, Transfers(Toilet, Tub, Shower), and Wheel C hair Management Need for patient care director - to improve, our occupation therapists will perform initial evaluation of pt's s tatus upon admission and devise an individualized program for Caregiver Training Weakness - to improve, our occupation therapists will perform initial evaluation of pt's status upon admission and devise an individualized program for Aquatic Therapy, Balance, Endurance, UE ROM, and U E strengthening MEDICAL PLAN: - Diet Type Start Regular - Diet - Liquid Texture Start Regular - Tube Feed Start N/A - Lab Results blood Sugar Check ACHS - Diet - Solid Texture Regular - Shower shower DISCHARGE PLAN: - Estimated Length of Stay (days) 10. - Consensus on plan Discharge plan has been discussed with primary caregiver. Patient/Family is in agreement with the aldair n. Primary caregiver is in agreement with the plan. - Patient/Family Goals Return home with assistance. - Planned Living Setting Upon Discharge Home, to live with Family/Relatives. SIGNATURE PANEL: (CDT)
--- NOTE | 2018-07-28 20:39 | PAPE ---
PATIENT: [facility] MR# [id number] REFERRING DOCTOR Alton Momin EVALUATION DATE AND TIME 07/28/2018 20:38 (CDT) NAME LUANN WOODS DATE OF 1935 AGE 83 PHONE N# [id number] GENDER male EVALUATING PHYSICIAN Dr. Juan C Brooks M.D. ADMISSION DIAGNOSIS: Chronic atrial fibrillation (I48.2) ONSET DATE 07/19/2018 SECONDARY/COMORBID DIAGNOSES TIERED: - Tier 1 Dependence on renal dialysis (Z99.2) - Tier 3 Acute kidney failure, unspecified (N17.9) - Non-Tiered Type 2 diabetes mellitus with diabetic neuropathy, unspecified (E11.40) - N/A ANEMIA AORTIC STENOSIS ARTHRITIS CHRONIC ATRIAL FIBRILLATION BPH CORONARY ARTERY DISEASE GERD HYPERTENSION HYPERLIPIDEMIA STROKE POST-ADMISSION FUNCTIONAL/MEDICAL STATUS: - Bladder Same accident frequency: Ind - No accidents in the past 7 days - Bowel Same accident frequency: Ind - No accidents in the past 7 days - Walking Same score based on distance walked: 3(>=150ft) - Wheelchair Same score based on distance traveled: 0(N/A) STATUS CHANGE EVALUATION: No change in Functional or Medical Status is identified compared with Pre-Admission screening. PATIENT NEEDS CLOSE MEDICAL SUPERVISION BY A REHABILITATION PHYSICIAN FOR: Bowel and Bladder Management Coordination of Treatment Team Diabetes Management Medical and Co-Morbidity Management DVT Management Pain Management PATIENT REQUIRES 24X7 REHAB NURSING FOR MEDICAL AND FUNCTIONAL MGT. OF THE FOLLOWING DEFICITS: ADL's Ambulation Bowel and Bladder Management Cognition Communication Disease Management Medication Management Patient/Family Education Providing Safe Environment Transfers Pain Management PATIENT REQUIRES INTENSIVE, COORDINATED INTERDISCIPLINARY APPROACH TO REHAB: Arranging Home Equipment/Services Discharge Planning Family Intervention/Training Sales Solutions Associate/Case Management LIST OF IDENTIFIED AND POTENTIAL PROBLEMS: Alteration in leisure activities Bladder, Incontinence Blood Pressure, Hypertension/hypotension Issues Bowel, Incontinence Diabetes, Hyperglycemia/hypoglycemia Issues Infection, Actual or Potential Mobility Impaired Pain, Alteration in Comfort Self Care Deficit Skin Integrity, Actual or Potential Urinary Tract Infection (UTI), Actual or Potential RISK FOR COMPLICATIONS - GERD Alteration in sleep. Aspiration. Dehydration. Malnutrition. Pain. - Hypertension CVA. Hypotension. IA. TIA. INTERVENTIONS - GERD Altered diet. Elevation of head of bed. Medications. Nausea/vomiting. Nighttime food/fluid restrictio ns. Nutrition. - Hypertension PATIENT COULD BE AT RISK FOR COMPLICATIONS FROM ADVERSE MEDICAL CONDITIONS DUE TO HIS/HER COMORBIDITI ES AND THE RIGORS OF THE INTENSIVE REHABILLITATION PROGRAM. METHODS OR INTERVENTIONS TO AVOID COMPLIC ATIONS INCLUDE: - Deep Vein Thrombosis (DVT) Prophylaxis therapy for prevention . Sequential Compression Device (SCD). TE D Hose. - Bleeding Stroke patients assessed for lethargy or change in status. - Infection Clinical staff to assess and manage the signs and symptoms of infection including fever, redness, war mth, etc. - Urinary Tract Infection - Aspiration Clinical staff will assess and manage coughing, drooling, congestion. - Falls Patient will be evaluated for Fall Precautions and will be placed on Fall Precautions as indicated pe r protocol. - Skin Breakdown Nursing will assess skin daily using assessment tool and will place on Skin Breakdown Precautions as indicated per protocol. - Pain Clinical staff may employ non-medication methods such as massage, distraction, decrease stimulus, etc . as needed. Clinical staff will assess patient's pain level every shift per protocol to assess and e nsure pain management effectiveness. Medications will be given and the pain level re-assessed. PRELIMINARY PLAN OF CARE: - Physical Therapy Patient needs Physical Therapy for a daily minimum of 1.5 hours at least 5 out of 7 days, to improve: Mobility, Strengthening, Transfers, Stretching, ROM, Endurance, Ability to manage stairs, Gait, and Balance. - Rehabilitation Nursing Patient requires 24x7 Rehabilitation Nursing for: Pain Issues, Identifying and preventing risk factor s, Monitoring and reporting current medical conditions, Assisting with ambulation and transfer, Jeremías ting with all ADL-s, Teaching patients about disease process and medications, Family teaching, Provid ing safe environment, Bowel and Bladder Issues, Skin Integrity, and Medication Management. Patient needs Sales Solutions Associate and/or Case Management for: Discharge Planning, Arranging Home Equipmen t or Services, and Family Interventions. - Dietary and Nutrition Services Patient needs Dietary and Nutrition Services for: Adequate Nutrition, Nutritional Supplements, and Nu tritional Education. - Occupational Therapy Patient needs Occupational Therapy for a daily minimum of 1.5 hours at least 5 out of 7 days, to impr ove Activities of Daily Living, including: Eating, Grooming, Bathing, Dressing, Toileting, Toilet Tra nsfers, Community Reintegration, Higher functional activities, Adaptive Equipment, Splinting, Househo ld Tasks, and Other activities as determined. POTENTIAL FUNCTIONAL GOALS FOR PATIENT TO ACHIEVE BY DISCHARGE: - Safety Precaution Patient will remain free from falls or injury at time of discharge. - Bed Mobility Patient will perform bed mobility at 4-Vincent level of assistance. - Transfers Patient will complete transfers from bed to chair at 4-Vincent level of assistance. - Mobility Patient will ambulate 150 ft with 4-Vincent level of assistance with RW. PATIENT REHAB POTENTIAL Expected level of measurable improvement will be of a practical value to patient's functional capacit y or adaptations to impairments Has a viable Discharge Plan Medically appropriate; condition is sufficiently stable to participate in intensive rehab program Patient is able and expected to receive 3 hours of individualized therapy daily on at least 5 of ever y 7 days Patient's prognosis for significant practical improvement within a reasonable period of time appears Good DISCHARGE PLAN: - Estimated Length of Stay (days) 10. - Consensus on plan Discharge plan has been discussed with primary caregiver. Patient/Family is in agreement with the aldair n. Primary caregiver is in agreement with the plan. - Patient/Family Goals Return home with assistance. - Planned Living Setting Upon Discharge Home, to live with Family/Relatives. CONCLUSION ON REHABILITATION NECESSITY: I have evaluated patient's pre-admission functional status and, comparing it to the patient's post-ad mission functional status now, I conclude that the pre-admission assessment was accurate. Patient's c ondition on admission supports the medical necessity of admission to [facility]. It is safe to proceed with patient's therapy program. SIGNATURE PANEL: (CDT)
[2018-07-28] MEDS ORDERED: DOCUSATE NA/SENNA CONC 1 TAB PO PRN (21:00)
[2018-07-28] MEDS ORDERED: ACETAMINOPHEN 500 MG TAB PO PRN (21:00)
[2018-07-28] MEDS ORDERED: MELATONIN 3 MG TABLET PO SCH (21:00)
[2018-07-28] MEDS: APIXABAN 2.5 MG TABLET PO SCH (21:23)
[2018-07-28] MEDS: DOCUSATE NA/SENNA CONC 1 TAB PO SCH (21:23)
--- NOTE | 2018-07-29 01:10 | FAST ---
SHIFT START DATE/TIME: 07/28/2018 19:00 (CDT) SHIFT END DATE/TIME: 07/29/2018 07:00 (CDT) NAME LUANN WOODS DATE OF : 1935 DATE OF ADMISSION: 07/27/2018 18:34 (CDT) PHONE: AGE: 83 SSN# [id number] GENDER: Male ENCOUNTER PHYSICIAN: Dr. Juan C Brooks M.D. ADMISSION DIAGNOSIS: - Cardiac 09 - Cardiac Disorders (09) Chronic atrial fibrillation (I48.2). EATING: Activity did not occur on this shift EATING - SCORE: 0-UNK GROOMING: Wash, rinse, and dry hands GROOMING - STEP 1: Does the patient require assistance when grooming? Yes. GROOMING - STEP 2: Does the patient require the assistance of a helper? No. The patient only requires an assistive devic e, OR takes more than reasonable time to groom, OR there is a concern for safety as the patient groom s GROOMING - SCORE: 6-SARATH BATHING: Activity did not occur on this shift BATHING - SCORE: 0-UNK DRESSING - UPPER BODY: Patient is not dressing in public clothing ARTICLES SCORE Total number of steps: 0 DRESSING - UPPER BODY - SCORE: 0-UNK DRESSING - LOWER BODY: Patient is not dressing in public clothing ARTICLES SCORE Total number of steps: 0 DRESSING - LOWER BODY - SCORE: 0-UNK TOILETING: TOILETING - STEP 1: Does the patient require assistance with toileting? Yes. TOILETING - STEP 2: Does the patient require the assistance of a helper? Yes. TOILETING - STEP 3: How much assistance does the patient require from the helper? Only supervision TOILETING - SCORE: 5-SUP BLADDER MANAGEMENT: BLADDER MANAGEMENT - STEP 1: Does the patient control the bladder completely and intentionally without equipment or devices or med ications, and is always continent? No. BLADDER MANAGEMENT - STEP 2: Does the patient require the assistance of a helper? No, patient only requires extra time BLADDER MANAGEMENT - SCORE: 6-SARATH BOWEL MANAGEMENT: Activity did not occur on this shift BOWEL MANAGEMENT - SCORE: 7-IND TRANSFERS: BED, CHAIR, WHEELCHAIR: TRANSFERS: BED, CHAIR, WHEELCHAIR - STEP 1: Does the patient require assistance with bed, chair, or wheelchair transfers? Yes. TRANSFERS: BED, CHAIR, WHEELCHAIR - STEP 2: Does the patient require the assistance of a helper? Yes. TRANSFERS: BED, CHAIR, WHEELCHAIR - STEP 3: How much assistance does the patient require from the helper? Only supervision TRANSFERS: BED, CHAIR, WHEELCHAIR - SCORE: 5-SUP TRANSFERS: TOILET: TRANSFERS: TOILET - STEP 1: Does the patient require assistance with toilet transfers? Yes. TRANSFERS: TOILET - STEP 2: Does the patient require the assistance of a helper? Yes. TRANSFERS: TOILET - STEP 3: How much assistance does the patient require from the helper? Only supervision, cuing, coaxing, OR he lp to set out transfer equipment or to lock brakes and/or lift foot rests TRANSFERS: TOILET - SCORE: 5-SUP TRANSFERS: SHOWER: Activity did not occur on this shift TRANSFERS: SHOWER - SCORE: 0-UNK TRANSFERS: TUB: Activity did not occur on this shift TRANSFERS: TUB - SCORE: 0-UNK LOCOMOTION: WALK: Activity did not occur on this shift LOCOMOTION: WALK - SCORE: 0-UNK LOCOMOTION: WHEELCHAIR: Activity did not occur on this shift LOCOMOTION: WHEELCHAIR - SCORE: 0-UNK COMPREHENSION: COMPREHENSION: TYPE: Both COMPREHENSION - STEP 1: Does the patient require help to understand complex and abstract ideas (such as current events, finan mt, discharge planning, medical issues, relationships, etc)? No. COMPREHENSION - STEP 2: Does the patient need extra time, require an assistive device (such as glasses for visual comprehensi on or a hearing aid for auditory comprehension) or does s/he have mild difficulty understanding compl ex and abstract information? Yes. COMPREHENSION - SCORE: 6-SARATH EXPRESSION EXPRESSION: TYPE: Both EXPRESSION - STEP 1: Does the patient require help expressing complex and abstract ideas (such as current events, finances , discharge planning, medical issues, relationships, etc)? No. EXPRESSION - STEP 2: Does the patient need extra time, require an assistive device (such as augmentive communication syste m or a communication board), OR does s/he have mild difficulty expressing complex and abstract ideas (including mild dysarthria or mild word-find problems)? No. EXPRESSION - SCORE: 7-IND SOCIAL INTERACTION: SOCIAL INTERACTION - STEP 1: Does the patient require a helper to interact with others in social and therapeutic situations? No. SOCIAL INTERACTION - STEP 2: Does the patient need extra time in social situations, OR does s/he interact with staff, other patien ts, and family members ONLY in structured environments, OR does s/he require medication for social in teraction? Yes, patient needs extra time SOCIAL INTERACTION - SCORE: 6-SARATH PROBLEM SOLVING: PROBLEM SOLVING - STEP 1: Does the patient need help to solve complex problems such as managing a checking account or confronti ng interpersonal problems? No. PROBLEM SOLVING - STEP 2: Does the patient require extra time to make decisions or solve problems, OR does s/he have slight dif ficulty reading, initiating, or self-correcting in unfamiliar situations? Yes, patient needs extra ti me. PROBLEM SOLVING - SCORE: 6-SARATH MEMORY: MEMORY - STEP 1: Does the patient need help to remember frequently encountered people, daily routines, and executing r equests? No. MEMORY - STEP 2: Does the patient have slight difficulty recognizing frequently encountered people, daily routines, or executing requests without the need for repetition or using self-initiated or environmental cues to remember? Yes. MEMORY - SCORE: 6-SARATH SIGNATURE PANEL: The following modified sections: Eating - Score, Grooming - Score, Dressing - Upper Body - Score, Donta ssing - Lower Body - Score, Toileting - Score, Bladder Management - Score, Bowel Management - Score, Transfers: Bed, Chair, Wheelchair - Score, Transfers: Toilet - Score, Transfers: Shower - Score, Mijares sfers: Tub - Score, Locomotion: Walk - Score, Locomotion: Wheelchair - Score, Comprehension - Score, Expression - Score, Social Interaction - Score, Problem Solving - Score, Memory - Score were [electro nically] signed by Georgina Matt CNA on MonJul 29 2018 00:52:59 GMT-0500 (Central Daylight Time)
[2018-07-29] MEDS: METOPROLOL XL 25 MG TAB PO SCH (05:07)
[2018-07-29] MEDS: PANTOPRAZOLE 40MG TABLET PO SCH (05:33)
[2018-07-29] MEDS: INSULIN -REGULAR HUMAN 50 UNIT/0.5 ML ML SQ SCH ×4 (07:28→20:15)
[2018-07-29] MEDS: TAMSULOSIN 0.4 MG SR CAP PO SCH (08:11)
[2018-07-29] MEDS: FINASTERIDE 5 MG TAB PO SCH (08:11)
[2018-07-29] MEDS: MAGNESIUM OXIDE 400 MG TAB PO SCH ×2 (08:11→20:20)
[2018-07-29] MEDS: FERROUS SULFATE 325 MG TAB PO SCH (08:11)
[2018-07-29] MEDS: ASPIRIN EC 81 MG TAB PO SCH (08:12)
[2018-07-29] MEDS: APIXABAN 2.5 MG TABLET PO SCH ×2 (08:12→20:21)
[2018-07-29] MEDS: MOXIFLOXACIN 0.5% OPTH SCH (08:14)
--- NOTE | 2018-07-29 13:12 | FAST ---
SHIFT START DATE/TIME: 07/29/2018 07:00 (CDT) SHIFT END DATE/TIME: 07/29/2018 19:00 (CDT) NAME LUANN WOODS DATE OF : 1935 DATE OF ADMISSION: 07/27/2018 18:34 (CDT) PHONE: AGE: 83 N# [id number] GENDER: Male ENCOUNTER PHYSICIAN: Dr. Juan C Brooks M.D. ADMISSION DIAGNOSIS: - Cardiac 09 - Cardiac Disorders (09) Chronic atrial fibrillation (I48.2). EATING: EATING - STEP 1: Does the patient require assistance when eating? Yes. EATING - STEP 2: Does the patient require the assistance of a helper? No, patient only requires an assistive device, O R s/he takes more than reasonable time to eat, OR there is a safety concern, OR s/he requires modifie d food consistency EATING - SCORE: 6-SARATH GROOMING: GROOMING - STEP 1: Does the patient require assistance when grooming? Yes. GROOMING - STEP 2: Does the patient require the assistance of a helper? Yes. GROOMING - STEP 3: How much assistance does the patient require from the helper? Only prior equipment preparation/set up from the helper GROOMING - SCORE: 5-SUP BATHING: Activity did not occur on this shift BATHING - SCORE: 0-UNK DRESSING - UPPER BODY: Activity did not occur on this shift ARTICLES SCORE Total number of steps: 0 DRESSING - UPPER BODY - SCORE: 0-UNK DRESSING - LOWER BODY: Activity did not occur on this shift ARTICLES SCORE Total number of steps: 0 DRESSING - LOWER BODY - SCORE: 0-UNK TOILETING: TOILETING - STEP 1: Does the patient require assistance with toileting? Yes. TOILETING - STEP 2: Does the patient require the assistance of a helper? Yes. TOILETING - STEP 3: How much assistance does the patient require from the helper? Hands-on assistance from the helper TOILETING - STEP 4: Of the 3 tasks: 1) Adjusting clothing prior to use, 2) Cleansing of perineal area, 3) Adjusting clot joao after use; How many tasks does the patient perform WITHOUT assistance of the helper? Three tasks with steadying assistance from the helper TOILETING - SCORE: 4-MIN BLADDER MANAGEMENT: BLADDER MANAGEMENT - STEP 1: Does the patient control the bladder completely and intentionally without equipment or devices or med ications, and is always continent? No. BLADDER MANAGEMENT - STEP 2: Does the patient require the assistance of a helper? No, patient requires and independently uses an a ssistive device, such as a urinal, bedpan, bedside commode, catheter, absorbent pad, or collecting de vice BLADDER MANAGEMENT - SCORE: 6-SARATH BLADDER MANAGEMENT - FREQUENCY OF ACCIDENTS: BLADDER MANAGEMENT(FA) - STEP 1: How many accidents has the patient had during the current shift? 0 BOWEL MANAGEMENT: Activity did not occur on this shift BOWEL MANAGEMENT - SCORE: 7-IND BOWEL MANAGEMENT - FREQUENCY OF ACCIDENTS: BOWEL MANAGEMENT(FA) - STEP 1: How many accidents has the patient had during the current shift? 0 TRANSFERS: BED, CHAIR, WHEELCHAIR: TRANSFERS: BED, CHAIR, WHEELCHAIR - STEP 1: Does the patient require assistance with bed, chair, or wheelchair transfers? Yes. TRANSFERS: BED, CHAIR, WHEELCHAIR - STEP 2: Does the patient require the assistance of a helper? Yes. TRANSFERS: BED, CHAIR, WHEELCHAIR - STEP 3: How much assistance does the patient require from the helper? Only supervision TRANSFERS: BED, CHAIR, WHEELCHAIR - SCORE: 5-SUP TRANSFERS: TOILET: TRANSFERS: TOILET - STEP 1: Does the patient require assistance with toilet transfers? Yes. TRANSFERS: TOILET - STEP 2: Does the patient require the assistance of a helper? Yes. TRANSFERS: TOILET - STEP 3: How much assistance does the patient require from the helper? Patient performs half or more of the tr ansferring tasks TRANSFERS: TOILET - STEP 4: Does the patient need only incidental help such as contact guard or steadying during toilet transfer? Yes. TRANSFERS: TOILET - SCORE: 4-MIN TRANSFERS: SHOWER: Activity did not occur on this shift TRANSFERS: SHOWER - SCORE: 0-UNK TRANSFERS: TUB: Activity did not occur on this shift TRANSFERS: TUB - SCORE: 0-UNK LOCOMOTION: WALK: Activity did not occur on this shift LOCOMOTION: WALK - SCORE: 0-UNK LOCOMOTION: WHEELCHAIR: Activity did not occur on this shift LOCOMOTION: WHEELCHAIR - SCORE: 0-UNK COMPREHENSION: COMPREHENSION: TYPE: Both COMPREHENSION - STEP 1: Does the patient require help to understand complex and abstract ideas (such as current events, finan mt, discharge planning, medical issues, relationships, etc)? No. COMPREHENSION - STEP 2: Does the patient need extra time, require an assistive device (such as glasses for visual comprehensi on or a hearing aid for auditory comprehension) or does s/he have mild difficulty understanding compl ex and abstract information? Yes. COMPREHENSION - SCORE: 6-SARATH EXPRESSION EXPRESSION: TYPE: Both EXPRESSION - STEP 1: Does the patient require help expressing complex and abstract ideas (such as current events, finances , discharge planning, medical issues, relationships, etc)? No. EXPRESSION - STEP 2: Does the patient need extra time, require an assistive device (such as augmentive communication syste m or a communication board), OR does s/he have mild difficulty expressing complex and abstract ideas (including mild dysarthria or mild word-find problems)? Yes. EXPRESSION - SCORE: 6-SARATH SOCIAL INTERACTION: SOCIAL INTERACTION - STEP 1: Does the patient require a helper to interact with others in social and therapeutic situations? No. SOCIAL INTERACTION - STEP 2: Does the patient need extra time in social situations, OR does s/he interact with staff, other patien ts, and family members ONLY in structured environments, OR does s/he require medication for social in teraction? Yes, patient needs extra time SOCIAL INTERACTION - SCORE: 6-SARATH PROBLEM SOLVING: PROBLEM SOLVING - STEP 1: Does the patient need help to solve complex problems such as managing a checking account or confronti ng interpersonal problems? Yes. PROBLEM SOLVING - STEP 2: Does the patient solve basic routine problems half or more of the time? Yes. PROBLEM SOLVING - STEP 3: How often does the patient need help to solve basic routine problems? Less than 10% of the time PROBLEM SOLVING - SCORE: 5-SUP MEMORY: MEMORY - STEP 1: Does the patient need help to remember frequently encountered people, daily routines, and executing r equests? Yes. MEMORY - STEP 2: How often does the patient need help to remember frequently encountered people, daily routines, and e xecuting requests? Less than 10% of the time MEMORY - SCORE: 5-SUP SIGNATURE PANEL: The following modified sections: Eating - Score, Grooming - Score, Bathing - Score, Dressing - Upper Body - Score, Dressing - Lower Body - Score, Toileting - Score, Bladder Management - Score, Bowel Man agement - Score, Transfers: Bed, Chair, Wheelchair - Score, Transfers: Toilet - Score, Transfers: Laurie wer - Score, Transfers: Tub - Score, Locomotion: Walk - Score, Locomotion: Wheelchair - Score, Compre hension - Score, Expression - Score, Social Interaction - Score, Problem Solving - Score, Memory - Sc ore were [electronically] signed by Susan Panda C.N.A. on MonJul 29 2018 13:10:48 T-0500 (Centra l Daylight Time)
[2018-07-29] MEDS: [UNRECOGNIZED DRUG - OTHER] OPTH SCH ×2 (14:18→20:18)
[2018-07-29] MEDS: CRANBERRY FRUIT EXTRACT 200 MG CAP PO SCH (20:20)
[2018-07-29] MEDS: DOCUSATE NA/SENNA CONC 1 TAB PO SCH (20:20)
[2018-07-29] MEDS: PROMOD 30 ML DOSE PO SCH (20:22)
--- NOTE | 2018-07-30 01:23 | FAST ---
SHIFT START DATE/TIME: 07/29/2018 19:00 (CDT) SHIFT END DATE/TIME: 07/30/2018 07:00 (CDT) NAME LUANN WOODS DATE OF : 1935 DATE OF ADMISSION: 07/27/2018 18:34 (CDT) PHONE: AGE: 83 SSN# [id number] GENDER: Male ENCOUNTER PHYSICIAN: Dr. Juan C Brooks M.D. ADMISSION DIAGNOSIS: - Cardiac 09 - Cardiac Disorders (09) Chronic atrial fibrillation (I48.2). EATING: Activity did not occur on this shift EATING - SCORE: 0-UNK GROOMING: Wash, rinse, and dry hands GROOMING - STEP 1: Does the patient require assistance when grooming? Yes. GROOMING - STEP 2: Does the patient require the assistance of a helper? Yes. GROOMING - STEP 3: How much assistance does the patient require from the helper? Only prior equipment preparation/set up from the helper GROOMING - SCORE: 5-SUP BATHING: Activity did not occur on this shift BATHING - SCORE: 0-UNK DRESSING - UPPER BODY: Patient is not dressing in public clothing ARTICLES SCORE Total number of steps: 0 DRESSING - UPPER BODY - SCORE: 0-UNK DRESSING - LOWER BODY: Patient is not dressing in public clothing ARTICLES SCORE Total number of steps: 0 DRESSING - LOWER BODY - SCORE: 0-UNK TOILETING: TOILETING - STEP 1: Does the patient require assistance with toileting? Yes. TOILETING - STEP 2: Does the patient require the assistance of a helper? Yes. TOILETING - STEP 3: How much assistance does the patient require from the helper? Only supervision TOILETING - SCORE: 5-SUP BLADDER MANAGEMENT: BLADDER MANAGEMENT - STEP 1: Does the patient control the bladder completely and intentionally without equipment or devices or med ications, and is always continent? No. BLADDER MANAGEMENT - STEP 2: Does the patient require the assistance of a helper? Yes. BLADDER MANAGEMENT - STEP 3: How much assistance does the patient require from the helper? Only supervision, stand-by, cuing, or c oaxing BLADDER MANAGEMENT - SCORE: 5-SUP BOWEL MANAGEMENT: Activity did not occur on this shift BOWEL MANAGEMENT - SCORE: 7-IND TRANSFERS: BED, CHAIR, WHEELCHAIR: TRANSFERS: BED, CHAIR, WHEELCHAIR - STEP 1: Does the patient require assistance with bed, chair, or wheelchair transfers? Yes. TRANSFERS: BED, CHAIR, WHEELCHAIR - STEP 2: Does the patient require the assistance of a helper? Yes. TRANSFERS: BED, CHAIR, WHEELCHAIR - STEP 3: How much assistance does the patient require from the helper? Only supervision TRANSFERS: BED, CHAIR, WHEELCHAIR - SCORE: 5-SUP TRANSFERS: TOILET: TRANSFERS: TOILET - STEP 1: Does the patient require assistance with toilet transfers? Yes. TRANSFERS: TOILET - STEP 2: Does the patient require the assistance of a helper? Yes. TRANSFERS: TOILET - STEP 3: How much assistance does the patient require from the helper? Only supervision, cuing, coaxing, OR he lp to set out transfer equipment or to lock brakes and/or lift foot rests TRANSFERS: TOILET - SCORE: 5-SUP TRANSFERS: SHOWER: Activity did not occur on this shift TRANSFERS: SHOWER - SCORE: 0-UNK TRANSFERS: TUB: Activity did not occur on this shift TRANSFERS: TUB - SCORE: 0-UNK LOCOMOTION: WALK: Activity did not occur on this shift LOCOMOTION: WALK - SCORE: 0-UNK LOCOMOTION: WHEELCHAIR: Activity did not occur on this shift LOCOMOTION: WHEELCHAIR - SCORE: 0-UNK COMPREHENSION: COMPREHENSION: TYPE: Both COMPREHENSION - STEP 1: Does the patient require help to understand complex and abstract ideas (such as current events, finan mt, discharge planning, medical issues, relationships, etc)? No. COMPREHENSION - STEP 2: Does the patient need extra time, require an assistive device (such as glasses for visual comprehensi on or a hearing aid for auditory comprehension) or does s/he have mild difficulty understanding compl ex and abstract information? Yes. COMPREHENSION - SCORE: 6-SARATH EXPRESSION EXPRESSION: TYPE: Both EXPRESSION - STEP 1: Does the patient require help expressing complex and abstract ideas (such as current events, finances , discharge planning, medical issues, relationships, etc)? No. EXPRESSION - STEP 2: Does the patient need extra time, require an assistive device (such as augmentive communication syste m or a communication board), OR does s/he have mild difficulty expressing complex and abstract ideas (including mild dysarthria or mild word-find problems)? Yes. EXPRESSION - SCORE: 6-SARATH SOCIAL INTERACTION: SOCIAL INTERACTION - STEP 1: Does the patient require a helper to interact with others in social and therapeutic situations? No. SOCIAL INTERACTION - STEP 2: Does the patient need extra time in social situations, OR does s/he interact with staff, other patien ts, and family members ONLY in structured environments, OR does s/he require medication for social in teraction? Yes, patient needs extra time SOCIAL INTERACTION - SCORE: 6-SARATH PROBLEM SOLVING: PROBLEM SOLVING - STEP 1: Does the patient need help to solve complex problems such as managing a checking account or confronti ng interpersonal problems? No. PROBLEM SOLVING - STEP 2: Does the patient require extra time to make decisions or solve problems, OR does s/he have slight dif ficulty reading, initiating, or self-correcting in unfamiliar situations? Yes, patient needs extra ti me. PROBLEM SOLVING - SCORE: 6-SARATH MEMORY: MEMORY - STEP 1: Does the patient need help to remember frequently encountered people, daily routines, and executing r equests? No. MEMORY - STEP 2: Does the patient have slight difficulty recognizing frequently encountered people, daily routines, or executing requests without the need for repetition or using self-initiated or environmental cues to remember? Yes. MEMORY - SCORE: 6-SARATH SIGNATURE PANEL: The following modified sections: Eating - Score, Grooming - Score, Dressing - Upper Body - Score, Donta ssing - Lower Body - Score, Toileting - Score, Bladder Management - Score, Bowel Management - Score, Transfers: Bed, Chair, Wheelchair - Score, Transfers: Toilet - Score, Transfers: Shower - Score, Mijares sfers: Tub - Score, Locomotion: Walk - Score, Locomotion: Wheelchair - Score, Comprehension - Score, Expression - Score, Social Interaction - Score, Problem Solving - Score, Memory - Score were [electro nically] signed by Georgina Matt CNA on MonJul 30 2018 01:04:54 GMT-0500 (Central Daylight Time)
[2018-07-30] MEDS: PANTOPRAZOLE 40MG TABLET PO SCH (05:21)
[2018-07-30] MEDS: METOPROLOL XL 25 MG TAB PO SCH (05:21)
[2018-07-30] MEDS: INSULIN -REGULAR HUMAN 50 UNIT/0.5 ML ML SQ SCH ×4 (07:30→20:37)
[2018-07-30] MEDS: PROMOD 30 ML DOSE PO SCH ×2 (08:00→20:12)
[2018-07-30] MEDS: TAMSULOSIN 0.4 MG SR CAP PO SCH (08:16)
[2018-07-30] MEDS: [UNRECOGNIZED DRUG - OTHER] OPTH SCH ×3 (08:16→20:12)
[2018-07-30] MEDS: ASPIRIN EC 81 MG TAB PO SCH (08:16)
[2018-07-30] MEDS: CRANBERRY FRUIT EXTRACT 200 MG CAP PO SCH ×2 (08:16→20:11)
[2018-07-30] MEDS: MAGNESIUM OXIDE 400 MG TAB PO SCH ×2 (08:16→20:12)
[2018-07-30] MEDS: FINASTERIDE 5 MG TAB PO SCH (08:16)
[2018-07-30] MEDS: FERROUS SULFATE 325 MG TAB PO SCH (08:16)
[2018-07-30] MEDS: APIXABAN 2.5 MG TABLET PO SCH ×2 (08:16→20:11)
--- NOTE | 2018-07-30 15:33 | FAST ---
ENCOUNTER DATE AND TIME: 07/30/2018 08:00 (CDT) NAME LUANN WOODS DATE OF : 1935 DATE OF ADMISSION: 07/27/2018 18:34 (CDT) PHONE: AGE: 83 SSN# [id number] GENDER: Male ENCOUNTER PHYSICIAN: Dr. Juan C Brooks M.D. ADMISSION DIAGNOSIS: - Cardiac 09 - Cardiac Disorders (09) Chronic atrial fibrillation (I48.2). EATING: Activity did not occur on this shift EATING - SCORE: 0-UNK GROOMING: Activity did not occur on this shift GROOMING - SCORE: 0-UNK BATHING: Activity did not occur on this shift BATHING - SCORE: 0-UNK DRESSING - UPPER BODY: Activity did not occur on this shift Patient is not dressing in public clothing ARTICLES SCORE Total number of steps: 0 DRESSING - UPPER BODY - SCORE: 0-UNK DRESSING - LOWER BODY: Activity did not occur on this shift Patient is not dressing in public clothing ARTICLES SCORE Total number of steps: 0 DRESSING - LOWER BODY - SCORE: 0-UNK TOILETING: Activity did not occur on this shift TOILETING - SCORE: 0-UNK BLADDER MANAGEMENT: Activity did not occur on this shift BLADDER MANAGEMENT - SCORE: 7-IND BOWEL MANAGEMENT: Activity did not occur on this shift BOWEL MANAGEMENT - SCORE: 7-IND TRANSFERS: BED, CHAIR, WHEELCHAIR: TRANSFERS: BED, CHAIR, WHEELCHAIR - STEP 1: Does the patient require assistance with bed, chair, or wheelchair transfers? Yes. TRANSFERS: BED, CHAIR, WHEELCHAIR - STEP 2: Does the patient require the assistance of a helper? Yes. TRANSFERS: BED, CHAIR, WHEELCHAIR - STEP 3: How much assistance does the patient require from the helper? Only supervision TRANSFERS: BED, CHAIR, WHEELCHAIR - SCORE: 5-SUP TRANSFERS: TOILET: Activity did not occur on this shift TRANSFERS: TOILET - SCORE: 0-UNK TRANSFERS: SHOWER: Activity did not occur on this shift TRANSFERS: SHOWER - SCORE: 0-UNK TRANSFERS: TUB: Activity did not occur on this shift TRANSFERS: TUB - SCORE: 0-UNK LOCOMOTION: WALK: LOCOMOTION: WALK - STEP 1: Does the patient need help to walk 150 feet? Yes. LOCOMOTION: WALK - STEP 2: How much assistance does the patient require to walk a minimum of 150 feet? Only supervision, cuing, or coaxing LOCOMOTION: WALK - SCORE: 5-SUP LOCOMOTION: WHEELCHAIR: LOCOMOTION: WHEELCHAIR - STEP 1: Does the patient need help to go 150 feet in a wheelchair? Yes. LOCOMOTION: WHEELCHAIR - STEP 2: How much assistance does the patient need from the helper? Only supervision, cuing, or coaxing LOCOMOTION: WHEELCHAIR - SCORE: 5-SUP LOCOMOTION: STAIRS: LOCOMOTION: STAIRS - STEP 1: Does the patient need help to go up and down 12 to 14 stairs? Yes. LOCOMOTION: STAIRS - STEP 2: How much assistance does the patient need from the helper to go a minimum of 12 to 14 stairs? Only rosa pervision, cuing, or coaxing LOCOMOTION: STAIRS - SCORE: 5-SUP COMPREHENSION: COMPREHENSION - SCORE: 0-UNK EXPRESSION EXPRESSION - SCORE: 0-UNK SOCIAL INTERACTION: SOCIAL INTERACTION - SCORE: 0-UNK PROBLEM SOLVING: PROBLEM SOLVING - SCORE: 0-UNK MEMORY: MEMORY - SCORE: 0-UNK SIGNATURE PANEL: The following modified sections: Transfers: Bed, Chair, Wheelchair - Score, Transfers: Toilet - Score , Locomotion: Walk - Score, Locomotion: Wheelchair - Score, Locomotion: Stairs - Score were [electron liz] signed by Cruz Stovall PTA on MonJul 30 2018 15:32:51 GMT-0500 (Central Daylight Time)
[2018-07-30] MEDS ORDERED: D50W 25 GM/50 ML SYRINGE IV PRN (15:47)
[2018-07-30] MEDS ORDERED: GLUCAGON 1 MG/VIAL IM PRN (15:47)
--- NOTE | 2018-07-30 15:53 | FAST ---
SHIFT START DATE/TIME: 07/30/2018 07:00 (CDT) SHIFT END DATE/TIME: 07/30/2018 19:00 (CDT) NAME LUANN WOODS DATE OF : 1935 DATE OF ADMISSION: 07/27/2018 18:34 (CDT) PHONE: AGE: 83 N# [id number] GENDER: Male ENCOUNTER PHYSICIAN: Dr. Juan C Brooks M.D. ADMISSION DIAGNOSIS: - Cardiac 09 - Cardiac Disorders (09) Chronic atrial fibrillation (I48.2). EATING: EATING - STEP 1: Does the patient require assistance when eating? Yes. EATING - STEP 2: Does the patient require the assistance of a helper? Yes. EATING - STEP 3: Does the patient perform half or more of the eating tasks? Yes. EATING - STEP 4: Does the patient need only supervision, cuing, coaxing OR help to apply an orthosis OR help to cut fo od, open containers, pour liquids, or butter bread? Yes. EATING - SCORE: 5-SUP GROOMING: Comb/brush hair Wash, rinse, and dry face Wash, rinse, and dry hands GROOMING - STEP 1: Does the patient require assistance when grooming? Yes. GROOMING - STEP 2: Does the patient require the assistance of a helper? Yes. GROOMING - STEP 3: How much assistance does the patient require from the helper? Cuing, coaxing, instructions, or encour agement for completion of grooming GROOMING - SCORE: 5-SUP BATHING: Activity did not occur on this shift BATHING - SCORE: 0-UNK DRESSING - UPPER BODY: Activity did not occur on this shift ARTICLES SCORE Total number of steps: 0 DRESSING - UPPER BODY - SCORE: 0-UNK DRESSING - LOWER BODY: Activity did not occur on this shift ARTICLES SCORE Total number of steps: 0 DRESSING - LOWER BODY - SCORE: 0-UNK TOILETING: TOILETING - STEP 1: Does the patient require assistance with toileting? Yes. TOILETING - STEP 2: Does the patient require the assistance of a helper? Yes. TOILETING - STEP 3: How much assistance does the patient require from the helper? Hands-on assistance from the helper TOILETING - STEP 4: Of the 3 tasks: 1) Adjusting clothing prior to use, 2) Cleansing of perineal area, 3) Adjusting clot joao after use; How many tasks does the patient perform WITHOUT assistance of the helper? Three tasks with steadying assistance from the helper TOILETING - SCORE: 4-MIN BLADDER MANAGEMENT: [place] removes incontinent device (Depends, pull ups, etc.); cleans the patient after accident / inco ntinent episode; and, applies new incontinent device. BLADDER MANAGEMENT - SCORE: 1-DEP BLADDER MANAGEMENT - FREQUENCY OF ACCIDENTS: BLADDER MANAGEMENT(FA) - STEP 1: How many accidents has the patient had during the current shift? 1 BOWEL MANAGEMENT: Activity did not occur on this shift BOWEL MANAGEMENT - SCORE: 7-IND TRANSFERS: BED, CHAIR, WHEELCHAIR: TRANSFERS: BED, CHAIR, WHEELCHAIR - STEP 1: Does the patient require assistance with bed, chair, or wheelchair transfers? Yes. TRANSFERS: BED, CHAIR, WHEELCHAIR - STEP 2: Does the patient require the assistance of a helper? Yes. TRANSFERS: BED, CHAIR, WHEELCHAIR - STEP 3: How much assistance does the patient require from the helper? Steadying/guiding assistance TRANSFERS: BED, CHAIR, WHEELCHAIR - SCORE: 4-MIN TRANSFERS: TOILET: TRANSFERS: TOILET - STEP 1: Does the patient require assistance with toilet transfers? Yes. TRANSFERS: TOILET - STEP 2: Does the patient require the assistance of a helper? Yes. TRANSFERS: TOILET - STEP 3: How much assistance does the patient require from the helper? Patient performs half or more of the tr ansferring tasks TRANSFERS: TOILET - STEP 4: Does the patient need only incidental help such as contact guard or steadying during toilet transfer? Yes. TRANSFERS: TOILET - SCORE: 4-MIN TRANSFERS: SHOWER: Activity did not occur on this shift TRANSFERS: SHOWER - SCORE: 0-UNK TRANSFERS: TUB: Activity did not occur on this shift TRANSFERS: TUB - SCORE: 0-UNK LOCOMOTION: WALK: Activity did not occur on this shift LOCOMOTION: WALK - SCORE: 0-UNK LOCOMOTION: WHEELCHAIR: Activity did not occur on this shift LOCOMOTION: WHEELCHAIR - SCORE: 0-UNK COMPREHENSION: COMPREHENSION: TYPE: Both COMPREHENSION - STEP 1: Does the patient require help to understand complex and abstract ideas (such as current events, finan mt, discharge planning, medical issues, relationships, etc)? No. COMPREHENSION - STEP 2: Does the patient need extra time, require an assistive device (such as glasses for visual comprehensi on or a hearing aid for auditory comprehension) or does s/he have mild difficulty understanding compl ex and abstract information? Yes. COMPREHENSION - SCORE: 6-SARATH EXPRESSION EXPRESSION: TYPE: Both EXPRESSION - STEP 1: Does the patient require help expressing complex and abstract ideas (such as current events, finances , discharge planning, medical issues, relationships, etc)? No. EXPRESSION - STEP 2: Does the patient need extra time, require an assistive device (such as augmentive communication syste m or a communication board), OR does s/he have mild difficulty expressing complex and abstract ideas (including mild dysarthria or mild word-find problems)? Yes. EXPRESSION - SCORE: 6-SARATH SOCIAL INTERACTION: SOCIAL INTERACTION - STEP 1: Does the patient require a helper to interact with others in social and therapeutic situations? No. SOCIAL INTERACTION - STEP 2: Does the patient need extra time in social situations, OR does s/he interact with staff, other patien ts, and family members ONLY in structured environments, OR does s/he require medication for social in teraction? No. SOCIAL INTERACTION - SCORE: 7-IND PROBLEM SOLVING: PROBLEM SOLVING - STEP 1: Does the patient need help to solve complex problems such as managing a checking account or confronti ng interpersonal problems? No. PROBLEM SOLVING - STEP 2: Does the patient require extra time to make decisions or solve problems, OR does s/he have slight dif ficulty reading, initiating, or self-correcting in unfamiliar situations? Yes, patient needs extra ti me. PROBLEM SOLVING - SCORE: 6-SARATH MEMORY: MEMORY - STEP 1: Does the patient need help to remember frequently encountered people, daily routines, and executing r equests? No. MEMORY - STEP 2: Does the patient have slight difficulty recognizing frequently encountered people, daily routines, or executing requests without the need for repetition or using self-initiated or environmental cues to remember? No. MEMORY - SCORE: 7-IND SIGNATURE PANEL: The following modified sections: Eating - Score, Grooming - Score, Bathing - Score, Dressing - Upper Body - Score, Dressing - Lower Body - Score, Toileting - Score, Bladder Management - Score, Bowel Man agement - Score, Transfers: Bed, Chair, Wheelchair - Score, Transfers: Toilet - Score, Transfers: Laurie wer - Score, Transfers: Tub - Score, Locomotion: Walk - Score, Locomotion: Wheelchair - Score, Compre hension - Score, Expression - Score, Social Interaction - Score, Problem Solving - Score, Memory - Sc ore were [electronically] signed by Dusty Flores on MonJul 30 2018 15:52:18 GMT-0500 (Central Daylight Time)
--- NOTE | 2018-07-30 18:18 | R.PN ---
ENCOUNTER DATE AND TIME: 07/30/2018 18:13 (CDT) NAME LUANN WOODS DATE OF : 1935 DATE OF ADMISSION: 07/27/2018 18:34 (CDT) Chronic atrial fibrillation (I48.2)CHIEF COMPLAINT: Cardiac debility SUBJECTIVE: Pt denied any depression. Pt denied any Shortness of Breath. Ambulated 750' with standby assistance using a rolling walker. Up and down 15 steps with standby ass istance. Self-propelled wheelchair 250' with standby assistance. VITAL SIGNS Temperature: 97.6 F SBP/DBP: 132/73 Pulse: 88 Resp: 16 MEDICATION ALLERGIES: No Known Drug Allergies (NKDA) ENVIRONMENTAL ALLERGIES: None Known - Substance Allergies None Known - Other Allergies None Known NURSING: - Shower allowing shower - Lab Results blood Sugar Check ACHS ACTIVITIES OOB only with supervision THERAPIES: - Occupational Therapy Evaluate and Treat. - Physical Therapy Evaluate and Treat. PHYSICAL EXAM - Gen Alert and awake Lying in bed No apparent distress Oriented to: person, time, and place - Skin No breakdown No abnormalities - Eyes No abnormalities - ENMT No abnormalities - Neck No abnormalities - CVS RRR - Chest Clear - Abd + bowel spounds - GI Soft Deferred - No abnormalities - Ext No significant edema - MSK 4+/5 weakness in both lower extremities. - Neuro No focal deficits - Psych No abnormalities ASSESSMENT: Pt. is a 83 yo Right-handed white male.On 07/19/2018 he was admitted to [facility] with diagno sis Chronic atrial fibrillation (I48.2).His impairment category is Cardiac 09 - Cardiac Disorders (0 9).Pre-morbidly, Pt. was independent/mod-I in Social Cognition, Self-Care, Locomotion, Sphincter Cont rol, Transfers Control, and Communication; and he had good Sphincter Control.Currently, he has defici ts of Balance, Self-Care, Locomotion, Endurance, Safety Awareness, and Transfers Control.Pt. is now r eferred to [facility] for acute in-patient rehabilitation in order to maximize patient's functional independence in activities of daily living, strength, ROM, and mobility.- Rehab Goal Patient has realistic goal of being discharged at assistance level 6-Aditya to reside at Home with Fam minal/Relatives. MDM/PLAN: - Physical Therapy Gait dysfunction - to improve, our physical therapists will perform initial evaluation of pt's statu s upon admission and devise an individualized program for Gait Training, and Wheel Chair mobility Inability to transfer - to improve, our physical therapists will perform initial evaluation of pt's status upon admission and devise an individualized program for Bed mobility Need for home safety evaluation - to improve, our physical therapists will perform initial evaluatio n of pt's status upon admission and devise an individualized program for Home Evaluation Need in caregiver upon discharge - to improve, our physical therapists will perform initial evaluati on of pt's status upon admission and devise an individualized program for Caregiver Training New precaution - to improve, our physical therapists will perform initial evaluation of pt's status upon admission and devise an individualized program for Patient precaution education Edema - to improve, our physical therapists will perform initial evaluation of pt's status upon admis phoebe and devise an individualized program for Elevation Training, and Lymphedema Therapy Poor balance - to improve, our physical therapists will perform initial evaluation of pt's status up on admission and devise an individualized program for Balance Training Poor endurance - to improve, our physical therapists will perform initial evaluation of pt's status upon admission and devise an individualized program for Endurance Training Weakness - to improve, our physical therapists will perform initial evaluation of pt's status upon a dmission and devise an individualized program for Aquatic Therapy, Neuromuscular Reeducation, and Str engthening Achieving independence - to improve, our physical therapists will perform initial evaluation of pt's status upon admission and devise an individualized program for Community Reintegration Activities - Occupational Therapy ADL deficits - to improve, our occupation therapists will perform initial evaluation of pt's status upon admission and devise an individualized program for Bathing, Bed mobility, Community Reintegratio n, Cooking, Dressing, Eating, Fine Motor Skills, Grooming, Homemaking, Kitchen Mobility, Laundry, Pat ient Education, Safety Awareness, Splinting - Positioning, Transfers(Toilet, Tub, Shower), and Wheel Chair Management Need for hospice spiritual care coordinator - to improve, our occupation therapists will perform initial evaluation of pt's status upon admission and devise an individualized program for Caregiver Training Weakness - to improve, our occupation therapists will perform initial evaluation of pt's status upon admission and devise an individualized program for Aquatic Therapy, Balance, Endurance, UE ROM, and UE strengthening - Diet Type Continue Regular - Diet - Liquid Texture Continue Regular - Tube Feed Continue N/A - Lab Results blood Sugar Check ACHS - Diet - Solid Texture Continue Regular - Shower allowing shower FUNCTIONAL STATUS: UPDATED AT WEEKLY TEAM CONFERENCE - Bladder Same accident frequency: 7-Ind - No accidents in the past 7 days - Bowel Same accident frequency: 7-Ind - No accidents in the past 7 days - Walking Same score based on distance walked: 3(>=150ft) - Wheelchair Same score based on distance traveled: 0(N/A) FUNCTIONAL STATUS: - Self-Care A. Eating sup B. Grooming sup C. Bathing sup D. Dressing - Upper sup E. Dressing - Lower Vincent F. Toileting Vincent - Sphincter Control G: Bladder control Ind H: Bowel control Ind - Transfers Control I. Bed/Chair/Wheelchair sup J. Toilet sup K. Tub/Shower ADNO - Locomotion L. Walk/Wheelchair (C) sup L. Walk/Wheelchair (W) sup M. Stairs ADNO - Communication N. Comprehension (B) Ind O. Expression (B) Ind - Social Cognition P. Social Interaction Ind Q. Problem Solving Ind R. Memory Ind - Endurance Fair - Balance Fair - Safety Awareness Fair CURRENT FUNC. DEFICITS: Balance, Self-Care, Locomotion, Endurance, Safety Awareness, and Transfers Control SIGNATURE PANEL: (CDT)
[2018-07-30] MEDS: DOCUSATE NA/SENNA CONC 1 TAB PO SCH (20:11)
[2018-07-30] MEDS: ATORVASTATIN 20 MG TAB PO SCH (20:12)
--- NOTE | 2018-07-31 02:22 | FAST ---
SHIFT START DATE/TIME: 07/30/2018 19:00 (CDT) SHIFT END DATE/TIME: 07/31/2018 07:00 (CDT) NAME LUANN WOODS DATE OF : 1935 DATE OF ADMISSION: 07/27/2018 18:34 (CDT) PHONE: AGE: 83 SSN# [id number] GENDER: Male ENCOUNTER PHYSICIAN: Dr. Juan C Brooks M.D. ADMISSION DIAGNOSIS: - Cardiac 09 - Cardiac Disorders (09) Chronic atrial fibrillation (I48.2). EATING: Activity did not occur on this shift EATING - SCORE: 0-UNK GROOMING: Oral care Wash, rinse, and dry face Wash, rinse, and dry hands GROOMING - STEP 1: Does the patient require assistance when grooming? Yes. GROOMING - STEP 2: Does the patient require the assistance of a helper? Yes. GROOMING - STEP 3: How much assistance does the patient require from the helper? Only prior equipment preparation/set up from the helper GROOMING - SCORE: 5-SUP BATHING: Activity did not occur on this shift BATHING - SCORE: 0-UNK DRESSING - UPPER BODY: Patient is not dressing in public clothing ARTICLES SCORE Total number of steps: 0 DRESSING - UPPER BODY - SCORE: 0-UNK DRESSING - LOWER BODY: Patient is not dressing in public clothing ARTICLES SCORE Total number of steps: 0 DRESSING - LOWER BODY - SCORE: 0-UNK TOILETING: TOILETING - STEP 1: Does the patient require assistance with toileting? Yes. TOILETING - STEP 2: Does the patient require the assistance of a helper? Yes. TOILETING - STEP 3: How much assistance does the patient require from the helper? Only supervision TOILETING - SCORE: 5-SUP BLADDER MANAGEMENT: BLADDER MANAGEMENT - STEP 1: Does the patient control the bladder completely and intentionally without equipment or devices or med ications, and is always continent? No. BLADDER MANAGEMENT - STEP 2: Does the patient require the assistance of a helper? Yes. BLADDER MANAGEMENT - STEP 3: How much assistance does the patient require from the helper? Only supervision, stand-by, cuing, or c oaxing BLADDER MANAGEMENT - SCORE: 5-SUP BOWEL MANAGEMENT: Activity did not occur on this shift BOWEL MANAGEMENT - SCORE: 7-IND TRANSFERS: BED, CHAIR, WHEELCHAIR: TRANSFERS: BED, CHAIR, WHEELCHAIR - STEP 1: Does the patient require assistance with bed, chair, or wheelchair transfers? Yes. TRANSFERS: BED, CHAIR, WHEELCHAIR - STEP 2: Does the patient require the assistance of a helper? Yes. TRANSFERS: BED, CHAIR, WHEELCHAIR - STEP 3: How much assistance does the patient require from the helper? Only supervision TRANSFERS: BED, CHAIR, WHEELCHAIR - SCORE: 5-SUP TRANSFERS: TOILET: TRANSFERS: TOILET - STEP 1: Does the patient require assistance with toilet transfers? Yes. TRANSFERS: TOILET - STEP 2: Does the patient require the assistance of a helper? Yes. TRANSFERS: TOILET - STEP 3: How much assistance does the patient require from the helper? Only supervision, cuing, coaxing, OR he lp to set out transfer equipment or to lock brakes and/or lift foot rests TRANSFERS: TOILET - SCORE: 5-SUP TRANSFERS: SHOWER: Activity did not occur on this shift TRANSFERS: SHOWER - SCORE: 0-UNK TRANSFERS: TUB: Activity did not occur on this shift TRANSFERS: TUB - SCORE: 0-UNK LOCOMOTION: WALK: Activity did not occur on this shift LOCOMOTION: WALK - SCORE: 0-UNK LOCOMOTION: WHEELCHAIR: Activity did not occur on this shift LOCOMOTION: WHEELCHAIR - SCORE: 0-UNK COMPREHENSION: COMPREHENSION: TYPE: Both COMPREHENSION - STEP 1: Does the patient require help to understand complex and abstract ideas (such as current events, finan mt, discharge planning, medical issues, relationships, etc)? No. COMPREHENSION - STEP 2: Does the patient need extra time, require an assistive device (such as glasses for visual comprehensi on or a hearing aid for auditory comprehension) or does s/he have mild difficulty understanding compl ex and abstract information? Yes. COMPREHENSION - SCORE: 6-SARATH EXPRESSION EXPRESSION: TYPE: Both EXPRESSION - STEP 1: Does the patient require help expressing complex and abstract ideas (such as current events, finances , discharge planning, medical issues, relationships, etc)? No. EXPRESSION - STEP 2: Does the patient need extra time, require an assistive device (such as augmentive communication syste m or a communication board), OR does s/he have mild difficulty expressing complex and abstract ideas (including mild dysarthria or mild word-find problems)? Yes. EXPRESSION - SCORE: 6-SARATH SOCIAL INTERACTION: SOCIAL INTERACTION - STEP 1: Does the patient require a helper to interact with others in social and therapeutic situations? No. SOCIAL INTERACTION - STEP 2: Does the patient need extra time in social situations, OR does s/he interact with staff, other patien ts, and family members ONLY in structured environments, OR does s/he require medication for social in teraction? Yes, patient needs extra time SOCIAL INTERACTION - SCORE: 6-SARATH PROBLEM SOLVING: PROBLEM SOLVING - STEP 1: Does the patient need help to solve complex problems such as managing a checking account or confronti ng interpersonal problems? No. PROBLEM SOLVING - STEP 2: Does the patient require extra time to make decisions or solve problems, OR does s/he have slight dif ficulty reading, initiating, or self-correcting in unfamiliar situations? Yes, patient needs extra ti me. PROBLEM SOLVING - SCORE: 6-SARATH MEMORY: MEMORY - STEP 1: Does the patient need help to remember frequently encountered people, daily routines, and executing r equests? No. MEMORY - STEP 2: Does the patient have slight difficulty recognizing frequently encountered people, daily routines, or executing requests without the need for repetition or using self-initiated or environmental cues to remember? Yes. MEMORY - SCORE: 6-SARATH
[2018-07-31] MEDS: METOPROLOL XL 25 MG TAB PO SCH (05:03)
[2018-07-31 06:47] LABS: Hematocrit 33.2 % (39.6-49.0)
[2018-07-31 06:57] LABS: Potassium 4.3 mmol/L (3.5-5.1)
[2018-07-31] MEDS: INSULIN -REGULAR HUMAN 50 UNIT/0.5 ML ML SQ SCH ×5 (07:30→21:23)
[2018-07-31] MEDS: MAGNESIUM OXIDE 400 MG TAB PO SCH ×2 (08:21→21:13)
[2018-07-31] MEDS: FERROUS SULFATE 325 MG TAB PO SCH (08:21)
[2018-07-31] MEDS: CRANBERRY FRUIT EXTRACT 200 MG CAP PO SCH ×2 (08:21→21:13)
[2018-07-31] MEDS: PANTOPRAZOLE 40MG TABLET PO SCH (08:21)
[2018-07-31] MEDS: [UNRECOGNIZED DRUG - OTHER] OPTH SCH ×3 (08:21→21:13)
[2018-07-31] MEDS: APIXABAN 2.5 MG TABLET PO SCH (08:22)
[2018-07-31] MEDS: TAMSULOSIN 0.4 MG SR CAP PO SCH (08:22)
[2018-07-31] MEDS: PROMOD 30 ML DOSE PO SCH ×2 (08:22→21:13)
[2018-07-31] MEDS: ASPIRIN EC 81 MG TAB PO SCH (08:22)
[2018-07-31] MEDS: FINASTERIDE 5 MG TAB PO SCH (08:22)
[2018-07-31] MEDS: INSULIN 70/30 100 UNITS/ML SQ SCH (08:39)
--- NOTE | 2018-07-31 11:40 | FAST ---
SHIFT START DATE/TIME: 07/31/2018 07:00 (CDT) SHIFT END DATE/TIME: 07/31/2018 19:00 (CDT) NAME LUANN WOODS DATE OF : 1935 DATE OF ADMISSION: 07/27/2018 18:34 (CDT) PHONE: AGE: 83 SSN# [id number] GENDER: Male ENCOUNTER PHYSICIAN: Dr. Juan C Brooks M.D. ADMISSION DIAGNOSIS: - Cardiac 09 - Cardiac Disorders (09) Chronic atrial fibrillation (I48.2). EATING: EATING - STEP 1: Does the patient require assistance when eating? Yes. EATING - STEP 2: Does the patient require the assistance of a helper? No, patient only requires an assistive device, O R s/he takes more than reasonable time to eat, OR there is a safety concern, OR s/he requires modifie d food consistency EATING - SCORE: 6-SARATH GROOMING: Comb/brush hair Oral care Wash, rinse, and dry face Wash, rinse, and dry hands GROOMING - STEP 1: Does the patient require assistance when grooming? Yes. GROOMING - STEP 2: Does the patient require the assistance of a helper? No. The patient only requires an assistive devic e, OR takes more than reasonable time to groom, OR there is a concern for safety as the patient groom s GROOMING - SCORE: 6-SARATH BATHING: Activity did not occur on this shift BATHING - SCORE: 0-UNK DRESSING - UPPER BODY: Activity did not occur on this shift ARTICLES SCORE Total number of steps: 0 DRESSING - UPPER BODY - SCORE: 0-UNK DRESSING - LOWER BODY: Activity did not occur on this shift ARTICLES SCORE Total number of steps: 0 DRESSING - LOWER BODY - SCORE: 0-UNK TOILETING: TOILETING - STEP 1: Does the patient require assistance with toileting? Yes. TOILETING - STEP 2: Does the patient require the assistance of a helper? Yes. TOILETING - STEP 3: How much assistance does the patient require from the helper? Only supervision TOILETING - SCORE: 5-SUP BLADDER MANAGEMENT: BLADDER MANAGEMENT - STEP 1: Does the patient control the bladder completely and intentionally without equipment or devices or med ications, and is always continent? No. BLADDER MANAGEMENT - STEP 2: Does the patient require the assistance of a helper? No, patient requires and independently uses an a ssistive device, such as a urinal, bedpan, bedside commode, catheter, absorbent pad, or collecting de vice BLADDER MANAGEMENT - SCORE: 6-SARATH BLADDER MANAGEMENT - FREQUENCY OF ACCIDENTS: BLADDER MANAGEMENT(FA) - STEP 1: How many accidents has the patient had during the current shift? 1 BOWEL MANAGEMENT: Activity did not occur on this shift BOWEL MANAGEMENT - SCORE: 7-IND TRANSFERS: BED, CHAIR, WHEELCHAIR: TRANSFERS: BED, CHAIR, WHEELCHAIR - STEP 1: Does the patient require assistance with bed, chair, or wheelchair transfers? Yes. TRANSFERS: BED, CHAIR, WHEELCHAIR - STEP 2: Does the patient require the assistance of a helper? Yes. TRANSFERS: BED, CHAIR, WHEELCHAIR - STEP 3: How much assistance does the patient require from the helper? Only supervision TRANSFERS: BED, CHAIR, WHEELCHAIR - SCORE: 5-SUP TRANSFERS: TOILET: TRANSFERS: TOILET - STEP 1: Does the patient require assistance with toilet transfers? Yes. TRANSFERS: TOILET - STEP 2: Does the patient require the assistance of a helper? Yes. TRANSFERS: TOILET - STEP 3: How much assistance does the patient require from the helper? Only supervision, cuing, coaxing, OR he lp to set out transfer equipment or to lock brakes and/or lift foot rests TRANSFERS: TOILET - SCORE: 5-SUP TRANSFERS: SHOWER: Activity did not occur on this shift TRANSFERS: SHOWER - SCORE: 0-UNK TRANSFERS: TUB: Activity did not occur on this shift TRANSFERS: TUB - SCORE: 0-UNK LOCOMOTION: WALK: Activity did not occur on this shift LOCOMOTION: WALK - SCORE: 0-UNK LOCOMOTION: WHEELCHAIR: Activity did not occur on this shift LOCOMOTION: WHEELCHAIR - SCORE: 0-UNK COMPREHENSION: COMPREHENSION: TYPE: Both COMPREHENSION - STEP 1: Does the patient require help to understand complex and abstract ideas (such as current events, finan mt, discharge planning, medical issues, relationships, etc)? No. COMPREHENSION - STEP 2: Does the patient need extra time, require an assistive device (such as glasses for visual comprehensi on or a hearing aid for auditory comprehension) or does s/he have mild difficulty understanding compl ex and abstract information? Yes. COMPREHENSION - SCORE: 6-SARATH EXPRESSION EXPRESSION: TYPE: Both EXPRESSION - STEP 1: Does the patient require help expressing complex and abstract ideas (such as current events, finances , discharge planning, medical issues, relationships, etc)? No. EXPRESSION - STEP 2: Does the patient need extra time, require an assistive device (such as augmentive communication syste m or a communication board), OR does s/he have mild difficulty expressing complex and abstract ideas (including mild dysarthria or mild word-find problems)? Yes. EXPRESSION - SCORE: 6-SARATH SOCIAL INTERACTION: SOCIAL INTERACTION - STEP 1: Does the patient require a helper to interact with others in social and therapeutic situations? No. SOCIAL INTERACTION - STEP 2: Does the patient need extra time in social situations, OR does s/he interact with staff, other patien ts, and family members ONLY in structured environments, OR does s/he require medication for social in teraction? Yes, patient needs extra time SOCIAL INTERACTION - SCORE: 6-SARATH PROBLEM SOLVING: PROBLEM SOLVING - STEP 1: Does the patient need help to solve complex problems such as managing a checking account or confronti ng interpersonal problems? No. PROBLEM SOLVING - STEP 2: Does the patient require extra time to make decisions or solve problems, OR does s/he have slight dif ficulty reading, initiating, or self-correcting in unfamiliar situations? Yes, patient needs extra ti me. PROBLEM SOLVING - SCORE: 6-SARATH MEMORY: MEMORY - STEP 1: Does the patient need help to remember frequently encountered people, daily routines, and executing r equests? No. MEMORY - STEP 2: Does the patient have slight difficulty recognizing frequently encountered people, daily routines, or executing requests without the need for repetition or using self-initiated or environmental cues to remember? Yes. MEMORY - SCORE: 6-SARATH SIGNATURE PANEL: The following modified sections: Eating - Score, Grooming - Score, Bathing - Score, Dressing - Upper Body - Score, Dressing - Lower Body - Score, Toileting - Score, Bladder Management - Score, Bowel Man agement - Score, Transfers: Bed, Chair, Wheelchair - Score, Transfers: Toilet - Score, Transfers: Laurie wer - Score, Transfers: Tub - Score, Locomotion: Walk - Score, Locomotion: Wheelchair - Score, Compre hension - Score, Expression - Score, Social Interaction - Score, Problem Solving - Score, Memory - Sc ore were [electronically] signed by Dusty Flores on MonJul 31 2018 11:40:09 GMT-0500 (Central Daylight Time)
--- NOTE | 2018-07-31 14:24 | FAST ---
ENCOUNTER DATE AND TIME: 07/31/2018 08:00 (CDT) NAME LUANN WOODS DATE OF : 1935 DATE OF ADMISSION: 07/27/2018 18:34 (CDT) PHONE: AGE: 83 SSN# [id number] GENDER: Male ENCOUNTER PHYSICIAN: Dr. Juan C Brooks M.D. ADMISSION DIAGNOSIS: - Cardiac 09 - Cardiac Disorders (09) Chronic atrial fibrillation (I48.2). EATING: Activity did not occur on this shift EATING - SCORE: 0-UNK GROOMING: Activity did not occur on this shift GROOMING - SCORE: 0-UNK BATHING: Activity did not occur on this shift BATHING - SCORE: 0-UNK DRESSING - UPPER BODY: Activity did not occur on this shift Patient is not dressing in public clothing ARTICLES SCORE Total number of steps: 0 DRESSING - UPPER BODY - SCORE: 0-UNK DRESSING - LOWER BODY: Activity did not occur on this shift Patient is not dressing in public clothing ARTICLES SCORE Total number of steps: 0 DRESSING - LOWER BODY - SCORE: 0-UNK TOILETING: Activity did not occur on this shift TOILETING - SCORE: 0-UNK BLADDER MANAGEMENT: Activity did not occur on this shift BLADDER MANAGEMENT - SCORE: 7-IND BOWEL MANAGEMENT: Activity did not occur on this shift BOWEL MANAGEMENT - SCORE: 7-IND TRANSFERS: BED, CHAIR, WHEELCHAIR: TRANSFERS: BED, CHAIR, WHEELCHAIR - STEP 1: Does the patient require assistance with bed, chair, or wheelchair transfers? Yes. TRANSFERS: BED, CHAIR, WHEELCHAIR - STEP 2: Does the patient require the assistance of a helper? Yes. TRANSFERS: BED, CHAIR, WHEELCHAIR - STEP 3: How much assistance does the patient require from the helper? Only supervision TRANSFERS: BED, CHAIR, WHEELCHAIR - SCORE: 5-SUP TRANSFERS: TOILET: Activity did not occur on this shift TRANSFERS: TOILET - SCORE: 0-UNK TRANSFERS: SHOWER: Activity did not occur on this shift TRANSFERS: SHOWER - SCORE: 0-UNK TRANSFERS: TUB: Activity did not occur on this shift TRANSFERS: TUB - SCORE: 0-UNK LOCOMOTION: WALK: LOCOMOTION: WALK - STEP 1: Does the patient need help to walk 150 feet? Yes. LOCOMOTION: WALK - STEP 2: How much assistance does the patient require to walk a minimum of 150 feet? Only supervision, cuing, or coaxing LOCOMOTION: WALK - SCORE: 5-SUP LOCOMOTION: WHEELCHAIR: Activity did not occur on this shift LOCOMOTION: WHEELCHAIR - SCORE: 0-UNK LOCOMOTION: STAIRS: Activity did not occur on this shift LOCOMOTION: STAIRS - SCORE: 0-UNK COMPREHENSION: COMPREHENSION - SCORE: 0-UNK EXPRESSION EXPRESSION - SCORE: 0-UNK SOCIAL INTERACTION: SOCIAL INTERACTION - SCORE: 0-UNK PROBLEM SOLVING: PROBLEM SOLVING - SCORE: 0-UNK MEMORY: MEMORY - SCORE: 0-UNK SIGNATURE PANEL: The following modified sections: Transfers: Bed, Chair, Wheelchair - Score, Transfers: Toilet - Score , Locomotion: Walk - Score, Locomotion: Wheelchair - Score, Locomotion: Stairs - Score were [electron icaayse] signed by Kev Herrera PT on MonJul 31 2018 14:24:05 GMT-0500 (Central Daylight Time)
[2018-07-31] MEDS ORDERED: TRAZODONE 50 MG TABLET PO PRN (14:39)
--- NOTE | 2018-07-31 14:56 | RAD REPORT ---
EXAM DESCRIPTION: US - Renal Ultrasound-Complete - 07/31/2018 2:42 pm CLINICAL HISTORY: [place] COMPARISON: RP EXAM COMPLETE dated 05/14/2013 FINDINGS: The right kidney is surgically absent. The left kidney measures 11.6 x 5.8 x 4.5 cm. No hydronephrosis, focal mass or perinephric fluid. The urinary bladder is incompletely distended with soft tissue projecting into the base of the bladde r suspicious for an enlarged prostate gland. . IMPRESSION: Negative left kidney sonogram. The right kidney is surgically absent. Prominent soft tissue seen projecting into the base of the bladder, suspicious for an enlarged prosta te gland. Correlation with physical exam findings would be suggested.
--- NOTE | 2018-07-31 16:30 | CON ---
Date of Consultation: 07/31/2018 Additional Consulting Physician: Dr. Brooks. Reason For Consultation: Elevated BUN and creatinine, fluid management, hypertension. History Of Present Illness: This is a pleasant 83-year-old gentleman with significant past medical h istory of diabetes complicated with neuropathy and nephropathy, hypertension, hyperlipidemia, coronar y artery disease, status post CABG back in 2011 with valvular heart disease status post valve replace ment, hyperlipidemia, renal CA status post robotic right nephrectomy with resection, class 2, with in vasion to the IVC, required thrombectomy back in December 2017, CVA without any residual. The patient a pparently recently after the surgery was doing well, then early in July, started feeling sick, dec reased intake, nausea and vomiting. For that reason, he went to [facility], in the ER found to have creatinine of 15 with UTI. For that reason patient was transferred to [facility] to undergo dialysis, 2 sessions, on the 20 of July and on the . Then after that, apparently hi s kidney function has recovered, weaned from the dialysis. Access was removed. The patient was jaciel lexus for pneumonia and urosepsis, recovered, started having good urine output. As I mentioned weaned from the dialysis, the patient was transferred to rehab to continue PT/OT. The patient still has goo d urine output. The patient apparently following with lamp mechanic Dr. Alves in [place]. Does not know his baseline, but reviewing the record for the patient back in 2014 creatinine 1.4. At that ti me, his GFR was 46. Again, the patient had recent nephrectomy, right-sided coronary artery disease, status post CABG, valvular heart disease status post valve replacement. Past Medical History: Include, 1.Hypertension. 2.Hyperlipidemia. 3.Coronary artery disease status post CABG, 2011. 4.Valvular heart disease status post valve replacement. 5.Questionable of diabetes with neuropathy and nephropathy. 6.Renal cell CA status post right nephrectomy, class 2, invaded to the IVC filter, status post throm bectomy back in December 2017. 7.CVA without any residual. 8.Acute kidney injury, status post hemodialysis back in July 2018, 2 sessions of dialysis on the and the . Allergies: NO KNOWN DRUG ALLERGIES. Social History: Ex-smoker, denied alcohol, denied drug abuse. Family History: Positive for hypertension. Past Surgical History: Include, 1.Aortic valve replacement. 2.CABG. 3.Right robotic nephrectomy with thrombectomy to the IVC. 4.Temporary hemodialysis catheter placement and removal. Home Medication: Include Flomax, simvastatin, pantoprazole, moxifloxacin, metoprolol, ferrous sulfat e, and aspirin. Current Medications: In the hospital include, Eliquis, atorvastatin, finasteride, insulin, metoprolo l 25 b.i.d., pantoprazole, and Flomax. Review of Systems: Head and Neck: No red eye. No ear pain. GI: No nausea, no vomiting. : No polyuria, no dysuria, no hematuria. ORGANIZATIONAL EFFECTIVENESS CONSULTANT: Not applicable. Respiratory: No shortness of breath. Cardiovascular: No chest pain. Endocrine: No polydipsia. Skin: No rash. Neuro: Generalized weakness. Musculoskeletal: Fatigue. Physical Examination: Vital Signs: When I saw the patient, blood pressure 110/77, pulse of 84. Afebrile. The patient had been voiding. Had urine output of 500. Chest: Clear to auscultation. Heart: S1, S2. Systolic murmur. Aortic click. Abdomen: Soft. Nontender. Extremity: No edema. Neurologic: Alert, oriented. Nonfocal. Laboratory Data: Sodium 139, potassium 4.3, bicarb 26, BUN 40, creatinine 2.5, GFR of 25, calcium of 8.5, H and H 11/32.2. Urinalysis has rbc, no wbc. Assessment And Plan: 1.Chronic kidney disease status post acute kidney injury secondary to urosepsis with hyperkalemia, r equired dialysis, recovered, currently plateaued. I am going to continue to monitor. 2.Chronic kidney disease secondary to diabetes, nephropathy, mass loss secondary to right nephrectom y. Looked to me holding has plateaued. I am going to go ahead and send for renal ultrasound, send f or PTH to further stage the patient, and we will follow up. 3.Hypertension, controlled, optimal. Continue current medication. We will hold on adding any MIKE i nhibitor or ARB until complete recovery. 4.Deconditioning. Continue PT/OT. 5.Hematuria. We will follow up with renal ultrasound. 6.Coronary artery disease, stable. MA/MODL Voice ID: [id number] Report ID: [id number]
--- NOTE | 2018-07-31 17:18 | R.PN ---
ENCOUNTER DATE AND TIME: 07/31/2018 17:16 (CDT) NAME LUANN WOODS DATE OF : 1935 DATE OF ADMISSION: 07/27/2018 18:34 (CDT) Chronic atrial fibrillation (I48.2)CHIEF COMPLAINT: Cardiac debility SUBJECTIVE: Pt denied any depression. Pt denied any Shortness of Breath. Ambulated 250' with standby assistance using a rolling walker. Up and down 15 steps with standby ass istance. Self-propelled wheelchair 250' with modified independence. VITAL SIGNS Temperature: 97.5 F SBP/DBP: 110/77 Pulse: 88 Resp: 14 MEDICATION ALLERGIES: No Known Drug Allergies (NKDA) ENVIRONMENTAL ALLERGIES: None Known - Substance Allergies None Known - Other Allergies None Known NURSING: - Shower allowing shower - Lab Results blood Sugar Check ACHS ACTIVITIES OOB only with supervision THERAPIES: - Occupational Therapy Evaluate and Treat. - Physical Therapy Evaluate and Treat. PHYSICAL EXAM - Gen Alert and awake Lying in bed No apparent distress Oriented to: person, time, and place - Skin No breakdown No abnormalities - Eyes No abnormalities - ENMT No abnormalities - Neck No abnormalities - CVS RRR - Chest Clear - Abd + bowel spounds - GI Soft Deferred - No abnormalities - Ext No significant edema - MSK 4+/5 weakness in both lower extremities. - Neuro No focal deficits - Psych No abnormalities ASSESSMENT: Pt. is a 83 yo Right-handed white male.On 07/19/2018 he was admitted to [facility] with diagno sis Chronic atrial fibrillation (I48.2).His impairment category is Cardiac 09 - Cardiac Disorders (0 9).Pre-morbidly, Pt. was independent/mod-I in Social Cognition, Self-Care, Locomotion, Sphincter Cont rol, Transfers Control, and Communication; and he had good Sphincter Control.Currently, he has defici ts of Balance, Self-Care, Locomotion, Endurance, Safety Awareness, and Transfers Control.Pt. is now r eferred to [facility] for acute in-patient rehabilitation in order to maximize patient's functional independence in activities of daily living, strength, ROM, and mobility.- Rehab Goal Patient has realistic goal of being discharged at assistance level 6-Aditya to reside at Home with Fam minal/Relatives. MDM/PLAN: - Physical Therapy Gait dysfunction - to improve, our physical therapists will perform initial evaluation of pt's statu s upon admission and devise an individualized program for Gait Training, and Wheel Chair mobility Inability to transfer - to improve, our physical therapists will perform initial evaluation of pt's status upon admission and devise an individualized program for Bed mobility Need for home safety evaluation - to improve, our physical therapists will perform initial evaluatio n of pt's status upon admission and devise an individualized program for Home Evaluation Need in caregiver upon discharge - to improve, our physical therapists will perform initial evaluati on of pt's status upon admission and devise an individualized program for Caregiver Training New precaution - to improve, our physical therapists will perform initial evaluation of pt's status upon admission and devise an individualized program for Patient precaution education Edema - to improve, our physical therapists will perform initial evaluation of pt's status upon admi ssion and devise an individualized program for Elevation Training, and Lymphedema Therapy Poor balance - to improve, our physical therapists will perform initial evaluation of pt's status up on admission and devise an individualized program for Balance Training Poor endurance - to improve, our physical therapists will perform initial evaluation of pt's status upon admission and devise an individualized program for Endurance Training Weakness - to improve, our physical therapists will perform initial evaluation of pt's status upon a dmission and devise an individualized program for Aquatic Therapy, Neuromuscular Reeducation, and Str engthening Achieving independence - to improve, our physical therapists will perform initial evaluation of pt's status upon admission and devise an individualized program for Community Reintegration Activities - Occupational Therapy ADL deficits - to improve, our occupation therapists will perform initial evaluation of pt's status upon admission and devise an individualized program for Bathing, Bed mobility, Community Reintegratio n, Cooking, Dressing, Eating, Fine Motor Skills, Grooming, Homemaking, Kitchen Mobility, Laundry, Pat ient Education, Safety Awareness, Splinting - Positioning, Transfers(Toilet, Tub, Shower), and Wheel Chair Management Need for medical care administrator - to improve, our occupation therapists will perform initial evaluation of pt's status upon admission and devise an individualized program for Caregiver Training Weakness - to improve, our occupation therapists will perform initial evaluation of pt's status upon admission and devise an individualized program for Aquatic Therapy, Balance, Endurance, UE ROM, and UE strengthening - Diet Type Continue Regular - Diet - Liquid Texture Continue Regular - Tube Feed Continue N/A - Lab Results blood Sugar Check ACHS - Diet - Solid Texture Continue Regular - Shower allowing shower FUNCTIONAL STATUS: UPDATED AT WEEKLY TEAM CONFERENCE - Bladder Same accident frequency: 7-Ind - No accidents in the past 7 days - Bowel Same accident frequency: 7-Ind - No accidents in the past 7 days - Walking Same score based on distance walked: 3(>=150ft) - Wheelchair Same score based on distance traveled: 0(N/A) FUNCTIONAL STATUS: - Self-Care A. Eating sup B. Grooming sup C. Bathing sup D. Dressing - Upper sup E. Dressing - Lower Vincent F. Toileting Vincent - Sphincter Control G: Bladder control Ind H: Bowel control Ind - Transfers Control I. Bed/Chair/Wheelchair sup J. Toilet sup K. Tub/Shower ADNO - Locomotion L. Walk/Wheelchair (C) sup L. Walk/Wheelchair (W) sup M. Stairs ADNO - Communication N. Comprehension (B) Ind O. Expression (B) Ind - Social Cognition P. Social Interaction Ind Q. Problem Solving Ind R. Memory Ind - Endurance Fair - Balance Fair - Safety Awareness Fair CURRENT FUNC. DEFICITS: Balance, Self-Care, Locomotion, Endurance, Safety Awareness, and Transfers Control SIGNATURE PANEL: (CDT)
[2018-07-31] MEDS: DOCUSATE NA/SENNA CONC 1 TAB PO SCH (21:00)
[2018-07-31] MEDS: MELATONIN 3 MG TABLET PO PRN (21:14)
[2018-08-01] MEDS: METOPROLOL XL 25 MG TAB PO SCH (05:07)
[2018-08-01 06:20] LABS: Albumin 2.9 g/dL (3.4-5.0); Phosphorus 3.3 mg/dL (2.5-4.9); Potassium 4.4 mmol/L (3.5-5.1)
[2018-08-01] MEDS: INSULIN -REGULAR HUMAN 50 UNIT/0.5 ML ML SQ SCH ×4 (07:30→20:55)
[2018-08-01] MEDS: FINASTERIDE 5 MG TAB PO SCH (07:49)
[2018-08-01] MEDS: FERROUS SULFATE 325 MG TAB PO SCH (07:49)
[2018-08-01] MEDS: CRANBERRY FRUIT EXTRACT 200 MG CAP PO SCH ×2 (07:50→21:00)
[2018-08-01] MEDS: PANTOPRAZOLE 40MG TABLET PO SCH (07:50)
[2018-08-01] MEDS: ASPIRIN EC 81 MG TAB PO SCH (07:50)
[2018-08-01] MEDS: MAGNESIUM OXIDE 400 MG TAB PO SCH ×2 (07:50→20:59)
[2018-08-01] MEDS: TAMSULOSIN 0.4 MG SR CAP PO SCH (07:50)
[2018-08-01] MEDS: PROMOD 30 ML DOSE PO SCH ×2 (07:51→20:57)
[2018-08-01] MEDS: [UNRECOGNIZED DRUG - OTHER] OPTH SCH ×3 (07:51→20:56)
[2018-08-01] MEDS: INSULIN 70/30 100 UNITS/ML SQ SCH (08:30)
--- NOTE | 2018-08-01 13:39 | FAST ---
SHIFT START DATE/TIME: 08/01/2018 07:00 (CDT) SHIFT END DATE/TIME: 08/01/2018 19:00 (CDT) NAME LUANN WOODS DATE OF : 1935 DATE OF ADMISSION: 07/27/2018 18:34 (CDT) PHONE: AGE: 83 SSN# [id number] GENDER: Male ENCOUNTER PHYSICIAN: Dr. Juan C Brooks M.D. ADMISSION DIAGNOSIS: - Cardiac 09 - Cardiac Disorders (09) Chronic atrial fibrillation (I48.2). EATING: EATING - STEP 1: Does the patient require assistance when eating? Yes. EATING - STEP 2: Does the patient require the assistance of a helper? No, patient only requires an assistive device, O R s/he takes more than reasonable time to eat, OR there is a safety concern, OR s/he requires modifie d food consistency EATING - SCORE: 6-SARATH GROOMING: Comb/brush hair Oral care Wash, rinse, and dry face Wash, rinse, and dry hands GROOMING - STEP 1: Does the patient require assistance when grooming? Yes. GROOMING - STEP 2: Does the patient require the assistance of a helper? No. The patient only requires an assistive devic e, OR takes more than reasonable time to groom, OR there is a concern for safety as the patient groom s GROOMING - SCORE: 6-SARATH BATHING: Activity did not occur on this shift BATHING - SCORE: 0-UNK DRESSING - UPPER BODY: Activity did not occur on this shift ARTICLES SCORE Total number of steps: 0 DRESSING - UPPER BODY - SCORE: 0-UNK DRESSING - LOWER BODY: Elastic waist pants (three steps) Slip-on shoe - Left foot (one step) Slip-on shoe - Right foot (one step) ARTICLES SCORE Total number of steps: 5 DRESSING - LOWER BODY - STEP 1: Does the patient require help when dressing below the waist? Yes. DRESSING - LOWER BODY - STEP 2: Does the patient require the assistance of a helper? Yes. DRESSING - LOWER BODY - STEP 3: Does the helper touch the patient while dressing? No. DRESSING - LOWER BODY - SCORE: 5-SUP TOILETING: TOILETING - STEP 1: Does the patient require assistance with toileting? Yes. TOILETING - STEP 2: Does the patient require the assistance of a helper? Yes. TOILETING - STEP 3: How much assistance does the patient require from the helper? Only supervision TOILETING - SCORE: 5-SUP BLADDER MANAGEMENT: BLADDER MANAGEMENT - STEP 1: Does the patient control the bladder completely and intentionally without equipment or devices or med ications, and is always continent? No. BLADDER MANAGEMENT - STEP 2: Does the patient require the assistance of a helper? No, patient requires and independently uses an a ssistive device, such as a urinal, bedpan, bedside commode, catheter, absorbent pad, or collecting de vice BLADDER MANAGEMENT - SCORE: 6-SARATH BLADDER MANAGEMENT - FREQUENCY OF ACCIDENTS: BLADDER MANAGEMENT(FA) - STEP 1: How many accidents has the patient had during the current shift? 0 BOWEL MANAGEMENT: Activity did not occur on this shift BOWEL MANAGEMENT - SCORE: 7-IND TRANSFERS: BED, CHAIR, WHEELCHAIR: TRANSFERS: BED, CHAIR, WHEELCHAIR - STEP 1: Does the patient require assistance with bed, chair, or wheelchair transfers? Yes. TRANSFERS: BED, CHAIR, WHEELCHAIR - STEP 2: Does the patient require the assistance of a helper? Yes. TRANSFERS: BED, CHAIR, WHEELCHAIR - STEP 3: How much assistance does the patient require from the helper? Only supervision TRANSFERS: BED, CHAIR, WHEELCHAIR - SCORE: 5-SUP TRANSFERS: TOILET: TRANSFERS: TOILET - STEP 1: Does the patient require assistance with toilet transfers? Yes. TRANSFERS: TOILET - STEP 2: Does the patient require the assistance of a helper? Yes. TRANSFERS: TOILET - STEP 3: How much assistance does the patient require from the helper? Only supervision, cuing, coaxing, OR he lp to set out transfer equipment or to lock brakes and/or lift foot rests TRANSFERS: TOILET - SCORE: 5-SUP TRANSFERS: SHOWER: Activity did not occur on this shift TRANSFERS: SHOWER - SCORE: 0-UNK TRANSFERS: TUB: Activity did not occur on this shift TRANSFERS: TUB - SCORE: 0-UNK LOCOMOTION: WALK: Activity did not occur on this shift LOCOMOTION: WALK - SCORE: 0-UNK LOCOMOTION: WHEELCHAIR: LOCOMOTION: WHEELCHAIR - STEP 1: Does the patient need help to go 150 feet in a wheelchair? Yes. LOCOMOTION: WHEELCHAIR - STEP 2: How much assistance does the patient need from the helper? Only supervision, cuing, or coaxing LOCOMOTION: WHEELCHAIR - SCORE: 5-SUP COMPREHENSION: COMPREHENSION: TYPE: Both COMPREHENSION - STEP 1: Does the patient require help to understand complex and abstract ideas (such as current events, finan mt, discharge planning, medical issues, relationships, etc)? No. COMPREHENSION - STEP 2: Does the patient need extra time, require an assistive device (such as glasses for visual comprehensi on or a hearing aid for auditory comprehension) or does s/he have mild difficulty understanding compl ex and abstract information? Yes. COMPREHENSION - SCORE: 6-SARATH EXPRESSION EXPRESSION: TYPE: Both EXPRESSION - STEP 1: Does the patient require help expressing complex and abstract ideas (such as current events, finances , discharge planning, medical issues, relationships, etc)? No. EXPRESSION - STEP 2: Does the patient need extra time, require an assistive device (such as augmentive communication syste m or a communication board), OR does s/he have mild difficulty expressing complex and abstract ideas (including mild dysarthria or mild word-find problems)? Yes. EXPRESSION - SCORE: 6-SARATH SOCIAL INTERACTION: SOCIAL INTERACTION - STEP 1: Does the patient require a helper to interact with others in social and therapeutic situations? No. SOCIAL INTERACTION - STEP 2: Does the patient need extra time in social situations, OR does s/he interact with staff, other patien ts, and family members ONLY in structured environments, OR does s/he require medication for social in teraction? Yes, patient needs extra time SOCIAL INTERACTION - SCORE: 6-SARATH PROBLEM SOLVING: PROBLEM SOLVING - STEP 1: Does the patient need help to solve complex problems such as managing a checking account or confronti ng interpersonal problems? No. PROBLEM SOLVING - STEP 2: Does the patient require extra time to make decisions or solve problems, OR does s/he have slight dif ficulty reading, initiating, or self-correcting in unfamiliar situations? Yes, patient needs extra ti me. PROBLEM SOLVING - SCORE: 6-SARATH MEMORY: MEMORY - STEP 1: Does the patient need help to remember frequently encountered people, daily routines, and executing r equests? No. MEMORY - STEP 2: Does the patient have slight difficulty recognizing frequently encountered people, daily routines, or executing requests without the need for repetition or using self-initiated or environmental cues to remember? Yes. MEMORY - SCORE: 6-SARATH SIGNATURE PANEL: The following modified sections: Eating - Score, Grooming - Score, Bathing - Score, Dressing - Upper Body - Score, Dressing - Lower Body - Score, Toileting - Score, Bladder Management - Score, Bowel Man agement - Score, Transfers: Bed, Chair, Wheelchair - Score, Transfers: Toilet - Score, Transfers: Laurie wer - Score, Transfers: Tub - Score, Locomotion: Walk - Score, Locomotion: Wheelchair - Score, Compre hension - Score, Expression - Score, Social Interaction - Score, Problem Solving - Score, Memory - Sc ore were [electronically] signed by Susan Panda C.N.A. on MonAug 01 2018 13:37:29 T-0500 (Centra l Daylight Time)
--- NOTE | 2018-08-01 15:03 | FAST ---
ENCOUNTER DATE AND TIME: 08/01/2018 08:00 (CDT) NAME LUANN WOODS DATE OF : 1935 DATE OF ADMISSION: 07/27/2018 18:34 (CDT) PHONE: AGE: 83 SSN# [id number] GENDER: Male ENCOUNTER PHYSICIAN: Dr. Juan C Brooks M.D. ADMISSION DIAGNOSIS: - Cardiac 09 - Cardiac Disorders (09) Chronic atrial fibrillation (I48.2). EATING: Activity did not occur on this shift EATING - SCORE: 0-UNK GROOMING: Activity did not occur on this shift GROOMING - SCORE: 0-UNK BATHING: Activity did not occur on this shift BATHING - SCORE: 0-UNK DRESSING - UPPER BODY: Activity did not occur on this shift Patient is not dressing in public clothing ARTICLES SCORE Total number of steps: 0 DRESSING - UPPER BODY - SCORE: 0-UNK DRESSING - LOWER BODY: Activity did not occur on this shift Patient is not dressing in public clothing ARTICLES SCORE Total number of steps: 0 DRESSING - LOWER BODY - SCORE: 0-UNK TOILETING: Activity did not occur on this shift TOILETING - SCORE: 0-UNK BLADDER MANAGEMENT: Activity did not occur on this shift BLADDER MANAGEMENT - SCORE: 7-IND BOWEL MANAGEMENT: Activity did not occur on this shift BOWEL MANAGEMENT - SCORE: 7-IND TRANSFERS: BED, CHAIR, WHEELCHAIR: TRANSFERS: BED, CHAIR, WHEELCHAIR - STEP 1: Does the patient require assistance with bed, chair, or wheelchair transfers? Yes. TRANSFERS: BED, CHAIR, WHEELCHAIR - STEP 2: Does the patient require the assistance of a helper? Yes. TRANSFERS: BED, CHAIR, WHEELCHAIR - STEP 3: How much assistance does the patient require from the helper? Only supervision TRANSFERS: BED, CHAIR, WHEELCHAIR - SCORE: 5-SUP TRANSFERS: TOILET: Activity did not occur on this shift TRANSFERS: TOILET - SCORE: 0-UNK TRANSFERS: SHOWER: Activity did not occur on this shift TRANSFERS: SHOWER - SCORE: 0-UNK TRANSFERS: TUB: Activity did not occur on this shift TRANSFERS: TUB - SCORE: 0-UNK LOCOMOTION: WALK: LOCOMOTION: WALK - STEP 1: Does the patient need help to walk 150 feet? Yes. LOCOMOTION: WALK - STEP 2: How much assistance does the patient require to walk a minimum of 150 feet? Only supervision, cuing, or coaxing LOCOMOTION: WALK - SCORE: 5-SUP LOCOMOTION: WHEELCHAIR: Activity did not occur on this shift LOCOMOTION: WHEELCHAIR - SCORE: 0-UNK LOCOMOTION: STAIRS: LOCOMOTION: STAIRS - STEP 1: Does the patient need help to go up and down 12 to 14 stairs? Yes. LOCOMOTION: STAIRS - STEP 2: How much assistance does the patient need from the helper to go a minimum of 12 to 14 stairs? Only rosa pervision, cuing, or coaxing LOCOMOTION: STAIRS - SCORE: 5-SUP COMPREHENSION: COMPREHENSION - SCORE: 0-UNK EXPRESSION EXPRESSION - SCORE: 0-UNK SOCIAL INTERACTION: SOCIAL INTERACTION - SCORE: 0-UNK PROBLEM SOLVING: PROBLEM SOLVING - SCORE: 0-UNK MEMORY: MEMORY - SCORE: 0-UNK SIGNATURE PANEL: The following modified sections: Transfers: Bed, Chair, Wheelchair - Score, Transfers: Toilet - Score , Locomotion: Walk - Score, Locomotion: Wheelchair - Score, Locomotion: Stairs - Score were [electron [email or web address]] signed by Kev Herrera, PT on MonAug 01 2018 15:03:06 T-0500 (Central Daylight Time)
[2018-08-01] MEDS: DOCUSATE NA/SENNA CONC 1 TAB PO SCH (21:00)
[2018-08-01] MEDS: ATORVASTATIN 20 MG TAB PO SCH (21:00)
--- NOTE | 2018-08-02 00:33 | FAST ---
SHIFT START DATE/TIME: 08/01/2018 19:00 (CDT) SHIFT END DATE/TIME: 08/02/2018 07:00 (CDT) NAME LUANN WOODS DATE OF : 1935 DATE OF ADMISSION: 07/27/2018 18:34 (CDT) PHONE: AGE: 83 SSN# [id number] GENDER: Male ENCOUNTER PHYSICIAN: Dr. Juan C Brooks M.D. ADMISSION DIAGNOSIS: - Cardiac 09 - Cardiac Disorders (09) Chronic atrial fibrillation (I48.2). EATING: Activity did not occur on this shift EATING - SCORE: 0-UNK GROOMING: Wash, rinse, and dry hands GROOMING - STEP 1: Does the patient require assistance when grooming? Yes. GROOMING - STEP 2: Does the patient require the assistance of a helper? Yes. GROOMING - STEP 3: How much assistance does the patient require from the helper? Only prior equipment preparation/set up from the helper GROOMING - SCORE: 5-SUP BATHING: Activity did not occur on this shift BATHING - SCORE: 0-UNK DRESSING - UPPER BODY: Patient is not dressing in public clothing ARTICLES SCORE Total number of steps: 0 DRESSING - UPPER BODY - SCORE: 0-UNK DRESSING - LOWER BODY: Patient is not dressing in public clothing ARTICLES SCORE Total number of steps: 0 DRESSING - LOWER BODY - SCORE: 0-UNK TOILETING: TOILETING - STEP 1: Does the patient require assistance with toileting? Yes. TOILETING - STEP 2: Does the patient require the assistance of a helper? Yes. TOILETING - STEP 3: How much assistance does the patient require from the helper? Only supervision TOILETING - SCORE: 5-SUP BLADDER MANAGEMENT: BLADDER MANAGEMENT - STEP 1: Does the patient control the bladder completely and intentionally without equipment or devices or med ications, and is always continent? No. BLADDER MANAGEMENT - STEP 2: Does the patient require the assistance of a helper? Yes. BLADDER MANAGEMENT - STEP 3: How much assistance does the patient require from the helper? Only supervision, stand-by, cuing, or c oaxing BLADDER MANAGEMENT - SCORE: 5-SUP BOWEL MANAGEMENT: Activity did not occur on this shift BOWEL MANAGEMENT - SCORE: 7-IND TRANSFERS: BED, CHAIR, WHEELCHAIR: TRANSFERS: BED, CHAIR, WHEELCHAIR - STEP 1: Does the patient require assistance with bed, chair, or wheelchair transfers? Yes. TRANSFERS: BED, CHAIR, WHEELCHAIR - STEP 2: Does the patient require the assistance of a helper? Yes. TRANSFERS: BED, CHAIR, WHEELCHAIR - STEP 3: How much assistance does the patient require from the helper? Only supervision TRANSFERS: BED, CHAIR, WHEELCHAIR - SCORE: 5-SUP TRANSFERS: TOILET: TRANSFERS: TOILET - STEP 1: Does the patient require assistance with toilet transfers? Yes. TRANSFERS: TOILET - STEP 2: Does the patient require the assistance of a helper? No. Patient only requires an assistive device rosa ch as a grab bar or special seat, OR s/he takes more than reasonable time to perform toilet transfers , OR there is a safety concern when s/he performs toilet transfers. TRANSFERS: TOILET - SCORE: 6-SARATH TRANSFERS: SHOWER: Activity did not occur on this shift TRANSFERS: SHOWER - SCORE: 0-UNK TRANSFERS: TUB: Activity did not occur on this shift TRANSFERS: TUB - SCORE: 0-UNK LOCOMOTION: WALK: Activity did not occur on this shift LOCOMOTION: WALK - SCORE: 0-UNK LOCOMOTION: WHEELCHAIR: Activity did not occur on this shift LOCOMOTION: WHEELCHAIR - SCORE: 0-UNK COMPREHENSION: COMPREHENSION: TYPE: Both COMPREHENSION - STEP 1: Does the patient require help to understand complex and abstract ideas (such as current events, finan mt, discharge planning, medical issues, relationships, etc)? No. COMPREHENSION - STEP 2: Does the patient need extra time, require an assistive device (such as glasses for visual comprehensi on or a hearing aid for auditory comprehension) or does s/he have mild difficulty understanding compl ex and abstract information? Yes. COMPREHENSION - SCORE: 6-SARATH EXPRESSION EXPRESSION: TYPE: Both EXPRESSION - STEP 1: Does the patient require help expressing complex and abstract ideas (such as current events, finances , discharge planning, medical issues, relationships, etc)? No. EXPRESSION - STEP 2: Does the patient need extra time, require an assistive device (such as augmentive communication syste m or a communication board), OR does s/he have mild difficulty expressing complex and abstract ideas (including mild dysarthria or mild word-find problems)? No. EXPRESSION - SCORE: 7-IND SOCIAL INTERACTION: SOCIAL INTERACTION - STEP 1: Does the patient require a helper to interact with others in social and therapeutic situations? No. SOCIAL INTERACTION - STEP 2: Does the patient need extra time in social situations, OR does s/he interact with staff, other patien ts, and family members ONLY in structured environments, OR does s/he require medication for social in teraction? Yes, patient needs extra time SOCIAL INTERACTION - SCORE: 6-SARATH PROBLEM SOLVING: PROBLEM SOLVING - STEP 1: Does the patient need help to solve complex problems such as managing a checking account or confronti ng interpersonal problems? No. PROBLEM SOLVING - STEP 2: Does the patient require extra time to make decisions or solve problems, OR does s/he have slight dif ficulty reading, initiating, or self-correcting in unfamiliar situations? Yes, patient needs extra ti me. PROBLEM SOLVING - SCORE: 6-SARATH MEMORY: MEMORY - STEP 1: Does the patient need help to remember frequently encountered people, daily routines, and executing r equests? No. MEMORY - STEP 2: Does the patient have slight difficulty recognizing frequently encountered people, daily routines, or executing requests without the need for repetition or using self-initiated or environmental cues to remember? Yes. MEMORY - SCORE: 6-SARATH SIGNATURE PANEL: The following modified sections: Eating - Score, Grooming - Score, Dressing - Upper Body - Score, Donta ssing - Lower Body - Score, Toileting - Score, Bladder Management - Score, Bowel Management - Score, Transfers: Bed, Chair, Wheelchair - Score, Transfers: Toilet - Score, Transfers: Shower - Score, Mijares sfers: Tub - Score, Locomotion: Walk - Score, Locomotion: Wheelchair - Score, Comprehension - Score, Expression - Score, Social Interaction - Score, Problem Solving - Score, Memory - Score were [electro nically] signed by Georgina Matt CNA on MonAug 02 2018 00:33:10 GMT-0500 (Central Daylight Time)
--- NOTE | 2018-08-02 00:34 | PN ---
Date of Progress Note: 08/01/2018 NEPHROLOGY FOLLOWUP NOTE Subjective: The patient was admitted for rehabilitation. The patient is status post acute kidney in jury secondary to poor perfusion, ATN; required dialysis, recovered, resolved. Has solitary kidney. Physical Examination: Vital Signs: Blood pressure 113/63, pulse of 80. Chest: Clear to auscultation. Heart: S1, S2. Regular. Abdomen: Soft, nontender. Extremities: No edema. Laboratory Data: H and H .2. Sodium 139, potassium 4.4, bicarb 23, BUN 45, creatinine 2.7, GFR of 23, calcium 8.4, phosphorus 3.3, PTH 120. Urinalysis has wbc's of 20, rbc's numerous. Medications: Current medications the patient is on include: 1.Aspirin. 2.Levaquin. 3.Flomax. 4.Atorvastatin. 5.Tylenol. 6. . 7.Prednisone. 8.Insulin. 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 On recov samara, nonoliguric. No hyperkalemia. Ultrasound shows normal size kidney. I am going to continue to monitor the patient. 2.Hematuria secondary to anticoagulation. We are going to treat for urinary tract infection if juany turia does not resolve. The patient is going to need a CT scan to evaluate if any recurrence of the cancer. 3.Deconditioning. Continue PT, OT. 4.Anemia, stable. We will follow up. 5.Hypertension, controlled, optimal. Continue current medication. CALVIN Voice ID: [id number] Report ID: [id number]
[2018-08-02] MEDS: METOPROLOL XL 25 MG TAB PO SCH (05:03)
[2018-08-02] MEDS: PANTOPRAZOLE 40MG TABLET PO SCH (05:03)
[2018-08-02 06:47] LABS: Absolute Lymphocytes (CBC) 1.8 K/uL (0.7-4.9); Absolute Monocytes 0.7 K/uL (0.1-1.3); Absolute Neutrophil 5.2 K/uL (1.8-8.0); Basophils % 0.6 % (0-1.3); Eosinophils % 2.5 % (0-4.4); Hematocrit 31.5 % (39.6-49.0); Lymphocytes % 22.1 % (15.3-44.8); MCH 30.7 pg (27.0-35.0); MCV 87.1 fL (80-100); Monocytes % 9.2 % (3.3-12.3); RBC Red Blood Cell Count 3.62 M/uL (4.33-5.43)
[2018-08-02 07:05] LABS: Albumin 2.8 g/dL (3.4-5.0); Magnesium 1.6 mg/dL (1.8-2.4); Phosphorus 4.1 mg/dL (2.5-4.9); Potassium 4.4 mmol/L (3.5-5.1); Prealbumin 25.3 mg/dL (20-40)
[2018-08-02] MEDS: INSULIN -REGULAR HUMAN 50 UNIT/0.5 ML ML SQ SCH ×4 (07:30→20:01)
[2018-08-02] MEDS: FERROUS SULFATE 325 MG TAB PO SCH (08:31)
[2018-08-02] MEDS: CRANBERRY FRUIT EXTRACT 200 MG CAP PO SCH ×2 (08:31→20:01)
[2018-08-02] MEDS: MAGNESIUM OXIDE 400 MG TAB PO SCH ×2 (08:31→20:01)
[2018-08-02] MEDS: FINASTERIDE 5 MG TAB PO SCH (08:31)
[2018-08-02] MEDS: ASPIRIN EC 81 MG TAB PO SCH (08:31)
[2018-08-02] MEDS: TAMSULOSIN 0.4 MG SR CAP PO SCH (08:32)
[2018-08-02] MEDS: PROMOD 30 ML DOSE PO SCH ×2 (08:33→20:03)
[2018-08-02] MEDS: levoFLOXacin 500 MG TAB PO SCH (08:33)
[2018-08-02] MEDS: [UNRECOGNIZED DRUG - OTHER] OPTH SCH ×2 (08:33→14:00)
[2018-08-02] MEDS: INSULIN 70/30 100 UNITS/ML SQ SCH (09:06)
--- NOTE | 2018-08-02 10:50 | FAST ---
SHIFT START DATE/TIME: 08/02/2018 07:00 (CDT) SHIFT END DATE/TIME: 08/02/2018 19:00 (CDT) NAME LUANN WOODS DATE OF : 1935 DATE OF ADMISSION: 07/27/2018 18:34 (CDT) PHONE: AGE: 83 SSN# [id number] GENDER: Male ENCOUNTER PHYSICIAN: Dr. Juan C Brooks M.D. ADMISSION DIAGNOSIS: - Cardiac 09 - Cardiac Disorders (09) Chronic atrial fibrillation (I48.2). EATING: EATING - STEP 1: Does the patient require assistance when eating? Yes. EATING - STEP 2: Does the patient require the assistance of a helper? No, patient only requires an assistive device, O R s/he takes more than reasonable time to eat, OR there is a safety concern, OR s/he requires modifie d food consistency EATING - SCORE: 6-SARATH GROOMING: Comb/brush hair Wash, rinse, and dry face Wash, rinse, and dry hands GROOMING - STEP 1: Does the patient require assistance when grooming? Yes. GROOMING - STEP 2: Does the patient require the assistance of a helper? No. The patient only requires an assistive devic e, OR takes more than reasonable time to groom, OR there is a concern for safety as the patient groom s GROOMING - SCORE: 6-SARATH BATHING: Activity did not occur on this shift BATHING - SCORE: 0-UNK DRESSING - UPPER BODY: T-shirt/pullover shirt (four steps) ARTICLES SCORE Total number of steps: 4 DRESSING - UPPER BODY - STEP 1: Does the patient require help when dressing above the waist? Yes. DRESSING - UPPER BODY - STEP 2: Does the patient require the assistance of a helper? No. Patient only requires an assistive device, s uch as a button hook, velcro, or senior java ui developer. OR s/he takes more than reasonable time as s/he dresses the upper body. OR there is a concern for safety when s/he dresses the upper body DRESSING - UPPER BODY - SCORE: 6-SARATH DRESSING - LOWER BODY: Elastic waist pants (three steps) ARTICLES SCORE Total number of steps: 3 DRESSING - LOWER BODY - STEP 1: Does the patient require help when dressing below the waist? Yes. DRESSING - LOWER BODY - STEP 2: Does the patient require the assistance of a helper? No. Patient requires an assistive device such as a senior java ui developer. OR s/he takes more than reasonable time as s/he dresses the lower body, OR there is a con cern for safety when s/he dresses the lower body DRESSING - LOWER BODY - SCORE: 6-SARATH TOILETING: TOILETING - STEP 1: Does the patient require assistance with toileting? Yes. TOILETING - STEP 2: Does the patient require the assistance of a helper? Yes. TOILETING - STEP 3: How much assistance does the patient require from the helper? Only supervision TOILETING - SCORE: 5-SUP BLADDER MANAGEMENT: BLADDER MANAGEMENT - STEP 1: Does the patient control the bladder completely and intentionally without equipment or devices or med ications, and is always continent? No. BLADDER MANAGEMENT - STEP 2: Does the patient require the assistance of a helper? Yes. BLADDER MANAGEMENT - STEP 3: How much assistance does the patient require from the helper? Only supervision, stand-by, cuing, or c oaxing BLADDER MANAGEMENT - SCORE: 5-SUP BLADDER MANAGEMENT - FREQUENCY OF ACCIDENTS: BLADDER MANAGEMENT(FA) - STEP 1: How many accidents has the patient had during the current shift? 0 BOWEL MANAGEMENT: Activity did not occur on this shift BOWEL MANAGEMENT - SCORE: 7-IND BOWEL MANAGEMENT - FREQUENCY OF ACCIDENTS: BOWEL MANAGEMENT(FA) - STEP 1: How many accidents has the patient had during the current shift? 0 TRANSFERS: BED, CHAIR, WHEELCHAIR: TRANSFERS: BED, CHAIR, WHEELCHAIR - STEP 1: Does the patient require assistance with bed, chair, or wheelchair transfers? Yes. TRANSFERS: BED, CHAIR, WHEELCHAIR - STEP 2: Does the patient require the assistance of a helper? Yes. TRANSFERS: BED, CHAIR, WHEELCHAIR - STEP 3: How much assistance does the patient require from the helper? Only supervision TRANSFERS: BED, CHAIR, WHEELCHAIR - SCORE: 5-SUP TRANSFERS: TOILET: TRANSFERS: TOILET - STEP 1: Does the patient require assistance with toilet transfers? Yes. TRANSFERS: TOILET - STEP 2: Does the patient require the assistance of a helper? Yes. TRANSFERS: TOILET - STEP 3: How much assistance does the patient require from the helper? Only supervision, cuing, coaxing, OR he lp to set out transfer equipment or to lock brakes and/or lift foot rests TRANSFERS: TOILET - SCORE: 5-SUP TRANSFERS: SHOWER: Activity did not occur on this shift TRANSFERS: SHOWER - SCORE: 0-UNK TRANSFERS: TUB: Activity did not occur on this shift TRANSFERS: TUB - SCORE: 0-UNK LOCOMOTION: WALK: Activity did not occur on this shift LOCOMOTION: WALK - SCORE: 0-UNK LOCOMOTION: WHEELCHAIR: LOCOMOTION: WHEELCHAIR - STEP 1: Does the patient need help to go 150 feet in a wheelchair? Yes. LOCOMOTION: WHEELCHAIR - STEP 2: How much assistance does the patient need from the helper? Only supervision, cuing, or coaxing LOCOMOTION: WHEELCHAIR - SCORE: 5-SUP COMPREHENSION: COMPREHENSION: TYPE: Both COMPREHENSION - STEP 1: Does the patient require help to understand complex and abstract ideas (such as current events, finan mt, discharge planning, medical issues, relationships, etc)? No. COMPREHENSION - STEP 2: Does the patient need extra time, require an assistive device (such as glasses for visual comprehensi on or a hearing aid for auditory comprehension) or does s/he have mild difficulty understanding compl ex and abstract information? Yes. COMPREHENSION - SCORE: 6-SARATH EXPRESSION EXPRESSION: TYPE: Both EXPRESSION - STEP 1: Does the patient require help expressing complex and abstract ideas (such as current events, finances , discharge planning, medical issues, relationships, etc)? No. EXPRESSION - STEP 2: Does the patient need extra time, require an assistive device (such as augmentive communication syste m or a communication board), OR does s/he have mild difficulty expressing complex and abstract ideas (including mild dysarthria or mild word-find problems)? Yes. EXPRESSION - SCORE: 6-SARATH SOCIAL INTERACTION: SOCIAL INTERACTION - STEP 1: Does the patient require a helper to interact with others in social and therapeutic situations? No. SOCIAL INTERACTION - STEP 2: Does the patient need extra time in social situations, OR does s/he interact with staff, other patien ts, and family members ONLY in structured environments, OR does s/he require medication for social in teraction? Yes, patient needs extra time SOCIAL INTERACTION - SCORE: 6-SARATH PROBLEM SOLVING: PROBLEM SOLVING - STEP 1: Does the patient need help to solve complex problems such as managing a checking account or confronti ng interpersonal problems? No. PROBLEM SOLVING - STEP 2: Does the patient require extra time to make decisions or solve problems, OR does s/he have slight dif ficulty reading, initiating, or self-correcting in unfamiliar situations? Yes, patient needs extra ti me. PROBLEM SOLVING - SCORE: 6-SARATH MEMORY: MEMORY - STEP 1: Does the patient need help to remember frequently encountered people, daily routines, and executing r equests? No. MEMORY - STEP 2: Does the patient have slight difficulty recognizing frequently encountered people, daily routines, or executing requests without the need for repetition or using self-initiated or environmental cues to remember? Yes. MEMORY - SCORE: 6-SARATH SIGNATURE PANEL: The following modified sections: Eating - Score, Grooming - Score, Bathing - Score, Dressing - Upper Body - Score, Dressing - Lower Body - Score, Toileting - Score, Bladder Management - Score, Bowel Man agement - Score, Transfers: Bed, Chair, Wheelchair - Score, Transfers: Toilet - Score, Transfers: Laurie wer - Score, Transfers: Tub - Score, Locomotion: Walk - Score, Locomotion: Wheelchair - Score, Compre hension - Score, Expression - Score, Social Interaction - Score, Problem Solving - Score, Memory - Sc ore were [electronically] signed by Susan Panda C.N.A. on MonAug 02 2018 10:48:45 T-0500 (Centra l Daylight Time)
[2018-08-02] MEDS: NA CHLORIDE 0.9% 1,000 ML IV SCH (14:02)
--- NOTE | 2018-08-02 17:22 | R.PN ---
ENCOUNTER DATE AND TIME: 08/02/2018 17:18 (CDT) NAME LUANN WOODS DATE OF : 1935 DATE OF ADMISSION: 07/27/2018 18:34 (CDT) Chronic atrial fibrillation (I48.2)CHIEF COMPLAINT: Cardiac debility SUBJECTIVE: Pt denied any depression. Pt denied any Shortness of Breath. Ambulated 1250' with standby assistance using a rolling walker. Up and down 15 steps with standby as sistance. Self-propelled wheelchair 250' with modified independence. VITAL SIGNS Temperature: 98 F SBP/DBP: 119/61 Pulse: 88 Resp: 15 MEDICATION ALLERGIES: No Known Drug Allergies (NKDA) ENVIRONMENTAL ALLERGIES: None Known - Substance Allergies None Known - Other Allergies None Known NURSING: - Shower allowing shower - Lab Results blood Sugar Check ACHS ACTIVITIES OOB only with supervision THERAPIES: - Occupational Therapy Evaluate and Treat. - Physical Therapy Evaluate and Treat. PHYSICAL EXAM - Gen Alert and awake Lying in bed No apparent distress Oriented to: person, time, and place - Skin No breakdown No abnormalities - Eyes No abnormalities - ENMT No abnormalities - Neck No abnormalities - CVS RRR - Chest Clear - Abd + bowel spounds - GI Soft Deferred - No abnormalities - Ext No significant edema - MSK 4+/5 weakness in both lower extremities. - Neuro No focal deficits - Psych No abnormalities ASSESSMENT: Pt. is a 83 yo Right-handed white male.On 07/19/2018 he was admitted to [facility] with diagno sis Chronic atrial fibrillation (I48.2).His impairment category is Cardiac 09 - Cardiac Disorders (0 9).Pre-morbidly, Pt. was independent/mod-I in Social Cognition, Self-Care, Locomotion, Sphincter Cont rol, Transfers Control, and Communication; and he had good Sphincter Control.Currently, he has defici ts of Balance, Self-Care, Locomotion, Endurance, Safety Awareness, and Transfers Control.Pt. is now r eferred to [facility] for acute in-patient rehabilitation in order to maximize patient's functional independence in activities of daily living, strength, ROM, and mobility.- Rehab Goal Patient has realistic goal of being discharged at assistance level 6-Aditya to reside at Home with Fam minal/Relatives. MDM/PLAN: - Physical Therapy Gait dysfunction - to improve, our physical therapists will perform initial evaluation of pt's statu s upon admission and devise an individualized program for Gait Training, and Wheel Chair mobility Inability to transfer - to improve, our physical therapists will perform initial evaluation of pt's status upon admission and devise an individualized program for Bed mobility Need for home safety evaluation - to improve, our physical therapists will perform initial evaluatio n of pt's status upon admission and devise an individualized program for Home Evaluation Need in caregiver upon discharge - to improve, our physical therapists will perform initial evaluati on of pt's status upon admission and devise an individualized program for Caregiver Training New precaution - to improve, our physical therapists will perform initial evaluation of pt's status upon admission and devise an individualized program for Patient precaution education Edema - to improve, our physical therapists will perform initial evaluation of pt's status upon admi ssion and devise an individualized program for Elevation Training, and Lymphedema Therapy Poor balance - to improve, our physical therapists will perform initial evaluation of pt's status up on admission and devise an individualized program for Balance Training Poor endurance - to improve, our physical therapists will perform initial evaluation of pt's status upon admission and devise an individualized program for Endurance Training Weakness - to improve, our physical therapists will perform initial evaluation of pt's status upon a dmission and devise an individualized program for Aquatic Therapy, Neuromuscular Reeducation, and Str engthening Achieving independence - to improve, our physical therapists will perform initial evaluation of pt's status upon admission and devise an individualized program for Community Reintegration Activities - Occupational Therapy ADL deficits - to improve, our occupation therapists will perform initial evaluation of pt's status upon admission and devise an individualized program for Bathing, Bed mobility, Community Reintegratio n, Cooking, Dressing, Eating, Fine Motor Skills, Grooming, Homemaking, Kitchen Mobility, Laundry, Pat ient Education, Safety Awareness, Splinting - Positioning, Transfers(Toilet, Tub, Shower), and Wheel Chair Management Need for rn medicare - to improve, our occupation therapists will perform initial evaluation of pt's status upon admission and devise an individualized program for Caregiver Training Weakness - to improve, our occupation therapists will perform initial evaluation of pt's status upon admission and devise an individualized program for Aquatic Therapy, Balance, Endurance, UE ROM, and UE strengthening - Diet Type Continue Regular - Diet - Liquid Texture Continue Regular - Tube Feed Continue N/A - Lab Results blood Sugar Check ACHS - Diet - Solid Texture Continue Regular - Shower allowing shower FUNCTIONAL STATUS: UPDATED AT WEEKLY TEAM CONFERENCE - Bladder Same accident frequency: 7-Ind - No accidents in the past 7 days - Bowel Same accident frequency: 7-Ind - No accidents in the past 7 days - Walking Same score based on distance walked: 3(>=150ft) - Wheelchair Same score based on distance traveled: 0(N/A) FUNCTIONAL STATUS: - Self-Care A. Eating sup B. Grooming sup C. Bathing sup D. Dressing - Upper sup E. Dressing - Lower Vincent F. Toileting Vincent - Sphincter Control G: Bladder control Ind H: Bowel control Ind - Transfers Control I. Bed/Chair/Wheelchair sup J. Toilet sup K. Tub/Shower ADNO - Locomotion L. Walk/Wheelchair (C) sup L. Walk/Wheelchair (W) sup M. Stairs ADNO - Communication N. Comprehension (B) Ind O. Expression (B) Ind - Social Cognition P. Social Interaction Ind Q. Problem Solving Ind R. Memory Ind - Endurance Fair - Balance Fair - Safety Awareness Fair CURRENT FUNC. DEFICITS: Balance, Self-Care, Locomotion, Endurance, Safety Awareness, and Transfers Control SIGNATURE PANEL: (CDT)
[2018-08-02] MEDS: DOCUSATE NA/SENNA CONC 1 TAB PO SCH (20:01)
[2018-08-02] MEDS: MELATONIN 3 MG TABLET PO PRN (20:02)
--- NOTE | 2018-08-02 22:39 | P.PN ---
Subjective Date of Service: 08/02/18 Subjective: No new changes No new complaints Cr 2.8 US no hydro WIll start IVF Serology W/u Physical Examination - Vital Signs Temperature: 97.4 F Blood Pressure: 123/61 Pulse: 84 Respirations: 16 Pulse Ox (%): 99 - Physical Exam General: Oriented x3 HEENT: Atraumatic Neck: Supple Cardiovascular: No edema, Normal S1 S2, Abnormal S3 - Studies Laboratory Data (last 24 hrs) 08/02/18 06:21: Sodium 139, Potassium 4.4, BUN 49 H, Creatinine 2.80 H, Glucose 154 H, Phosphorus 4.1, Magnesium 1.6 L 08/02/18 06:21: WBC 7.9 D, Hgb 11.1 L, Hct 31.5 L, Plt Count 149 L 08/02/18 05:00: Sodium Cancelled, Potassium Cancelled, BUN Cancelled, Creatinine Cancelled, Glucose Cancelled, Phosphorus Cancelled Assessment And Plan - Current Problems (Diagnosis) (1) [place] (acute kidney injury) Current Visit: Yes Status: Acute (2) Chronic atrial fibrillation Onset Date: 07/30/18 Current Visit: Yes Status: Chronic (3) Anemia Current Visit: No Status: Chronic - Plan 1. 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 [place] posibly prerenal vs GN? Pt with Cr ~1.5 in 2015 Rt nephrectomy in 12/2017 had [place] recently , reason obstructing stone?, required HD 3 sessions last on and JJ stent placement discharged on 07/26 with cr 2.5 Cr on admission 2.3 and tredning up to 2.8 Will start on IVF Abd CT w/O contrast if no improvement in Cr UPCSerology W/U UA: +ve for blood LDH Hematuria secondary to anticoagulation. We are going to treat for urinary tract infection if hematuria does not resolve. The patient is going to need a CT scan to evaluate if any recurrence of the cancer. Deconditioning. Continue PT, OT. Anemia, stable. We will follow up. Hypertension, controlled, optimal. Continue current medication. DM BS control
--- NOTE | 2018-08-03 01:23 | FAST ---
SHIFT START DATE/TIME: 08/02/2018 19:00 (CDT) SHIFT END DATE/TIME: 08/03/2018 07:00 (CDT) NAME LUANN WOODS DATE OF : 1935 DATE OF ADMISSION: 07/27/2018 18:34 (CDT) PHONE: AGE: 83 SSN# [id number] GENDER: Male ENCOUNTER PHYSICIAN: Dr. Juan C Brooks M.D. ADMISSION DIAGNOSIS: - Cardiac 09 - Cardiac Disorders (09) Chronic atrial fibrillation (I48.2). EATING: Activity did not occur on this shift EATING - SCORE: 0-UNK GROOMING: Activity did not occur on this shift GROOMING - SCORE: 0-UNK BATHING: Activity did not occur on this shift BATHING - SCORE: 0-UNK DRESSING - UPPER BODY: Patient is not dressing in public clothing ARTICLES SCORE Total number of steps: 0 DRESSING - UPPER BODY - SCORE: 0-UNK DRESSING - LOWER BODY: Patient is not dressing in public clothing ARTICLES SCORE Total number of steps: 0 DRESSING - LOWER BODY - SCORE: 0-UNK TOILETING: TOILETING - STEP 1: Does the patient require assistance with toileting? Yes. TOILETING - STEP 2: Does the patient require the assistance of a helper? Yes. TOILETING - STEP 3: How much assistance does the patient require from the helper? Only supervision TOILETING - SCORE: 5-SUP BLADDER MANAGEMENT: BLADDER MANAGEMENT - STEP 1: Does the patient control the bladder completely and intentionally without equipment or devices or med ications, and is always continent? No. BLADDER MANAGEMENT - STEP 2: Does the patient require the assistance of a helper? Yes. BLADDER MANAGEMENT - STEP 3: How much assistance does the patient require from the helper? Only supervision, stand-by, cuing, or c oaxing BLADDER MANAGEMENT - SCORE: 5-SUP BOWEL MANAGEMENT: Activity did not occur on this shift BOWEL MANAGEMENT - SCORE: 7-IND TRANSFERS: BED, CHAIR, WHEELCHAIR: TRANSFERS: BED, CHAIR, WHEELCHAIR - STEP 1: Does the patient require assistance with bed, chair, or wheelchair transfers? Yes. TRANSFERS: BED, CHAIR, WHEELCHAIR - STEP 2: Does the patient require the assistance of a helper? Yes. TRANSFERS: BED, CHAIR, WHEELCHAIR - STEP 3: How much assistance does the patient require from the helper? Only supervision TRANSFERS: BED, CHAIR, WHEELCHAIR - SCORE: 5-SUP TRANSFERS: TOILET: TRANSFERS: TOILET - STEP 1: Does the patient require assistance with toilet transfers? Yes. TRANSFERS: TOILET - STEP 2: Does the patient require the assistance of a helper? Yes. TRANSFERS: TOILET - STEP 3: How much assistance does the patient require from the helper? Only supervision, cuing, coaxing, OR he lp to set out transfer equipment or to lock brakes and/or lift foot rests TRANSFERS: TOILET - SCORE: 5-SUP TRANSFERS: SHOWER: Activity did not occur on this shift TRANSFERS: SHOWER - SCORE: 0-UNK TRANSFERS: TUB: Activity did not occur on this shift TRANSFERS: TUB - SCORE: 0-UNK LOCOMOTION: WALK: Activity did not occur on this shift LOCOMOTION: WALK - SCORE: 0-UNK LOCOMOTION: WHEELCHAIR: Activity did not occur on this shift LOCOMOTION: WHEELCHAIR - SCORE: 0-UNK COMPREHENSION: COMPREHENSION: TYPE: Both COMPREHENSION - STEP 1: Does the patient require help to understand complex and abstract ideas (such as current events, finan mt, discharge planning, medical issues, relationships, etc)? No. COMPREHENSION - STEP 2: Does the patient need extra time, require an assistive device (such as glasses for visual comprehensi on or a hearing aid for auditory comprehension) or does s/he have mild difficulty understanding compl ex and abstract information? Yes. COMPREHENSION - SCORE: 6-SARATH EXPRESSION EXPRESSION: TYPE: Both EXPRESSION - STEP 1: Does the patient require help expressing complex and abstract ideas (such as current events, finances , discharge planning, medical issues, relationships, etc)? No. EXPRESSION - STEP 2: Does the patient need extra time, require an assistive device (such as augmentive communication syste m or a communication board), OR does s/he have mild difficulty expressing complex and abstract ideas (including mild dysarthria or mild word-find problems)? Yes. EXPRESSION - SCORE: 6-SARATH SOCIAL INTERACTION: SOCIAL INTERACTION - STEP 1: Does the patient require a helper to interact with others in social and therapeutic situations? No. SOCIAL INTERACTION - STEP 2: Does the patient need extra time in social situations, OR does s/he interact with staff, other patien ts, and family members ONLY in structured environments, OR does s/he require medication for social in teraction? Yes, patient needs extra time SOCIAL INTERACTION - SCORE: 6-SARATH PROBLEM SOLVING: PROBLEM SOLVING - STEP 1: Does the patient need help to solve complex problems such as managing a checking account or confronti ng interpersonal problems? No. PROBLEM SOLVING - STEP 2: Does the patient require extra time to make decisions or solve problems, OR does s/he have slight dif ficulty reading, initiating, or self-correcting in unfamiliar situations? Yes, patient needs extra ti me. PROBLEM SOLVING - SCORE: 6-SARATH MEMORY: MEMORY - STEP 1: Does the patient need help to remember frequently encountered people, daily routines, and executing r equests? No. MEMORY - STEP 2: Does the patient have slight difficulty recognizing frequently encountered people, daily routines, or executing requests without the need for repetition or using self-initiated or environmental cues to remember? Yes. MEMORY - SCORE: 6-SARATH SIGNATURE PANEL: The following modified sections: Eating - Score, Grooming - Score, Dressing - Upper Body - Score, Donta ssing - Lower Body - Score, Toileting - Score, Bladder Management - Score, Bowel Management - Score, Transfers: Bed, Chair, Wheelchair - Score, Transfers: Toilet - Score, Transfers: Shower - Score, Mijares sfers: Tub - Score, Locomotion: Walk - Score, Locomotion: Wheelchair - Score, Comprehension - Score, Expression - Score, Social Interaction - Score, Problem Solving - Score, Memory - Score were [electro nically] signed by Georgina Matt CNA on MonAug 03 2018 01:23:08 T-0500 (Central Daylight Time)
[2018-08-03] MEDS: METOPROLOL XL 25 MG TAB PO SCH (05:08)
[2018-08-03] MEDS: PANTOPRAZOLE 40MG TABLET PO SCH (05:09)
[2018-08-03 06:53] LABS: Albumin 2.8 g/dL (3.4-5.0); Phosphorus 3.2 mg/dL (2.5-4.9); Potassium 4.5 mmol/L (3.5-5.1)
[2018-08-03] MEDS: INSULIN -REGULAR HUMAN 50 UNIT/0.5 ML ML SQ SCH ×4 (07:30→21:23)
[2018-08-03] MEDS: INSULIN 70/30 100 UNITS/ML SQ SCH (08:10)
[2018-08-03] MEDS: FINASTERIDE 5 MG TAB PO SCH (08:11)
[2018-08-03] MEDS: MAGNESIUM OXIDE 400 MG TAB PO SCH ×2 (08:11→21:20)
[2018-08-03] MEDS: CRANBERRY FRUIT EXTRACT 200 MG CAP PO SCH ×2 (08:11→21:19)
[2018-08-03] MEDS: TAMSULOSIN 0.4 MG SR CAP PO SCH (08:11)
[2018-08-03] MEDS: levoFLOXacin 500 MG TAB PO SCH (08:11)
[2018-08-03] MEDS: FERROUS SULFATE 325 MG TAB PO SCH (08:12)
[2018-08-03] MEDS: ASPIRIN EC 81 MG TAB PO SCH (08:12)
[2018-08-03] MEDS: PROMOD 30 ML DOSE PO SCH ×2 (08:14→21:20)
[2018-08-03] MEDS: NA CHLORIDE 0.9% 1,000 ML IV SCH ×2 (09:00→15:52)
--- NOTE | 2018-08-03 09:27 | P.RH.PN ---
Estimated Length of Stay: 10 Expected Discharge Date: 08/05/18 Discharge Disposition Plan: Home Family Support: Yes Vital Signs: Last Vital Signs Temp 96.9 F 08/03/18 09:07 Pulse 82 08/03/18 09:07 Resp 16 08/03/18 09:07 BP 121/64 08/03/18 09:07 Pulse Ox 97 08/03/18 09:07 Laboratory: Laboratory Last Values WBC 7.9 K/uL (4.3-10.9) D 08/02/18 06:21 RBC 3.62 M/uL (4.33-5.43) L 08/02/18 06:21 Hgb 11.1 g/dL (13.6-17.9) L 08/02/18 06:21 Hct 31.5 % (39.6-49.0) L 08/02/18 06:21 MCV 87.1 fL (80-100) 08/02/18 06:21 MCH 30.7 pg (27.0-35.0) 08/02/18 06:21 MCHC 35.3 g/dL (32.0-36.0) 08/02/18 06:21 RDW 13.7 % (12.1-15.2) 08/02/18 06:21 Plt Count 149 K/uL (152-406) L 08/02/18 06:21 MPV 10.0 fL (7.6-11.3) 08/02/18 06:21 Neutrophils % 65.6 % (41.7-73.7) 08/02/18 06:21 Lymphocytes % 22.1 % (15.3-44.8) 08/02/18 06:21 Monocytes % 9.2 % (3.3-12.3) 08/02/18 06:21 Eosinophils % 2.5 % (0-4.4) 08/02/18 06:21 Basophils % 0.6 % (0-1.3) 08/02/18 06:21 Absolute Neutrophils 5.2 K/uL (1.8-8.0) 08/02/18 06:21 Absolute Lymphocytes 1.8 K/uL (0.7-4.9) 08/02/18 06:21 Absolute Monocytes 0.7 K/uL (0.1-1.3) 08/02/18 06:21 Absolute Eosinophils 0.2 K/uL (0-0.5) 08/02/18 06:21 Absolute Basophils 0.0 K/uL (0-0.5) 08/02/18 06:21 Sodium 140 mmol/L (136-145) 08/03/18 05:46 Potassium 4.5 mmol/L (3.5-5.1) 08/03/18 05:46 Chloride 110 mmol/L (98-107) H 08/03/18 05:46 Carbon Dioxide 22 mmol/L (21-32) 08/03/18 05:46 BUN 47 mg/dL (7-18) H 08/03/18 05:46 Creatinine 2.50 mg/dL (0.55-1.3) H 08/03/18 05:46 Estimated GFR 25 mL/min (=/>90) L 08/03/18 05:46 Glucose 157 mg/dL (74-106) H 08/03/18 05:46 POC Glucose 152 mg/dl (65-120) H 08/03/18 07:06 Calcium 8.2 mg/dL (8.5-10.1) L 08/03/18 05:46 Phosphorus 3.2 mg/dL (2.5-4.9) 08/03/18 05:46 Magnesium 1.6 mg/dL (1.8-2.4) L 08/02/18 06:21 Iron 58.0 ug/dL (65-175) L 08/03/18 07:32 TIBC 256 ug/dL (250-460) 08/03/18 07:32 Transferrin 183 mg/dL (200-360) L 08/03/18 07:32 Transferrin % Sat 22.7 % (20.0-50.0) 08/03/18 07:32 Ferritin 179.0 ng/mL (26-388) 08/03/18 07:32 Albumin 2.8 g/dL (3.4-5.0) L 08/03/18 05:46 Prealbumin 25.3 mg/dL (20-40) 08/02/18 06:21 PTH Intact 120.4 pg/mL (18.4-80.1) H 08/01/18 05:41 Urine Color Yellow 07/27/18 20:55 Urine Appearance Clear 07/27/18 20:55 Urine pH 6.5 (5.0-7.0) 07/27/18 20:55 Ur Specific [place] 1.020 (1.005-1.030) 07/27/18 20:55 Urine Ketones Negative (NEG) 07/27/18 20:55 Urine Blood 3+ (NEG) H 07/27/18 20:55 Urine Nitrite Negative (NEG) 07/27/18 20:55 Urine Bilirubin Negative (NEG) 07/27/18 20: Urine Urobilinogen 0.2 mg/dL (0.2-1.0) 07/27/18 20:55 Ur Leukocyte Esterase 1+ (NEG) H 07/27/18 20:55 Urine RBC Tntc /HPF (NONE SEEN) H 07/27/18 20:55 Urine WBC 10-20 /HPF (<5) H 07/27/18 20:55 Ur Squamous Epith Cells <5 /HPF (NONE SEEN) 07/27/18 20:55 Urine Bacteria <20 /HPF (NONE SEEN) 07/27/18 20:55 Urine Culture Reflexed Not needed 07/27/18 20:55 Urine Glucose 3+ (NEG) H 07/27/18 20:55 Urine Total Protein 2+ (NEG) H 07/27/18 20:55 Weight: 211 lb 9.6 oz Wound Present: No Closed Surgical Incision Present: Yes Negative Pressure Wound Therapy Present: No Physician Update: His creatinine is mildly elevated to 2.5. He is followed by the renal service and has iv normal saline. His H&H are stable. His prealbumin is normal. He has pink urine. Eliquis was stopped two days ago. He is on Aspirin 81 mg daily and SCDs at night for DVT prophylaxis. He is walking at standby assistance level 500'. He is up and down 15 stairs with standby assistance. He is modified independent with ADLs. Medical Issues: UTI - on Levofloxacin 500mg Daily PO Comment: healed abdominal incision noted- Sp Right nephrectomy May 2018 Functional Improvement: Pt. has reached all goals. Will continue POC of supervising PT. Functional Improvement Occupational Therapy: cont with the POC and the goals by the supervising OTR, pt has great potential at reaching the LTG's. cont to increase pt's safety awareness and energy conservation techniques for all adl tasks. cont to increase pt's UB strength and ROM and static standing for adl tasks. Summary: Patient's care plan and usp goals have been reviewed and revised as necessary. Please see the Rehabilitation Signature page for all necessary signatures.
--- NOTE | 2018-08-03 16:57 | P.PN ---
Subjective Date of Service: 08/03/18 No new complaints Cr improved to 2.5 Serology W/u Cont levofloxacin for 10day Physical Examination - Vital Signs Temperature: 96.9 F Blood Pressure: 121/64 Pulse: 82 Respirations: 16 Pulse Ox (%): 97 - Physical Exam General: Oriented x3 HEENT: Atraumatic Neck: Without JVD or thyroid abnormality Respiratory: Clear to auscultation bilaterally Cardiovascular: No edema - Studies Laboratory Data (last 24 hrs) 08/03/18 05:46: Sodium 140, Potassium 4.5, BUN 47 H, Creatinine 2.50 H, Glucose 157 H, Phosphorus 3.2 Assessment And Plan - Current Problems (Diagnosis) (1) [place] (acute kidney injury) Current Visit: Yes Status: Acute (2) Chronic atrial fibrillation Onset Date: 07/30/18 Current Visit: Yes Status: Chronic (3) Anemia Current Visit: No Status: Chronic - Plan 1. 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 [place] posibly prerenal vs GN? Pt with Cr ~1.5 in 2015 Rt nephrectomy in 12/2017 had [place] recently , reason obstructing stone?, required HD 3 sessions last on and JJ stent placement discharged on 07/26 with cr 2.5 Cr on admission 2.3 and tredning up to 2.8 now improved on IVF Abd CT w/O contrast if no improvement in Cr UPC Serology W/U UA: +ve for blood LDH Hematuria secondary to anticoagulation. We are going to treat for urinary tract infection if hematuria does not resolve. The patient is going to need a CT scan to evaluate if any recurrence of the cancer. Deconditioning. Continue PT, OT. Anemia, stable. We will follow up. Hypertension, controlled, optimal. Continue current medication. DM BS control ucx with mixed laine and yeast Cont Levofloxacin for 10day s
--- NOTE | 2018-08-03 17:59 | FAST ---
SHIFT START DATE/TIME: 08/03/2018 07:00 (CDT) SHIFT END DATE/TIME: 08/03/2018 19:00 (CDT) NAME LUANN WOODS DATE OF : 1935 DATE OF ADMISSION: 07/27/2018 18:34 (CDT) PHONE: AGE: 83 SSN# [id number] GENDER: Male ENCOUNTER PHYSICIAN: Dr. Juan C Brooks M.D. ADMISSION DIAGNOSIS: - Cardiac 09 - Cardiac Disorders (09) Chronic atrial fibrillation (I48.2). EATING: EATING - STEP 1: Does the patient require assistance when eating? Yes. EATING - STEP 2: Does the patient require the assistance of a helper? No, patient only requires an assistive device, O R s/he takes more than reasonable time to eat, OR there is a safety concern, OR s/he requires modifie d food consistency EATING - SCORE: 6-SARATH GROOMING: GROOMING - STEP 1: Does the patient require assistance when grooming? No. GROOMING - SCORE: 7-IND BATHING: Activity did not occur on this shift BATHING - SCORE: 0-UNK DRESSING - UPPER BODY: T-shirt/pullover shirt (four steps) ARTICLES SCORE Total number of steps: 4 DRESSING - UPPER BODY - STEP 1: Does the patient require help when dressing above the waist? Yes. DRESSING - UPPER BODY - STEP 2: Does the patient require the assistance of a helper? No. Patient only requires an assistive device, s uch as a button hook, velcro, or house mother. OR s/he takes more than reasonable time as s/he dresses the upper body. OR there is a concern for safety when s/he dresses the upper body DRESSING - UPPER BODY - SCORE: 6-SARATH DRESSING - LOWER BODY: Elastic waist pants (three steps) Slip-on shoe - Left foot (one step) Slip-on shoe - Right foot (one step) Sock - Left foot (one step) Sock - Right foot (one step) ARTICLES SCORE Total number of steps: 7 DRESSING - LOWER BODY - STEP 1: Does the patient require help when dressing below the waist? Yes. DRESSING - LOWER BODY - STEP 2: Does the patient require the assistance of a helper? Yes. DRESSING - LOWER BODY - STEP 3: Does the helper touch the patient while dressing? Yes. DRESSING - LOWER BODY - STEP 4: How many of the total steps does the patient complete on his/her own? 6 DRESSING - LOWER BODY - SCORE: 4-MIN TOILETING: TOILETING - STEP 1: Does the patient require assistance with toileting? Yes. TOILETING - STEP 2: Does the patient require the assistance of a helper? No. TOILETING - SCORE: 6-SARATH BLADDER MANAGEMENT: BLADDER MANAGEMENT - STEP 1: Does the patient control the bladder completely and intentionally without equipment or devices or med ications, and is always continent? Yes. BLADDER MANAGEMENT - SCORE: 7-IND BLADDER MANAGEMENT - FREQUENCY OF ACCIDENTS: BLADDER MANAGEMENT(FA) - STEP 1: How many accidents has the patient had during the current shift? 0 BOWEL MANAGEMENT: BOWEL MANAGEMENT - STEP 1: Does the patient control bowels completely and intentionally without equipment devices or medications AND is always continent? Yes. BOWEL MANAGEMENT - SCORE: 7-IND BOWEL MANAGEMENT - FREQUENCY OF ACCIDENTS: BOWEL MANAGEMENT(FA) - STEP 1: How many accidents has the patient had during the current shift? 0 TRANSFERS: BED, CHAIR, WHEELCHAIR: TRANSFERS: BED, CHAIR, WHEELCHAIR - STEP 1: Does the patient require assistance with bed, chair, or wheelchair transfers? Yes. TRANSFERS: BED, CHAIR, WHEELCHAIR - STEP 2: Does the patient require the assistance of a helper? Yes. TRANSFERS: BED, CHAIR, WHEELCHAIR - STEP 3: How much assistance does the patient require from the helper? Steadying/guiding assistance TRANSFERS: BED, CHAIR, WHEELCHAIR - SCORE: 4-MIN TRANSFERS: TOILET: TRANSFERS: TOILET - STEP 1: Does the patient require assistance with toilet transfers? Yes. TRANSFERS: TOILET - STEP 2: Does the patient require the assistance of a helper? Yes. TRANSFERS: TOILET - STEP 3: How much assistance does the patient require from the helper? Patient performs half or more of the tr ansferring tasks TRANSFERS: TOILET - STEP 4: Does the patient need only incidental help such as contact guard or steadying during toilet transfer? Yes. TRANSFERS: TOILET - SCORE: 4-MIN TRANSFERS: SHOWER: Activity did not occur on this shift TRANSFERS: SHOWER - SCORE: 0-UNK TRANSFERS: TUB: Activity did not occur on this shift TRANSFERS: TUB - SCORE: 0-UNK LOCOMOTION: WALK: Activity did not occur on this shift LOCOMOTION: WALK - SCORE: 0-UNK LOCOMOTION: WHEELCHAIR: Activity did not occur on this shift LOCOMOTION: WHEELCHAIR - SCORE: 0-UNK COMPREHENSION: COMPREHENSION - SCORE: 0-UNK EXPRESSION EXPRESSION - SCORE: 0-UNK SOCIAL INTERACTION: SOCIAL INTERACTION - SCORE: 0-UNK PROBLEM SOLVING: PROBLEM SOLVING - SCORE: 0-UNK MEMORY: MEMORY - SCORE: 0-UNK SIGNATURE PANEL: The following modified sections: Eating - Score, Grooming - Score, Bathing - Score, Dressing - Upper Body - Score, Dressing - Lower Body - Score, Toileting - Score, Bladder Management - Score, Bowel Man agement - Score, Transfers: Bed, Chair, Wheelchair - Score, Transfers: Toilet - Score, Transfers: Laurie wer - Score, Transfers: Tub - Score, Locomotion: Walk - Score, Locomotion: Wheelchair - Score, Compre hension - Score, Expression - Score, Social Interaction - Score, Problem Solving - Score, Memory - Sc ore were [electronically] signed by Dedra Gamble CNA on MonAug 03 2018 17:58:06 T-0500 (Centra l Daylight Time)
[2018-08-03 18:14] LABS: Urine Protein/Creatinine Ratio 1.5 ratio (<0.15)
[2018-08-03] MEDS: DOCUSATE NA/SENNA CONC 1 TAB PO SCH (21:00)
[2018-08-03] MEDS: ATORVASTATIN 20 MG TAB PO SCH (21:20)
--- NOTE | 2018-08-04 02:36 | FAST ---
SHIFT START DATE/TIME: 08/03/2018 19:00 (CDT) SHIFT END DATE/TIME: 08/04/2018 07:00 (CDT) NAME LUANN WOODS DATE OF : 1935 DATE OF ADMISSION: 07/27/2018 18:34 (CDT) PHONE: AGE: 83 SSN# [id number] GENDER: Male ENCOUNTER PHYSICIAN: Dr. Juan C Brooks M.D. ADMISSION DIAGNOSIS: - Cardiac 09 - Cardiac Disorders (09) Chronic atrial fibrillation (I48.2). EATING: Activity did not occur on this shift EATING - SCORE: 0-UNK GROOMING: Activity did not occur on this shift GROOMING - SCORE: 0-UNK BATHING: Activity did not occur on this shift BATHING - SCORE: 0-UNK DRESSING - UPPER BODY: Patient is not dressing in public clothing ARTICLES SCORE Total number of steps: 0 DRESSING - UPPER BODY - SCORE: 0-UNK DRESSING - LOWER BODY: Patient is not dressing in public clothing ARTICLES SCORE Total number of steps: 0 DRESSING - LOWER BODY - SCORE: 0-UNK TOILETING: TOILETING - STEP 1: Does the patient require assistance with toileting? Yes. TOILETING - STEP 2: Does the patient require the assistance of a helper? Yes. TOILETING - STEP 3: How much assistance does the patient require from the helper? Only supervision TOILETING - SCORE: 5-SUP BLADDER MANAGEMENT: BLADDER MANAGEMENT - STEP 1: Does the patient control the bladder completely and intentionally without equipment or devices or med ications, and is always continent? No. BLADDER MANAGEMENT - STEP 2: Does the patient require the assistance of a helper? Yes. BLADDER MANAGEMENT - STEP 3: How much assistance does the patient require from the helper? Only set-up of equipment - such as plac ing it within reach of the patient or emptying a device - to maintain either satisfactory voiding pat tern or managing an external device, such as an absorbent pad, ileal device, or catheter BLADDER MANAGEMENT - SCORE: 5-SUP BOWEL MANAGEMENT: Activity did not occur on this shift BOWEL MANAGEMENT - SCORE: 7-IND TRANSFERS: BED, CHAIR, WHEELCHAIR: TRANSFERS: BED, CHAIR, WHEELCHAIR - STEP 1: Does the patient require assistance with bed, chair, or wheelchair transfers? Yes. TRANSFERS: BED, CHAIR, WHEELCHAIR - STEP 2: Does the patient require the assistance of a helper? Yes. TRANSFERS: BED, CHAIR, WHEELCHAIR - STEP 3: How much assistance does the patient require from the helper? Only supervision TRANSFERS: BED, CHAIR, WHEELCHAIR - SCORE: 5-SUP TRANSFERS: TOILET: TRANSFERS: TOILET - STEP 1: Does the patient require assistance with toilet transfers? Yes. TRANSFERS: TOILET - STEP 2: Does the patient require the assistance of a helper? Yes. TRANSFERS: TOILET - STEP 3: How much assistance does the patient require from the helper? Only supervision, cuing, coaxing, OR he lp to set out transfer equipment or to lock brakes and/or lift foot rests TRANSFERS: TOILET - SCORE: 5-SUP TRANSFERS: SHOWER: Activity did not occur on this shift TRANSFERS: SHOWER - SCORE: 0-UNK TRANSFERS: TUB: Activity did not occur on this shift TRANSFERS: TUB - SCORE: 0-UNK LOCOMOTION: WALK: Activity did not occur on this shift LOCOMOTION: WALK - SCORE: 0-UNK LOCOMOTION: WHEELCHAIR: Activity did not occur on this shift LOCOMOTION: WHEELCHAIR - SCORE: 0-UNK COMPREHENSION: COMPREHENSION: TYPE: Both COMPREHENSION - STEP 1: Does the patient require help to understand complex and abstract ideas (such as current events, finan mt, discharge planning, medical issues, relationships, etc)? No. COMPREHENSION - STEP 2: Does the patient need extra time, require an assistive device (such as glasses for visual comprehensi on or a hearing aid for auditory comprehension) or does s/he have mild difficulty understanding compl ex and abstract information? Yes. COMPREHENSION - SCORE: 6-SARATH EXPRESSION EXPRESSION: TYPE: Both EXPRESSION - STEP 1: Does the patient require help expressing complex and abstract ideas (such as current events, finances , discharge planning, medical issues, relationships, etc)? No. EXPRESSION - STEP 2: Does the patient need extra time, require an assistive device (such as augmentive communication syste m or a communication board), OR does s/he have mild difficulty expressing complex and abstract ideas (including mild dysarthria or mild word-find problems)? Yes. EXPRESSION - SCORE: 6-SARATH SOCIAL INTERACTION: SOCIAL INTERACTION - STEP 1: Does the patient require a helper to interact with others in social and therapeutic situations? No. SOCIAL INTERACTION - STEP 2: Does the patient need extra time in social situations, OR does s/he interact with staff, other patien ts, and family members ONLY in structured environments, OR does s/he require medication for social in teraction? Yes, patient needs extra time SOCIAL INTERACTION - SCORE: 6-SARATH PROBLEM SOLVING: PROBLEM SOLVING - STEP 1: Does the patient need help to solve complex problems such as managing a checking account or confronti ng interpersonal problems? No. PROBLEM SOLVING - STEP 2: Does the patient require extra time to make decisions or solve problems, OR does s/he have slight dif ficulty reading, initiating, or self-correcting in unfamiliar situations? Yes, patient needs extra ti me. PROBLEM SOLVING - SCORE: 6-SARATH MEMORY: MEMORY - STEP 1: Does the patient need help to remember frequently encountered people, daily routines, and executing r equests? No. MEMORY - STEP 2: Does the patient have slight difficulty recognizing frequently encountered people, daily routines, or executing requests without the need for repetition or using self-initiated or environmental cues to remember? Yes. MEMORY - SCORE: 6-SARATH
[2018-08-04] MEDS: NA CHLORIDE 0.9% 1,000 ML IV SCH (05:00)
[2018-08-04] MEDS: METOPROLOL XL 25 MG TAB PO SCH (05:09)
[2018-08-04] MEDS: PANTOPRAZOLE 40MG TABLET PO SCH (05:11)
[2018-08-04 05:33] VITALS: BMI 29.2
[2018-08-04 06:34] LABS: Albumin 2.8 g/dL (3.4-5.0); Phosphorus 3.1 mg/dL (2.5-4.9); Potassium 4.8 mmol/L (3.5-5.1)
[2018-08-04] MEDS: INSULIN -REGULAR HUMAN 50 UNIT/0.5 ML ML SQ SCH ×4 (07:30→21:04)
[2018-08-04] MEDS: INSULIN 70/30 100 UNITS/ML SQ SCH (07:54)
[2018-08-04] MEDS: CRANBERRY FRUIT EXTRACT 200 MG CAP PO SCH ×2 (08:00→19:26)
[2018-08-04] MEDS: levoFLOXacin 500 MG TAB PO SCH (08:08)
[2018-08-04] MEDS: FINASTERIDE 5 MG TAB PO SCH (08:08)
[2018-08-04] MEDS: ASPIRIN EC 81 MG TAB PO SCH (08:08)
[2018-08-04] MEDS: MAGNESIUM OXIDE 400 MG TAB PO SCH ×2 (08:08→19:25)
[2018-08-04] MEDS: FERROUS SULFATE 325 MG TAB PO SCH (08:08)
[2018-08-04] MEDS: TAMSULOSIN 0.4 MG SR CAP PO SCH (08:08)
[2018-08-04] MEDS: PROMOD 30 ML DOSE PO SCH ×2 (08:09→19:26)
--- NOTE | 2018-08-04 10:11 | FAST ---
SHIFT START DATE/TIME: 08/04/2018 07:00 (CDT) SHIFT END DATE/TIME: 08/04/2018 19:00 (CDT) NAME LUANN WOODS DATE OF : 1935 DATE OF ADMISSION: 07/27/2018 18:34 (CDT) PHONE: AGE: 83 SSN# [id number] GENDER: Male ENCOUNTER PHYSICIAN: Dr. Juan C Brooks M.D. ADMISSION DIAGNOSIS: - Cardiac 09 - Cardiac Disorders (09) Chronic atrial fibrillation (I48.2). EATING: EATING - STEP 1: Does the patient require assistance when eating? Yes. EATING - STEP 2: Does the patient require the assistance of a helper? Yes. EATING - STEP 3: Does the patient perform half or more of the eating tasks? Yes. EATING - STEP 4: Does the patient need only supervision, cuing, coaxing OR help to apply an orthosis OR help to cut fo od, open containers, pour liquids, or butter bread? Yes. EATING - SCORE: 5-SUP GROOMING: Comb/brush hair Oral care Wash, rinse, and dry face Wash, rinse, and dry hands GROOMING - STEP 1: Does the patient require assistance when grooming? Yes. GROOMING - STEP 2: Does the patient require the assistance of a helper? No. The patient only requires an assistive devic e, OR takes more than reasonable time to groom, OR there is a concern for safety as the patient groom s GROOMING - SCORE: 6-SARATH BATHING: Activity did not occur on this shift BATHING - SCORE: 0-UNK DRESSING - UPPER BODY: Patient is not dressing in public clothing ARTICLES SCORE Total number of steps: 0 DRESSING - UPPER BODY - SCORE: 0-UNK DRESSING - LOWER BODY: Activity did not occur on this shift ARTICLES SCORE Total number of steps: 0 DRESSING - LOWER BODY - SCORE: 0-UNK TOILETING: TOILETING - STEP 1: Does the patient require assistance with toileting? Yes. TOILETING - STEP 2: Does the patient require the assistance of a helper? Yes. TOILETING - STEP 3: How much assistance does the patient require from the helper? Only supervision TOILETING - SCORE: 5-SUP BLADDER MANAGEMENT: BLADDER MANAGEMENT - STEP 1: Does the patient control the bladder completely and intentionally without equipment or devices or med ications, and is always continent? No. BLADDER MANAGEMENT - STEP 2: Does the patient require the assistance of a helper? No, patient requires and independently uses an a ssistive device, such as a urinal, bedpan, bedside commode, catheter, absorbent pad, or collecting de vice BLADDER MANAGEMENT - SCORE: 6-SARATH BOWEL MANAGEMENT: Activity did not occur on this shift BOWEL MANAGEMENT - SCORE: 7-IND TRANSFERS: BED, CHAIR, WHEELCHAIR: TRANSFERS: BED, CHAIR, WHEELCHAIR - STEP 1: Does the patient require assistance with bed, chair, or wheelchair transfers? Yes. TRANSFERS: BED, CHAIR, WHEELCHAIR - STEP 2: Does the patient require the assistance of a helper? Yes. TRANSFERS: BED, CHAIR, WHEELCHAIR - STEP 3: How much assistance does the patient require from the helper? Only supervision TRANSFERS: BED, CHAIR, WHEELCHAIR - SCORE: 5-SUP TRANSFERS: TOILET: TRANSFERS: TOILET - STEP 1: Does the patient require assistance with toilet transfers? Yes. TRANSFERS: TOILET - STEP 2: Does the patient require the assistance of a helper? Yes. TRANSFERS: TOILET - STEP 3: How much assistance does the patient require from the helper? Patient performs half or more of the tr ansferring tasks TRANSFERS: TOILET - STEP 4: Does the patient need only incidental help such as contact guard or steadying during toilet transfer? Yes. TRANSFERS: TOILET - SCORE: 4-MIN TRANSFERS: SHOWER: Activity did not occur on this shift TRANSFERS: SHOWER - SCORE: 0-UNK TRANSFERS: TUB: Activity did not occur on this shift TRANSFERS: TUB - SCORE: 0-UNK LOCOMOTION: WALK: Activity did not occur on this shift LOCOMOTION: WALK - SCORE: 0-UNK LOCOMOTION: WHEELCHAIR: Activity did not occur on this shift LOCOMOTION: WHEELCHAIR - SCORE: 0-UNK COMPREHENSION: COMPREHENSION: TYPE: Both COMPREHENSION - STEP 1: Does the patient require help to understand complex and abstract ideas (such as current events, finan mt, discharge planning, medical issues, relationships, etc)? No. COMPREHENSION - STEP 2: Does the patient need extra time, require an assistive device (such as glasses for visual comprehensi on or a hearing aid for auditory comprehension) or does s/he have mild difficulty understanding compl ex and abstract information? Yes. COMPREHENSION - SCORE: 6-SARATH EXPRESSION EXPRESSION: TYPE: Both EXPRESSION - STEP 1: Does the patient require help expressing complex and abstract ideas (such as current events, finances , discharge planning, medical issues, relationships, etc)? No. EXPRESSION - STEP 2: Does the patient need extra time, require an assistive device (such as augmentive communication syste m or a communication board), OR does s/he have mild difficulty expressing complex and abstract ideas (including mild dysarthria or mild word-find problems)? Yes. EXPRESSION - SCORE: 6-SARATH SOCIAL INTERACTION: SOCIAL INTERACTION - STEP 1: Does the patient require a helper to interact with others in social and therapeutic situations? No. SOCIAL INTERACTION - STEP 2: Does the patient need extra time in social situations, OR does s/he interact with staff, other patien ts, and family members ONLY in structured environments, OR does s/he require medication for social in teraction? Yes, patient needs extra time SOCIAL INTERACTION - SCORE: 6-SARATH PROBLEM SOLVING: PROBLEM SOLVING - STEP 1: Does the patient need help to solve complex problems such as managing a checking account or confronti ng interpersonal problems? No. PROBLEM SOLVING - STEP 2: Does the patient require extra time to make decisions or solve problems, OR does s/he have slight dif ficulty reading, initiating, or self-correcting in unfamiliar situations? Yes, patient needs extra ti me. PROBLEM SOLVING - SCORE: 6-SARATH MEMORY: MEMORY - STEP 1: Does the patient need help to remember frequently encountered people, daily routines, and executing r equests? No. MEMORY - STEP 2: Does the patient have slight difficulty recognizing frequently encountered people, daily routines, or executing requests without the need for repetition or using self-initiated or environmental cues to remember? Yes. MEMORY - SCORE: 6-SARATH SIGNATURE PANEL: The following modified sections: Eating - Score, Grooming - Score, Bathing - Score, Dressing - Upper Body - Score, Dressing - Lower Body - Score, Toileting - Score, Bladder Management - Score, Bowel Man agement - Score, Transfers: Bed, Chair, Wheelchair - Score, Transfers: Toilet - Score, Transfers: Laurie wer - Score, Transfers: Tub - Score, Locomotion: Walk - Score, Locomotion: Wheelchair - Score, Compre hension - Score, Expression - Score, Social Interaction - Score, Problem Solving - Score, Memory - Sc ore were [electronically] signed by Dusty Flores on Sat Aug 04 2018 10:10:58 [id number] (Central Daylight Time)
[2018-08-04] MEDS: DOCUSATE NA/SENNA CONC 1 TAB PO SCH (19:27)
--- NOTE | 2018-08-04 19:31 | PN ---
Date of Progress Note: 08/04/2018 The patient was admitted for rehabilitation, developed hematuria. The patient has solitary kidney st atus post nephrectomy. Status post acute kidney injury secondary to sepsis, recovered, currently aldair teaued. Physical Examination: General: When I saw the patient, the patient lying in bed comfortable, not on any distress. Vital Signs: Blood pressure 113/65, pulse of 85. Chest: Clear to auscultation. Heart: S1, S2. Regular. Abdomen: Soft, nontender. Extremity: No edema. Laboratory Data: WBC 7.9, H and H 11.1/35.5. Sodium 138, potassium 4.8, bicarb 22, BUN 43, creatini ne 2.5, calcium 8.1, phosphorus 3.1. Medications: Current medications the patient on, IV fluid has been discontinued today. Atorvastatin , aspirin, finasteride, metoprolol-XL, Levaquin, and Flomax. Assessment And Plan: 1.Acute kidney injury on solitary kidney status post nephrectomy stable, plateaued, normal volume. I will discontinue IV fluid. 2.Hypertension. Controlled optimal. Continue current medication. 3.Urinary tract infection. Continue current antibiotic. 4.Deconditioning. Continue PT/OT. 5.Hematuria, possible secondary to anticoagulation. Workup is still pending. We will follow up. T he patient plateaued in the kidney function. The patient is cleared from the renal standpoint for discharge planning. To follow up in the office in 2-3 weeks. CALVIN Voice ID: [id number] Report ID: [id number]
[2018-08-05] MEDS: NA CHLORIDE 0.9% 1,000 ML IV SCH ×2 (01:06→02:58)
--- NOTE | 2018-08-05 02:00 | FAST ---
SHIFT START DATE/TIME: 08/04/2018 19:00 (CDT) SHIFT END DATE/TIME: 08/05/2018 06:00 (PRN OCCUPATIONAL THERAPIST) NAME LUANN WOODS DATE OF : 1935 DATE OF ADMISSION: 07/27/2018 18:34 (CDT) PHONE: AGE: 83 N# [id number] GENDER: Male ENCOUNTER PHYSICIAN: Dr. Juan C Brooks M.D. ADMISSION DIAGNOSIS: - Cardiac 09 - Cardiac Disorders (09) Chronic atrial fibrillation (I48.2). EATING: Activity did not occur on this shift EATING - SCORE: 0-UNK GROOMING: Wash, rinse, and dry hands GROOMING - STEP 1: Does the patient require assistance when grooming? Yes. GROOMING - STEP 2: Does the patient require the assistance of a helper? Yes. GROOMING - STEP 3: How much assistance does the patient require from the helper? Only prior equipment preparation/set up from the helper GROOMING - SCORE: 5-SUP BATHING: Activity did not occur on this shift BATHING - SCORE: 0-UNK DRESSING - UPPER BODY: Activity did not occur on this shift ARTICLES SCORE Total number of steps: 0 DRESSING - UPPER BODY - SCORE: 0-UNK DRESSING - LOWER BODY: Activity did not occur on this shift ARTICLES SCORE Total number of steps: 0 DRESSING - LOWER BODY - SCORE: 0-UNK TOILETING: TOILETING - STEP 1: Does the patient require assistance with toileting? Yes. TOILETING - STEP 2: Does the patient require the assistance of a helper? Yes. TOILETING - STEP 3: How much assistance does the patient require from the helper? Only supervision TOILETING - SCORE: 5-SUP BLADDER MANAGEMENT: BLADDER MANAGEMENT - STEP 1: Does the patient control the bladder completely and intentionally without equipment or devices or med ications, and is always continent? No. BLADDER MANAGEMENT - STEP 2: Does the patient require the assistance of a helper? Yes. BLADDER MANAGEMENT - STEP 3: How much assistance does the patient require from the helper? Only set-up of equipment - such as plac ing it within reach of the patient or emptying a device - to maintain either satisfactory voiding pat tern or managing an external device, such as an absorbent pad, ileal device, or catheter BLADDER MANAGEMENT - SCORE: 5-SUP BOWEL MANAGEMENT: Activity did not occur on this shift BOWEL MANAGEMENT - SCORE: 7-IND TRANSFERS: BED, CHAIR, WHEELCHAIR: TRANSFERS: BED, CHAIR, WHEELCHAIR - STEP 1: Does the patient require assistance with bed, chair, or wheelchair transfers? Yes. TRANSFERS: BED, CHAIR, WHEELCHAIR - STEP 2: Does the patient require the assistance of a helper? Yes. TRANSFERS: BED, CHAIR, WHEELCHAIR - STEP 3: How much assistance does the patient require from the helper? Only supervision TRANSFERS: BED, CHAIR, WHEELCHAIR - SCORE: 5-SUP TRANSFERS: TOILET: TRANSFERS: TOILET - STEP 1: Does the patient require assistance with toilet transfers? Yes. TRANSFERS: TOILET - STEP 2: Does the patient require the assistance of a helper? Yes. TRANSFERS: TOILET - STEP 3: How much assistance does the patient require from the helper? Only supervision, cuing, coaxing, OR he lp to set out transfer equipment or to lock brakes and/or lift foot rests TRANSFERS: TOILET - SCORE: 5-SUP TRANSFERS: SHOWER: Activity did not occur on this shift TRANSFERS: SHOWER - SCORE: 0-UNK TRANSFERS: TUB: Activity did not occur on this shift TRANSFERS: TUB - SCORE: 0-UNK LOCOMOTION: WALK: Activity did not occur on this shift LOCOMOTION: WALK - SCORE: 0-UNK LOCOMOTION: WHEELCHAIR: Activity did not occur on this shift LOCOMOTION: WHEELCHAIR - SCORE: 0-UNK COMPREHENSION: COMPREHENSION: TYPE: Both COMPREHENSION - STEP 1: Does the patient require help to understand complex and abstract ideas (such as current events, finan mt, discharge planning, medical issues, relationships, etc)? No. COMPREHENSION - STEP 2: Does the patient need extra time, require an assistive device (such as glasses for visual comprehensi on or a hearing aid for auditory comprehension) or does s/he have mild difficulty understanding compl ex and abstract information? Yes. COMPREHENSION - SCORE: 6-SARATH EXPRESSION EXPRESSION: TYPE: Both EXPRESSION - STEP 1: Does the patient require help expressing complex and abstract ideas (such as current events, finances , discharge planning, medical issues, relationships, etc)? No. EXPRESSION - STEP 2: Does the patient need extra time, require an assistive device (such as augmentive communication syste m or a communication board), OR does s/he have mild difficulty expressing complex and abstract ideas (including mild dysarthria or mild word-find problems)? No. EXPRESSION - SCORE: 7-IND SOCIAL INTERACTION: SOCIAL INTERACTION - STEP 1: Does the patient require a helper to interact with others in social and therapeutic situations? No. SOCIAL INTERACTION - STEP 2: Does the patient need extra time in social situations, OR does s/he interact with staff, other patien ts, and family members ONLY in structured environments, OR does s/he require medication for social in teraction? No. SOCIAL INTERACTION - SCORE: 7-IND PROBLEM SOLVING: Patient requires bed/chair alarms due to attempts to get up unassisted when helper is needed. PROBLEM SOLVING - STEP 1: How often do the bed/chair alarms go off? Most of the time - the alarms go off about 75% of the time PROBLEM SOLVING - SCORE: 2-MAX MEMORY: MEMORY - STEP 1: How often do the bed/chair alarms go off? Most of the time - the alarms go off about 75% of the time MEMORY - SCORE: 2-MAX SIGNATURE PANEL: The following modified sections: Eating - Score, Grooming - Score, Bathing - Score, Dressing - Upper Body - Score, Dressing - Lower Body - Score, Toileting - Score, Bladder Management - Score, Bowel Man agement - Score, Transfers: Bed, Chair, Wheelchair - Score, Transfers: Toilet - Score, Transfers: Laurie wer - Score, Transfers: Tub - Score, Locomotion: Walk - Score, Locomotion: Wheelchair - Score, Compre hension - Score, Expression - Score, Social Interaction - Score, Problem Solving - Score, Memory - Sc ore were [electronically] signed by Keiko Ortega RN on MonAug 05 2018 01:17:57 GMT-0600 (Central Stand vance Time)
[2018-08-05] MEDS: METOPROLOL XL 25 MG TAB PO SCH (05:15)
[2018-08-05 06:05] LABS: Albumin 2.8 g/dL (3.4-5.0); Potassium 4.7 mmol/L (3.5-5.1)
[2018-08-05] MEDS: PANTOPRAZOLE 40MG TABLET PO SCH (06:10)
[2018-08-05] MEDS: INSULIN -REGULAR HUMAN 50 UNIT/0.5 ML ML SQ SCH ×2 (07:30→11:52)
[2018-08-05] MEDS: MAGNESIUM OXIDE 400 MG TAB PO SCH (07:41)
[2018-08-05] MEDS: CRANBERRY FRUIT EXTRACT 200 MG CAP PO SCH (07:41)
[2018-08-05] MEDS: FINASTERIDE 5 MG TAB PO SCH (07:41)
[2018-08-05] MEDS: ASPIRIN EC 81 MG TAB PO SCH (07:41)
[2018-08-05] MEDS: INSULIN 70/30 100 UNITS/ML SQ SCH (07:41)
[2018-08-05] MEDS: levoFLOXacin 500 MG TAB PO SCH (07:41)
[2018-08-05] MEDS: PROMOD 30 ML DOSE PO SCH (07:42)
[2018-08-05] MEDS: FERROUS SULFATE 325 MG TAB PO SCH (07:42)
[2018-08-05] MEDS: TAMSULOSIN 0.4 MG SR CAP PO SCH (07:42)
[2018-08-05 09:07] VITALS: TEMP 97.8
[2018-08-05 12:48] VITALS: BP 114/57
[2018-08-07 16:58] LABS: P-ANCA Anti-Myeloperoxidase Ab <1.0 AI (<1.0)
[2018-08-08 23:13] LABS: Albumin, (SPE) 2.8 g/dL (3.8-4.8); Alpha-1-Globulins 0.3 g/dL (0.2-0.3); Alpha-2-Globulins 0.8 g/dL (0.5-0.9); INTERPRETATION REPORT
== END 2018-08-05 12:25 | disposition home health service (06) | DRG 309 ==
LOC: 5TH 18:34
PROVIDERS: ADMIT Psychiatry & Neurology Neurology with Special Qualifications in Child Neurology; ATTEND Psychiatry & Neurology Neurology with Special Qualifications in Child Neurology
DX: I48.2 Chronic atrial fibrillation (principal); N17.9 Acute kidney failure, unspecified; E11.40 Type 2 diabetes mellitus with diabetic neuropathy, unspecified; N40.0 Benign prostatic hyperplasia without lower urinary tract symptoms; I25.10 Atherosclerotic heart disease of native coronary artery without angina pectoris; K21.9 Gastro-esophageal reflux disease without esophagitis; E78.5 Hyperlipidemia, unspecified; R53.81 Other malaise; E11.22 Type 2 diabetes mellitus with diabetic chronic kidney disease; I12.9 Hypertensive chronic kidney disease with stage 1 through stage 4 chronic kidney disease, or unspecified chronic kidney disease; N18.9 Chronic kidney disease, unspecified; E87.5 Hyperkalemia; R31.9 Hematuria, unspecified; Z87.891 Personal history of nicotine dependence
CPT/HCPCS: 36415; 76770; 80048; 80069; 81001; 82040; 82570; 82728; 82962; 83540; 83735; 83970; 84100; 84134; 84156; 84165; 84466; 85014; 85018; 85025; 86021; 86038; 86160; 86334; 87086; 87088; 97542; J7030

== ENCOUNTER 2019-07-01 12:38 | Inpatient (IN) | payer OTHER ==
--- NOTE | 2019-07-01 17:04 | R.PREADM ---
SCREENING DATE AND TIME 07/01/2019 15:12 (CDT) ANTICIPATED REHAB ADMISSION DATE 07/03/2019 REFERRING FACILITY [facility] REFERRAL DATE AND TIME 07/01/2019 15:12 (CDT) ACUTE ADMIT DATE 06/26/2019 Previous Rehabilitation(s): No. REFERRING PHYSICIAN Rocky Fabian REHAB FACILITY [facility] CLINICAL LIAISON Adiel Marcum PHYSICIAN REVIEWER Dr. Juan C Brooks M.D. [id number] [id number] NAME LUANN JAMES ADDRESS [address] [facility] [address] [facility] [address] [facility] [id number] DATE OF 1935 AGE 84 SSN# [id number] GENDER male MARITAL STATUS RACE white ADMIT FROM 02 - [facility] PRE-HOSPITAL LIVING SETTING 01 - Home (private home/apt. board/care, assisted living, halfway, transitional living) HOME TYPE AND DETAILS Type of home: single family house # of levels in the residence: 1 # of steps to enter the residence: 0 # of steps within the residence: 0 PRE-HOSPITAL LIVING WITH Family/Relatives FAMILY SUPPORT Yes PRIMARY FAMILY CONTACT NAME Suzi James PRIMARY FAMILY CONTACT PHONE PHONE PRIMARY FAMILY CONTACT ON ADM.? no IS PRIMARY FAMILY CONTACT AUTH. REP.? no 1ST EMERGENCY CONTACT Suzi James 1ST CONTACT PHONE PHONE 1ST CONTACT ON ADM. no IS 1ST CONTACT AUTH. REP.? no PHONE 2ND CONTACT ON ADM.? no PATIENT EMPLOYMENT STATUS Retired (for age) PATIENT EMPLOYER No Employer PAYOR INFORMATION: 1ST PAYOR NAME MEDICARE 1ST PAYOR PHONE 1ST PAYOR INJURY/ILLNESS DUE TO ACCIDENT? No ANOTHER GREEN PARTY RESPONSIBLE? No PRIMARY REHAB/ACUTE DIAGNOSIS: Renal cell carcinoma with metastases ONSET DATE 06/26/2019 REHAB IMPAIRMENT CATEGORY (JIMENA): 20 Miscellaneous (Misc) does NOT meet 60% rule PRIMARY DIAGNOSIS-RELATED SURGERIES: No surgeries related to the primary diagnosis were performed. COMORBID REHAB/ACUTE DIAGNOSES: - N/A acute UTI Dehydration hyperglycemia hyperkalemia ckd bph htn cad afib INTERVENTIONS: - CAD 02 sats Activity management Medications VS RISK FOR COMPLICATIONS: - CAD CHF Cardiac Arrest MA Pain SUMMARY OF ACUTE HOSPITALIZATION: Pt. is a 84 yo Right-handed white male. On 06/26/2019 he was admitted to [facility] with diagnosis Renal cell carcinoma with metastases. His impairment category is Medically Complex Conditions 17 - Neoplasms (17.2). Pre-morbidly, Pt. was independent/mod-I in Self-Care, Sphincter Control, Transfers Control, Locomotio n, Communication, and Social Cognition; and he had good Sphincter Control. Currently, he has deficits of Transfers Control, Locomotion, Communication, Social Cognition, Enduran ce, Balance, Safety Awareness, and Self-Care. Pt. is now referred to [facility] for acute in-patient rehabilitation in order to maximize patient's functional independence in activities of daily living, strength, ROM, and mobi lity. Patient has realistic goal of being discharged at assistance level 6-Aditya to reside at Home with Fam minal/Relatives. Patient is an 84 year old male under observation at [facility] for weakness due to renal carc inoma. PAST MEDICAL HISTORY Dehydration acute UTI afib bph cad ckd htn hyperglycemia hyperkalemia MEDICATION ALLERGIES: No Known Drug Allergies (NKDA) ENVIRONMENTAL ALLERGIES: - Substance Allergies None Known - Other Allergies None Known CODE STATUS: Full code WEIGHT/HEIGHT/BMI: WEIGHT 190 lbs HEIGHT 5' 11" BMI 26.5 DIET: - Diet Type Regular - Diet - Solid Texture Regular - Diet - Liquid Texture Regular - Tube Feed N/A REVIEW OF SYSTEMS: - Gen Alert and awake Lying in bed No apparent distress Oriented to: person, time, and place - CVS RRR VITAL SIGNS Temperature: 98.1 F SBP/DBP: 115/46 Pulse: 95 Resp: 18 Vital signs stable, afebrile MEDICATIONS/TREATMENT: Other- See attached MAR (Medication Administration Record). CURRENT SPHINCTER CONTROL: Pre-hospital bladder status: unspecified # of bladder accidents in the last 7 days prior to screenin Pre-hospital bowel status: unspecified # of bowel accidents in the last 7 days prior to screenin Last Bowel Movement Date: 07/01/2019 DETAILED CURRENT FUNCTIONAL STATUS: - Bladder accident frequency: Ind - No accidents in the past 7 days - Bowel accident frequency: Ind - No accidents in the past 7 days - Walking score based on distance walked: 2(5149ft) - Wheelchair score based on distance traveled: 1(<=50ft) FUNCTIONAL STATUS: - Self-Care A. Eating Ind Ind B. Grooming Ind sup C. Bathing Ind Vincent D. Dressing - Upper Ind sup E. Dressing - Lower Ind sup F. Toileting Ind sup - Sphincter Control G: Bladder control Ind Ind H: Bowel control Ind Ind - Transfers Control I. Bed/Chair/Wheelchair Ind Vincent J. Toilet Ind Vincent K. Tub/Shower Ind Vincent - Locomotion L. Walk/Wheelchair (C) Ind modA L. Walk/Wheelchair (W) Ind Dep M. Stairs Ind ADNO - Communication N. Comprehension (B) Ind sup O. Expression (B) Ind sup - Social Cognition P. Social Interaction Ind sup Q. Problem Solving Ind sup R. Memory Ind sup - Endurance Poor - Balance Fair - Safety Awareness Poor CURRENT FUNC. DEFICITS: Transfers Control, Locomotion, Communication, Social Cognition, Endurance, Balance, Safety Awareness, and Self-Care THERAPY NOTES FROM ACUTE CARE: Attached. SPECIAL NEEDS: - Safety Concerns Skin breakdown precautions needed due to skin breakdown risk PATIENT NEEDS ACTIVE AND ONGOING THERAPEUTIC INTERVENTION OF MULTIPLE THERAPY DISCIPLINES, INCLUDING: - Dietary and Nutrition Adequate Nutrition. Nutritional Education. Nutritional Supplements. PATIENT NEEDS CLOSE MEDICAL SUPERVISION BY A REHABILITATION PHYSICIAN FOR: Bowel and Bladder Management Coordination of Treatment Team Medical and Co-Morbidity Management PATIENT REQUIRES 24X7 REHAB NURSING FOR MEDICAL AND FUNCTIONAL MGT. OF THE FOLLOWING DEFICITS: ADL's Ambulation Bowel and Bladder Management Cognition Communication Disease Management Medication Management Patient/Family Education Providing Safe Environment Transfers PATIENT REQUIRES INTENSIVE, COORDINATED INTERDISCIPLINARY APPROACH TO REHAB: Arranging Home Equipment/Services Discharge Planning Family Intervention/Training Digital Project Manager/Case Management PATIENT REHAB POTENTIAL: Keila JAMES is able and expected to receive 3 hours of individualized therapy daily on at least 5 of ev samara 7 days Keila JAMES's prognosis for significant practical improvement within a reasonable period of time appear s Good Expected level of measurable improvement will be of a practical value to Keila JAMES's functional capac ity or adaptations to impairments Has a viable Discharge Plan Medically appropriate; condition is sufficiently stable to participate in intensive rehab program DISCHARGE PLAN: - Estimated Length of Stay (days) 13. - Consensus on plan Discharge plan has been discussed with primary caregiver. Patient/Family is in agreement with the aldair n. Primary caregiver is in agreement with the plan. - Patient/Family Goals Return home with assistance. - Planned Living Setting Upon Discharge Home, to live with Family/Relatives. RECOMMENDED CARE LEVEL: IRF RECOMMENDATION DETAILS: Recommended Admission to Comprehensive Rehabilitation Program to Increase Functional [place] SCREENER'S COMPLETENESS CONFIRMATION: - Screening Confirmation The patient data collection on this preadmission screening form is finished PHYSICIANS REVIEW AND ADMISSION DETERMINATION Admit - Based on my review of the Pre-Admission Screening results, in my medical judgment and experie nce, I concur with the findings and recommend admission to [facility], as this patient requires an IRF level of care. SIGNATURE PANEL: Clinical Liaison - [electronically] signed by Gardenia Chappell on 07/01/2019 at 15:32 (CDT) Clinical Liaison - [electronically] signed by Adiel Marcum RN on 07/01/2019 at 15:43 (CDT) Physician Reviewer - [electronically] signed by Dr. Juan C Brooks M.D. on 07/01/2019 at 17:03 (CDT )
[2019-07-01] MEDS ORDERED: DOCUSATE NA/SENNA CONC 1 TAB PO PRN (20:43)
[2019-07-01] MEDS ORDERED: ACETAMINOPHEN 325 MG TABLET PO PRN (20:43)
[2019-07-01] MEDS ORDERED: GLUCAGON 1 MG/VIAL IM PRN (21:01)
[2019-07-01] MEDS ORDERED: D50W 25 GM/50 ML SYRINGE IV PRN (21:01)
[2019-07-01] MEDS: AMOX/K CLAV 500 MG TAB PO SCH (21:35)
[2019-07-01] MEDS: ATORVASTATIN 20 MG TAB PO SCH (21:35)
[2019-07-02 00:41] LABS: Urine Appearance CLEAR; Urine Bilirubin NEGATIVE (NEG); Urine Blood NEGATIVE (NEG); Urine Color YELLOW; Urine Glucose TRACE (NEG); Urine Protein NEGATIVE (NEG); Urine Urobilinogen 0.2 mg/dL (0.2-1.0)
[2019-07-02 01:21] LABS: Urine Bacteria <20 /HPF (NONE SEEN); Urine Culture Reflex Order NOT NEEDED; Urine RBC <5 /HPF (NONE SEEN)
[2019-07-02 06:20] LABS: Absolute Lymphocytes (CBC) 1.5 K/uL (0.7-4.9); Basophils % 0.5 % (0-1.3); Hematocrit 24.9 % (39.6-49.0); Lymphocytes % 21.8 % (15.3-44.8); MPV 9.2 fL (7.6-11.3); RBC Red Blood Cell Count 2.95 M/uL (4.33-5.43)
[2019-07-02 06:50] LABS: Albumin 2.4 g/dL (3.4-5.0); Magnesium 1.8 mg/dL (1.8-2.4); Potassium 4.7 mmol/L (3.5-5.1); Prealbumin 13.5 mg/dL (20-40)
[2019-07-02] MEDS: INSULIN -REGULAR HUMAN 50 UNIT/0.5 ML ML SQ SCH ×4 (07:30→19:52)
[2019-07-02] MEDS ORDERED: SUCRALFATE 1 GM TABLET PO SCH ×2 (07:30→08:00)
[2019-07-02] MEDS: PANTOPRAZOLE 40MG TABLET PO SCH (07:45)
[2019-07-02] MEDS: AMOX/K CLAV 500 MG TAB PO SCH ×2 (08:30→19:50)
[2019-07-02] MEDS: INSULIN GLARGINE 100 UNITS/ML SQ SCH (08:30)
[2019-07-02] MEDS: FINASTERIDE 5 MG TAB PO SCH (08:30)
[2019-07-02] MEDS: METOPROLOL XL 25 MG TAB PO SCH ×2 (08:32→19:53)
[2019-07-02] MEDS: APIXABAN 2.5 MG TABLET PO SCH ×2 (08:33→19:51)
[2019-07-02] MEDS: TAMSULOSIN 0.4 MG SR CAP PO SCH (08:33)
[2019-07-02] MEDS: MAGNESIUM CHLORIDE 64 MG TAB PO SCH (08:37)
[2019-07-02 10:00] LABS: Platelet Estimate DECR; Urine White Blood Cell Casts OK
[2019-07-02 10:01] LABS: Anisocytosis 1+; Blood Morphology Comment NOTED (NOT SEEN); Elliptocytes 1+
[2019-07-02] MEDS ORDERED: BISACODYL 10 MG RECTAL SUPP PR PRN (13:41)
[2019-07-02] MEDS: SUCRALFATE 1 GM TABLET PO SCH (19:51)
[2019-07-02] MEDS: CRANBERRY FRUIT EXTRACT 200 MG CAP PO SCH (19:51)
[2019-07-02] MEDS: DOCUSATE NA/SENNA CONC 1 TAB PO SCH (19:51)
[2019-07-02] MEDS: ATORVASTATIN 20 MG TAB PO SCH (19:52)
[2019-07-02] MEDS: PROMOD 30 ML DOSE PO SCH (19:53)
--- NOTE | 2019-07-02 22:03 | PAPE ---
PATIENT: REFERRING DOCTOR Rocky Fabian EVALUATION DATE AND TIME 07/02/2019 22:01 (CDT) NAME LUANN WOODS DATE OF 1935 AGE 84 PHONE N# [id number] GENDER male EVALUATING PHYSICIAN Dr. Juan C Brooks M.D. POST-ADMISSION FUNCTIONAL/MEDICAL STATUS: - Bladder Same accident frequency: Ind - No accidents in the past 7 days - Bowel Same accident frequency: Ind - No accidents in the past 7 days - Walking Same score based on distance walked: 2(5149ft) - Wheelchair Same score based on distance traveled: 1(<=50ft) STATUS CHANGE EVALUATION: No change in Functional or Medical Status is identified compared with Pre-Admission screening. PATIENT NEEDS CLOSE MEDICAL SUPERVISION BY A REHABILITATION PHYSICIAN FOR: Bowel and Bladder Management Coordination of Treatment Team Medical and Co-Morbidity Management PATIENT REQUIRES 24X7 REHAB NURSING FOR MEDICAL AND FUNCTIONAL MGT. OF THE FOLLOWING DEFICITS: ADL's Ambulation Bowel and Bladder Management Cognition Communication Disease Management Medication Management Patient/Family Education Providing Safe Environment Transfers PATIENT REQUIRES INTENSIVE, COORDINATED INTERDISCIPLINARY APPROACH TO REHAB: Arranging Home Equipment/Services Discharge Planning Family Intervention/Training Billing Assistant/Case Management LIST OF IDENTIFIED AND POTENTIAL PROBLEMS: Alteration in leisure activities Bladder, Incontinence Bowel, Incontinence Infection, Actual or Potential Mobility Impaired Pain, Alteration in Comfort Self Care Deficit Skin Integrity, Actual or Potential Urinary Tract Infection (UTI), Actual or Potential RISK FOR COMPLICATIONS - CAD CHF. Cardiac Arrest. CA. Pain. INTERVENTIONS - CAD 02 sats. Activity management. Medications. VS. PATIENT COULD BE AT RISK FOR COMPLICATIONS FROM ADVERSE MEDICAL CONDITIONS DUE TO HIS/HER COMORBIDITI ES AND THE RIGORS OF THE INTENSIVE REHABILLITATION PROGRAM. METHODS OR INTERVENTIONS TO AVOID COMPLIC ATIONS INCLUDE: - Infection Clinical staff to assess and manage the signs and symptoms of infection including fever, redness, war mth, etc. - Urinary Tract Infection - Falls Patient will be evaluated for Fall Precautions and will be placed on Fall Precautions as indicated pe r protocol. - Skin Breakdown Nursing will assess skin daily using assessment tool and will place on Skin Breakdown Precautions as indicated per protocol. - Pain Clinical staff may employ non-medication methods such as massage, distraction, decrease stimulus, etc . as needed. Clinical staff will assess patient's pain level every shift per protocol to assess and e nsure pain management effectiveness. Medications will be given and the pain level re-assessed. PRELIMINARY PLAN OF CARE: - Physical Therapy Patient needs Physical Therapy for a daily minimum of 1.5 hours at least 5 out of 7 days, to improve: Mobility, Strengthening, Transfers, Stretching, ROM, Endurance, Ability to manage stairs, Gait, and Balance. - Speech Therapy Patient needs Speech Therapy for a daily minimum of 0.5 hours at least 5 out of 7 days, to improve: S wallowing, Cognition, Language Skills, and Compensatory Strategies. - Rehabilitation Nursing Patient requires 24x7 Rehabilitation Nursing for: Pain Issues, Identifying and preventing risk factor s, Monitoring and reporting current medical conditions, Assisting with ambulation and transfer, Jeremías ting with all ADL-s, Teaching patients about disease process and medications, Family teaching, Provid ing safe environment, Bowel and Bladder Issues, Skin Integrity, and Medication Management. Patient needs Billing Assistant and/or Case Management for: Discharge Planning, Arranging Home Equipmen t or Services, and Family Interventions. - Dietary and Nutrition Services Patient needs Dietary and Nutrition Services for: Adequate Nutrition, Nutritional Supplements, and Nu tritional Education. - Occupational Therapy Patient needs Occupational Therapy for a daily minimum of 1.5 hours at least 5 out of 7 days, to impr ove Activities of Daily Living, including: Eating, Grooming, Bathing, Dressing, Toileting, Toilet Tra nsfers, Community Reintegration, Higher functional activities, Adaptive Equipment, Splinting, Househo ld Tasks, and Other activities as determined. POTENTIAL FUNCTIONAL GOALS FOR PATIENT TO ACHIEVE BY DISCHARGE: - Safety Precaution Patient will remain free from falls or injury at time of discharge. - Bed Mobility Patient will perform bed mobility at 4-Vincent level of assistance. - Transfers Patient will complete transfers from bed to chair at 4-Vincent level of assistance. - Mobility Patient will ambulate 150 ft with 4-Vincent level of assistance with RW. PATIENT REHAB POTENTIAL Keila WOODS is able and expected to receive 3 hours of individualized therapy daily on at least 5 of ev samara 7 days Keila WOODS's prognosis for significant practical improvement within a reasonable period of time appear s Good Expected level of measurable improvement will be of a practical value to Keila WOODS's functional capac ity or adaptations to impairments Has a viable Discharge Plan Medically appropriate; condition is sufficiently stable to participate in intensive rehab program DISCHARGE PLAN: - Estimated Length of Stay (days) 13. - Consensus on plan Discharge plan has been discussed with primary caregiver. Patient/Family is in agreement with the aldair n. Primary caregiver is in agreement with the plan. - Patient/Family Goals Return home with assistance. - Planned Living Setting Upon Discharge Home, to live with Family/Relatives. CONCLUSION ON REHABILITATION NECESSITY: I have evaluated patient's pre-admission functional status and, comparing it to the patient's post-ad mission functional status now, I conclude that the pre-admission assessment was accurate. Patient's c ondition on admission supports the medical necessity of admission to IRF. It is safe to proceed with patient's therapy program. SIGNATURE PANEL: (CDT)
--- NOTE | 2019-07-02 22:26 | R.HP ---
FACILITY: [facility] ENCOUNTER DATE AND TIME: 07/02/2019 22:23 (CDT) MR#: [id number] NAME LUANN WOODS ADDRESS: [address] [address] CITY: [place] [address] [address] PHONE: DATE OF : 1935 AGE: 84 SSN# [id number] GENDER: Male DEXTERITY Right-handed MARITAL STATUS RACE White PRE-HOSPITAL LIVING SETTING 01 - Home (private home/apt. board/care, assisted living, senior living, transitional living) PRE-HOSPITAL LIVING WITH Family/Relatives ENCOUNTER PHYSICIAN: Dr. Juan C Brooks M.D. REFERRING DOCTOR: Rocky Fabian DATE OF ADMISSION: 07/01/2019 18:29 (CDT) REFERRING FACILITY [facility] HOME TYPE AND DETAILS: Type of home: single family house # of levels in the residence: 1 # of steps to enter the residence: 0 # of steps within the residence: 0 ADMISSION DIAGNOSIS: Renal cell carcinoma with metastases ONSET DATE: 06/26/2019 PRIMARY DIAGNOSIS-RELATED SURGERIES: No surgeries related to the primary diagnosis were performed. SECONDARY/COMORBID DIAGNOSES (TIERED): - N/A acute UTI Dehydration hyperglycemia hyperkalemia ckd bph htn cad afib HISTORY OF PRESENT ILLNESS (HPI): Pt. is a 84 yo Right-handed white male. On 06/26/2019 he was admitted to [facility] with diagnosis Renal cell carcinoma with metastases. His impairment category is Medically Complex Conditions 17 - Neoplasms (17.2). Pre-morbidly, Pt. was independent/mod-I in Self-Care, Sphincter Control, Transfers Control, Locomotio n, Communication, and Social Cognition; and he had good Sphincter Control. Currently, he has deficits of Transfers Control, Locomotion, Communication, Social Cognition, Enduran ce, Balance, Safety Awareness, and Self-Care. Pt. is now referred to [facility] for acute in-patient rehabilitation in order to maximize patient's functional independence in activities of daily living, strength, ROM, and mobi lity. Patient has realistic goal of being discharged at assistance level 6-Aditya to reside at Home with Fam minal/Relatives. Patient is an 84 year old male under observation at [facility] for weakness due to renal carc inoma. MEDICATION ALLERGIES: No Known Drug Allergies (NKDA) ENVIRONMENTAL ALLERGIES: - Substance Allergies None Known - Other Allergies None Known PAST MEDICAL HISTORY: Dehydration acute UTI afib bph cad ckd htn hyperglycemia hyperkalemia FAMILY HISTORY: Family history is not contributory. SOCIAL HISTORY: - Home Living Family/Relatives REVIEW OF SYSTEMS: - Gen No Chills Fatigue No Fever - Eyes No Double Vision No itchiness - ENMT No Difficulty Swallowing - CVS Chest Discomfort No Chest Pain No Fatigue No Weight Gain - Resp No Cough Shortness of Breath - GI Continent No Abdominal Pain No Constipation No Diarrhea - Continent No Kidney Pain No Painful Urination No Urinary Urgency - MSK No Joint Pain No Muscle Cramps No Stiffness - Skin No Itching No Rash No Suspicious Lesions - Neuro No Coordination Difficulty No Difficulty with Concentration No Memory Loss No Seizures Weakness - Psych No Anxiety No Depression No HIV Exposure No Persistent Infections No Seasonal Allergies - Endo No Cold/Heat Intolerance No Excessive Hunger No Excessive Thirst No Excessive Urination PHYSICAL EXAM - Gen Alert and awake Lying in bed No apparent distress Oriented to: person, time, and place - Skin No breakdown No abnormalities - Eyes No abnormalities - ENMT No abnormalities - Neck No abnormalities - CVS RRR - Chest No abnormalities - Abd Soft - GI Non distended Deferred - No abnormalities - Ext Mild bilateral lower extremity edema. - MSK 4/5 weakness in both lower extremities. - Neuro No focal deficits - Psych No abnormalities VITAL SIGNS Temperature: 98.1 F SBP/DBP: 115/46 Pulse: 95 Resp: 18 NURSING: - Shower allowing shower ACTIVITIES OOB only with supervision FUNCTIONAL STATUS: - Self-Care A. Eating Ind Ind B. Grooming Ind sup C. Bathing Ind Vincent D. Dressing - Upper Ind sup E. Dressing - Lower Ind sup F. Toileting Ind sup - Sphincter Control G: Bladder control Ind Ind H: Bowel control Ind Ind - Transfers Control I. Bed/Chair/Wheelchair Ind Vincent J. Toilet Ind Vincent K. Tub/Shower Ind Vincent - Locomotion L. Walk/Wheelchair (C) Ind modA L. Walk/Wheelchair (W) Ind Dep M. Stairs Ind ADNO - Communication N. Comprehension (B) Ind sup O. Expression (B) Ind sup - Social Cognition P. Social Interaction Ind sup Q. Problem Solving Ind sup R. Memory Ind sup - Endurance Poor - Balance Fair - Safety Awareness Poor CURRENT [facility]. DEFICITS: Transfers Control, Locomotion, Communication, Social Cognition, Endurance, Balance, Safety Awareness, and Self-Care MEDICATIONS: - Other See attached MAR (Medication Administration Record) ASSESSMENT: Pt. is a 84 yo Right-handed white male.On 06/26/2019 he was admitted to [facility] wi th diagnosis Renal cell carcinoma with metastases.His impairment category is Medically Complex Condit ions 17 - Neoplasms (17.2).Pre-morbidly, Pt. was independent/mod-I in Self-Care, Sphincter Control, Transfers Control, Locomotion, Communication, and Social Cognition; and he had good Sphincter Control .Currently, he has deficits of Transfers Control, Locomotion, Communication, Social Cognition, Endura nce, Balance, Safety Awareness, and Self-Care.Pt. is now referred to [facility] for acute in-patient rehabilitation in order to maximize patient's functional independence in activ ities of daily living, strength, ROM, and mobility.- Rehab Goal Patient has realistic goal of being discharged at assistance level 6-Aditay to reside at Home with Fam minal/Relatives. Patient is an 84 year old male under observation at [facility] for weakness due to renal carc inoma. REHAB PLAN: - Physical Therapy Gait dysfunction - to improve, our physical therapists will perform initial evaluation of pt's status upon admission and devise an individualized program for Gait Training, and Wheel Chair mobility Inability to transfer - to improve, our physical therapists will perform initial evaluation of pt's s tatus upon admission and devise an individualized program for Bed mobility Need for home safety evaluation - to improve, our physical therapists will perform initial evaluation of pt's status upon admission and devise an individualized program for Home Evaluation Need in caregiver upon discharge - to improve, our physical therapists will perform initial evaluatio n of pt's status upon admission and devise an individualized program for Caregiver Training New precaution - to improve, our physical therapists will perform initial evaluation of pt's status u eladia admission and devise an individualized program for Patient precaution education Edema - to improve, our physical therapists will perform initial evaluation of pt's status upon admi ssion and devise an individualized program for Elevation Training, and Lymphedema Therapy Poor balance - to improve, our physical therapists will perform initial evaluation of pt's status upo n admission and devise an individualized program for Balance Training Poor endurance - to improve, our physical therapists will perform initial evaluation of pt's status u eladia admission and devise an individualized program for Endurance Training Weakness - to improve, our physical therapists will perform initial evaluation of pt's status upon ad mission and devise an individualized program for Aquatic Therapy, Neuromuscular Reeducation, and Stre ngthening Achieving independence - to improve, our physical therapists will perform initial evaluation of pt's status upon admission and devise an individualized program for Community Reintegration Activities - Occupational Therapy ADL deficits - to improve, our occupation therapists will perform initial evaluation of pt's status u eladia admission and devise an individualized program for Bathing, Bed mobility, Community Reintegration , Cooking, Dressing, Eating, Fine Motor Skills, Grooming, Homemaking, Kitchen Mobility, Laundry, Jennifer ent Education, Safety Awareness, Splinting - Positioning, Transfers(Toilet, Tub, Shower), and Wheel C hair Management Cognitive deficits - to improve, our occupation therapists will perform initial evaluation of pt's st atus upon admission and devise an individualized program for Cognition - orientation Need for toddler caregiver - to improve, our occupation therapists will perform initial evaluation of pt's s tatus upon admission and devise an individualized program for Caregiver Training Weakness - to improve, our occupation therapists will perform initial evaluation of pt's status upon admission and devise an individualized program for Aquatic Therapy, Balance, Endurance, UE ROM, and U E strengthening MEDICAL PLAN: - Diet Type Start Regular - Diet - Liquid Texture Start Regular - Tube Feed Start N/A - Other See attached MAR (Medication Administration Record) - Diet - Solid Texture Regular - Shower shower DISCHARGE PLAN: - Estimated Length of Stay (days) 13. - Consensus on plan Discharge plan has been discussed with primary caregiver. Patient/Family is in agreement with the aldair n. Primary caregiver is in agreement with the plan. - Patient/Family Goals Return home with assistance. - Planned Living Setting Upon Discharge Home, to live with Family/Relatives. SIGNATURE PANEL: (CDT)
[2019-07-03] MEDS: SUCRALFATE 1 GM TABLET PO SCH ×4 (06:40→20:27)
[2019-07-03] MEDS: PANTOPRAZOLE 40MG TABLET PO SCH (06:40)
[2019-07-03] MEDS: INSULIN -REGULAR HUMAN 50 UNIT/0.5 ML ML SQ SCH ×4 (07:30→21:21)
[2019-07-03] MEDS: INSULIN GLARGINE 100 UNITS/ML SQ SCH (08:14)
[2019-07-03] MEDS: MAGNESIUM CHLORIDE 64 MG TAB PO SCH (08:16)
[2019-07-03] MEDS: METOPROLOL XL 25 MG TAB PO SCH ×2 (08:16→20:00)
[2019-07-03] MEDS: AMOX/K CLAV 500 MG TAB PO SCH ×2 (08:16→20:26)
[2019-07-03] MEDS: CRANBERRY FRUIT EXTRACT 200 MG CAP PO SCH ×2 (08:16→20:26)
[2019-07-03] MEDS: APIXABAN 2.5 MG TABLET PO SCH ×2 (08:16→20:26)
[2019-07-03] MEDS: FINASTERIDE 5 MG TAB PO SCH (08:16)
[2019-07-03] MEDS: FE SULF/FA/VIT B COMP & C TAB PO SCH (08:17)
[2019-07-03] MEDS: FERROUS SULFATE 325 MG TAB PO SCH (08:17)
[2019-07-03] MEDS: TAMSULOSIN 0.4 MG SR CAP PO SCH (08:17)
[2019-07-03] MEDS: PROMOD 30 ML DOSE PO SCH ×2 (08:18→20:27)
[2019-07-03] MEDS ORDERED: FLEET ENEMA ADULT PR PRN (14:05)
[2019-07-03] MEDS ORDERED: NYSTATIN PWDR 100000 UNIT/GM TOP SCH (20:00)
[2019-07-03] MEDS: ATORVASTATIN 20 MG TAB PO SCH (20:26)
[2019-07-03] MEDS: NYSTATIN PWDR 100000 UNIT/GM TOP SCH (20:27)
[2019-07-03] MEDS: DOCUSATE NA/SENNA CONC 1 TAB PO SCH (20:28)
[2019-07-03] MEDS ORDERED: INSULIN -REGULAR HUMAN 50 UNIT/0.5 ML ML ONE (21:20)
[2019-07-04 06:50] LABS: Absolute Lymphocytes (CBC) 1.8 K/uL (0.7-4.9); Basophils % 0.6 % (0-1.3); Lymphocytes % 24.2 % (15.3-44.8); MPV 9.3 fL (7.6-11.3); RBC Red Blood Cell Count 2.94 M/uL (4.33-5.43)
[2019-07-04 07:04] LABS: Albumin 2.5 g/dL (3.4-5.0); Magnesium 1.9 mg/dL (1.8-2.4); Potassium 4.9 mmol/L (3.5-5.1); Prealbumin 14.4 mg/dL (20-40)
[2019-07-04] MEDS: INSULIN -REGULAR HUMAN 50 UNIT/0.5 ML ML SQ SCH ×4 (07:30→21:16)
[2019-07-04] MEDS: PANTOPRAZOLE 40MG TABLET PO SCH (07:31)
[2019-07-04] MEDS: FERROUS SULFATE 325 MG TAB PO SCH (07:34)
[2019-07-04] MEDS: FE SULF/FA/VIT B COMP & C TAB PO SCH (07:34)
[2019-07-04] MEDS: AMOX/K CLAV 500 MG TAB PO SCH ×2 (07:34→20:20)
[2019-07-04] MEDS: MAGNESIUM CHLORIDE 64 MG TAB PO SCH (07:34)
[2019-07-04] MEDS: NYSTATIN PWDR 100000 UNIT/GM TOP SCH ×2 (07:34→20:20)
[2019-07-04] MEDS: TAMSULOSIN 0.4 MG SR CAP PO SCH (07:34)
[2019-07-04] MEDS: FINASTERIDE 5 MG TAB PO SCH (07:34)
[2019-07-04] MEDS: APIXABAN 2.5 MG TABLET PO SCH ×2 (07:34→20:20)
[2019-07-04] MEDS: SUCRALFATE 1 GM TABLET PO SCH ×4 (07:34→20:21)
[2019-07-04] MEDS: CRANBERRY FRUIT EXTRACT 200 MG CAP PO SCH ×2 (07:34→20:20)
[2019-07-04] MEDS: INSULIN GLARGINE 100 UNITS/ML SQ SCH (07:35)
[2019-07-04] MEDS: PROMOD 30 ML DOSE PO SCH ×2 (07:35→20:22)
[2019-07-04] MEDS: METOPROLOL XL 25 MG TAB PO SCH ×2 (08:00→20:00)
[2019-07-04] MEDS: ATORVASTATIN 20 MG TAB PO SCH (20:21)
[2019-07-04] MEDS: MEGESTROL 40 MG TAB PO SCH (20:21)
[2019-07-04] MEDS: DOCUSATE NA/SENNA CONC 1 TAB PO SCH (20:26)
[2019-07-05] MEDS: INSULIN -REGULAR HUMAN 50 UNIT/0.5 ML ML SQ SCH ×4 (07:30→21:00)
[2019-07-05] MEDS: FERROUS SULFATE 325 MG TAB PO SCH (07:32)
[2019-07-05] MEDS: TAMSULOSIN 0.4 MG SR CAP PO SCH (07:32)
[2019-07-05] MEDS: SUCRALFATE 1 GM TABLET PO SCH ×4 (07:32→21:45)
[2019-07-05] MEDS: PANTOPRAZOLE 40MG TABLET PO SCH (07:32)
[2019-07-05] MEDS: MAGNESIUM CHLORIDE 64 MG TAB PO SCH (07:33)
[2019-07-05] MEDS: MEGESTROL 40 MG TAB PO SCH ×2 (07:33→21:45)
[2019-07-05] MEDS: AMOX/K CLAV 500 MG TAB PO SCH ×2 (07:33→21:44)
[2019-07-05] MEDS: FE SULF/FA/VIT B COMP & C TAB PO SCH (07:33)
[2019-07-05] MEDS: DULOXETINE 20 MG CAP PO SCH (07:33)
[2019-07-05] MEDS: FINASTERIDE 5 MG TAB PO SCH (07:33)
[2019-07-05] MEDS: APIXABAN 2.5 MG TABLET PO SCH ×2 (07:33→21:44)
[2019-07-05] MEDS: CRANBERRY FRUIT EXTRACT 200 MG CAP PO SCH ×2 (07:33→21:44)
[2019-07-05] MEDS: INSULIN GLARGINE 100 UNITS/ML SQ SCH (07:35)
[2019-07-05] MEDS: NYSTATIN PWDR 100000 UNIT/GM TOP SCH ×2 (07:36→20:00)
[2019-07-05] MEDS: PROMOD 30 ML DOSE PO SCH ×2 (07:36→21:46)
[2019-07-05] MEDS: METOPROLOL XL 25 MG TAB PO SCH ×2 (07:37→20:00)
--- NOTE | 2019-07-05 10:03 | P.RH.PN ---
Estimated Length of Stay: 13 Expected Discharge Date: 07/12/19 Discharge Disposition Plan: Home Family Support: Yes [facility] Goal: Mobility, Transfers, Self Care Vital Signs: Last Vital Signs Temp 97.7 F 07/05/19 07:26 Pulse 112 H 07/05/19 07:37 Resp 16 07/05/19 07:26 BP 103/51 L 07/05/19 07:37 Pulse Ox 97 07/05/19 07:26 Laboratory: Laboratory Last Values WBC 7.2 K/uL (4.3-10.9) 07/04/19 06:18 RBC 2.94 M/uL (4.33-5.43) L 07/04/19 06:18 Hgb 8.3 g/dL (13.6-17.9) L 07/04/19 06:18 Hct 25.0 % (39.6-49.0) L 07/04/19 06:18 MCV 84.9 fL (80-100) 07/04/19 06:18 MCH 28.0 pg (27.0-35.0) 07/04/19 06:18 MCHC 33.0 g/dL (32.0-36.0) 07/04/19 06:18 RDW 16.1 % (12.1-15.2) H 07/04/19 06:18 Plt Count 90 K/uL (152-406) L 07/04/19 06:18 MPV 9.3 fL (7.6-11.3) 07/04/19 06:18 Neutrophils % 65.6 % (41.7-73.7) 07/04/19 06:18 Lymphocytes % 24.2 % (15.3-44.8) 07/04/19 06:18 Monocytes % 6.7 % (3.3-12.3) 07/04/19 06:18 Eosinophils % 2.9 % (0-4.4) 07/04/19 06:18 Basophils % 0.6 % (0-1.3) 07/04/19 06:18 Absolute Neutrophils 4.7 K/uL (1.8-8.0) 07/04/19 06:18 Absolute Lymphocytes 1.8 K/uL (0.7-4.9) 07/04/19 06:18 Absolute Monocytes 0.5 K/uL (0.1-1.3) 07/04/19 06:18 Absolute Eosinophils 0.2 K/uL (0-0.5) 07/04/19 06:18 Absolute Basophils 0.0 K/uL (0-0.5) 07/04/19 06:18 Anisocytosis 1+ 07/02/19 06:03 Elliptocytes 1+ 07/02/19 06:03 Morphology Comment Noted (NOT SEEN) 07/02/19 06:03 Sodium 139 mmol/L (136-145) 07/04/19 06:18 Potassium 4.9 mmol/L (3.5-5.1) 07/04/19 06:18 Chloride 114 mmol/L (98-107) H 07/04/19 06:18 Carbon Dioxide 20 mmol/L (21-32) L 07/04/19 06:18 BUN 55 mg/dL (7-18) H 07/04/19 06:18 Creatinine 2.29 mg/dL (0.55-1.3) H 07/04/19 06:18 Estimated GFR 27 mL/min (=/>90) L 07/04/19 06:18 Glucose 121 mg/dL (74-106) H 07/04/19 06:18 POC Glucose 263 mg/dl (65-120) H 07/04/19 20:11 Calcium 10.0 mg/dL (8.5-10.1) 07/04/19 06:18 Magnesium 1.9 mg/dL (1.8-2.4) 07/04/19 06:18 Albumin 2.5 g/dL (3.4-5.0) L 07/04/19 06:18 Prealbumin 14.4 mg/dL (20-40) L 07/04/19 06:18 Urine Color Yellow 07/01/19 23:40 Urine Appearance Clear 07/01/19 23:40 Urine pH 5.0 (5.0-7.0) 07/01/19 23:40 Ur Specific [place] 1.010 (1.005-1.030) 07/01/19 23:40 Urine Ketones Negative (NEG) 07/01/19 23:40 Urine Blood Negative (NEG) 07/01/19 23:40 Urine Nitrite Negative (NEG) 07/01/19 23:40 Urine Bilirubin Negative (NEG) 07/01/19 23:40 Urine Urobilinogen 0.2 mg/dL (0.2-1.0) 07/01/19 23:40 Ur Leukocyte Esterase 1+ (NEG) H 07/01/19 23:40 Urine RBC <5 /HPF (NONE SEEN) 07/01/19 23:40 Urine WBC 20-50 /HPF (<5) H 07/01/19 23:40 Ur Squamous Epith Cells <5 /HPF (NONE SEEN) 07/01/19 23:40 Ur Urothelial Cells <5 /HPF (NONE SEEN) 07/01/19 23:40 Urine Bacteria <20 /HPF (NONE SEEN) 07/01/19 23:40 Urine Culture Reflexed Not needed 07/01/19 23:40 Urine Glucose Trace (NEG) 07/01/19 23:40 Urine Total Protein Negative (NEG) 07/01/19 23:40 Weight: 190 lb 5 oz Wound Present: No Closed Surgical Incision Present: No Physician Update: Labs reviewed. Hgb is low at 8.3. On hemocye plus. Doing fair overall but is still limited by arm pain. He is moderately debilitated and will require more time with therapy. Walking 100' x 3 and 150' with standy assistance with a rolling walker. He has an upcomming PET scan for adenocarcinoma. He is sleepy with speech therapy and requires stimulation to participate consistent with features of depression. Also poor apetite and no interest in things he enjoyed in the past. He started Cymbalta and Megace yesterday. Medical Issues: Patient has on going Augmentin PO for UTI. Patient is had bladder incontinence daily and always continent with bowel. Comment: redness noted on groin area. Functional Improvement: pt has demonstrated improvement with balance and stability during ambulation as well as improved LE strength; however, he continues to rapidly fatigue. pt's endurance continues to require training to improve his ability for prolonged activty necessary for home discharge. Speech Therapy Update: Patient presents with decreased level of alertness, he tends to drift off into sleep mid conversation. Patient presents with mild (min ) cognitive impairments particularly in attention, STM, and word-finding/ recalling names. Patient is at MOD I for Auditory Comprehension, SUPV for Verbal Expression, MOD I for Social Interaction, SUPV for Problem Solving, and MIN A for Memory. Patient lives at home with his . He will require intermittent supervision for safety. 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 Please see the Rehabilitation Signature page for all necessary signatures.
[2019-07-05] MEDS: ATORVASTATIN 20 MG TAB PO SCH (21:44)
[2019-07-05] MEDS: DOCUSATE NA/SENNA CONC 1 TAB PO SCH (21:44)
[2019-07-06 05:40] VITALS: BMI 25.2
[2019-07-06] MEDS: PANTOPRAZOLE 40MG TABLET PO SCH (06:41)
[2019-07-06] MEDS: SUCRALFATE 1 GM TABLET PO SCH ×4 (06:41→20:36)
[2019-07-06] MEDS: INSULIN -REGULAR HUMAN 50 UNIT/0.5 ML ML SQ SCH ×4 (07:30→20:40)
[2019-07-06] MEDS: INSULIN GLARGINE 100 UNITS/ML SQ SCH (08:32)
[2019-07-06] MEDS: MAGNESIUM CHLORIDE 64 MG TAB PO SCH (08:34)
[2019-07-06] MEDS: FERROUS SULFATE 325 MG TAB PO SCH (08:34)
[2019-07-06] MEDS: CRANBERRY FRUIT EXTRACT 200 MG CAP PO SCH ×2 (08:34→20:35)
[2019-07-06] MEDS: MEGESTROL 40 MG TAB PO SCH ×2 (08:34→20:36)
[2019-07-06] MEDS: LIDOCAINE 4% PATCH TOP SCH (08:34)
[2019-07-06] MEDS: METOPROLOL XL 25 MG TAB PO SCH ×2 (08:34→20:00)
[2019-07-06] MEDS: AMOX/K CLAV 500 MG TAB PO SCH ×2 (08:35→20:35)
[2019-07-06] MEDS: FINASTERIDE 5 MG TAB PO SCH (08:35)
[2019-07-06] MEDS: DULOXETINE 20 MG CAP PO SCH (08:35)
[2019-07-06] MEDS: FE SULF/FA/VIT B COMP & C TAB PO SCH (08:35)
[2019-07-06] MEDS: APIXABAN 2.5 MG TABLET PO SCH ×2 (08:35→20:35)
[2019-07-06] MEDS: TAMSULOSIN 0.4 MG SR CAP PO SCH (08:35)
[2019-07-06] MEDS: PROMOD 30 ML DOSE PO SCH ×2 (08:37→20:37)
[2019-07-06] MEDS: NYSTATIN PWDR 100000 UNIT/GM TOP SCH ×2 (09:44→20:36)
[2019-07-06] MEDS: ATORVASTATIN 20 MG TAB PO SCH (20:35)
[2019-07-06] MEDS: DOCUSATE NA/SENNA CONC 1 TAB PO SCH (20:36)
[2019-07-07] MEDS: SUCRALFATE 1 GM TABLET PO SCH ×4 (06:38→19:41)
[2019-07-07] MEDS: PANTOPRAZOLE 40MG TABLET PO SCH (06:38)
[2019-07-07] MEDS: LIDOCAINE 4% PATCH TOP SCH (06:39)
[2019-07-07] MEDS: NYSTATIN PWDR 100000 UNIT/GM TOP SCH ×2 (06:54→19:41)
[2019-07-07] MEDS: INSULIN -REGULAR HUMAN 50 UNIT/0.5 ML ML SQ SCH ×4 (07:30→20:17)
[2019-07-07] MEDS: CRANBERRY FRUIT EXTRACT 200 MG CAP PO SCH ×2 (08:02→19:41)
[2019-07-07] MEDS: METOPROLOL XL 25 MG TAB PO SCH ×2 (08:02→19:42)
[2019-07-07] MEDS: FE SULF/FA/VIT B COMP & C TAB PO SCH (08:02)
[2019-07-07] MEDS: MEGESTROL 40 MG TAB PO SCH ×2 (08:03→19:42)
[2019-07-07] MEDS: INSULIN GLARGINE 100 UNITS/ML SQ SCH (08:03)
[2019-07-07] MEDS: MAGNESIUM CHLORIDE 64 MG TAB PO SCH (08:03)
[2019-07-07] MEDS: TAMSULOSIN 0.4 MG SR CAP PO SCH (08:03)
[2019-07-07] MEDS: FINASTERIDE 5 MG TAB PO SCH (08:03)
[2019-07-07] MEDS: APIXABAN 2.5 MG TABLET PO SCH ×2 (08:03→19:42)
[2019-07-07] MEDS: FERROUS SULFATE 325 MG TAB PO SCH (08:03)
[2019-07-07] MEDS: DULOXETINE 20 MG CAP PO SCH (08:03)
[2019-07-07] MEDS: AMOX/K CLAV 500 MG TAB PO SCH ×2 (08:03→19:41)
[2019-07-07] MEDS: PROMOD 30 ML DOSE PO SCH ×2 (08:05→19:42)
[2019-07-07] MEDS: ATORVASTATIN 20 MG TAB PO SCH (19:41)
[2019-07-07] MEDS: DOCUSATE NA/SENNA CONC 1 TAB PO SCH (19:41)
[2019-07-08] MEDS: PANTOPRAZOLE 40MG TABLET PO SCH (06:21)
[2019-07-08 07:00] VITALS: BP 108/48; TEMP 97.8
[2019-07-08] MEDS: INSULIN -REGULAR HUMAN 50 UNIT/0.5 ML ML SQ SCH ×2 (07:30→11:30)
[2019-07-08] MEDS: SUCRALFATE 1 GM TABLET PO SCH ×2 (08:07→11:30)
[2019-07-08] MEDS: CRANBERRY FRUIT EXTRACT 200 MG CAP PO SCH (08:07)
[2019-07-08] MEDS: AMOX/K CLAV 500 MG TAB PO SCH ×2 (08:07→08:09)
[2019-07-08] MEDS: INSULIN GLARGINE 100 UNITS/ML SQ SCH (08:08)
[2019-07-08] MEDS: MEGESTROL 40 MG TAB PO SCH (08:09)
[2019-07-08] MEDS: FINASTERIDE 5 MG TAB PO SCH (08:09)
[2019-07-08] MEDS: DULOXETINE 20 MG CAP PO SCH (08:09)
[2019-07-08] MEDS: TAMSULOSIN 0.4 MG SR CAP PO SCH (08:09)
[2019-07-08] MEDS: METOPROLOL XL 25 MG TAB PO SCH (08:10)
[2019-07-08] MEDS: FERROUS SULFATE 325 MG TAB PO SCH (08:10)
[2019-07-08] MEDS: APIXABAN 2.5 MG TABLET PO SCH (08:10)
[2019-07-08] MEDS: MAGNESIUM CHLORIDE 64 MG TAB PO SCH (08:10)
[2019-07-08] MEDS: FE SULF/FA/VIT B COMP & C TAB PO SCH (08:11)
[2019-07-08] MEDS: PROMOD 30 ML DOSE PO SCH (08:11)
[2019-07-08] MEDS: LIDOCAINE 4% PATCH TOP SCH (09:34)
[2019-07-08] MEDS: NYSTATIN PWDR 100000 UNIT/GM TOP SCH (09:34)
--- NOTE | 2019-07-08 11:26 | RAD REPORT ---
EXAM DESCRIPTION: CT - Ct Stroke Brain Wo Cont - 07/08/2019 11:18 am CLINICAL HISTORY: Acute onset right-sided weakness, slurred speech, facial droop CLINICAL HISTORY: None. TECHNIQUE: Axial 5 millimeter thick images of the head were obtained without IV contrast. All CT scans are performed using dose optimization technique as appropriate and may include automated exposure control or mA/KV adjustment according to patient size. FINDINGS: No intracranial hemorrhage, mass, or cerebral edema. No acute cortical based infarction. N o cortical edema or sulcal effacement seen. Patient has moderate severity atrophy and chronic ischemi c change. Ventricles are in proportion to the amount of volume loss. Asymmetry is created by head til t in the scanner. Castro matter-white matter differentiation is preserved. No globe or orbital content acute finding seen. Visualized portions of the mastoid air cells, paranasal sinuses, and orbits are unremarkable. Findings telephoned to the ordering physician 11:20 a.m. IMPRESSION: No CT evidence of acute intracranial process. Patient has moderate severity atrophy and chronic ischemic change. Chronic ischemic changes can mask nonhemorrhagic acute infarction. MR brain followup can be obtained if there is ongoing concern for acute ischemia.
--- NOTE | 2019-07-19 14:31 | R.DS ---
FACILITY [facility] MR# [id number] NAME LUANN WOODS ADDRESS [address] [place]IP [address] PHONE DATE OF 1935 AGE 84 SSN# [id number] GENDER Male DEXTERITY Right-handed MARITAL STATUS RACE White ENCOUNTER PHYSICIAN Dr. Juan C Brooks M.D. REFERRING DOCTOR Rocky Fabian REFERRING FACILITY [facility] DISCHARGE DIAGNOSIS: - Medically Complex Conditions 17 - Neoplasms (17.2) Renal cell carcinoma with metastases. DISCHARGE COMORBIDITIES: - N/A acute UTI Dehydration hyperglycemia hyperkalemia ckd bph htn cad afib DATE OF ADMISSION 07/01/2019 18:29 (CDT) MEDICATION ALLERGIES: No Known Drug Allergies (NKDA) ENVIRONMENTAL ALLERGIES: - Substance Allergies None Known - Other Allergies None Known DISCHARGE MEDICATIONS: Other- See attached MAR (Medication Administration Record). NURSING: - Shower allowing shower ACTIVITIES OOB only with supervision THERAPIES: - Dietary and Nutrition Adequate Nutrition Nutritional Education Nutritional Supplements HISTORY OF PRESENT ILLNESS: Pt. is a 84 yo Right-handed white male.On 06/26/2019 he was admitted to [facility] wi th diagnosis Renal cell carcinoma with metastases.His impairment category is Medically Complex Condit ions 17 - Neoplasms (17.2).Pre-morbidly, Pt. was independent/mod-I in Self-Care, Sphincter Control, Transfers Control, Locomotion, Communication, and Social Cognition; and he had good Sphincter Control .Currently, he has deficits of Transfers Control, Locomotion, Communication, Social Cognition, Endura nce, Balance, Safety Awareness, and Self-Care.Pt. is now referred to [facility] for acute in-patient rehabilitation in order to maximize patient's functional independence in activ ities of daily living, strength, ROM, and mobility.- Rehab Goal Patient has realistic goal of being discharged at assistance level 6-Aditya to reside at Home with Fam minal/Relatives. Patient is an 84 year old male under observation at [facility] for weakness due to renal carc inoma. HOSPITAL COURSE: DIET - LIQUID TEXTURE: On 07/01/2019 Pt was upgraded to Regular Diet - Liquid Texture. DIET - SOLID TEXTURE: On 07/01/2019 Pt was upgraded to Regular Diet - Solid Texture. DIET TYPE: On 07/01/2019 Pt was upgraded to Regular Diet Type. TUBE FEED: On 07/01/2019 Pt was changed to N/A Tube Feed. DISCHARGE PHYSICAL EXAM - Gen Alert and awake Lying in bed No apparent distress Oriented to: person, time, and place - Skin No breakdown No abnormalities - Eyes No abnormalities - ENMT No abnormalities - Neck No abnormalities - CVS RRR - Chest No abnormalities - Abd Soft - GI Non distended Deferred - No abnormalities - Ext Mild bilateral lower extremity edema. - MSK 4/5 weakness in both lower extremities. - Neuro No focal deficits - Psych No abnormalities FUNCTIONAL STATUS: - Self-Care A. Eating 7-Ind 7-Ind B. Grooming 5-sup 5-sup C. Bathing 4-Vincent 4-Vincent D. Dressing - Upper 5-sup 5-sup E. Dressing - Lower 5-sup 5-sup F. Toileting 5-sup 5-sup - Sphincter Control G: Bladder control 7-Ind 7-Ind H: Bowel control 7-Ind 7-Ind - Transfers Control I. Bed/Chair/Wheelchair 4-Vincent 4-Vincent J. Toilet 4-Vincent 4-Vincent K. Tub/Shower 4-Vincent 4-Vincent - Locomotion L. Walk/Wheelchair (C) 3-modA 3-modA L. Walk/Wheelchair (W) 1-Dep 1-Dep M. Stairs 0-ADNO 0-ADNO - Communication N. Comprehension (B) 5-sup 5-sup O. Expression (B) 5-sup 5-sup - Social Cognition P. Social Interaction 5-sup 5-sup Q. Problem Solving 5-sup 5-sup R. Memory 5-sup 5-sup - Endurance Poor - Balance Fair - Safety Awareness Poor QI SCORES: - Self-Care A. Eating 05-Setup or clean-up assistance B. Oral hygiene 05-Setup or clean-up assistance C. Toileting hygiene 04-Supervision or touching assistance E. Shower/bathe self 03-Partial/moderate assistance F. Upper body dressing 04-Supervision or touching assistance G. Lower body dressing 04-Supervision or touching assistance H. Putting on/taking off footwear 03-Partial/moderate assistance - Mobility A. Roll left and right 04-Supervision or touching assistance B. Sit to lying 04-Supervision or touching assistance C. Lying to sitting on side of bed 03-Partial/moderate assistance D. Sit to stand 06-Independent E. Chair/fix-vh-aprdy transfer 03-Partial/moderate assistance F. Toilet transfer 03-Partial/moderate assistance G. Car transfer 88-Not attempted due to medical condition or safety concerns I. Walk 10 feet 03-Partial/moderate assistance J. Walk 50 feet with two turns 03-Partial/moderate assistance K. Walk 150 feet 88-Not attempted due to medical condition or safety concerns L. Walking 10 feet on uneven surfaces 88-Not attempted due to medical condition or safety concerns M. 1 step (curb) 88-Not attempted due to medical condition or safety concerns N. 4 steps 88-Not attempted due to medical condition or safety concerns O. 12 steps 88-Not attempted due to medical condition or safety concerns P. Picking up object 88-Not attempted due to medical condition or safety concerns R. Wheel 50 feet with two turns 02-Substantial/maximal assistance S. Wheel 150 feet 01-Dependent - Bladder and Bowel Bladder continence 1-Stress incontinence only Bowel continence 0-Always continent DISCHARGE INSTRUCTIONS: - N/A Eliquis 2.5 mg twice daily. DISCHARGE PLAN, FOLLOW UP CARE PROVISIONS: - Estimated Length of Stay (days) 13. - Consensus on plan Discharge plan has been discussed with primary caregiver. Patient/Family is in agreement with the aldair n. Primary caregiver is in agreement with the plan. - Patient/Family Goals Return home with assistance. - Planned Living Setting Upon Discharge Home, to live with Family/Relatives. SIGNATURE PANEL: (CDT)
== END 2019-07-08 11:40 | disposition short-term general hospital (02) | DRG 688 ==
LOC: 5TH 18:29
PROVIDERS: ADMIT Psychiatry & Neurology Neurology with Special Qualifications in Child Neurology; ATTEND Psychiatry & Neurology Neurology with Special Qualifications in Child Neurology
DX: C64.9 Malignant neoplasm of unspecified kidney, except renal pelvis (principal); E86.0 Dehydration; I12.9 Hypertensive chronic kidney disease with stage 1 through stage 4 chronic kidney disease, or unspecified chronic kidney disease; N18.9 Chronic kidney disease, unspecified; R73.9 Hyperglycemia, unspecified; E87.5 Hyperkalemia; N40.0 Benign prostatic hyperplasia without lower urinary tract symptoms; I25.10 Atherosclerotic heart disease of native coronary artery without angina pectoris; I48.91 Unspecified atrial fibrillation
CPT/HCPCS: 36415; 70450; 80048; 81001; 82040; 82962; 83735; 84134; 85025; 87086; 87088; 92523; 97110; 97116; 97127; 97161; 97530; J1815

== ENCOUNTER 2019-07-08 11:30 | Inpatient (IN) | payer OTHER ==
[2019-07-08] MEDS ORDERED: ALTEPLASE 100 MG/100 ML VIAL IV ONE (11:58)
[2019-07-08] MEDS ORDERED: NA CHLORIDE 0.9% 1,000 ML IV SCH (12:00)
[2019-07-08 12:51] LABS: Absolute Lymphocytes (CBC) 2.2 K/uL (0.7-4.9); Basophils % 0.5 % (0-1.3); Bilirubin Total 0.3 mg/dL (0.2-1.0); MPV 9.6 fL (7.6-11.3); Magnesium 1.6 mg/dL (1.8-2.4); Phosphorus 3.1 mg/dL (2.5-4.9); Potassium 4.8 mmol/L (3.5-5.1); Protein, Total 6.5 g/dL (6.4-8.2); RBC Red Blood Cell Count 3.07 M/uL (4.33-5.43)
[2019-07-08 13:06] LABS: Protime INR 1.36
[2019-07-08] MEDS ORDERED: MAGNESIUM SULFATE 1 gm IVPB 1 GM/100 ML BAG IV ONE (16:00)
--- NOTE | 2019-07-08 16:07 | RAD REPORT ---
EXAM DESCRIPTION: MRI - MRA Head Wo Cont - 07/08/2019 3:52 pm CLINICAL HISTORY: . CVA COMPARISON: Ct Stroke Brain Wo Cont dated 07/08/2019 FINDINGS: 3D noncontrast [id number] MR angiography of the [place] of [place] was performed. No aneurysm, flow-limiting stenosis or vascular malformation is seen. Forward flow seen in codominant vertebral arteries. The visualized dural venous sinuses appear patent. IMPRESSION: No significant flow abnormality of the [place] of [place] is identified.
[2019-07-08] MEDS: NA CHLORIDE 0.9% 1,000 ML IV SCH (16:17)
--- NOTE | 2019-07-08 16:18 | RAD REPORT ---
EXAM DESCRIPTION: MRI - Brain Wo Cont - 07/08/2019 4:07 pm CLINICAL HISTORY: R/O Stroke Headache, drowsiness, history of CVA this morning COMPARISON: MRA Head Wo Cont dated 07/08/2019MRA Head Wo Cont dated 07/08/2019; Ct Stroke Brain Wo Con t dated 07/08/2019 TECHNIQUE: Multi-sequence, multiplanar MR imaging of the brain was performed without contrast. FINDINGS: No intracranial hemorrhage, hydrocephalus or extra-axial fluid collections. No edema or sh ift of midline structures. No findings to suspect brain mass. Small acute CVA suspected right anterio r basal ganglia measuring 6 mm. Additional 19 mm left periventricular white matter acute CVA seen. Ne ither of these areas of infarct show any evidence of acute hemorrhage. Midline structures are normally formed. Mastoid air cells and paranasal sinuses are clear. IMPRESSION: Acute CVA is noted bilaterally in the periventricular region as detailed, larger on the left. No hemorrhage is present.
--- NOTE | 2019-07-08 17:16 | EKG ---
Test Date: 2019-07-08 Test Time: 11:17:37 Stitch Cleaner: MARCI MEASUREMENT RESULTS: Intervals: Rate: 97 TN: QRSD: 96 QT: 320 QTc: 406 [place]: P: TN: QRS: 16 T: 35 INTERPRETIVE STATEMENTS: Atrial fibrillation Abnormal ECG Compared to ECG 11/26/2014 13:41:28 Sinus bradycardia no longer present First degree AV block no longer present Electronically Signed On 07-08-19 17:16:24 CDT by Navneet Serrano
--- NOTE | 2019-07-08 17:24 | ECHO ---
HEIGHT: 5 ft 11 in WEIGHT: 179 lb 5 oz DATE OF STUDY: 07/08/[address]: Billy Kingston MD 2-DIMENSIONAL: YES M.MODE: YES DOPPLER: YES COLOR FLOW: YES TDS: PORTABLE: YES DEFINITY: BUBBLE STUDY: DIAGNOSIS: STROKE CARDIAC HISTORY: CATHERIZATION: NO SURGERY: NO PROSTHETIC VALVE: NO PACEMAKER: NO MEASUREMENTS (cm) DIASTOLIC (NORMALS) SYSTOLIC (NORMALS) IVSd 1.0 (0.6-1.2) LA Diam 3.5 (1.9-4.0) LVEF 60% LVIDd 4.2 (3.5-5.7) LVIDs 2.9 (2.0-3.5) %FS 31% LVPWd 0.9 (0.6-1.2) Ao Diam 2.8 (2.0-3.7) 2 DIMENSIONAL ASSESSMENT: RIGHT ATRIUM: NORMAL LEFT ATRIUM: DILATED RIGHT VENTRICLE: NORMAL LEFT VENTRICLE: NORMAL TRICUSPID VALVE: NORMAL MITRAL VALVE: NORMAL PULMONIC VALVE: NORMAL AORTIC VALVE: SCLEROSIS PERICARDIAL EFFUSION: NONE AORTIC ROOT: NORMAL LEFT VENTRICULAR WALL MOTION: NORMAL DOPPLER/COLOR FLOW: MILD MITRAL REGURGITATION AND TRICUSPID REGURGITATION. NORMAL RIGHT VENTRICULAR SYSTOLIC PRESSURE. NO AORTIC STENOSIS OR AORTIC REGURGITATION. COMMENTS: NORMAL LEFT VENTRICULAR EJECTION FRACTION. DILATED LEFT ATRIUM. AORTIC SCLEROSIS WITH NO AORTIC STENOSIS OR AORTIC REGURGITATION. MILD MITRAL REGURGITATION AND TRICUSPID REGURGITATION. TECHNOLOGIST: LEVI LEWIS
--- NOTE | 2019-07-08 17:47 | P.HP ---
Certification for Inpatient Patient admitted to: Inpatient With expected LOS: >2 Midnights Practitioner: I am a practitioner with admitting privileges, knowledge of patient current condition, hospital course, and medical plan of care. Services: Services provided to patient in accordance with Admission requirements found in Title 42 Section 412.3 of the Code of Federal Regulations Patient History Date of Service: 07/08/19 Reason for admission: Right-sided weakness History of Present Illness: This is a 84-year-old male with multiple medical comorbidities including previous CVA, diabetes, atrial fibrillation, CAD who was undergoing inpatient rehab for generalized weakness after being recently diagnosed with renal cell carcinoma with metastasis. He was working with physical therapy today, and he was acutely noted to have right-sided facial droop, slurred speech, right-sided upper and lower extremity weakness. Code stroke was called. I did evaluate patient at the [facility] [place] scan was done, negative for any acute bleed. He was then directly admitted to the ICU from the rehab for further management and evaluation and possible t-PA administration. At the time of my exam in the ICU, patient's symptoms have slightly improved from when initially started. He was hemodynamically stable. Allergies No Known Allergies Allergy (Verified 01/07/15 12:54) Home medications list reviewed: Yes Home Medications: Metoprolol Succinate [Toprol Xl*] 25 mg PO BID* 07/28/18 Pantoprazole [Protonix Tab*] 1 tab PO DAILY 07/28/18 Tamsulosin [Flomax*] 0.4 mg PO DAILY 07/28/18 Docusate/Senna [Senokot-S*] 2 tab PO BEDTIME #60 tab 08/03/18 Finasteride [Proscar*] 5 mg PO DAILY #30 tab 08/03/18 Apixaban [Eliquis *] 2.5 mg PO BID 07/02/19 Insulin Detemir [Levemir Flextouch] 15 units SQ DAILY 07/02/19 Sucralfate [Carafate -Tab] 1 gm PO ACHS 07/02/19 Amoxicillin/Potassium Clav [Amox-Clav 500-125 mg Tablet] 1 each PO BID 07/08/19 Atorvastatin Calcium [Lipitor] 20 mg PO BEDTIME 07/08/19 Bisacodyl [Dulcolax] 10 mg RC DAILY PRN 07/08/19 Duloxetine HCl [Cymbalta] 20 mg PO DAILY 07/08/19 Ferrous Sulfate [Ferrous Sulfate*] 325 mg PO DAILY 07/08/19 Insulin -Regular Human [Novolin -R*] 0 unit SQ ACHS 07/08/19 Iron/FA/Vit B-Com W/C [Hemocyte Plus*] 1 tab PO DAILY 07/08/19 Lidocaine 5% Patch [Lidoderm 5% Patch] 1 patch TD DAILY 07/08/19 Magnesium Chloride [Slow-Mag*] 64 mg PO DAILY 07/08/19 Megestrol [Megace] 400 mg PO BID 07/08/19 Nystatin Powder [Mycostatin (Powder)*] 1 appl TOP BID 07/08/19 Protein Supplement [Promod] 30 ml PO BID 07/08/19 - Past Medical/Surgical History Has patient received pneumonia vaccine in the past: No Diabetic: Yes -: Hypertension -: Hyperlipidemia -: ANEMIA -: Benign prostate Hypertrophy -: GERD -: PNEUMONIA -: Aortic stenosis -: arthritis -: AKF -: AFIB -: CAD -: stroke, DM -: Aortic Valve Replacement -: CABG -: Nephrectomy right -: prostate surgery -: IVC Thrombectomy - Family History Father -: Heart disease - Social History Smoking Status: Former smoker Alcohol use: No CD- Drugs: No Caffeine use: No Place of Residence: Home Review of Systems 10-point ROS is otherwise unremarkable Physical Examination - Vital Signs Temperature: 98.5 F Blood Pressure: 109/51 Pulse: 87 Respirations: 19 Pulse Ox (%): 97 - Physical Exam General: Alert, In no apparent distress, Oriented x3 HEENT: Atraumatic, PERRLA, Mucous membr. moist/pink, EOMI, Sclerae nonicteric Neck: Supple, 2+ carotid pulse no bruit, No LAD, Without JVD or thyroid abnormality Respiratory: Clear to auscultation bilaterally, Normal air movement Cardiovascular: Normal S1 S2, Irregular heart rate/rhythm Gastrointestinal: Normal bowel sounds, No tenderness Musculoskeletal: No tenderness Integumentary: No rashes Neurological: Abnormal gait, Abnormal speech, Abnormal strength (Right side weakness), Abnormal cranial nerve function - Studies Laboratory Data (last 24 hrs) 07/08/19 11:15: Triglycerides Cancelled, Cholesterol Cancelled, HDL Cholesterol Cancelled, Cholesterol/HDL Ratio Cancelled 07/08/19 11:15: PT 15.9 H, INR 1.36, APTT 31.4 07/08/19 11:15: Sodium 135 L, Potassium 4.8, BUN 58 H, Creatinine 2.42 H, Glucose 253 H, Phosphorus 3.1, Magnesium 1.6 L, Total Bilirubin 0.3, AST 26, ALT 23, Alkaline Phosphatase 126 H, Triglycerides 111, Cholesterol 84, HDL Cholesterol 26 L, Cholesterol/HDL Ratio 3.23 07/08/19 11:15: WBC 8.8 D, Hgb 8.6 L, Hct 26.0 L, Plt Count 111 L D Assessment and Plan - Problems (Diagnosis) (1) Cerebrovascular accident (stroke) Current Visit: No Status: Acute Plan: Patient with symptoms of acute CVA -CT scan of the head negative for acute bleed -MRI of the brain with Small acute CVA suspected right anterior basal ganglia measuring 6 mm. Additional 19 mm left periventricular white matter acute CVA seen. Neither of these areas of infarct show any evidence of acute hemorrhage. Acute CVA noted bilaterally in the periventricular region -MRA of the brain with no significant flow abnormality of the [place] is identified -echocardiogram done, dilated left atrium with normal ejection fraction of 60%, and aortic valve sclerosis. -neurology consulted, recommendations appreciated -patient is not a candidate for T-PA: He is currently on Eliquis, and received did this morning. -we will continue Eliquis, aspirin, statin -PT/OT/speech therapy -keep NPO until patient passes swallow study Qualifiers: Laterality of affected vessel: bilateral (2) CAD (coronary artery disease) Current Visit: Yes Status: Acute Qualifiers: Coronary Disease-Associated Artery/Lesion type: [place] artery [place] vs. transplanted heart: [place] heart Associated angina: without angina Qualified Code(s): I25.10 - Atherosclerotic heart disease of [place] coronary artery without angina pectoris (3) Dyslipidemia Current Visit: No Status: Chronic (4) Gastroesophageal reflux Current Visit: No Status: Acute (5) Hypertension Current Visit: No Status: Acute (6) Chronic atrial fibrillation Onset Date: 07/30/18 Current Visit: No Status: Chronic Plan: Will continue Eliquis at this time -hold beta-rachel at this time due to blood pressure. (7) Chronic kidney disease Current Visit: No Status: Chronic Plan: Creatinine currently at baseline Qualifiers: Chronic kidney disease stage: stage 3 (moderate) Qualified Code(s): N18.3 - Chronic kidney disease, stage 3 (moderate) (8) Anemia Current Visit: No Status: Chronic Plan: H&H stable. Continue to monitor H&H -transfuse if less than 7 - Plan DVT prophylaxis: Treatment As above GI prophylaxis: None Diet: NPO, until passes bedside swallow Disposition: Admit to ICU. Pending symptomatic improvement. Will get physical therapy/OT and speech therapy. Patient may potentially be able to return to a rehab, pending physical therapy here. Discharge Plan: Other Plan to discharge in: Greater than 2 days - Advance Directives Does patient have a Living Will: No Does patient have a Durable POA for Healthcare: No Time Spent Managing Pts Care (In Minutes): 55
[2019-07-08] MEDS: APIXABAN 2.5 MG TABLET PO SCH (20:57)
[2019-07-08] MEDS: ATORVASTATIN 20 MG TAB PO SCH (20:57)
[2019-07-08] MEDS: DOCUSATE NA/SENNA CONC 1 TAB PO SCH (20:57)
[2019-07-08] MEDS: SUCRALFATE 1 GM TABLET PO SCH (20:57)
[2019-07-08] MEDS: MEGESTROL 400 MG/10 ML UCUP PO SCH (20:58)
--- NOTE | 2019-07-09 00:05 | CON ---
Reason For Consultation: Consultation called because of acute stroke. History Of Present Illness: Mr. James is an 84-year-old patient with multiple stroke risk factors i ncluding atrial fibrillation, coronary artery disease, diabetes mellitus, prior strokes, who was doin g acute inpatient rehabilitation for debility after he was diagnosed with metastatic renal cell carci noma. Around 11 a.m. while working with the physical therapist, he developed sudden onset right face , arm, and leg numbness, weakness, and slurred speech. Code stroke was called and the patient was ev aluated by CT scan of the head done without contrast. The CT scan did not identify an acute ischemic or hemorrhagic stroke. The patient did have chronic moderate severity small vessel ischemic disease . Blood work revealed the platelet and coagulation panel that is within acceptable range for tissue plasminogen activator. However, the patient has actually been on Eliquis for his atrial fibrillation and is therefore contraindicated to have tPA. He was brought into the ICU for close monitoring. Br ain MRI did identify bilateral acute ischemic strokes. A 19 mm stroke was seen in the left periventr icular white matter and a 6 mm stroke in the right anterior basal ganglia. There was no hemorrhagic conversion. The patient's deficits, which were more noted on the right side and left, are consistent with the MRI. His echocardiogram did not show any thrombus or clot. His ejection fraction was norm al at 60%. There was dilated left atrium. Aortic sclerosis with no stenosis or regurgitation. Ther e was mild mitral and tricuspid regurgitation. In the ICU, he did have some slight improvement in hi s right upper extremity weakness; however, that really involved hand hydraulic rubbish compactor mechanic strength and not proximal m ovement, the right leg weakness, which was less than the right arm. He was able to straighten the le g but is unable to lift it off the bed, his left side because of a prior fall and bruise on the left humerus, has been pain restricting movement, but distally in the left upper extremity, he is able to do good hydraulic rubbish compactor mechanic strength and hold the left leg off the bed for more than 10 count. In the ICU, his blood pressures were low and his antihypertensive medications are held and he is give n IV fluids. Past Medical History: As indicated, including dyslipidemia, diabetes mellitus, prostate hypertrophy, renal cell carcinoma with metastatic disease, chronic anemia, dyslipidemia, pneumonia, aortic stenos is, atrial fibrillation, renal failure, prior stroke. Past Surgical History: Aortic valve replacement, coronary artery bypass grafting, right nephrectomy, he has a left kidney, prostate surgery, and IVC thrombectomy. Family History: Positive for heart disease in father. Social History: No alcohol, tobacco, or IV drug use. He is a smoker in the past. Medications: He is on ProMod 30 mL twice daily, Mycostatin topical twice daily, Megace 400 mg twice a day, magnesium/Slow-Mag 64 mg daily, lidocaine patch daily as needed, Hemocyte Plus 1 daily with me als, regular insulin sliding scale, ferrous sulfate 325 mg daily, Cymbalta 20 mg daily, duloxetine 10 mg daily, atorvastatin 20 mg at bedtime. He is on amoxicillin to continue 10 days total. He is on Eliquis 2.5 mg twice daily, Proscar 5 mg daily, Senokot-S 2 at bedtime, Flomax 0.4 mg daily, Protonix daily, and Toprol 25 mg daily. Allergies: NO KNOWN DRUG ALLERGIES. Review of Systems: No recent fevers or chills. He has diffuse weakness, but no arthralgias and myalgias. He does have pain in the left humerus from a fall, proximal arm. Physical Examination: Vital Signs: Blood pressure 110/46, pulse 82, respiratory rate 16, temperature 98.5, oxygen saturati on 96% to 98% on room air. General: Mr. James is resting in ICU. He is in no acute distress. He does have some bruising in t he upper and lower extremities. HEENT: He is normocephalic, atraumatic. His sclerae are anicteric. Oropharynx is moist and pink. Neck: Supple. Heart: Irregular irregular. Abdomen: Soft. Extremities: Show no significant edema or cyanosis. Neurologic: He is alert and oriented to person, to hospital, to the exact date and is able to follow commands appropriately without difficulty. He does have dysarthria and mild decrease in verbal flue ncy. He is having full lang to confrontation, although some difficulty distinguishing numbers in h is right visual field. Pupils are round, reactive and extraocular movements appear intact. He does have a slight decrease in the right nasolabial fold with fair excursions. He does have decreased sen sation in the right compared to the left face and tongue and palate appear midline. Motor examinatio n, he is limited by pain in the left upper extremity to elevate the arm and to assess biceps strength because of pain in the arm from a bruise after a fall in the left shoulder and arm. He is able to g rip very nicely the left arm on the right side. No significant proximal movement to the deltoid and biceps. He does have some 3/5 hydraulic rubbish compactor mechanic on the right. In his lower extremity on the left, he is able to hold his foot off the bed for 10 count. He is unable to lift his right foot off the bed. Sensory ex amination is decreased on the right compared to left side and in the upper extremity, decreased on th e right compared to the left side. Similar in the face in terms of sensation. His tone is normal in the upper and lower extremities. Reflexes are depressed in both upper and lower extremities. His c oordination is intact in the leg, however, cannot fully access, as the patient does not have the stre ngth to lift his arms off the bed. Unable to assess his gait. His NIH stroke scale is 8. Laboratory Studies: His INR is 1.36, hemoglobin 8.6, hematocrit 26, white blood cell count 8.8, plat elets 111. Chemistries; sodium 135, potassium 4.8, chloride 106, carbon dioxide 21. His BUN is 58, creatinine 2.42, glucose range from 145-253, magnesium 1.6, alkaline phosphatase 126, albumin 3.0. H is HDL cholesterol 26, LDL cholesterol 36, total cholesterol 84, triglycerides 111. Assessment: Mr. James is an 84-year-old patient with atrial fibrillation, diabetes mellitus, hypert ension, coronary artery disease, prior stroke, renal cell carcinoma with metastasis who has bilateral acute strokes, worse on the left compared to right brain with significant deficit of right upper and lower extremity weakness, dysarthria, and left-sided pain limitation in the upper extremity and mild weakness in left lower extremity. He has low blood pressures. We will hold antihypertensive medica tions and give IV fluids 50 cc an hour. Also, the patient may be advanced to Eliquis 5 mg twice jose y. However, he is a high fall risk and long-term with his age and high risk of falling and bleeding that should be entered into very carefully in terms of full anticoagulation. His echocardiogram does not reveal a clot. However, he does have a history of deep vein thrombosis and should be on anticoa gulation for that. He was not given tPA because Eliquis is an absolute contraindication for tPA. Plan: 1.He should be watched in ICU for the next [address] scan to look for possible hemor rhagic conversion. 2.I have speech evaluation for swallowing and aspiration risk. 3.Begin physical and occupational therapy to help regain strength in upper and lower extremities. 4.Continue with aggressive management of other risk factors including the high-dose statin. He may have some permissive hypertension in this acute phase of his stroke and he should again have a repeat ed CT scan, no contrast 24 hours later. May be taken to the floor and begin to have physical therapy sometime tomorrow or shortly after. He may come back up to the rehabilitation unit once he is able to withstand 3 hours of therapy required in the unit. DONOVAN Voice ID: [id number] Report ID: [id number]
[2019-07-09 05:23] LABS: Basophils % 0.5 % (0-1.3); Lymphocytes % 25.8 % (15.3-44.8); MPV 9.2 fL (7.6-11.3); RBC Red Blood Cell Count 2.77 M/uL (4.33-5.43)
[2019-07-09 06:12] LABS: ALT/SGPT 18 U/L (12-78); AST/SGOT 21 U/L (15-37); Albumin 2.6 g/dL (3.4-5.0); Alkaline Phosphatase 110 U/L (45-117); BUN Blood Urea Nitrogen 54 mg/dL (7-18); Bicarbonate 20 mmol/L (21-32); Bilirubin Direct < 0.1 mg/dL (0-0.2); Bilirubin Total 0.3 mg/dL (0.2-1.0); CKMB Creatine Kinase MB < 1.0 ng/mL (0.3-3.6); Creatine Phosphokinase 12 U/L (39-308); Glucose Level 170 mg/dL (74-106); HDL Cholesterol 24 mg/dL (40-60); LDL Cholesterol, Calculated 35 (<130); Magnesium 1.7 mg/dL (1.8-2.4); Potassium 4.8 mmol/L (3.5-5.1); Protein, Total 5.9 g/dL (6.4-8.2); Sodium Level 137 mmol/L (136-145); Troponin I 0.03 ng/mL (0.0-0.045)
[2019-07-09] MEDS ORDERED: MAGNESIUM SULFATE 1 gm IVPB 1 GM/100 ML BAG IV ONE (06:18)
[2019-07-09] MEDS ORDERED: GLUCAGON 1 MG/VIAL IM PRN (07:06)
[2019-07-09] MEDS ORDERED: D50W 25 GM/50 ML SYRINGE IV PRN (07:06)
[2019-07-09] MEDS: SUCRALFATE 1 GM TABLET PO SCH (07:30)
[2019-07-09] MEDS: INSULIN -REGULAR HUMAN 50 UNIT/0.5 ML ML SQ SCH ×4 (07:30→21:32)
[2019-07-09] MEDS ORDERED: PANTOPRAZOLE 40MG TABLET PO SCH (09:00)
[2019-07-09] MEDS: FINASTERIDE 5 MG TAB PO SCH (09:00)
[2019-07-09] MEDS: DULOXETINE 20 MG CAP PO SCH (09:00)
[2019-07-09] MEDS: FE SULF/FA/VIT B COMP & C TAB PO SCH (09:00)
[2019-07-09] MEDS: MEGESTROL 400 MG/10 ML UCUP PO SCH ×2 (09:01→21:51)
[2019-07-09] MEDS: FERROUS SULFATE 325 MG TAB PO SCH (09:03)
[2019-07-09] MEDS: INSULIN GLARGINE 100 UNITS/ML SQ SCH (09:25)
[2019-07-09] MEDS: APIXABAN 2.5 MG TABLET PO SCH ×2 (09:25→21:33)
[2019-07-09] MEDS: SUCRALFATE 1GM/10ML UCUP PO SCH ×3 (11:30→21:33)
[2019-07-09] MEDS: Pantoprazole (granules) 40 MG/BLIST PACKET PO SCH (12:53)
[2019-07-09] MEDS: NA CHLORIDE 0.9% 1,000 ML IV SCH (12:54)
--- NOTE | 2019-07-09 13:15 | P.PN ---
Subjective Date of Service: 07/09/19 Chief Complaint: Right-sided weakness Subjective: No new changes Patient seen and examined at bedside. family at bedside. Chart reviewed and case discussed with nursing staff. No changes noted from yesterday. Patient continues remain alert oriented. Family does note that he is more sleepy than usual but he is arousable and able to answer questions appropriately No acute events noted overnight Review of Systems 10-point ROS is otherwise unremarkable Physical Examination - Vital Signs Temperature: 98 F Blood Pressure: 121/46 Pulse: 83 Respirations: 21 Pulse Ox (%): 95 - Physical Exam General: Alert, In no apparent distress, Oriented x3 HEENT: Atraumatic, PERRLA, EOMI Neck: Supple, JVD not distended Respiratory: Clear to auscultation bilaterally, Normal air movement Cardiovascular: Regular rate/rhythm, Normal S1 S2 Gastrointestinal: Normal bowel sounds, No tenderness Musculoskeletal: No tenderness Integumentary: No rashes Neurological: Abnormal speech, Abnormal strength, Abnormal tone, Abnormal reflexes - Studies Laboratory Data (last 24 hrs) 07/09/19 : Sodium Cancelled, Potassium Cancelled, BUN Cancelled, Creatinine Cancelled, Glucose Cancelled, Magnesium Cancelled 07/09/19 04:57: WBC 7.8, Hgb 7.9 L*, Hct 23.0 L, Plt Count 102 L 07/09/19 04:57: Sodium 137, Potassium 4.8, BUN 54 H, Creatinine 2.03 H, Glucose 170 H, Magnesium 1.7 L, Total Bilirubin 0.3, AST 21, ALT 18, Alkaline Phosphatase 110, Troponin I 0.03, Triglycerides 93, Cholesterol 78, HDL Cholesterol 24 L, Cholesterol/HDL Ratio 3.25 07/08/19 11:15: PT 15.9 H, INR 1.36, APTT 31.4 07/08/19 11:15: Triglycerides 111, Cholesterol 84, HDL Cholesterol 26 L, Cholesterol/HDL Ratio 3.23 Assessment And Plan - Current Problems (Diagnosis) (1) Cerebrovascular accident (stroke) Current Visit: No Status: Acute Plan: Patient with symptoms of acute CVA -CT scan of the head negative for acute bleed -MRI of the brain with Small acute CVA suspected right anterior basal ganglia measuring 6 mm. Additional 19 mm left periventricular white matter acute CVA seen. Neither of these areas of infarct show any evidence of acute hemorrhage. Acute CVA noted bilaterally in the periventricular region -MRA of the brain with no significant flow abnormality of the [place] is identified -echocardiogram done, dilated left atrium with normal ejection fraction of 60%, and aortic valve sclerosis. -neurology consulted, recommendations appreciated -patient is not a candidate for T-PA: He is currently on Eliquis, and received did this morning. -we will continue Eliquis, aspirin, statin -PT/OT/speech therapy -patient passed bedside swallow study, can continue mechanical chopped foods Qualifiers: Laterality of affected vessel: bilateral (2) CAD (coronary artery disease) Current Visit: Yes Status: Acute Qualifiers: Coronary Disease-Associated Artery/Lesion type: [place] artery [place] vs. transplanted heart: [place] heart Associated angina: without angina Qualified Code(s): I25.10 - Atherosclerotic heart disease of [place] coronary artery without angina pectoris (3) Dyslipidemia Current Visit: No Status: Chronic (4) Gastroesophageal reflux Current Visit: No Status: Acute (5) Hypertension Current Visit: No Status: Acute (6) Chronic atrial fibrillation Onset Date: 07/30/18 Current Visit: No Status: Chronic Plan: Will continue Eliquis at this time -hold beta-rachel at this time due to blood pressure. (7) Chronic kidney disease Current Visit: No Status: Chronic Plan: Creatinine currently at baseline Qualifiers: Chronic kidney disease stage: stage 3 (moderate) Qualified Code(s): N18.3 - Chronic kidney disease, stage 3 (moderate) (8) Anemia Current Visit: No Status: Chronic Plan: H&H stable. Continue to monitor H&H -transfuse if less than 7 - Plan DVT prophylaxis: Treatment As above GI prophylaxis: None Diet: Mechanical chopped foods Disposition: If remains stable, patient may be able to be transferred to floor today. Continue physical therapy, occupational therapy, speech therapy. Patient may potentially be able to return to a rehab, pending physical therapy here.
--- NOTE | 2019-07-09 13:33 | RAD REPORT ---
EXAM DESCRIPTION: CT - Ct Stroke Brain Wo Cont - 07/09/2019 1:26 pm CLINICAL HISTORY: Repeat CT to eval for hemorrhagic conversion History of CVA COMPARISON: Ct Stroke Brain Wo Cont dated 07/08/2019; Brain Wo Cont dated 07/08/2019; MRA Head Wo Cont dated 07/08/2019 TECHNIQUE: All CT scans are performed using dose optimization technique as appropriate and may inclu de automated exposure control or mA/KV adjustment according to patient size. FINDINGS: No intracranial hemorrhage, hydrocephalus or extra-axial fluid collection.Area of diminish ed density in the left periventricular white matter compatible with subacute infarct and correlating with recent MRI findings noted. No midline shift is evident. No hydrocephalus. The paranasal sinuses and mastoids are clear. The calvarium is intact. IMPRESSION: No acute intracranial abnormality. No evidence of hemorrhagic conversion of previously noted left periventricular CVA.
[2019-07-09] MEDS: FENTANYL 25 MCG/PATCH TD SCH (14:11)
--- NOTE | 2019-07-09 16:50 | RAD REPORT ---
EXAM DESCRIPTION: RAD - Humerus Left - 07/09/2019 4:38 pm CLINICAL HISTORY: Left arm pain and swelling COMPARISON: None. FINDINGS: Fracture is present in the mid shaft humerus. There are cortical and medullary bone loss c hanges at this site. Minimal 2 millimeter lateral displacement is present. There is approximately 15 degree angulation deformity. No soft tissue mass is evident at this site. No suspicious calcification s in the adjacent soft tissues. Patient has prominent degenerative changes at the shoulder and elbow joint. IMPRESSION: Pathologic fracture midshaft left humerus.
[2019-07-09] MEDS: FENTANYL CITR 100 MCG/2 ML IV PRN ×2 (17:34→23:53)
[2019-07-09] MEDS: ATORVASTATIN 20 MG TAB PO SCH (21:33)
[2019-07-09] MEDS: DOCUSATE NA/SENNA CONC 1 TAB PO SCH (21:33)
[2019-07-10 05:54] LABS: Basophils % 0.3 % (0-1.3); Hematocrit 23.2 % (39.6-49.0); Lymphocytes % 21.5 % (15.3-44.8); MPV 9.4 fL (7.6-11.3); RBC Red Blood Cell Count 2.76 M/uL (4.33-5.43)
[2019-07-10 06:12] LABS: BUN Blood Urea Nitrogen 46 mg/dL (7-18); Bicarbonate 21 mmol/L (21-32); CKMB Creatine Kinase MB < 1.0 ng/mL (0.3-3.6); Creatine Phosphokinase 21 U/L (39-308); Glucose Level 166 mg/dL (74-106); Magnesium 1.8 mg/dL (1.8-2.4); Potassium 4.9 mmol/L (3.5-5.1); Sodium Level 139 mmol/L (136-145); Troponin I 0.02 ng/mL (0.0-0.045)
[2019-07-10] MEDS ORDERED: MAGNESIUM SULFATE 1 gm IVPB 1 GM/100 ML BAG IV ONE (06:15)
[2019-07-10] MEDS: INSULIN -REGULAR HUMAN 50 UNIT/0.5 ML ML SQ SCH ×4 (07:30→21:00)
[2019-07-10] MEDS: FINASTERIDE 5 MG TAB PO SCH (08:42)
[2019-07-10] MEDS: Pantoprazole (granules) 40 MG/BLIST PACKET PO SCH (08:44)
[2019-07-10] MEDS: FERROUS SULFATE 325 MG TAB PO SCH (08:44)
[2019-07-10] MEDS: FE SULF/FA/VIT B COMP & C TAB PO SCH (08:44)
[2019-07-10] MEDS: DULOXETINE 20 MG CAP PO SCH (08:44)
[2019-07-10] MEDS: APIXABAN 2.5 MG TABLET PO SCH ×2 (08:44→21:08)
[2019-07-10] MEDS: SUCRALFATE 1GM/10ML UCUP PO SCH ×4 (08:45→21:08)
[2019-07-10] MEDS: INSULIN GLARGINE 100 UNITS/ML SQ SCH (08:45)
[2019-07-10] MEDS: TRAMADOL HCL 50 MG TAB PO PRN (08:51)
[2019-07-10] MEDS: MEGESTROL 400 MG/10 ML UCUP PO SCH ×2 (09:00→21:08)
--- NOTE | 2019-07-10 15:17 | P.PN ---
Subjective Date of Service: 07/10/19 Chief Complaint: Right-sided weakness Subjective: Worsening Patient seen and examined at bedside. family at bedside. Chart reviewed and case discussed with nursing staff. Patient more sleepy today, seems to be a little more confused than yesterday. Patient noted to have a pathological fracture of the midshaft of the left humerus. Review of Systems 10-point ROS is otherwise unremarkable Physical Examination - Vital Signs Temperature: 98 F Blood Pressure: 115/54 Pulse: 111 Respirations: 17 Pulse Ox (%): 94 - Physical Exam General: Confused, Other (Drowsy but arousable. He quickly falls back asleep) HEENT: Atraumatic, PERRLA, EOMI Neck: Supple, JVD not distended Respiratory: Clear to auscultation bilaterally, Normal air movement Cardiovascular: Regular rate/rhythm, Normal S1 S2 Gastrointestinal: Normal bowel sounds, No tenderness Musculoskeletal: Tenderness Integumentary: No rashes Neurological: Normal speech, Normal tone, Normal affect - Studies Laboratory Data (last 24 hrs) 07/10/19 05:13: WBC 9.1 D, Hgb 7.9 L*, Hct 23.2 L, Plt Count 131 L D 07/10/19 05:13: Sodium 139, Potassium 4.9, BUN 46 H, Creatinine 1.99 H, Glucose 166 H, Magnesium 1.8, Troponin I 0.02 Assessment And Plan - Current Problems (Diagnosis) (1) Cerebrovascular accident (stroke) Current Visit: No Status: Acute Plan: Patient with symptoms of acute CVA -CT scan of the head negative for acute bleed -MRI of the brain with Small acute CVA suspected right anterior basal ganglia measuring 6 mm. Additional 19 mm left periventricular white matter acute CVA seen. Neither of these areas of infarct show any evidence of acute hemorrhage. Acute CVA noted bilaterally in the periventricular region -MRA of the brain with no significant flow abnormality of the [place] is identified -echocardiogram done, dilated left atrium with normal ejection fraction of 60%, and aortic valve sclerosis. -neurology consulted, recommendations appreciated -patient is not a candidate for T-PA: He is currently on Eliquis, and received did this morning. -we will continue Eliquis, aspirin, statin -overall, patient has a very poor prognosis. Qualifiers: Laterality of affected vessel: bilateral (2) CAD (coronary artery disease) Current Visit: Yes Status: Acute Qualifiers: Coronary Disease-Associated Artery/Lesion type: [place] artery [place] vs. transplanted heart: [place] heart Associated angina: without angina Qualified Code(s): I25.10 - Atherosclerotic heart disease of [place] coronary artery without angina pectoris (3) Dyslipidemia Current Visit: No Status: Chronic (4) Gastroesophageal reflux Current Visit: No Status: Acute (5) Hypertension Current Visit: No Status: Acute (6) Chronic atrial fibrillation Onset Date: 07/30/18 Current Visit: No Status: Chronic Plan: Will continue Eliquis at this time -hold beta-rachel at this time due to blood pressure. (7) Chronic kidney disease Current Visit: No Status: Chronic Plan: Creatinine currently at baseline Qualifiers: Chronic kidney disease stage: stage 3 (moderate) Qualified Code(s): N18.3 - Chronic kidney disease, stage 3 (moderate) (8) Anemia Current Visit: No Status: Chronic Plan: H&H stable. Continue to monitor H&H -transfuse if less than 7 (9) Pathologic humeral fracture Current Visit: Yes Status: Acute Plan: -patient Norman Hong fracture on the left side, secondary to the renal cell carcinoma/metastasis -Dr. Rios, [facility] consulted. Recommendations appreciated. -continue pain control Qualifiers: Pathology associated with fracture: neoplastic disease Encounter type: initial encounter Laterality: left Qualified Code(s): M84.522A - Pathological fracture in neoplastic disease, left humerus, initial encounter for fracture - Plan DVT prophylaxis: Treatment As above GI prophylaxis: None Diet: Mechanical chopped foods Disposition: Overall, patient has a very poor prognosis due to the 2 CVAs, with complete right-sided deficit now with pathological fracture on the left humerus. The patient currently declining, not tolerating p.o. as well. Goals of care discussion had with family,. Seems a family to son understand the true gravity of patient situation at this time. Family states that they will discuss with other family members in regards to code status as well as further goals of care. Hospice was also discussed, family not sure at this time.
[2019-07-10] MEDS: NA CHLORIDE 0.9% 1,000 ML IV SCH (15:34)
[2019-07-10] MEDS: DOCUSATE NA/SENNA CONC 1 TAB PO SCH (21:08)
[2019-07-10] MEDS: ATORVASTATIN 20 MG TAB PO SCH (21:08)
--- NOTE | 2019-07-11 00:47 | CON ---
Date of Consultation: 07/10/2019 History Of Present Illness: This is my first time seeing this patient to my knowledge. He is an 84- year-old male who unfortunately was admitted for generalized debilitation with a diagnosis of atrial fibrillation, diabetes, as well as renal cell carcinoma thought to be metastatic. While he was up on rehab, apparently had a neurologic deficit and was transferred down to the ICU for further treatment . He is being followed by Neurology as well as the Hospitalist, however, I am called as they noticed a change in angulation of his left arm as well as pain related to his left arm. X-rays were taken, which demonstrate what appear to be a pathologic midshaft humerus fracture on the left. Physical Examination: All of his long bones were palpated without pain or crepitation with the exception of his left upper extremity. He is somewhat sedated. It does appear that his left upper extremity has function of the radial nerve. Review of x-rays reveal what appears to be a fairly significant pathologic lesion of the humerus with changes of the bony cortex as well as fracture. Assessment: This ia an 84-year-old male who is on blood thinners, also with multiple medical problem s, including metastatic renal cancer as well as new onset ischemic strokes, now with pathologic left humerus fracture. Plan: Patient was otherwise healthy and had this fracture, which is presumed to be renal cell, most likely we will move forward with arteriogram to assess for vascular in this area and possible emboliz ation to decrease blood loss. If possible, then would move forward with intramedullary humeral nail as well as whatever adjunctive therapy would be needed. If this was an isolated lesion from renal ce ll, maybe consider excision, however, with it being metastatic this is not necessarily going to be he lpful. The main reason for advocating placing an intramedullary jordon is to allow for stabilization of the humerus to allow for its use and activities of daily living and functional activities, also to d ecrease pain. There is the problem, however, that this is a pathologic fracture renal-cell which cou ld bleed significantly. I do not think that we have in this facility the ability for arteriogram and embolization, at least not on a routine basis. Also, there is a question on whether or not operativ e intervention could be feasible at this point because of new onset ischemic strokes as well as other medical considerations. At this time, I believe a sling could be used, recommend a humeral function al brace. This may simply help with pain control, otherwise, there is a chance that they could speak with their oncologist at [facility] and they may consider something more aggressive with regard to st abilization. However, I am unsure whether or not this is something that is the best for the patient, however, it would be essentially palliative in nature, otherwise pain related medications can be use nazanin SHI Voice ID: [id number] Report ID: [id number]
[2019-07-11 05:44] LABS: CKMB Creatine Kinase MB < 1.0 ng/mL (0.3-3.6); Creatine Phosphokinase 18 U/L (39-308); Troponin I 0.02 ng/mL (0.0-0.045)
[2019-07-11] MEDS: INSULIN -REGULAR HUMAN 50 UNIT/0.5 ML ML SQ SCH ×4 (07:30→21:00)
[2019-07-11] MEDS: FE SULF/FA/VIT B COMP & C TAB PO SCH (09:00)
[2019-07-11] MEDS: MEGESTROL 400 MG/10 ML UCUP PO SCH ×2 (09:00→20:05)
[2019-07-11] MEDS: APIXABAN 2.5 MG TABLET PO SCH ×2 (10:13→20:02)
[2019-07-11] MEDS: FINASTERIDE 5 MG TAB PO SCH (10:13)
[2019-07-11] MEDS: DULOXETINE 20 MG CAP PO SCH (10:14)
[2019-07-11] MEDS: FERROUS SULFATE 325 MG TAB PO SCH (10:14)
[2019-07-11] MEDS: Pantoprazole (granules) 40 MG/BLIST PACKET PO SCH (10:15)
[2019-07-11] MEDS: INSULIN GLARGINE 100 UNITS/ML SQ SCH (10:15)
[2019-07-11] MEDS: SUCRALFATE 1GM/10ML UCUP PO SCH ×4 (10:15→20:01)
[2019-07-11] MEDS: NA CHLORIDE 0.9% 1,000 ML IV SCH ×2 (10:25→23:00)
--- NOTE | 2019-07-11 16:44 | P.PN ---
Subjective Date of Service: 07/11/19 Chief Complaint: Right-sided weakness Patient seen and examined at bedside. family at bedside. Chart reviewed and case discussed with nursing staff. Patient continues to be sleepy - maybe a little more alert per family. Patient noted to have a pathological fracture of the midshaft of the left humerus. Review of Systems 10-point ROS is otherwise unremarkable Physical Examination - Vital Signs Temperature: 97.2 F Blood Pressure: 121/56 Pulse: 128 Respirations: 16 Pulse Ox (%): 95 - Physical Exam General: In no apparent distress, Other (drowsy) HEENT: Atraumatic, PERRLA, EOMI Neck: Supple, JVD not distended Respiratory: Clear to auscultation bilaterally, Normal air movement Cardiovascular: Normal S1 S2, Irregular heart rate/rhythm (a fib) Gastrointestinal: Normal bowel sounds, No tenderness Musculoskeletal: No tenderness Integumentary: No rashes Neurological: Normal speech, Normal tone, Normal affect Lymphatics: No axilla or inguinal lymphadenopathy - Studies Laboratory Data (last 24 hrs) 07/11/19 05:13: Troponin I 0.02 Assessment And Plan - Current Problems (Diagnosis) (1) Cerebrovascular accident (stroke) Current Visit: No Status: Acute Plan: Patient with symptoms of acute CVA -CT scan of the head negative for acute bleed -MRI of the brain with Small acute CVA suspected right anterior basal ganglia measuring 6 mm. Additional 19 mm left periventricular white matter acute CVA seen. Neither of these areas of infarct show any evidence of acute hemorrhage. Acute CVA noted bilaterally in the periventricular region -MRA of the brain with no significant flow abnormality of the [place] is identified -echocardiogram done, dilated left atrium with normal ejection fraction of 60%, and aortic valve sclerosis. -neurology consulted, recommendations appreciated -patient is not a candidate for T-PA: He is currently on Eliquis, and received did this morning. -we will continue Eliquis, aspirin, statin -overall, patient has a very poor prognosis. Qualifiers: Laterality of affected vessel: bilateral (2) CAD (coronary artery disease) Current Visit: Yes Status: Acute Qualifiers: Coronary Disease-Associated Artery/Lesion type: [place] artery [place] vs. transplanted heart: [place] heart Associated angina: without angina Qualified Code(s): I25.10 - Atherosclerotic heart disease of [place] coronary artery without angina pectoris (3) Dyslipidemia Current Visit: No Status: Chronic (4) Gastroesophageal reflux Current Visit: No Status: Acute (5) Hypertension Current Visit: No Status: Acute (6) Chronic atrial fibrillation Onset Date: 07/30/18 Current Visit: No Status: Chronic Plan: Will continue Eliquis at this time -hold beta-rachel at this time due to blood pressure. (7) Chronic kidney disease Current Visit: No Status: Chronic Plan: Creatinine currently at baseline Qualifiers: Chronic kidney disease stage: stage 3 (moderate) Qualified Code(s): N18.3 - Chronic kidney disease, stage 3 (moderate) (8) Anemia Current Visit: No Status: Chronic Plan: H&H stable. Continue to monitor H&H -transfuse if less than 7 (9) Pathologic humeral fracture Current Visit: Yes Status: Acute Plan: -patient with fracture on the left side, secondary to the renal cell carcinoma/ metastasis -Dr. Rios, Recommendations appreciated. No surgical intervention planned , discussed with family. Continue medication management. -continue pain control Qualifiers: Pathology associated with fracture: neoplastic disease Encounter type: initial encounter Laterality: left Qualified Code(s): M84.522A - Pathological fracture in neoplastic disease, left humerus, initial encounter for fracture - Plan DVT prophylaxis: Treatment As above GI prophylaxis: None Diet: Mechanical chopped foods Disposition: Overall, patient has a very poor prognosis due to the 2 CVAs, with complete right-sided deficit now with pathological fracture on the left humerus. The patient currently declining, not tolerating p.o. as well. Goals of care discussion had with family,.Seems family does not understand the true gravity of patient's situation at this time. Family states that they will discuss with other family members in regards to code status as well as further goals of care. Hospice was also discussed, family not sure at this time.They are leaning more towards SNF. Will consult SW.
[2019-07-11] MEDS: ATORVASTATIN 20 MG TAB PO SCH (20:02)
[2019-07-11] MEDS: DOCUSATE NA/SENNA CONC 1 TAB PO SCH (20:02)
[2019-07-12] MEDS: NA CHLORIDE 0.9% 1,000 ML IV SCH ×2 (04:02→18:50)
[2019-07-12] MEDS: INSULIN -REGULAR HUMAN 50 UNIT/0.5 ML ML SQ SCH ×4 (07:30→20:58)
[2019-07-12] MEDS: MEGESTROL 400 MG/10 ML UCUP PO SCH ×2 (09:00→20:57)
[2019-07-12] MEDS: FE SULF/FA/VIT B COMP & C TAB PO SCH (09:00)
[2019-07-12] MEDS: INSULIN GLARGINE 100 UNITS/ML SQ SCH (09:05)
[2019-07-12] MEDS: METOPROLOL XL 25 MG TAB PO SCH ×2 (09:08→14:05)
[2019-07-12] MEDS: APIXABAN 2.5 MG TABLET PO SCH ×2 (09:08→20:57)
[2019-07-12] MEDS: FINASTERIDE 5 MG TAB PO SCH (09:08)
[2019-07-12] MEDS: FERROUS SULFATE 325 MG TAB PO SCH (09:08)
[2019-07-12] MEDS: SUCRALFATE 1GM/10ML UCUP PO SCH ×4 (09:09→20:57)
[2019-07-12] MEDS: FENTANYL 25 MCG/PATCH TD SCH (09:10)
[2019-07-12] MEDS: Pantoprazole (granules) 40 MG/BLIST PACKET PO SCH (09:13)
--- NOTE | 2019-07-12 12:11 | P.PN ---
Subjective Date of Service: 07/12/19 Chief Complaint: Right-sided weakness Subjective: No new changes Patient seen and examined at bedside. family at bedside. Chart reviewed and case discussed with nursing staff. Patient continues to be sleepy Review of Systems 10-point ROS is otherwise unremarkable Physical Examination - Vital Signs Temperature: 97.4 F Blood Pressure: 119/55 Pulse: 110 Respirations: 16 Pulse Ox (%): 96 - Physical Exam General: In no apparent distress, Other (Drowsy) HEENT: Atraumatic, PERRLA, EOMI Neck: Supple, JVD not distended Respiratory: Clear to auscultation bilaterally, Normal air movement Cardiovascular: Regular rate/rhythm, Normal S1 S2 Gastrointestinal: Normal bowel sounds, No tenderness Musculoskeletal: No tenderness Neurological: Abnormal gait, Abnormal speech, Abnormal strength, Abnormal tone, Abnormal reflexes Assessment And Plan - Current Problems (Diagnosis) (1) Cerebrovascular accident (stroke) Current Visit: No Status: Acute Plan: Patient with symptoms of acute CVA -CT scan of the head negative for acute bleed -MRI of the brain with Small acute CVA suspected right anterior basal ganglia measuring 6 mm. Additional 19 mm left periventricular white matter acute CVA seen. Neither of these areas of infarct show any evidence of acute hemorrhage. Acute CVA noted bilaterally in the periventricular region -MRA of the brain with no significant flow abnormality of the [place] is identified -echocardiogram done, dilated left atrium with normal ejection fraction of 60%, and aortic valve sclerosis. -neurology consulted, recommendations appreciated -patient is not a candidate for T-PA: He is currently on Eliquis, and received did this morning. -we will continue Eliquis, aspirin, statin -overall, patient has a very poor prognosis. Qualifiers: Laterality of affected vessel: bilateral (2) CAD (coronary artery disease) Current Visit: Yes Status: Acute Qualifiers: Coronary Disease-Associated Artery/Lesion type: [place] artery [place] vs. transplanted heart: [place] heart Associated angina: without angina Qualified Code(s): I25.10 - Atherosclerotic heart disease of [place] coronary artery without angina pectoris (3) Dyslipidemia Current Visit: No Status: Chronic (4) Gastroesophageal reflux Current Visit: No Status: Chronic Qualifiers: Esophagitis presence: esophagitis presence not specified Qualified Code(s) : K21.9 - Gastro-esophageal reflux disease without esophagitis (5) Hypertension Current Visit: No Status: Chronic Qualifiers: Hypertension type: essential hypertension Qualified Code(s): I10 - Essential (primary) hypertension (6) Chronic atrial fibrillation Onset Date: 07/30/18 Current Visit: No Status: Chronic Plan: Will continue Eliquis at this time -hold beta-rachel at this time due to blood pressure. (7) Chronic kidney disease Current Visit: No Status: Chronic Plan: Creatinine currently at baseline Qualifiers: Chronic kidney disease stage: stage 3 (moderate) Qualified Code(s): N18.3 - Chronic kidney disease, stage 3 (moderate) (8) Anemia Current Visit: No Status: Chronic Plan: H&H stable. Continue to monitor H&H -transfuse if less than 7 (9) Pathologic humeral fracture Current Visit: Yes Status: Acute Plan: -patient with fracture on the left side, secondary to the renal cell carcinoma/ metastasis -Dr. Rios, Recommendations appreciated. No surgical intervention planned , discussed with family. Continue medication management. -continue pain control Qualifiers: Pathology associated with fracture: neoplastic disease Encounter type: initial encounter Laterality: left Qualified Code(s): M84.522A - Pathological fracture in neoplastic disease, left humerus, initial encounter for fracture - Plan DVT prophylaxis: Treatment As above GI prophylaxis: None Diet: Mechanical chopped foods Disposition: Overall, patient has a very poor prognosis due to the 2 CVAs, with complete right-sided deficit now with pathological fracture on the left humerus. The patient currently declining, not tolerating p.o. as well. Goals of care discussion had with family,.Seems family does not understand the true gravity of patient's situation at this time. Family states that they will discuss with other family members in regards to code status as well as further goals of care. Hospice was also discussed, family not sure at this time.They are leaning more towards SNF. Pending SW consultation
[2019-07-12] MEDS: ATORVASTATIN 20 MG TAB PO SCH (20:57)
[2019-07-12] MEDS: DOCUSATE NA/SENNA CONC 1 TAB PO SCH (20:57)
[2019-07-13] MEDS: INSULIN -REGULAR HUMAN 50 UNIT/0.5 ML ML SQ SCH ×4 (07:30→21:00)
[2019-07-13] MEDS ORDERED: MAGNESIUM SULFATE 1 gm IVPB 1 GM/100 ML BAG IV ONE (07:30)
[2019-07-13] MEDS: INSULIN GLARGINE 100 UNITS/ML SQ SCH (08:28)
[2019-07-13] MEDS: SUCRALFATE 1GM/10ML UCUP PO SCH ×4 (08:28→20:15)
[2019-07-13] MEDS: Pantoprazole (granules) 40 MG/BLIST PACKET PO SCH (08:29)
[2019-07-13] MEDS: FE SULF/FA/VIT B COMP & C TAB PO SCH (08:29)
[2019-07-13] MEDS: FERROUS SULFATE 325 MG TAB PO SCH (08:31)
[2019-07-13] MEDS: METOPROLOL XL 25 MG TAB PO SCH ×2 (08:31→14:00)
[2019-07-13] MEDS: FINASTERIDE 5 MG TAB PO SCH (08:32)
[2019-07-13] MEDS: APIXABAN 2.5 MG TABLET PO SCH ×2 (08:32→20:15)
[2019-07-13] MEDS: MEGESTROL 400 MG/10 ML UCUP PO SCH ×2 (08:36→20:15)
--- NOTE | 2019-07-13 10:08 | P.PN ---
Subjective Date of Service: 07/13/19 Chief Complaint: Right-sided weakness Subjective: No new changes Patient seen and examined at bedside. family at bedside. Chart reviewed and case discussed with nursing staff. Patient continues to be sleepy Review of Systems 10-point ROS is otherwise unremarkable Physical Examination - Vital Signs Temperature: 97.3 F Blood Pressure: 109/59 Pulse: 101 Respirations: 16 Pulse Ox (%): 95 - Physical Exam General: In no apparent distress, Cachectic, Other (drowsy but arousable) Neck: Supple, JVD not distended Respiratory: Clear to auscultation bilaterally, Normal air movement Cardiovascular: Regular rate/rhythm, Normal S1 S2 Neurological: Abnormal gait, Abnormal speech, Abnormal tone, Abnormal sensation - Studies Laboratory Data (last 24 hrs) 07/13/19 05:33: Magnesium 1.6 L Assessment And Plan - Current Problems (Diagnosis) (1) Cerebrovascular accident (stroke) Current Visit: No Status: Acute Plan: Patient with symptoms of acute CVA -CT scan of the head negative for acute bleed -MRI of the brain with Small acute CVA suspected right anterior basal ganglia measuring 6 mm. Additional 19 mm left periventricular white matter acute CVA seen. Neither of these areas of infarct show any evidence of acute hemorrhage. Acute CVA noted bilaterally in the periventricular region -MRA of the brain with no significant flow abnormality of the [place] is identified -echocardiogram done, dilated left atrium with normal ejection fraction of 60%, and aortic valve sclerosis. -neurology consulted, recommendations appreciated -patient is not a candidate for T-PA: He is currently on Eliquis, and received did this morning. -we will continue Eliquis, aspirin, statin -overall, patient has a very poor prognosis. Qualifiers: Laterality of affected vessel: bilateral (2) CAD (coronary artery disease) Current Visit: Yes Status: Acute Qualifiers: Coronary Disease-Associated Artery/Lesion type: [place] artery [place] vs. transplanted heart: [place] heart Associated angina: without angina Qualified Code(s): I25.10 - Atherosclerotic heart disease of [place] coronary artery without angina pectoris (3) Dyslipidemia Current Visit: No Status: Chronic (4) Gastroesophageal reflux Current Visit: No Status: Chronic Qualifiers: Esophagitis presence: esophagitis presence not specified Qualified Code(s) : K21.9 - Gastro-esophageal reflux disease without esophagitis (5) Hypertension Current Visit: No Status: Chronic Qualifiers: Hypertension type: essential hypertension Qualified Code(s): I10 - Essential (primary) hypertension (6) Chronic atrial fibrillation Onset Date: 07/30/18 Current Visit: No Status: Chronic Plan: Will continue Eliquis at this time -hold beta-rachel at this time due to blood pressure. (7) Chronic kidney disease Current Visit: No Status: Chronic Plan: Creatinine currently at baseline Qualifiers: Chronic kidney disease stage: stage 3 (moderate) Qualified Code(s): N18.3 - Chronic kidney disease, stage 3 (moderate) (8) Anemia Current Visit: No Status: Chronic Plan: H&H stable. Continue to monitor H&H -transfuse if less than 7 (9) Pathologic humeral fracture Current Visit: Yes Status: Acute Plan: -patient with fracture on the left side, secondary to the renal cell carcinoma/ metastasis -Dr. Rios, Recommendations appreciated. No surgical intervention planned , discussed with family. Continue medication management. -continue pain control Qualifiers: Pathology associated with fracture: neoplastic disease Encounter type: initial encounter Laterality: left Qualified Code(s): M84.522A - Pathological fracture in neoplastic disease, left humerus, initial encounter for fracture - Plan DVT prophylaxis: Treatment As above GI prophylaxis: None Diet: Mechanical chopped foods Disposition: Overall, patient has a very poor prognosis due to the 2 CVAs, with complete right-sided deficit now with pathological fracture on the left humerus. The patient currently declining, not tolerating p.o. as well. Goals of care discussion had with family,.Seems family does not understand the true gravity of patient's situation at this time. Family states that they will discuss with other family members in regards to code status as well as further goals of care. Hospice was also discussed, family not sure at this time.They are leaning more towards SNF. Pending placement
[2019-07-13] MEDS: TRAMADOL HCL 50 MG TAB PO PRN ×2 (12:11→17:37)
[2019-07-13] MEDS: NA CHLORIDE 0.9% 1,000 ML IV SCH ×2 (15:00→21:05)
[2019-07-13] MEDS: ATORVASTATIN 20 MG TAB PO SCH (20:14)
[2019-07-13] MEDS: DOCUSATE NA/SENNA CONC 1 TAB PO SCH (20:14)
[2019-07-14 05:54] LABS: Magnesium 1.6 mg/dL (1.8-2.4)
[2019-07-14] MEDS ORDERED: METOPROLOL TARTRATE 5 MG/5 ML INJ IV STA (06:10)
[2019-07-14] MEDS ORDERED: NA CHLORIDE 0.9% 250 ML IV ONE (06:11)
[2019-07-14] MEDS ORDERED: Magnesium Sulfate 2gm IVPB 2 G/50 ML BAG IV ONE (06:36)
[2019-07-14 07:09] LABS: Lymphocytes % 34.6 % (15.3-44.8); MPV 9.2 fL (7.6-11.3)
[2019-07-14 07:13] LABS: Absolute Lymphocytes (CBC) 3.9 K/uL (0.7-4.9); Hematocrit 21.7 % (39.6-49.0); RBC Red Blood Cell Count 2.57 M/uL (4.33-5.43)
[2019-07-14] MEDS ORDERED: MAGNESIUM SULFATE 1 gm IVPB 1 GM/100 ML BAG IV ONE (07:30)
[2019-07-14] MEDS: INSULIN -REGULAR HUMAN 50 UNIT/0.5 ML ML SQ SCH ×4 (07:30→21:00)
[2019-07-14] MEDS: FE SULF/FA/VIT B COMP & C TAB PO SCH (09:48)
[2019-07-14] MEDS: METOPROLOL XL 25 MG TAB PO SCH ×3 (09:48→13:49)
[2019-07-14] MEDS: APIXABAN 2.5 MG TABLET PO SCH ×2 (09:48→21:53)
[2019-07-14] MEDS: INSULIN GLARGINE 100 UNITS/ML SQ SCH (09:48)
[2019-07-14] MEDS: SUCRALFATE 1GM/10ML UCUP PO SCH ×4 (09:48→21:53)
[2019-07-14] MEDS: Pantoprazole (granules) 40 MG/BLIST PACKET PO SCH (09:48)
--- NOTE | 2019-07-14 09:48 | P.PN ---
Subjective Date of Service: 07/14/19 Chief Complaint: Right-sided weakness Subjective: No new changes Patient seen and examined at bedside. family at bedside. Chart reviewed and case discussed with nursing staff. Patient continues to be sleepy Review of Systems 10-point ROS is otherwise unremarkable Physical Examination - Vital Signs Temperature: 97.1 F Blood Pressure: 103/57 Pulse: 105 Respirations: 16 Pulse Ox (%): 93 - Physical Exam General: Other (drowsy, but arousable) HEENT: Atraumatic, PERRLA, EOMI Neck: Supple, JVD not distended Cardiovascular: Regular rate/rhythm, Normal S1 S2 Gastrointestinal: Normal bowel sounds, No tenderness Neurological: Abnormal gait, Abnormal speech, Abnormal strength, Abnormal tone, Abnormal sensation - Studies Laboratory Data (last 24 hrs) 07/14/19 06:52: WBC 11.2 H D, Hgb 7.3 L*, Hct 21.7 L, Plt Count 123 L 07/14/19 05:19: Sodium 143, Potassium 5.0, BUN 48 H, Creatinine 1.96 H, Glucose 133 H, Magnesium 1.6 L Assessment And Plan - Current Problems (Diagnosis) (1) Cerebrovascular accident (stroke) Current Visit: No Status: Acute Plan: Patient with symptoms of acute CVA -CT scan of the head negative for acute bleed -MRI of the brain with Small acute CVA suspected right anterior basal ganglia measuring 6 mm. Additional 19 mm left periventricular white matter acute CVA seen. Neither of these areas of infarct show any evidence of acute hemorrhage. Acute CVA noted bilaterally in the periventricular region -MRA of the brain with no significant flow abnormality of the elem of [place] is identified -echocardiogram done, dilated left atrium with normal ejection fraction of 60%, and aortic valve sclerosis. -neurology consulted, recommendations appreciated -patient is not a candidate for T-PA: He is currently on Eliquis, and received did this morning. -we will continue Eliquis, aspirin, statin -overall, patient has a very poor prognosis. Qualifiers: Laterality of affected vessel: bilateral (2) CAD (coronary artery disease) Current Visit: Yes Status: Acute Qualifiers: Coronary Disease-Associated Artery/Lesion type: [place] artery [place] vs. transplanted heart: [place] heart Associated angina: without angina Qualified Code(s): I25.10 - Atherosclerotic heart disease of [place] coronary artery without angina pectoris (3) Dyslipidemia Current Visit: No Status: Chronic (4) Gastroesophageal reflux Current Visit: No Status: Chronic Qualifiers: Esophagitis presence: esophagitis presence not specified Qualified Code(s) : K21.9 - Gastro-esophageal reflux disease without esophagitis (5) Hypertension Current Visit: No Status: Chronic Qualifiers: Hypertension type: essential hypertension Qualified Code(s): I10 - Essential (primary) hypertension (6) Chronic atrial fibrillation Onset Date: 07/30/18 Current Visit: No Status: Chronic Plan: Will continue Eliquis at this time -hold beta-rachel at this time due to blood pressure. (7) Chronic kidney disease Current Visit: No Status: Chronic Plan: Creatinine currently at baseline Qualifiers: Chronic kidney disease stage: stage 3 (moderate) Qualified Code(s): N18.3 - Chronic kidney disease, stage 3 (moderate) (8) Anemia Current Visit: No Status: Chronic Plan: H&H stable. Continue to monitor H&H -transfuse if less than 7 (9) Pathologic humeral fracture Current Visit: Yes Status: Acute Plan: -patient with fracture on the left side, secondary to the renal cell carcinoma/ metastasis -Dr. Rios, Recommendations appreciated. No surgical intervention planned , discussed with family. Continue medication management. -continue pain control Qualifiers: Pathology associated with fracture: neoplastic disease Encounter type: initial encounter Laterality: left Qualified Code(s): M84.522A - Pathological fracture in neoplastic disease, left humerus, initial encounter for fracture - Plan DVT prophylaxis: Treatment As above GI prophylaxis: None Diet: Mechanical chopped foods Disposition: Overall, patient has a very poor prognosis due to the 2 CVAs, with complete right-sided deficit now with pathological fracture on the left humerus. The patient currently declining, not tolerating p.o. as well. Goals of care discussion had with family,.Seems family does not understand the true gravity of patient's situation at this time. Family states that they will discuss with other family members in regards to code status as well as further goals of care. Hospice was also discussed, family not sure at this time.They are leaning more towards SNF. Pending placement
[2019-07-14] MEDS: FERROUS SULFATE 325 MG TAB PO SCH (09:49)
[2019-07-14] MEDS: FINASTERIDE 5 MG TAB PO SCH (09:49)
[2019-07-14] MEDS: MEGESTROL 400 MG/10 ML UCUP PO SCH ×2 (09:53→21:53)
[2019-07-14] MEDS: TRAMADOL HCL 50 MG TAB PO PRN ×3 (12:20→21:56)
--- NOTE | 2019-07-14 13:03 | EKG ---
Test Date: 2019-07-14 Test Time: 05:37:16 Lead Driver: RT Morales MEASUREMENT RESULTS: Intervals: Rate: 115 HI: QRSD: 90 QT: 294 QTc: 406 Wilson: P: 83 HI: QRS: 5 T: 79 INTERPRETIVE STATEMENTS: Atrial flutter with variable AV block Abnormal ECG Compared to ECG 07/08/2019 11:17:37 ST (T wave) deviation now present Myocardial infarct finding now present Myocardial infarct finding now present Atrial fibrillation no longer present Electronically Signed On 07-14-19 13:03:05 CDT by Michoacano Cho
[2019-07-14] MEDS: NA CHLORIDE 0.9% 1,000 ML IV SCH (13:46)
[2019-07-14] MEDS: METOPROLOL TAR 25 MG TAB PO SCH (14:02)
[2019-07-14 14:25] LABS: Absolute Lymphocytes (CBC) 2.1 K/uL (0.7-4.9); Basophils % 0.5 % (0-1.3); Hematocrit 23.5 % (39.6-49.0); Lymphocytes % 25.8 % (15.3-44.8); MPV 8.6 fL (7.6-11.3); RBC Red Blood Cell Count 2.77 M/uL (4.33-5.43)
[2019-07-14] MEDS: ATORVASTATIN 20 MG TAB PO SCH (21:53)
[2019-07-14] MEDS: DOCUSATE NA/SENNA CONC 1 TAB PO SCH (21:53)
[2019-07-15 04:30] LABS: Magnesium 1.8 mg/dL (1.8-2.4); Potassium 4.6 mmol/L (3.5-5.1)
[2019-07-15] MEDS: TRAMADOL HCL 50 MG TAB PO PRN ×2 (06:10→12:21)
[2019-07-15] MEDS: INSULIN -REGULAR HUMAN 50 UNIT/0.5 ML ML SQ SCH ×4 (07:30→20:54)
[2019-07-15] MEDS: FINASTERIDE 5 MG TAB PO SCH (08:39)
[2019-07-15] MEDS: SUCRALFATE 1GM/10ML UCUP PO SCH ×4 (08:39→20:53)
[2019-07-15] MEDS: METOPROLOL TAR 25 MG TAB PO SCH ×2 (08:41→14:00)
[2019-07-15] MEDS: INSULIN GLARGINE 100 UNITS/ML SQ SCH (08:41)
[2019-07-15] MEDS: FE SULF/FA/VIT B COMP & C TAB PO SCH (08:41)
[2019-07-15] MEDS: APIXABAN 2.5 MG TABLET PO SCH ×2 (08:41→20:54)
[2019-07-15] MEDS: Pantoprazole (granules) 40 MG/BLIST PACKET PO SCH (08:41)
[2019-07-15] MEDS: FERROUS SULFATE 325 MG TAB PO SCH (08:41)
[2019-07-15] MEDS: MEGESTROL 400 MG/10 ML UCUP PO SCH ×2 (08:47→20:53)
[2019-07-15] MEDS: NA CHLORIDE 0.9% 1,000 ML IV SCH (08:57)
[2019-07-15] MEDS ORDERED: MAGNESIUM SULFATE 1 gm IVPB 1 GM/100 ML BAG IV ONE (09:00)
[2019-07-15] MEDS: FENTANYL 25 MCG/PATCH TD SCH (09:00)
--- NOTE | 2019-07-15 09:10 | P.PN ---
Subjective Date of Service: 07/15/19 Chief Complaint: Right-sided weakness Subjective: No new changes Patient seen and examined at bedside. family at bedside. Chart reviewed and case discussed with nursing staff. Patient continues to be sleepy. Tolerating mechanical chopped foods when prompted, otherwise falls asleep in middle of eating. No acute events noted overnight. Review of Systems 10-point ROS is otherwise unremarkable Physical Examination - Vital Signs Temperature: 97.1 F Blood Pressure: 100/48 Pulse: 96 Respirations: 17 Pulse Ox (%): 93 - Physical Exam General: Other (Drowsy, arousable, weak ) HEENT: Atraumatic, PERRLA, EOMI Neck: Supple, JVD not distended Respiratory: Clear to auscultation bilaterally, Normal air movement Cardiovascular: Regular rate/rhythm, Normal S1 S2 Gastrointestinal: Normal bowel sounds, No tenderness Musculoskeletal: No tenderness Integumentary: No rashes Neurological: Abnormal gait, Abnormal speech, Abnormal strength, Abnormal tone, Abnormal sensation, Abnormal cranial nerve function - Studies Laboratory Data (last 24 hrs) 07/15/19 03:50: Sodium 142, Potassium 4.6, BUN 46 H, Creatinine 1.99 H, Glucose 138 H, Magnesium 1.8 07/14/19 : WBC Cancelled, Hgb Cancelled, Hct Cancelled, Plt Count Cancelled 07/14/19 14:15: WBC 8.2 D, Hgb 7.8 L*, Hct 23.5 L, Plt Count 150 L D Assessment And Plan - Current Problems (Diagnosis) (1) Cerebrovascular accident (stroke) Current Visit: No Status: Acute Plan: Patient with symptoms of acute CVA -CT scan of the head negative for acute bleed -MRI of the brain with Small acute CVA suspected right anterior basal ganglia measuring 6 mm. Additional 19 mm left periventricular white matter acute CVA seen. Neither of these areas of infarct show any evidence of acute hemorrhage. Acute CVA noted bilaterally in the periventricular region -MRA of the brain with no significant flow abnormality of the [place] of [place] is identified -echocardiogram done, dilated left atrium with normal ejection fraction of 60%, and aortic valve sclerosis. -neurology consulted, recommendations appreciated -patient was not a candidate for T-PA: He is currently on Eliquis, and received did this morning. -we will continue Eliquis, aspirin, statin -overall, patient has a very poor prognosis. Qualifiers: Laterality of affected vessel: bilateral (2) CAD (coronary artery disease) Current Visit: Yes Status: Acute Qualifiers: Coronary Disease-Associated Artery/Lesion type: [place] artery [place] vs. transplanted heart: [place] heart Associated angina: without angina Qualified Code(s): I25.10 - Atherosclerotic heart disease of [place] coronary artery without angina pectoris (3) Dyslipidemia Current Visit: No Status: Chronic (4) Gastroesophageal reflux Current Visit: No Status: Chronic Qualifiers: Esophagitis presence: esophagitis presence not specified Qualified Code(s) : K21.9 - Gastro-esophageal reflux disease without esophagitis (5) Hypertension Current Visit: No Status: Chronic Qualifiers: Hypertension type: essential hypertension Qualified Code(s): I10 - Essential (primary) hypertension (6) Chronic atrial fibrillation Onset Date: 07/30/18 Current Visit: No Status: Chronic Plan: Will continue Eliquis at this time -hold beta-rachel at this time due to blood pressure. (7) Chronic kidney disease Current Visit: No Status: Chronic Plan: Creatinine currently at baseline Qualifiers: Chronic kidney disease stage: stage 3 (moderate) Qualified Code(s): N18.3 - Chronic kidney disease, stage 3 (moderate) (8) Anemia Current Visit: No Status: Chronic Plan: H&H stable. Continue to monitor H&H -transfuse if less than 7 (9) Pathologic humeral fracture Current Visit: Yes Status: Acute Plan: -patient with fracture on the left side, secondary to the renal cell carcinoma/ metastasis -Dr. Rios, Recommendations appreciated. No surgical intervention planned , discussed with family. Continue medication management. -continue pain control Qualifiers: Pathology associated with fracture: neoplastic disease Encounter type: initial encounter Laterality: left Qualified Code(s): M84.522A - Pathological fracture in neoplastic disease, left humerus, initial encounter for fracture (10) Renal cell carcinoma Current Visit: Yes Status: Acute Plan: with metastasis. Qualifiers: Laterality: unspecified laterality Qualified Code(s): C64.9 - Malignant neoplasm of unspecified kidney, except renal pelvis - Plan DVT prophylaxis: Treatment As above GI prophylaxis: None Diet: Mechanical chopped foods Disposition: Overall, patient has a very poor prognosis due to theunderlying RCC with metastasis, 2 CVAs, with complete right-sided deficit now with pathological fracture on the left humerus. Patient was previously pursuing active chemo treatment and was sent to rehab prior to firther treatment. He had an acute CVA in Rehab with complete right sided weakness. Then developed a pathological fracture in the left humerus. Extensive goals of care discussion had with family; they are not practical and I think do not understand patient's overall condition. Hospice option was also discussed. They would like to pursue SNF placement at this time for further PT. SW on board. Pending family to make a decision as to what facility and placement. They still have not made a decision regarding code status therefore, patient continues to be full code.
[2019-07-15] MEDS: ATORVASTATIN 20 MG TAB PO SCH (20:53)
[2019-07-15] MEDS: DOCUSATE NA/SENNA CONC 1 TAB PO SCH (20:54)
[2019-07-16] MEDS: NA CHLORIDE 0.9% 1,000 ML IV SCH ×2 (01:51→20:26)
[2019-07-16 05:26] VITALS: BMI 25.7
[2019-07-16] MEDS: INSULIN -REGULAR HUMAN 50 UNIT/0.5 ML ML SQ SCH ×4 (07:30→20:26)
[2019-07-16] MEDS: SUCRALFATE 1GM/10ML UCUP PO SCH ×4 (08:56→20:23)
[2019-07-16] MEDS: INSULIN GLARGINE 100 UNITS/ML SQ SCH (08:56)
[2019-07-16] MEDS: MEGESTROL 400 MG/10 ML UCUP PO SCH ×2 (08:56→20:23)
[2019-07-16] MEDS: FINASTERIDE 5 MG TAB PO SCH (08:57)
[2019-07-16] MEDS: FE SULF/FA/VIT B COMP & C TAB PO SCH (08:57)
[2019-07-16] MEDS: Pantoprazole (granules) 40 MG/BLIST PACKET PO SCH (08:57)
[2019-07-16] MEDS: APIXABAN 2.5 MG TABLET PO SCH ×2 (08:57→20:23)
[2019-07-16] MEDS: FERROUS SULFATE 325 MG TAB PO SCH (08:57)
[2019-07-16 12:04] LABS: Hematocrit 24.3 % (39.6-49.0)
--- NOTE | 2019-07-16 12:29 | PN ---
Patient is seen and examined. Chart reviewed and case discussed with RN. No family at the bedside. Patient reports some pain in his left arm. Code Status: Full. Medications: List reviewed. Physical Examination: Vital Signs: Temperature 97.5, heart rate 103, blood pressure 140/61, respirations 16, O2 at 93% on room air. General: Awake, alert, oriented x2, elderly male, ill appearing, in some mild distress. CV: S1, S2. Irregularly irregular. Peripheral pulses weak. Respiratory: Diminished breath sounds. No wheezing or stridor. Gastrointestinal: Abdomen is soft, nontender, nondistended. Positive bowel sounds. Extremities: No clubbing, cyanosis, or edema. Musculoskeletal: Left arm in sling. Decreased range of motion. Neuro: Weakness on the right side. Speech is normal. Laboratory Data: Pending. Assessment: 84-year-old male with; 1.Acute cerebrovascular accident. MRI of the brain shows small acute cerebrovascular accident in th e right anterior basal ganglia measuring 6 mm. Additional 19 mm left periventricular white matter, a cute cerebrovascular accident is seen, no acute hemorrhage, acute cerebrovascular accident noted bila terally in the periventricular region. MRA of the brain with no significant flow abnormality in the [place] of [place]. Echo shows dilated left atrium, EF of 60% and aortic valve sclerosis. Patient is on Eliquis, aspirin, statin. We will continue with stroke guidelines. Neurology on board. Patient is on modified diet. 2.Coronary artery disease [place] artery and [place] heart without angina. Continue with home medicat ions. 3.Mixed dyslipidemia. Continue statin. 4.Gastroesophageal reflux disease without esophagitis, stable. 5.Essential hypertension, stable. 6.Chronic atrial fibrillation, on Eliquis. Patient has controlled ventricular rate, on metoprolol f or rate control. 7.Chronic kidney disease stage 3. Currently at baseline. 8.Pathologic humerus fracture on the left, initial encounter secondary to neoplastic disease. Patie nt has been evaluated by Dr. Ibanez. No surgical intervention planned at this time. We will cont inue pain management. 9.Anemia. We will repeat H and H today. Continue to monitor. Last hemoglobin was 7.8 on the . 10.Renal cell carcinoma with metastases. 11.Deep vein thrombosis prophylaxis. The patient is on Eliquis. Plan: Patient is unable to go to rehab due to complete right-sided weakness. Hospice was discussed with the family, however, they want to pursue SNF per Dr. Kingston's discussion with family. I will rogelio ch out of the family as well. The patient is a full code, has multiple comorbid conditions including CVAs, right-sided deficits, left humerus fracture not amenable to surgery at this time and renal adam l carcinoma with mets. Overall poor prognosis. /TERRANCE Voice ID: [id number] Report ID: [id number]
[2019-07-16] MEDS: DOCUSATE NA/SENNA CONC 1 TAB PO SCH (20:24)
[2019-07-16] MEDS: ATORVASTATIN 20 MG TAB PO SCH (20:24)
[2019-07-17] MEDS ORDERED: Magnesium Sulfate 2gm IVPB 2 G/50 ML BAG IV ONE (05:35)
[2019-07-17] MEDS: TRAMADOL HCL 50 MG TAB PO PRN ×2 (05:46→12:48)
[2019-07-17] MEDS ORDERED: METOPROLOL TAR 25 MG TAB PO SCH (06:00)
[2019-07-17] MEDS: INSULIN -REGULAR HUMAN 50 UNIT/0.5 ML ML SQ SCH ×2 (07:30→11:30)
[2019-07-17] MEDS: INSULIN GLARGINE 100 UNITS/ML SQ SCH (09:36)
[2019-07-17] MEDS: MEGESTROL 400 MG/10 ML UCUP PO SCH (09:37)
[2019-07-17] MEDS: APIXABAN 2.5 MG TABLET PO SCH (09:37)
[2019-07-17] MEDS: FINASTERIDE 5 MG TAB PO SCH (09:37)
[2019-07-17] MEDS: FERROUS SULFATE 325 MG TAB PO SCH (09:37)
[2019-07-17] MEDS: Pantoprazole (granules) 40 MG/BLIST PACKET PO SCH (09:37)
[2019-07-17] MEDS: SUCRALFATE 1GM/10ML UCUP PO SCH ×2 (09:37→11:28)
[2019-07-17] MEDS: FE SULF/FA/VIT B COMP & C TAB PO SCH (09:38)
[2019-07-17 12:08] VITALS: O2SAT 93
[2019-07-17 13:28] VITALS: BP 115/65; TEMP 97.6
[2019-07-17] MEDS ORDERED: GLUCERNA SHAKE 237 ML CAN PO SCH (21:00)
--- NOTE | 2019-07-18 03:49 | DS ---
Date of Discharge: 07/17/2019 Consultants: Dr. Brooks, Neurology. Dr. Ibanez with Orthopedic Surgery. Procedures: None. Admitting Diagnoses: 1.Acute cerebrovascular accident, right anterior basal ganglia and left periventricular white matter without hemorrhage. 2.Coronary artery disease, [place] artery and [place] heart without angina. 3.Diabetes mellitus type 2, insulin requiring with hyperglycemia. 4.Mixed dyslipidemia. 5.Gastroesophageal reflux disease without esophagitis. 6.Essential hypertension. 7.Chronic atrial fibrillation on Eliquis. 8.Chronic kidney disease stage 3. 9.Chronic anemia, likely anemia of chronic disease. Discharge Diagnoses: 1.Acute cerebrovascular accident, right basal ganglia and left periventricular white matter without hemorrhage. 2.Coronary artery disease, [place] artery and [place] heart without angina, stable. 3.Mixed hyperlipidemia, on statin. 4.Gastroesophageal reflux disease without esophagitis, stable. 5.Essential hypertension, stable. 6.Diabetes mellitus type 2 insulin requiring with hyperglycemia, stable. 7.Essential hypertension, stable. 8.Chronic atrial fibrillation on Eliquis. 9.Chronic kidney disease stage 3, stable. 10.Pathologic humerus fracture on the left, initial encounter secondary to neoplastic disease. 11.Renal cell carcinoma with metastases. 12.Anemia of chronic disease, stable. 13.Hypomagnesemia, replaced. Hospital Course: Patient is an 84-year-old male with past medical history of CVA, previous CVA, diab etes, atrial fibrillation, heart disease, was in rehab, had sudden onset of right-sided weakness. Gabe rodriguez was admitted to the ICU for his initial symptoms. He was not a candidate for tPA due to his El iquis which he received that same morning. The patient was seen by Neurology. A workup was done inc luding MRI of the brain and MRA. MRI did not show any abnormalities of [place] of [place]. MRI of the brain showed acute CVA as mentioned in the periventricular region on the left with no hemorrhage. R epeat CT scan was also done to check for hemorrhagic conversion. There was no hemorrhage noted on th e subsequent CT scan. Patient was started on stroke guidelines with high-dose statin. Eliquis was c ontinued. Patient did have pain in his left arm and swelling. This was evaluated with x-ray showed pathologic fracture of the midshaft of the left humerus. This was thought to be due to his renal adam l carcinoma with METS. He was seen by Dr. Ibanez, Orthopedics, did not recommend any surgical int ervention at this time. Recommended further evaluation as outpatient, placement of jordon would be to s tabilize the humerus and to decrease pain, however, due to inability to have arteriogram and emboliza tion operative intervention was not considered feasible, especially in the new onset of ischemic stro ke and patient being on blood thinners will need to be reassessed on an outpatient basis. Patient wa s placed in a sling. Family was approached for hospice care due to patient's multiple comorbid condi tions, dementia, history of CVA, and other comorbidities, however, family wished to pursue skilled nu rsing facility placement. Patient was referred to [facility] and was accepted. He was then discharged o nce accepted to halfway facility. Medications: As per medication reconciliation list. Followup: Follow up with primary care physician in 2-3 days. Follow up with neurologist, Dr. Lucas riley in 2 weeks. Follow up with orthopedic surgeon, Dr. Ibanez in 2 weeks. Return to ER for worsen ing condition. Diet: Modified diet. Activity: Fall precautions. Physical Examination: General: Awake, alert, oriented x3, elderly male. CV: S1, S2. Respiratory: Moving air well bilaterally. Abdomen: Soft, nontender, nondistended. Positive bowel sounds. Extremities: No clubbing or cyanosis. Patient has left arm in sling. Neuro: Right sided weakness. Time Spent: Total time spent discharging the patient was 41 minutes. /TERRANCE Voice ID: [id number] Report ID: [id number]
== END 2019-07-17 16:36 | DRG 65 ==
LOC: 3RD-ICU 11:30 → 4TH 07-11 03:37
PROVIDERS: ADMIT Family Medicine; ATTEND Family Medicine
DX: I63.9 Cerebral infarction, unspecified (principal); G81.91 Hemiplegia, unspecified affecting right dominant side; I48.20 Chronic atrial fibrillation, unspecified; M84.522A Pathological fracture in neoplastic disease, left humerus, initial encounter for fracture; C64.9 Malignant neoplasm of unspecified kidney, except renal pelvis; C79.9 Secondary malignant neoplasm of unspecified site; Z79.01 Long term (current) use of anticoagulants; I25.10 Atherosclerotic heart disease of native coronary artery without angina pectoris; K21.9 Gastro-esophageal reflux disease without esophagitis; D64.9 Anemia, unspecified; N18.3 Chronic kidney disease, stage 3 (moderate); I12.9 Hypertensive chronic kidney disease with stage 1 through stage 4 chronic kidney disease, or unspecified chronic kidney disease; E11.9 Type 2 diabetes mellitus without complications; L89.152 Pressure ulcer of sacral region, stage 2; N40.0 Benign prostatic hyperplasia without lower urinary tract symptoms
CPT/HCPCS: 36415; 70450; 70544; 70551; 80048; 80053; 80061; 80076; 82550; 82553; 82962; 83735; 84100; 84436; 84439; 84443; 84484; 85014; 85018; 85025; 85610; 85652; 85730; 92523; 92526; 92610; 93005; 93306; 97110; 97112; 97161; 97530; J1815; J2997; J3010; J3475; J7030